=== PATIENT | male | born 1945 | race Caucasian/White ===

== ENCOUNTER 2021-06-21 11:07 | Outpatient (REF) | payer MEDICARE, SELFPAY ==
--- NOTE | ~2021-06-21 | XR_ITS ---
EXAMINATION: XR CHEST CLINICAL INFORMATION: Cough COMPARISON: None TECHNIQUE: 2 views of the chest were obtained. FINDINGS: The lungs are well expanded. There is no focal consolidation, edema, or effusion. No pneumothorax. The cardiomediastinal silhouette is within normal limits. No acute osseous abnormality. XR/XR chest 2V IMPRESSION: No acute pulmonary finding.
== END 2021-06-21 11:08 | disposition home or self-care (01) ==
LOC: HO.XRAY 11:07
PROVIDERS: PCP Internal Medicine Geriatric Medicine; Visit Provider Internal Medicine Geriatric Medicine
DX: R05.9 Cough, unspecified (principal)
CPT/HCPCS: 71046

== ENCOUNTER → 2021-11-21 11:23 | Outpatient (BNVA) | payer MEDICARE, SELFPAY | PROVIDERS: PCP Internal Medicine Geriatric Medicine; Referring Provider Internal Medicine Geriatric Medicine; Visit Provider Nurse Practitioner Family | DX: Z12.11 Encounter for screening for malignant neoplasm of colon (principal) | CPT/HCPCS: 99202 ==

== ENCOUNTER 2022-04-03 07:26 | Day surgery (SDC) | payer MEDICARE, SELFPAY ==
[2022-03-28 16:13] VITALS: BMI 34.3
--- NOTE | 2022-03-31 11:57 | HO.ANESPROP2 ---
Documented by User: Meron Cleveland NP 03/31/22 11:59 HPI - Anesthesia Eval Consult details Narrative: 76yo M for Colonoscopy FORMERLY [facility], [facility] Past Medical History Medical History (Updated 04/03/22 @ 07:39 by Simran Negrete MD) Diabetes HTN (hypertension) Prostate CA Family History Family History (Updated 11/21/21 @ 11:45 by Nona Che) Mother Bone cancer Father Diabetes Surgical History Surgical History History of prostate surgery History of urologic surgery Hx of appendectomy Hx of colonoscopy Hx of testicular mass Hx of umbilical hernia repair Social History Social History Household Members: Spouse Alcohol intake: current Alcohol intake frequency: holidays/special occasions only Patient Tobacco Use Status: Current everyday Tobacco user Tobacco use type: Cigar Smoked in Last 30 Days: Yes Are you DNR?: No Advance Directives: No Advance Directives Information Provided: Yes Meds Allergies Allergy/AdvReac Type Severity Reaction Status Date / Time Iodinated Contrast Media Allergy Severe ANAPHYLAXIS Verified 11/21/21 11:31 [IV CONTRAST] Home Medications Medication Instructions Recorded Confirmed Last Taken Type amlodipine 10 mg tablet 10 mg PO DAILY 11/21/21 04/03/22 History losartan 50 mg tablet 50 mg PO DAILY 11/21/21 Unknown History metformin 500 mg tablet 500 mg PO 11/21/21 Unknown History Exam Exam Date and Time: March 31, 2022 1157 Height,Weight and Vital Signs: Height 5 ft 4 in Weight 90.718 kg Assessment and Plan Assessment Anesthesia Assessment: Chart Reviewed Documented by User: Tania Fountain MD 04/03/22 08:37 FORMERLY [facility], [facility] Past Medical History Medical History (Updated 04/03/22 @ 07:39 by Simran Negrete MD) Diabetes HTN (hypertension) Prostate CA Family History Family History (Updated 11/21/21 @ 11:45 by Nona Che) Mother Bone cancer Father Diabetes Family history of problems with anesthesia: No Surgical History Surgical History History of prostate surgery History of urologic surgery Hx of appendectomy Hx of colonoscopy Hx of testicular mass Hx of umbilical hernia repair History of Problems with Anesthesia: No Social History Social History Household Members: Spouse Alcohol intake: current Alcohol intake frequency: holidays/special occasions only Patient Tobacco Use Status: Current everyday Tobacco user Tobacco use type: Cigar Smoked in Last 30 Days: Yes Are you DNR?: No Advance Directives: No Advance Directives Information Provided: Yes Meds Allergies Allergy/AdvReac Type Severity Reaction Status Date / Time Iodinated Contrast Media Allergy Severe ANAPHYLAXIS Verified 11/21/21 11:31 [IV CONTRAST] Home Medications Medication Instructions Recorded Confirmed Last Taken Type amlodipine 10 mg tablet 10 mg PO DAILY 11/21/21 04/03/22 History losartan 50 mg tablet 50 mg PO DAILY 11/21/21 Unknown History metformin 500 mg tablet 500 mg PO 11/21/21 Unknown History Exam Airway Mallampati Class: II TM Dist: >3cm Neck ROM: Full Denture: Upper and Lower Heart: rrr Lungs: cta Assessment and Plan Assessment Anesthesia Assessment: Anesthesia Plan Discussed Final Anesthetic Review Family History of Problems with Anesthesia: No History of Problems with Anesthesia: No NPO: Yes ASA Class: II Final Preanesthetic Review: No Changes in Pt Med Stat, Meds/Allgs Chart Reviewed and Consent Obtained/Reviewed Patient Risk: Intermediate Procedure Risk: Intermediate Anesthetic Plan Anesthetic Plan: MAC: Disposition: Standard PACU
[2022-04-03 07:30] VITALS: BMI 33.5
--- NOTE | 2022-04-03 07:38 | MHC.SHP ---
Pre-Procedural Eval Section A Date of Service: 04/03/22 The patient is an INPATIENT: No The History & Physical has been completed within 30 days and I have reviewed it.: No Section B Chief Complaint: Colon cancer screening Details of Present Illness: Colon cancer screening Relevant Family History (Specify if Yes): No Relevant Social History: Tobacco Use Present Medications: see Short Stay Collaborative assessment Medical History: Significant History (Diabetes mellitus, hypertension) History of Previous Operations: Relevant previous surgery/procedure and date(s) (History of prostate surgery History of urologic surgery Hx of appendectomy Hx of colonoscopy Hx of testicular mass Hx of umbilical hernia repair) Allergies: Allergies Allergy/AdvReac Type Severity Reaction Status Date / Time Iodinated Contrast Media Allergy Severe ANAPHYLAXIS Verified 11/21/21 11:31 [IV CONTRAST] Review of Systems Sugical H&P ROS: Negative: Constitution, Cardiovascular, Respiratory and Gastrointestinal Exam Surgical H&P Exam: Normal: Heart, Normal: Lungs, Normal: Extremities and Normal: Abdomen Plan Diagnosis/Plan: Unchanged I have reviewed the history and physical and performed a pertinent physical examination on my patient. No changes have occurred unless specified.
[2022-04-03 07:53] VITALS: BP 132/83; PULSE 76; RESP 18; TEMP 36.2; O2SAT 96
[2022-04-03 08:06] LABS: Glucose, Whole Blood 120 mg/dL (60-115)
[2022-04-03] MEDS: Lactated Ringers 1,000 ML 100 ML IVCONT (08:15)
--- NOTE | 2022-04-03 08:26 | P.OP_ITS ---
Operative Note Operative Note Date of Service: 04/03/22 Narrative: Pre-op diagnosis: Colon cancer screening Post-op diagnosis:?other ( colon polyps, diverticulosis, hemorrhoids) Procedure: COLONOSCOPY TILL CECUM WITH BIOPSIES AND SNARE POLYPECTOMY Consent: Indications for the procedure and potential complications of bleeding, perforation, reaction to medications and missed diagnosis were discussed with the patient and informed consent was obtained. Instrument: Olympus PCF H 190 L variable stiffness pediatric colonoscope Monitoring: Vital signs and clinical assessment, intermittent blood pressure monitoring, continuous EKG monitoring, Pulse oximetry and Carbon Dioxide monitoring were done throughout the procedure. Colon withdrawl time was 23 minutes. Procedure: The patient was placed in the left lateral decubitis position and pre-procedure medications were administered. After a digital rectal examination of the ano-rectum, the video colonoscope was inserted into the rectum and advanced through the colon to the cecum. The colonoscope was slowly withdrawn in a retrograde panoramic fashion and the colon mucosa was carefully examined including a retroflexed view of the rectum. Findings and interventions are described below. Procedure Difficulty: Without difficulty Findings: Terminal Ileum: Not evaluated Cecum:? Normal Ascending Colon:? Scattered moderate diverticulosis throughout the colon Transverse Colon:? Scattered moderate diverticulosis throughout the colon Descending Colon:? Scattered moderate diverticulosis throughout the colon Sigmoid Colon:? Two 5-7 mm diminutive appearing polyps - removed by cold bx. Scattered moderate diverticulosis throughout the colon Rectum:? Two 8 - 10 mm diminutive appearing polyps removed with a cold snare. Ano-rectum:? Moderate internal hemorrhoids Colon preparation:? Good after some irrigation and Fair in some areas due to stool balls Impression and Post Procedure Diagnosis: Colonoscopy Findings: Four small polyps removed Moderate diverticulosis seen in the entire colon Moderate hemorrhoids on retroflexed exam. Plan: Await pathology results Patient has an appointment on 04/17/22 in the GI [facility] with Katarina Liang FNP- [facility]. Repeat Colonoscopy interval based on path results - in 3-5 years if polyps are adenomatous and due to fair prep in some areas of the colon. (needs extra dose of laxatives - ? Duloclax x 3 days prior to the procedure for future colonoscopies) Above findings were reviewed with the patient and colon polyps and diverticulosis handouts were given in the discharge area Surgeon: Simran Negrete MD Anesthesia:?MAC (Dr Lopez) Was an Manager Architectural used for this Procedure?:?Yes Manager Architectural:?Day Garg Estimated blood loss (mL):?0 Pathology:?other (A. sigmoid polyps (2)? B. rectal polyps (2)) Condition:?stable Disposition:?PACU
[2022-04-03 09:20] VITALS: BP 115/63; PULSE 75; RESP 22; TEMP 36.9; O2SAT 95
[2022-04-03 09:35] VITALS: BP 109/84; PULSE 70; RESP 20; O2SAT 96
[2022-04-03 09:50] VITALS: BP 122/68; PULSE 67; RESP 18; TEMP 36.9; O2SAT 96
== END 2022-04-03 10:17 | disposition home or self-care (01) ==
PROVIDERS: PCP Internal Medicine Geriatric Medicine; Visit Provider Internal Medicine Gastroenterology
PROC: 0DJD8ZZ Inspection of Lower Intestinal Tract, Via Natural or Artificial Opening Endoscopic (ICD-10-PCS; CPT 45378; principal; 2022-04-03 08:30)
DX: Z12.11 Encounter for screening for malignant neoplasm of colon (principal); K63.5 Polyp of colon; K62.1 Rectal polyp; K57.30 Diverticulosis of large intestine without perforation or abscess without bleeding; K64.8 Other hemorrhoids; E11.9 Type 2 diabetes mellitus without complications; I10 Essential (primary) hypertension; Z85.46 Personal history of malignant neoplasm of prostate; Z79.84 Long term (current) use of oral hypoglycemic drugs; Z79.899 Other long term (current) drug therapy; Z91.041 Radiographic dye allergy status; Z98.890 Other specified postprocedural states; F17.210 Nicotine dependence, cigarettes, uncomplicated
CPT/HCPCS: 45385; 45380; 82947; 88305

== ENCOUNTER → 2022-04-17 08:00 | Outpatient (BNVA) | payer MEDICARE, SELFPAY | PROVIDERS: PCP Internal Medicine Geriatric Medicine; Referring Provider Internal Medicine Geriatric Medicine; Visit Provider Nurse Practitioner Family | DX: K57.90 Diverticulosis of intestine, part unspecified, without perforation or abscess without bleeding (principal); Z98.890 Other specified postprocedural states | CPT/HCPCS: 99212 ==

== ENCOUNTER 2022-10-06 14:09 | Outpatient (REF) | payer MEDICARE, SELFPAY ==
--- NOTE | ~2022-10-06 | XR_ITS ---
EXAMINATION: XR CHEST CLINICAL INFORMATION: Cough, dyspnea on exertion and crackles on auscultation. COMPARISON: Chest radiographs 06/21/2021 TECHNIQUE: 2 views of the chest were obtained. FINDINGS: Heart is upper limits of normal size, similar to prior study. The vascularity is normal. The lungs are clear. There is no hyperinflation, infiltrate, or effusion. The hilar and mediastinal contours and bony structures are similar to prior exam. XR/XR chest 2V IMPRESSION: No acute intrathoracic disease.
== END 2022-10-06 14:10 | disposition home or self-care (01) ==
LOC: HO.XRAY 14:09
PROVIDERS: PCP Internal Medicine Geriatric Medicine; Visit Provider Internal Medicine Geriatric Medicine
DX: R09.89 Other specified symptoms and signs involving the circulatory and respiratory systems (principal); R06.09 Other forms of dyspnea
CPT/HCPCS: 71046

== ENCOUNTER 2022-12-05 16:07 | Outpatient (REF) | payer MEDICARE, SELFPAY ==
--- NOTE | ~2022-12-05 | XR_ITS ---
EXAMINATION: XR LUMBOSACRAL SPINE CLINICAL INFORMATION: Low back pain COMPARISON: None available. TECHNIQUE: Three views of the lumbosacral spine. FINDINGS: Bone alignment is normal. No fracture or dislocation. Multilevel degenerative spondylosis and facet arthritis. No disc space narrowing. Severe atherosclerotic disease. Arthritis at the hip joints. XR/XR lumbar spine 2-3V IMPRESSION: Degenerative changes. Severe atherosclerotic disease.
== END 2022-12-05 16:08 | disposition home or self-care (01) ==
LOC: HO.HHCX 16:07
PROVIDERS: Visit Provider Internal Medicine Geriatric Medicine
DX: G51.0 Bell's palsy (principal)
CPT/HCPCS: 72100

== ENCOUNTER 2023-03-28 13:49 | Outpatient (AMB) | payer MEDICARE, SELFPAY ==
--- NOTE | 2023-03-28 14:12 | MHC.OFFVIS ---
Intake Vital Signs 03/28/23 14:15 Height 5 ft 4 in Weight 193 lb BMI 33.1 BP 125/72 Blood Pressure Location Lt brachial Position Sitting Pulse 71 Intake Visit Reasons: follow up requested from patient Intake Note: Patient follow up Patient cc: acid reflex on and off. Denies any other GI issues. Checking Department Supervisor Required: No Accompanied by: Spouse Allergies Iodinated Contrast Media [IV CONTRAST] Allergy (Severe, Verified 03/28/23 14:11) ANAPHYLAXIS HPI follow up requested from patient HPI Details LAST VISIT Diverticulosis Moderate diverticulosis throughout the colon. Discussed with patient diverticulosis diet. His encourage him to increase fiber in his diet. Patient can take [id number] fiber supplement. Patient his takes fiber supplements and they will get that ltog-ctq-recmrtm. Patient will also start taking stool softener. Patient's states that she has that at home as well because she takes it herself. Status post colonoscopy Patient denies any ill effects from the prep, anesthesia or procedure itself. Patient denies any melena, hematochezia, unintentional weight loss or ribbon like stools. Results discussed with patient. Patient does have moderate diverticulosis as mentioned above and was encouraged to increase fiber in his diet. Two hyperplastic polyps found. Patient had suboptimal prep and will need to return for colorectal screening in 3 years. I will see him in 3 months to re-evaluate. He is agreeable to this plan and verbalizes understanding of instructions. He was given the opportunity to ask questions and all questions answered. TODAY'S VISIT: Patient is here today for follow-up. Patient reports that he is moving his bowels without any issues. Taking stool softener only every other day. Patient denies melena, hematochezia, unintentional weight loss of in like stools. Patient reports occasional acid reflux postprandially. Patient reports that he uses hot sauce a lot. Does not eat much of fiber. cooks vegetables, however he chooses not to eat vegetables. Patient denies dyspepsia, dysphagia or odynophagia. Patient is due to return for colonoscopy in March of 2025. Patient denies any other GI concerning symptoms. FORMERLY [facility], [facility] Medical History (Updated 04/17/22 @ 09:24 by Katarina Liang [facility]) Diverticulosis Diabetes HTN (hypertension) Prostate CA Surgical History History of urologic surgery Hx of colonoscopy Hx of appendectomy Hx of testicular mass Hx of umbilical hernia repair History of prostate surgery Family History Mother Bone cancer Father Diabetes Social History Household Members: Spouse Alcohol intake: current Alcohol intake frequency: holidays/special occasions only Patient Tobacco Use Status: Current everyday Tobacco user Tobacco use type: Cigar Review of Systems Const Denies weight gain and Denies weight loss ENT Reports no additional complaints, Denies dysphagia and Denies odynophagia Card Reports no additional complaints Resp Reports no additional complaints GI Denies abdominal pain, Denies belching, Denies melena, Denies bloating, Denies change in bowel habits, Denies dysphagia, Denies excessive flatus, Denies dyspepsia, Reports heartburn, Denies diarrhea, Denies loose stools, Denies nausea, Denies odynophagia and Denies vomiting Reports no additional complaints Musc Reports no additional complaints Neuro Reports no additional complaints Psych Reports no additional complaints Endo Reports no additional complaints Physical Exam Vital Signs: Last Vital Signs Pulse 71 03/28/23 14:15 BP 125/72 03/28/23 14:15 BMI result Body Mass Index 33.1 Const General: healthy appearing, no acute distress and well developed Nutritional Appearance: obese Orientation/consciousness: patient oriented x3 HEENT Head: Yes normal to inspection, Yes normocephalic and Yes atraumatic Face and sinus: Yes normal facial exam Mouth: Normal oral and palatal mucosa present Throat: Yes posterior oropharynx normal, Yes tonsils normal and Yes uvula midline Eyes General: appearance normal, both eyes and all related structures Neck Neck: Yes normal visual inspection, Yes full ROM and Yes trachea midline Thyroid: Thyroid normal Resp Effort & Inspection: normal respiratory effort, able to speak in complete sentences, no tracheal deviation and symmetric chest movement Auscultation: clear to auscultation bilaterally Cardio Rate: regular rate Heart sounds: S1 normal heart sound present and S2 normal heart sound present GI Inspection: Yes normal to inspection, No distended and Yes obesity Palpation (GI): Soft to palpation, not firm, nontender and No hepatosplenomegaly present Auscultation: normal bowel sounds General: Yes no CVA tenderness Back/Spine/Pelvis Back: no CVA tenderness Skin General skin exam: elasticity normal, turgor normal and dry skin Neuro General: patient oriented x3 Psych Appearance: grossly normal Mental Status: mental status grossly normal Speech and movement: Normal speech and movement present Assessment & Plan Assessment & Plan (1) Diverticulosis: Code(s): K57.90 - Diverticulosis of intestine, part unspecified, without perforation or abscess without bleeding Plan: Continue high-fiber diet (2) GERD (gastroesophageal reflux disease): Code(s): K21.9 - Gastro-esophageal reflux disease without esophagitis Qualifiers: Esophagitis presence: esophagitis presence not specified Qualified Code(s): K21.9 - Gastro-esophageal reflux disease without esophagitis Plan: Avoid dietary triggers a late night snacking. Stay upright for minimum 3 hours after meals discussed with patient. Patient can start taking omeprazole 20 mg half an hour before breakfast. He will return in 1 year, sooner on as needed basis. Patient is agreeable to this plan and verbalizes understanding of instructions. He was given the opportunity to ask questions and all questions answered. Thank you for allowing me to participate in his care Medications: New omeprazole 20 mg PO DAILY 90 caps 2RF K21.9 - Gastro-esophageal reflux disease without esophagitis Coding Level of Care Code Est Pt Level 3 (70229) Diagnoses Diverticulosis K57.90 Gastroesophageal reflux disease, unspecified whether esophagitis present K21.9 Esophagitis presence: esophagitis presence not specified Time Spent (min) 25 Comment 15 minutes spent with patient and additional 10 minutes spent reviewing his records
[2023-03-28 14:15] VITALS: BP 125/72; PULSE 71; BMI 33.1
== END 2023-03-28 14:35 | disposition home or self-care (01) ==
PROVIDERS: PCP Internal Medicine Geriatric Medicine; Visit Provider Nurse Practitioner Family
DX: K57.90 Diverticulosis of intestine, part unspecified, without perforation or abscess without bleeding (principal); K21.9 Gastro-esophageal reflux disease without esophagitis
CPT/HCPCS: 99213

== ENCOUNTER → 2023-03-28 13:49 | Outpatient (BNVA) | payer MEDICARE, SELFPAY | PROVIDERS: PCP Internal Medicine Geriatric Medicine; Visit Provider Nurse Practitioner Family | DX: K57.90 Diverticulosis of intestine, part unspecified, without perforation or abscess without bleeding (principal); K21.9 Gastro-esophageal reflux disease without esophagitis | CPT/HCPCS: 99212 ==

== ENCOUNTER 2023-11-21 09:54 | Outpatient (AMB) | payer MEDICARE, SELFPAY ==
--- NOTE | 2023-11-21 10:05 | MHC.OFFVIS ---
Vital Signs 11/21/23 10:07 Height 5 ft 4 in Weight 191 lb BMI 32.8 BP 147/71 H Blood Pressure Location Lt brachial Position Sitting Respiration 14 Pulse 83 Pulse Source Pulse Oximeter Pulse Oximetry (%) 96 Oxygen Delivery Method Room Air Intake Visit Reasons: chronic low back pain Allergies Iodinated Contrast Media [IV CONTRAST] Allergy (Severe, Verified 11/21/23 10:08) ANAPHYLAXIS Medication List - Last Reconciled 11/21/23 by Maxine Pillai LPN amlodipine 10 mg PO DAILY docusate sodium (Stool Softener) 100 mg PO DAILY ezetimibe 10 mg PO DAILY losartan 50 mg PO DAILY metformin 500 mg PO jxkaxquhgale-netamsjo-bltyst 1 tab PO DAILY HPI HPI chronic low back pain: Details: This is a 78 year old gentleman presenting with a 12-year history of severe back pain that radiates to his bilateral lower extremities. The problem started while he was working. The pain is described as an aching sensation in his lower back that radiates towards his bilateral lower extremities. It is also associated with burning and numbness in his feet, the pain in his back is rated as 8 out of 10. The burning sensation in his right leg is rated at 6 out of 10 in intensity. He is able to care for himself, but the pain interferes with his sleep and daily activities. His pain is worse with weather changes and movements. It is worse during the afternoon and evenings when it is up to 8 out of 10 in intensity. At other times, it is down to about 5 to 6 out of 10 and intensity, topical medications help sometimes. He is able to walk on his own, but needs help with the walker. Currently, he is not taking any medications for pain. He previously had an x-ray at [facility] that showed severe spondylosis at multiple levels throughout the lumbar spine. Also complains of right foot drop. His reports that he has difficulty moving his right leg and often finds himself dragging it because of weakness. [facility] Medical History (Updated 11/27/23 @ 15:55 by Jaime Alvarado MD) Diverticulosis Diabetes HTN (hypertension) Prostate CA Surgical History History of urologic surgery Hx of colonoscopy Hx of appendectomy Hx of testicular mass Hx of umbilical hernia repair History of prostate surgery Family History Mother Bone cancer Father Diabetes Social History Household Members: Spouse Alcohol intake: current Alcohol intake frequency: holidays/special occasions only Patient Tobacco Use Status: Current everyday Tobacco user Tobacco use type: Cigar Review of Systems Const All systems reviewed & are unremarkable except as noted in HPI and below Physical Exam Vital Signs: Last Vital Signs Pulse 83 11/21/23 10:07 Resp 14 11/21/23 10:07 BP 147/71 H 11/21/23 10:07 Pulse Ox 96 11/21/23 10:07 Oxygen Delivery Method Room Air 11/21/23 10:07 BMI result Body Mass Index 32.8 General: Appears afebrile. Alert and oriented. Mood and affect appropriate. Follows and participates in conversation appropriately. Respiratory effort is unlabored. Able to transition from sit to stand unassisted. He is able to stand on his toes and heels bilaterally at the same time. However, when asked to stand on his right toe alone, he has subjective difficulty compared to the left side. Facet loading reproduces pain. Results Reviewed Results Reviewed: 12/05/22: XR LUMBOSACRAL SPINE FINDINGS: Bone alignment is normal. No fracture or dislocation. Multilevel degenerative spondylosis and facet arthritis. No disc space narrowing. Severe atherosclerotic disease. Arthritis at the hip joints. IMPRESSION: Degenerative changes. Severe atherosclerotic disease. Assessment & Plan Assessment & Plan (1) Lumbar radiculopathy: Code(s): M54.16 - Radiculopathy, lumbar region Category: Medical (2) Lumbar spondylosis: Code(s): M47.816 - Spondylosis without myelopathy or radiculopathy, lumbar region Category: Medical Plan MRI of the lumbar spine given history of lower back pain, radiating pain to the legs, as well as right foot drop and right lower extremity weakness. For his axial low back pain secondary to severe spondylosis on his imaging and exam, we will schedule him for bilateral L3, L4, L5 medial branch block. Justification for interventional therapy: Patient with average pain > 6/10 Patient has exhausted conservative therapy including physical therapy and oral medications Scribed for Dr. Alvarado by Sania Marcial claim review medical director, on 11/21/2023. I, Dr. Alvarado, have personally reviewed and agree with the information entered by the scribe. Orders: Orders MR lumbar spine wo con 11/21/23 M54.16 - Radiculopathy, lumbar region Coding Level of Care Code New Pt Level 4 (60823) Diagnoses Lumbar radiculopathy M54.16 Lumbar spondylosis M47.816
[2023-11-21 10:07] VITALS: BP 147/71; PULSE 83; RESP 14; O2SAT 96; BMI 32.8
== END 2023-11-21 10:45 | disposition home or self-care (01) ==
PROVIDERS: PCP Internal Medicine Geriatric Medicine; Visit Provider Internal Medicine
DX: M54.16 Radiculopathy, lumbar region (principal); M47.816 Spondylosis without myelopathy or radiculopathy, lumbar region
CPT/HCPCS: 99204

== ENCOUNTER → 2023-11-21 09:54 | Outpatient (BNVA) | payer MEDICARE, SELFPAY | PROVIDERS: PCP Internal Medicine Geriatric Medicine; Visit Provider Internal Medicine | DX: M54.16 Radiculopathy, lumbar region (principal); M47.816 Spondylosis without myelopathy or radiculopathy, lumbar region | CPT/HCPCS: 99202 ==

== ENCOUNTER 2023-12-05 12:47 | Outpatient (REF) | payer MEDICARE, SELFPAY ==
--- NOTE | ~2023-12-05 | XR_ITS ---
EXAMINATION: XR CHEST CLINICAL INFORMATION: Cough and shortness of breath COMPARISON: 10/06/2022 TECHNIQUE: 2 views of the chest were obtained. FINDINGS: No significant abnormality is noted involving the heart, lungs, mediastinum, bony thorax or soft tissues. Some bibasilar atelectasis have been present previously has resolved. XR/XR chest 2V IMPRESSION: Unremarkable examination.
== END 2023-12-05 12:48 | disposition home or self-care (01) ==
LOC: HO.HHCX 12:47
PROVIDERS: Visit Provider Family Medicine
DX: R05.1 Acute cough (principal)
CPT/HCPCS: 71046

== ENCOUNTER 2023-12-06 06:10 | Outpatient (REF) | payer MEDICARE, SELFPAY | END 2023-12-06 06:11 | disposition home or self-care (01) | LOC: CF 06:10 | PROVIDERS: Visit Provider Internal Medicine | DX: Z13.89 Encounter for screening for other disorder (principal) ==

== ENCOUNTER 2023-12-06 08:00 | Outpatient (REF) | payer MEDICARE, SELFPAY ==
--- NOTE | ~2023-12-06 | MM_ITS ---
EXAMINATION: MM DIAGNOSTIC DIGITAL BREAST TOMOSYNTHESIS, RIGHT US BREAST LIMITED, RIGHT MAMMOGRAPHY: CLINICAL INFORMATION: 2 cm firm mobile palpable abnormality right breast 10:00 axis. COMPARISON: Mammography: None. Baseline exam. TECHNIQUE: Digital breast tomosynthesis is performed in both the craniocaudal and mediolateral oblique views along with computer-aided detection (CAD). Synthesized 2D images are generated from the tomosynthesis. In addition, spot compression 3-D views of the right breast palpable focus were provided. FINDINGS: The breasts are almost entirely fatty (ACR BI-RADS breast composition Category a). There are no significant masses, abnormal calcifications, or other abnormalities. The palpable abnormality in the right breast at the marked by a BB marker by the technologist. No definite subjacent mass is evident. There is a tortuous artery which lies directly under the BB marker, although is unlikely to represent a palpable focus. No suspicious calcifications, or areas of architectural distortion in either breast. No evidence of gynecomastia. ULTRASOUND: CLINICAL INFORMATION: Palpable abnormality 10:00 axis right breast, 2 cm firm and mobile. COMPARISON: None TECHNIQUE: Targeted sonographic evaluation was performed using a high frequency linear transducer. Attention was given to the palpable focus right breast. Selected archived documentation. FINDINGS: RIGHT BREAST: -There are 3 distinct subcutaneous lipomas directly at the region of palpable concern. A superficial subcutaneous lipoma measures 1.8 x 1.1 x 1.3 cm. An immediately more lateral lipoma is present with a diameter measuring 2.6 cm. Deep to both of these is a lipoma lying on the pectoralis muscle measuring 3.5 x 1.5 x 3.8 cm. No internal color Doppler flow or soft tissue elements are identified. No associated calcifications. There is good through transmission. These have a thin echogenic capsule surrounding them. These findings are benign. There are no suspicious finding. MM/MM tomosynthesis diagnostic BI IMPRESSION: There are no findings suspicious for malignancy in either breast. Region of palpable concern 10:00 axis right breast represents 3 grouped subcutaneous lipomas, which are benign. There are no suspicious features. Clinical management recommended if warranted. OVERALL ASSESSMENT: Mammography: BI-RADS 2 - Benign Findings Ultrasound: BI-RADS 2 - Benign Findings RECOMMENDATION: 1. Patient should be managed based on the clinical impression.
== END 2023-12-06 08:01 | disposition home or self-care (01) ==
LOC: HO.MAMMO 08:00
PROVIDERS: PCP Internal Medicine Geriatric Medicine; Visit Provider Family Medicine
DX: N63.11 Unspecified lump in the right breast, upper outer quadrant (principal)
CPT/HCPCS: 76642; 77062; 77066

== ENCOUNTER → 2023-12-06 08:30 | Outpatient (BNV) | payer MEDICARE, SELFPAY | PROVIDERS: PCP Internal Medicine Geriatric Medicine; Visit Provider Radiology Diagnostic Radiology | DX: N63.11 Unspecified lump in the right breast, upper outer quadrant (principal) | CPT/HCPCS: 76642; 77065; G0279 ==

== ENCOUNTER 2024-01-30 08:05 | Outpatient (REF) | payer MEDICARE, SELFPAY ==
[2024-01-30 08:30] LABS: MANUAL DIFF FLAG NO
[2024-01-30 08:55] LABS: Basophils Absolute Auto 0.1 X10*3/uL (0.0-0.2); Basophils Percent Auto 1.8 % (0-2); Eosinophils Absolute Auto 0.5 X10*3/uL (0.0-0.4); Eosinophils Percent Auto 6.2 % (0-4); Hemoglobin 13.2 g/dl (14.0-18.0); Imm Gran Abs Auto 0.03 X10*3/uL (0.00-0.03); Imm Gran Pct Auto 0.4 % (0.0-0.4); Lymphocytes Absolute Auto 1.9 X10*3/uL (1.2-4.9); Lymphocytes Percent Auto 24.7 % (20-40); Mean Corpuscular Hemoglobin 27.4 pg (27.0-33.0); Mean Corpuscular Volume 83.2 fL (80.0-98.0); Mean Platelet Volume 9.4 fL (9.4-12.4); Monocytes Absolute Auto 0.9 X10*3/uL (0.1-1.2); Neutrophils Absolute Auto 4.3 x10*3/uL (2.0-8.3); Neutrophils Percent Auto 54.9 % (45-73); Platelet Count 320 X10*3/uL (160-400); Red Blood Count 4.81 X10*6/uL (4.60-5.80); Red Cell Distribution Width 14.8 % (11.0-16.0); White Blood Count 7.8 X10*3/uL (4.8-10.8)
[2024-01-30 09:24] LABS: Anion Gap 13 (12-20); Blood Urea Nitrogen 15 mg/dL (9-16); Carbon Dioxide 22 mmol/L (22-29); Chloride 106 mmol/L (96-108); Potassium 4.3 mmol/L (3.3-5.1); Sodium 137 mmol/L (135-145)
[2024-01-30 09:25] LABS: Alanine Aminotransferase 14 U/L (0-40); Alkaline Phosphatase 60 U/L (39-117); Aspartate Amino Transferase 13 U/L (5-37); Bilirubin Total 0.3 mg/dL (0.0-1.0); Calcium 9.7 mg/dL (8.4-10.2); Cholesterol 180 mg/dL (<200); Estimated Glomerular Filt Rate 57; Glucose Random 108 mg/dL (60-115); HDL Cholesterol 40 mg/dL (>40); LDL Cholesterol Calculated 100 mg/dL (<100); Total Protein 6.8 g/dL (6.5-8.0); Triglycerides 200 mg/dL (<150)
[2024-01-30 10:05] LABS: Creatinine Urine 103.25 mg/dL; Microalbum/Creatinine Ratio Ur 79.4 ug/mg cr (<30)
== END 2024-01-30 08:06 | disposition home or self-care (01) ==
LOC: HO.LAB 08:05
PROVIDERS: PCP Internal Medicine Geriatric Medicine; Visit Provider Internal Medicine Geriatric Medicine
DX: E78.00 Pure hypercholesterolemia, unspecified (principal); E11.69 Type 2 diabetes mellitus with other specified complication; I10 Essential (primary) hypertension; M54.50 Low back pain, unspecified; G89.29 Other chronic pain
CPT/HCPCS: 36415; 80053; 80061; 82043; 82570; 85025

== ENCOUNTER 2024-05-09 08:25 | Outpatient (AMB) | payer MEDICARE, SELFPAY ==
--- NOTE | 2024-05-09 08:29 | A.OFFVIS_ITS ---
Vital Signs 05/09/24 08:35 Height 5 ft 4 in Weight 197 lb 1.492 oz BMI 33.8 BP 148/68 H Blood Pressure Location Lt brachial Position Sitting Pulse 74 Pulse Source Pulse Oximeter Pulse Oximetry (%) 95 Oxygen Delivery Method Room Air Intake Visit Reasons: Diverticulosis Intake Note: Relevant Flags or Indicators ? Requires Clay Plant Treater? N Juan Alberto presents in office today for a scheduled ~ 1 year FUV. CC; No recent labs, diagnostics, or med orders placed. ? Relevant GI Sx as reported per pt? None ? Hx of any recent surgeries? Pt had colo x3 years ago. Believes that they could possibly be due for recall. Clay Plant Treater Required: No Allergies Iodinated Contrast Media [IV CONTRAST] Allergy (Severe, Verified 05/09/24 08:31) ANAPHYLAXIS HPI HPI Diverticulosis: Details: LAST VISIT Diverticulosis Continue high-fiber diet GERD (gastroesophageal reflux disease) Avoid dietary triggers a late night snacking. Stay upright for minimum 3 hours after meals discussed with patient. Patient can start taking omeprazole 20 mg half an hour before breakfast. He will return in 1 year, sooner on as needed basis. Patient is agreeable to this plan and verbalizes understanding of instructions. He was given the opportunity to ask questions and all questions answered. ? Thank you for allowing me to participate in his care Plan Medications New omeprazole 20 mg PO DAILY 90 caps 2RF K21.9 TODAY'S VISIT Patient is here today for follow-up. Patient reports that he has been feeling well since last visit. Patient has good appetite denies any melena, hematochezia, unintentional weight loss or ribbon like stools. Patient no longer is taking omeprazole reports that he has no symptoms of acid reflux. Denies dyspepsia, dysphagia or odynophagia. Patient is accompanied by his . He is due to go for colonoscopy end of next year. Patient denies any GI concerning symptoms. [facility] Medical History Diverticulosis Diabetes HTN (hypertension) Prostate CA Surgical History History of urologic surgery Hx of colonoscopy Hx of appendectomy Hx of testicular mass Hx of umbilical hernia repair History of prostate surgery Family History Mother Bone cancer Father Diabetes Social History Household Members: Spouse Alcohol intake: current Alcohol intake frequency: holidays/special occasions only Patient Tobacco Use Status: Current everyday Tobacco user Tobacco use type: Cigar Review of Systems Const Denies weight gain and Denies weight loss ENT Reports no additional complaints, Denies dysphagia and Denies odynophagia Card Reports no additional complaints Resp Reports no additional complaints GI Denies abdominal pain, Denies belching, Denies melena, Denies bloating, Denies change in bowel habits, Denies dysphagia, Denies excessive flatus, Denies dyspepsia, Denies heartburn, Denies diarrhea, Denies loose stools, Denies nausea, Denies odynophagia and Denies vomiting Reports no additional complaints Musc Reports no additional complaints Neuro Reports no additional complaints Psych Reports no additional complaints Endo Reports no additional complaints Physical Exam Vital Signs: Last Vital Signs Pulse 74 05/09/24 08:35 BP 148/68 H 05/09/24 08:35 Pulse Ox 95 05/09/24 08:35 Oxygen Delivery Method Room Air 05/09/24 08:35 BMI result Body Mass Index 33.8 Const General: healthy appearing, no acute distress and well developed Nutritional Appearance: obese Orientation/consciousness: patient oriented x3 Resp Effort & Inspection: normal respiratory effort, able to speak in complete sentences, no tracheal deviation and symmetric chest movement Auscultation: clear to auscultation bilaterally Cardio Rate: regular rate Heart sounds: S1 normal heart sound present and S2 normal heart sound present GI Inspection: Yes normal to inspection, No distended and Yes obesity Palpation (GI): Soft to palpation, not firm, nontender and No hepatosplenomegaly present Auscultation: normal bowel sounds General: Yes no CVA tenderness Back/Spine/Pelvis Back: no CVA tenderness Skin General skin exam: elasticity normal, turgor normal and dry skin Neuro General: patient oriented x3 Psych Appearance: grossly normal Mental Status: mental status grossly normal Assessment & Plan Assessment & Plan (1) Diverticulosis: Code(s): K57.90 - Diverticulosis of intestine, part unspecified, without perforation or abscess without bleeding Category: Medical (2) GERD (gastroesophageal reflux disease): Code(s): K21.9 - Gastro-esophageal reflux disease without esophagitis Qualifiers: Esophagitis presence: esophagitis presence not specified Qualified Code(s): K21.9 - Gastro-esophageal reflux disease without esophagitis Plan Patient will continue avoiding dietary triggers. Avoid eating late at night. Staying upright for minimum 3 hours after meals discussed with patient. Increase fluid intake and activity to promote better bowel motility. Patient will return in 1 year to discuss prepping for colonoscopy. Patient will need to take Dulcolax 3-5 days before the procedure as he had suboptimal prep last procedure. Both patient and his are agreeable to plan of care and verbalizes understanding of instructions. They were given the opportunity to ask questions and all questions answered. Thank you for allowing me to participate in his care Coding Level of Care Code Est Pt Level 3 (69694) Diagnoses Diverticulosis K57.90 Gastroesophageal reflux disease, unspecified whether esophagitis present K21.9 Esophagitis presence: esophagitis presence not specified Time Spent (min) 25 Comment 15 minutes spent with patient and additional 10 minutes spent reviewing his records
[2024-05-09 08:35] VITALS: BP 148/68; PULSE 74; O2SAT 95; BMI 33.8
== END 2024-05-09 09:15 | disposition home or self-care (01) ==
PROVIDERS: PCP Internal Medicine Geriatric Medicine; Visit Provider Nurse Practitioner Family
DX: K57.90 Diverticulosis of intestine, part unspecified, without perforation or abscess without bleeding (principal); K21.9 Gastro-esophageal reflux disease without esophagitis
CPT/HCPCS: 99213

== ENCOUNTER → 2024-05-09 08:25 | Outpatient (BNVA) | payer MEDICARE, SELFPAY | PROVIDERS: PCP Internal Medicine Geriatric Medicine; Visit Provider Nurse Practitioner Family | DX: K57.90 Diverticulosis of intestine, part unspecified, without perforation or abscess without bleeding (principal); K21.9 Gastro-esophageal reflux disease without esophagitis | CPT/HCPCS: 99212 ==

== ENCOUNTER 2024-06-09 11:28 | Outpatient (REF) | payer MEDICARE, SELFPAY ==
[2024-06-09 13:18] LABS: MANUAL DIFF FLAG NO
[2024-06-09 13:35] LABS: Basophils Absolute Auto 0.1 X10*3/uL (0.0-0.2); Basophils Percent Auto 1.5 % (0-2); Eosinophils Absolute Auto 0.4 X10*3/uL (0.0-0.4); Eosinophils Percent Auto 4.4 % (0-4); Hematocrit 42.4 % (42.0-52.0); Hemoglobin 13.7 g/dl (14.0-18.0); Imm Gran Abs Auto 0.05 X10*3/uL (0.00-0.03); Imm Gran Pct Auto 0.6 % (0.0-0.4); Lymphocytes Absolute Auto 1.6 X10*3/uL (1.2-4.9); Lymphocytes Percent Auto 20.1 % (20-40); Mean Corpuscular HGB Conc 32.3 g/dl (31.0-36.0); Mean Corpuscular Hemoglobin 27.5 pg (27.0-33.0); Mean Corpuscular Volume 85.1 fL (80.0-98.0); Mean Platelet Volume 10.3 fL (9.4-12.4); Monocytes Absolute Auto 0.9 X10*3/uL (0.1-1.2); Monocytes Percent Auto 10.9 % (2-11); Neutrophils Percent Auto 62.5 % (45-73); Platelet Count 325 X10*3/uL (160-400); Red Blood Count 4.98 X10*6/uL (4.60-5.80); Red Cell Distribution Width 14.2 % (11.0-16.0)
[2024-06-09 13:53] LABS: C Reactive Protein 0.16 mg/dL (< or = 0.50)
[2024-06-09 14:20] LABS: Erythrocyte Sedimentation Rate 7 MM/HR (0-15)
== END 2024-06-09 11:29 | disposition home or self-care (01) ==
LOC: HO.HHCL 11:28
PROVIDERS: Visit Provider Nurse Practitioner Family
DX: K11.8 Other diseases of salivary glands (principal)
CPT/HCPCS: 36415; 85025; 85652; 86140

== ENCOUNTER 2024-06-11 12:54 | Outpatient (REF) | payer MEDICARE, SELFPAY ==
--- NOTE | ~2024-06-11 | US_ITS ---
EXAMINATION: US SOFT TISSUES carotid left CLINICAL INFORMATION: Pain. COMPARISON: None TECHNIQUE: High-frequency linear transducer ultrasound utilized area of interest scanned. FINDINGS: Left parotid appear normal, there is a tiny cyst within the left parotid measuring 3 x 4 mm probably of no clinical significance. No ultrasound evidence of ductal dilatation or stones. Included in the images normal shotty cervical lymph nodes with normal cortex measuring up to 6 mm and 8mm. US/US soft tiss head and/or neck IMPRESSION: No ultrasound explanation for patient's pain symptoms. Small cyst left parotid 4 mm probably of no clinical significance. Electronically signed by: Svetlana Verde MD 06/12/2024 11:31 AM SHIRLENE HARGROVE
== END 2024-06-11 12:55 | disposition home or self-care (01) ==
LOC: HO.US 12:54
PROVIDERS: PCP Internal Medicine Geriatric Medicine; Visit Provider Nurse Practitioner Family
DX: K11.8 Other diseases of salivary glands (principal)
CPT/HCPCS: 76536

== ENCOUNTER 2024-07-04 16:05 | Outpatient (REF) | payer MEDICARE, SELFPAY ==
[2024-07-04 16:18] LABS: Appearance Urine Cloudy; Color Urine Yellow; Glucose Urine UA 100 mg/dL (Negative); Leukocyte Esterase Urine Moderate (2+) (Negative); Nitrite Urine Negative (Negative); UMIC TRIGGER UACC YES; Urine Blood Moderate (2+) (Negative); Urine Ketones Trace mg/dL (Negative); Urine Protein 100 (2+) mg/dL (Neg-Trace)
[2024-07-04 16:20] LABS: Bacteria Urine Trace (None Seen); Hyaline Casts Urine 0-2 /LPF (0-2); RBC Urine >20 /HPF (0-2); Squamous Epithelial Cell Urine 0-2 /HPF (0-2); UACC Culture Trigger YES; WBC Urine >50 /HPF (0-5)
== END 2024-07-04 16:06 | disposition home or self-care (01) ==
LOC: HO.HHCLNP 16:05
PROVIDERS: Visit Provider Nurse Practitioner Family
DX: R30.0 Dysuria (principal)
CPT/HCPCS: 81001; 87086; 87088; 87186

== ENCOUNTER 2024-08-05 08:41 | Outpatient (REF) | payer MEDICARE, SELFPAY ==
[2024-08-05 11:31] LABS: Appearance Urine Clear; Color Urine Yellow; Glucose Urine UA Negative (Negative); Leukocyte Esterase Urine Negative (Negative); Nitrite Urine Negative (Negative); PH 6.5 (5.0-9.0); UMIC TRIGGER UACC YES; Urine Blood Negative (Negative); Urine Ketones Negative (Negative); Urine Protein 30 (1+) mg/dL (Neg-Trace)
[2024-08-05 11:40] LABS: Bacteria Urine None Seen (None Seen); Hyaline Casts Urine 0-2 /LPF (0-2); RBC Urine 0-2 /HPF (0-2); Squamous Epithelial Cell Urine 0-2 /HPF (0-2); WBC Urine 0-5 /HPF (0-5)
== END 2024-08-05 08:42 | disposition home or self-care (01) ==
LOC: HO.HHCL 08:41
PROVIDERS: Visit Provider Nurse Practitioner Family
DX: R30.0 Dysuria (principal)
CPT/HCPCS: 81001

== ENCOUNTER 2024-08-07 23:11 | Emergency (ER) | payer MEDICARE, SELFPAY ==
--- NOTE | ~2024-08-07 | CT_ITS ---
CLINICAL HISTORY: Dysuria, blood in urine CT abdomen and pelvis without contrast Comparison: CT of the abdomen and pelvis from 07/26/2018 Findings: Mild bibasilar atelectasis. Mild cardiomegaly with multi chamber enlargement of the imaged heart. 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 Redemonstration of multiple cystic lesions of the left kidney with largest exophytic measuring 12 cm long axis (previously 11 cm). No hydronephrosis accounting for multiple parapelvic cysts, left worse than right. These lesions in the kidneys not further characterize without contrast. No obstructing stone in either kidney or either ureter. Gallbladder is unremarkable for CT with motion artifacts. Adrenal glands are within limits of normal. The spleen is nonenlarged. Mild volume loss of the pancreas is noted. Liver is unremarkable for noncontrast imaging with motion artifacts. Small mesenteric and periaortic lymph nodes are nonspecific and may be reactive. Vascular calcifications are multifocal including imaged aorta and its branches. No small bowel obstruction. Wall thickening of the large intestine is nonspecific and likely related to underdistention in this noncontrast study including sigmoid colon. Severe stool burden is noted. Diverticula are redemonstrated multifocal. The appendix is not definitively seen with likely medially directed appendiceal stump. No free intraperitoneal air. Previous procedure changes noted including surgical clips in the josefa about right ventral abdominal wall. Moderate wall thickening of the urinary bladder is nonspecific. Prostate gland is diminutive and/or treated. Subcutaneous edema is noted dependently. Mild vertebral height losses appear old chronic. Degenerative changes include lower lumbar facet arthropathy. 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 Mild pelvis deformities appear old chronic. IMPRESSION: 1. Moderate wall thickening of the urinary bladder is nonspecific. 2. No obstructing stone in either kidney or either ureter. 3. Severe stool burden. No small bowel obstruction. This document has been electronically signed by: Stone Trejo MD on 08/08/2024 02:12:07
[2024-08-07 23:12] VITALS: BP 146/86; PULSE 92; RESP 20; TEMP 37.7; O2SAT 96; BMI 33.8
--- OUTSIDE RECORDS SUMMARY | 2024-08-07 23:42 | XMS_ITS | Encounter Summary ---
Author Organization [employer] Address [address] [place] [address] [address] [place] [address] Care Team Providers Care Health Safety Instructor Name Role Phone Name, Kayden PITTMAN Primary Care Provider [phone] Encounter Details Date Type Department Care Team (Late Contact Info) Description 12/15/[address] [facility] [address] [place] [address] [phone] Name, MD Kayden [address] [place] [phone] Social History Tobacco Use Types Packs/Day Years Used Date Smoking Tobacco: Every Day Cigars Passive Smoke Exposure: Never Smokeless Tobacco: Current Alcohol Use Standard Drinks/Week Comments Yes 0 (1 standard drink = 0.6 oz pur e alcohol) occasionally PHQ-2 Answer Date Recorded Patient Health Questionnaire-2 Score 0 06/21/2022 Depression Answer Date Recorded Patient Health Questionnaire-2 Score 0 06/21/2022 Sex and Gender Information Value Date Recorded Sex Assigned at Male 05/15/2022 10:29 AM EDT Legal Sex Male 10:29 AM EDT Gender Identity Male 05/15/2022 10:29 AM EDT Sexual Orientation Straight 05/15/2022 10 :29 AM EDT COVID-19 Exposure Response Date Recorded In the last 10 days, have yo u been in contact with someone who was confirmed or suspected to have Coronavirus/COVID-19? No / Unsure 12/05/2022 3:05 PM EDT documented as of this encounter Plan of Treatment Upcoming Encounters Date Type Department Care Team (Late Contact Info) Description 08/11/2024 9:30 AM EST Office Visit [facility] [address] [place] [address] [phone] Sera Cuevas NP [address] [place] [address] 09/26/2024 10:15 AM EDT Office Visit [facility] [address] [place] [address] Name, MD Kayden [address] [place] [address] documented as of this encounter Visit Diagnoses Not on filedocumented in this encounter Care Teams Health Safety Instructor Relationship Specialty Start Date End Date Name, MD Kayden [address] [place] [phone] PCP - General Family Medicine 08/23/15 documented as of this encounter
--- OUTSIDE RECORDS SUMMARY | 2024-08-07 23:42 | XMS_ITS | Encounter Summary ---
Author Organization [employer] Address [address] 7[address] [place] [address] Care Team Providers Care Licensed Tax Consultant Name Role Phone Name, Kayden PITTMAN Primary Care Provider [phone] Encounter Details Date Type Department Care Team ([facility] st Contact Info) Description 07/31/2024 Telephone [facility] [address] [place], [place] [phone] Tomasa Robertson, RN Social History Tobacco Use Types Packs/Day Years Used Date Smoking Tobacco: Every Day Cigars Passive Smoke Exposure: Never Smokeless Tobacco: Current Alcohol Use Standard Drinks/Week Comments Yes 0 (1 standard drink = 0.6 oz pur e alcohol) occasionally Alcohol Answer Date Recorded Frequency of Alcohol Consumption Not on file 02/13/2024 Average Number of Drinks Not on file 024 Frequency of Binge Drinking Not on file 01/15 Score 0 02/13/2024 Depression Answer Date Recorded Patient Health Questionnaire-9 Score 0 08/14/2023 Patient Health Questionnaire-9 Score 0 08/14/2023 Last PHQ-9: Questionnaire Data Not on file 0 08/14/2023 Housing Stability Answer Date Recorded What is your housing situation today? I have hans carmen 08/14/[address] you li ve. Do you have problems with any of the following? None of the above 08/14/2023 Food Insecurity Answer Date Recorded Within the past 12 months, y ou worried that your food would run out before you got money to buy more: Never True 08/14/2023 Within the past 12 months,th e food you bought just didn't last and you didn't have enough money to get more: Never True Transportation Answer Date Recorded In the past 12 months, has l ack of transportation kept you from medical appts, meetings, work or from getting things needed for daily living? No 08/14/2023 Utilities Answer Date Recorded In the past 12 months, has t he electric, gas, oil or water company threatened to shut off services in your home? No 08/14/2023 Depression Answer Date Recorded Patient Health Questionnaire-2 Score 0 08/14/2023 Sex and Gender Information Value Date Recorded Sex Assigned at Male 05/15/2022 10:29 AM EDT Legal Sex Male 10:29 AM EDT Gender Identity Male 05/15/2022 10:29 AM EDT Sexual Orientation Straight 05/15/2022 10 :29 AM EDT documented as of this encounter Miscellaneous Notes * Telephone Encounter - Tomasa Robertson RN - 08/06/2024 9:59 AM EST Tc to pt, answered reports pt still c/o of pain when urinating and foul odor sometimes. Discussed urinalysis results with and informed it showed elevated protein level and advised for pt tocome in to be seen by provider. agreed and pt scheduled for follow up with Sera Cuevas NP. * Telephone Encounter - Tomasa Robertson RN - 08/01/2024 1:47 PM EST Tc to pt to let them know per PCP Can pt be seen tomorrow AM? I will order culture, but pt needs to also be seen I am worried this is a bigger issue . Pt roberta elida answered and informed that covering ordered urine culture that can be completed at their convenience. Informed Elida provider recommends for pt to be seen, declines wic reports they do not want to wait 4 hours to be seen. reports when will results be in, informed them unsure but pt should be evaluated due to it couldbe an underlying issue for recurrent UTI. Provided Sunday wic hours, encouraged to go to local urgent care or ED for further eval. informed to go to lab today, provided lab hours and that we'll call back once we received the results. verbalized understanding and will re task to blue team nurse box for f/u sometime next week.. * Telephone Encounter - Tomasa Robertson RN - 08/01/2024 1:33 PM EST Tc to pt to let them know per PCP Can pt be seen tomorrow AM? I will order culture, but pt needs to also be seen I am worried this is a bigger issue . No answer, lvm to return call and ask to speakto blue team nurses. * Addendum Note - Sera Cuevas NP - 07/31/2024 3:48 PM ESTAddended by: SERA CUEVAS on: 07/31/2024 03:48 PM Modules accepted: Orders * Telephone Encounter - Tomasa Robertson RN - 07/31/2024 2:58 PM EST Tc to pt regarding message sent on the portal stating this Hello, need an appointment, or lab paperwork for urine test. can't print anything. been on phone all morning trying to talk to someone for an appointment. keeps saying high call volume. answered, tried to offer wic, declined ( only one appt available at 4 pm) , offered 3:15 appt slot on red team and states they won't be ready in time to make the appt. reports pt started experiencing pain when urinating, foul odor and cloudiness in their urine about four days ago. reports pt was rx Bactrim on 07/04/24 for UTI which reports pt had took as prescribed. requesting urine test to be ordered to determine if pt still showing signs of UTI. Informed we'll forward request to covering and call back with updates. verbalized understanding and message forwarded to covering. documented in this encounter Plan of Treatment Upcoming Encounters Date Type Department Care Team (Late st Contact Info) Description 08/11/2024 9:30 AM EST Office Visit [facility] [address] [place] [address] [phone] Sera Cuevas NP [address] [place] [address] 09/26/2024 10:15 AM EDT Office Visit [facility] [address] [place] [phone] Name, MD Kayden [address] [place], [place] [phone] documented as of this encounter Procedures Procedure Name Priority Date/Time Associated Diagnosis Comments CULTURE, URINE, ROUTINE Routine 08/01/2024 2:20 PM EST Dysuria documented in this encounter Results * Culture, Urine, Routine (08/01/2024 2:20 PM EST) Urine Urine specimen obtained by clean catch procedure / Unknown 08/01/2024 2:20 PM EST 08/01/2024 4:00 PM EST Comment:[facility] - 08/03/2024 8:05 AM EST Proteus mirabilis Quant 50,000 to 100,000 cfu/mL Proteus mirabilis: Ampicillin <=2(R) Proteus mirabilis: Cefazolin (Urine) 4(S) Proteus mirabilis: Cefepime 0.5(S) Proteus mirabilis: Ceftriaxone <=0.25(S) Proteus mirabilis: Ciprofloxacin <=0.06(S) Proteus mirabilis: Gentamicin <=1(S) Proteus mirabilis: Nitrofurantoin 128(R) Proteus mirabilis: Trimethoprim/Sulfamethoxazole >=320(R) Specimen Source: Urine clean catch Sera Cuevas NP LAB MICROBIOLOGY - GENERAL ORDER GABY Final Result [facility] [address] [place] [address] [phone] documented in this encounter Visit Diagnoses Diagnosis Dysuria- Primary documented in this encounter Additional Health Concerns Assessment Noted Time PHQ-9 Depression Total Score: 0 08/14/19 24 9:03 AM EST documented as of this encounter Care Teams Licensed Tax Consultant Relationship Specialty Start Date End Date Name, MD Kayden [address] [place] [address] PCP - General Family Medicine 08/23/15 documented as of this encounter
--- OUTSIDE RECORDS SUMMARY | 2024-08-07 23:42 | XMS_ITS | Encounter Summary ---
Author Organization [employer] Address [address] [facility] 7 [place] [address] Care Team Providers Care Shredded Filler Machine Wrapper Layer Name Role Phone Name, Kayden PITTMAN Primary Care Provider [phone] Reason for Visit * Reason Onset Date Comments Nurse Triage 07/30/2024 Encounter Details Date Type Department Care Team ([facility] st Contact Info) Description 07/30/2024 Telephone [facility] [address] [place], [place] [phone] Name, MD Kayden [address] [place] [address] Nurse Triage Social History Tobacco Use Types Packs/Day Years [...] encounter Miscellaneous Notes * Telephone Encounter - Liliana Avery RN - 07/30/2024 3:49 PM EST Images from the original note were not included. Call returned to [facility] to triage below. Having pain with passing urine x 2 days. Pt completed abx 2 weeks ago. Pt drinking 5 16oz water bottles per day. No dark color. Cloudy and odor since 2 days ago. Pt seen by Sera Cuevas on 07/04/24 and tx with Bactrim x7 days. Pt and jollye advised of disposition, no appts on teams. Reviewed [facility] operating hours and that wait times vary. Decline walk in . Want to see if Sera Cuevas is willing to put in order for UA and culture and treat based on those results. States does not want to be seen at [facility] as still has balance on account for being seen there. Pt does have a Urologist who they see every 6 months for hx of prostate cancer. Advised that unable to guarantee that provider will be willing to send this order in without first seeing patient. Reviewed [facility] operating hours and that wait times vary. .Reviewed home care advise, ER precautions and reasons to call back. Please review above request and advise Blue Team Primary care team nurses of plan of care or recommendations. Protocol Used: Urination Pain - Male (Adult) Protocol-Based Disposition: See in Office or Video Visit Today Override (Final) Disposition: Discuss with PCP and Callback by Nurse Override Reason: Caller refused suggested disposition Positive Triage Question: * All other males with painful urination, or patient wants to be seen * All higher-acuity triage questions were negative Care Advice Discussed: * Drink Extra Fluids * Reasons To Call Back - Fever over 100.4 F (38.0 C) occurs - Side (flank) or lower back pain occurs - You become worse Ross Moshe routed conversation to [facility] Nurse2 hours ago (1:26 PM) Juan Alberto Martinez [facility] Clinical Support (supporting Sera Cuevas NP)3 hours ago (12:19 PM) RC Having problem again, slight pain when urinating. need an appointment, or antibiotics documented in this encounter Plan of Treatment Upcoming Encounters Date Type Department Care Team (Late st Contact Info) Description 08/11/2024 9:30 AM EST Office Visit [address] [address] Sera Cuevas NP [address] [place] [address] 09/26/2024 10:15 AM EDT Office Visit [address] [address] Name, MD Kayden [address] [place] [phone] documented as of this encounter Visit Diagnoses Not on filedocumented in this encounter Additional Health Concerns Assessment Noted Time PHQ-9 Depression Total Score: 0 08/14/19 24 9:03 AM EST documented as of this encounter Care Teams Shredded Filler Machine Wrapper Layer Relationship Specialty Start Date End Date NameKayden MD [address] [place] [phone] PCP - General Family Medicine 08/23/15 documented as of this encounter
--- OUTSIDE RECORDS SUMMARY | 2024-08-07 23:42 | XMS_ITS | Encounter Summary ---
Author Organization [employer] Address [address] [facility] 7t [place] [address] Care Team Providers Care Whistle Punk Name Role Phone Name, Kayden PITTMAN Primary Care Provider [phone] Reason for Visit * Reason Comments Med Refill Encounter Details Date Type Department Care Team ([facility] st Contact Info) Description 04/22/2024 Refill [facility] [address] [place] [address] Patrick Conrad MD [address] [place] [address] Social History Tobacco Use Types Packs/Day Years [...] AM EDT documented as of this encounter Plan of Treatment Upcoming Encounters Date Type Department Care Team (Late st Contact Info) Description 08/11/2024 9:30 AM EST Office Visit [address] [address] Sera Cuevas NP [address] [place] [address] 09/26/2024 10:15 AM EDT Office Visit [address] [address] NameKayden MD [address] [place] [address] documented as of this encounter Visit Diagnoses Not on filedocumented in this encounter Additional Health Concerns Assessment Noted Time PHQ-9 Depression Total Score: 0 08/14/19 24 9:03 AM EST documented as of this encounter Care Teams Whistle Punk Relationship Specialty Start Date End Date NameKayden MD [address] [place] [phone] PCP - General Family Medicine 08/23/15 documented as of this encounter
--- OUTSIDE RECORDS SUMMARY | 2024-08-07 23:42 | XMS_ITS | Encounter Summary ---
Author Organization [employer] Address [address] [place] [address] 7 [place] [address] Care Team Providers Care Client Relations Associate Name Role Phone Name, Kayden PITTMAN Primary Care Provider [phone] Encounter Details Date Type Department Care Team (Late st Contact Info) Description 10/06/2022 Abstract [facility] [address] [place] [address] [phone] Name, MD Kayden [address] [place] [address] [phone] Social History Tobacco Use Types Packs/Day Years Used Date Smoking Tobacco: Every Day Cigarettes Smokeless Tobacco: Current PHQ-2 Answer Date Recorded Patient Health Questionnaire-2 [...] suspected to have Coronavirus/COVID-19? No / Unsure 10/05/2022 8:57 AM EDT documented as of this encounter Plan of Treatment Upcoming Encounters Date Type Department Care Team (Late st Contact Info) Description 08/11/2024 9:30 AM EST Office Visit [facility] [address] [place] [address] [phone] Sera Cuevas NP [address] [place], [place] [phone] 09/26/2024 10:15 AM EDT Office Visit [facility] [address] [place] [address] Name, MD Kayden [address] [place] [phone] documented as of this encounter Visit Diagnoses Not on filedocumented in this encounter Care Teams Client Relations Associate Relationship Specialty Start Date End Date Name, MD Kayden [address] [place] [address] PCP - General Family Medicine 08/23/15 documented as of this encounter
--- OUTSIDE RECORDS SUMMARY | 2024-08-07 23:42 | XMS_ITS | Encounter Summary ---
Author Organization [employer] Address [address] [facility] 7t [place] [address] Care Team Providers Care Special Duty Nurse Name Role Phone Name, Kayden PITTMAN Primary Care Provider [phone] Reason for Visit * Reason Comments Med Refill Encounter Details Date Type Department Care Team ([facility] st Contact Info) Description 04/22/2024 Refill [facility] [address] [place] [address] Patrick Conrad MD [address] [place] [address] Social History Tobacco Use Types Packs/Day Years [...] Description 08/11/2024 9:30 AM EST Office Visit [address] [address] Sera Cuevas NP [address] [place] [address] 09/26/2024 10:15 AM EDT Office Visit [address] [address] NameKayden MD [address] [place] [address] documented as of this encounter Visit Diagnoses Not on filedocumented in this encounter Additional Health Concerns Assessment Noted Time PHQ-9 Depression Total Score: 0 08/14/19 24 9:03 AM EST documented as of this encounter Care Teams Special Duty Nurse Relationship Specialty Start Date End Date NameKayden MD [address] [place] [phone] PCP - General Family Medicine 08/23/15 documented as of this encounter
--- OUTSIDE RECORDS SUMMARY | 2024-08-07 23:42 | XMS_ITS | Encounter Summary ---
Author Organization [employer] Address [address] [place] [address] Care Team Providers Care Dehydrator Operator Name Role Phone Name, Kayden PITTMAN Primary Care Provider [phone] Reason for Visit * Reason Onset Date Comments portia recalls 07/17/2024 Encounter Details Date Type Department Care Team ([facility] st Contact Info) Description 07/17/2024 Telephone [facility] [address] [place] [address] Jonna Lira MA portia recalls Social History Tobacco Use Types Packs/Day Years [...] encounter Miscellaneous Notes * Telephone Encounter - Jonna Lira MA - 07/17/2024 3:32 PM EST T/C placed to pt. Scheduled recall. Pt agrees with plan. Reminder letter sent . documented in this encounter Plan of Treatment Upcoming Encounters Date Type Department Care Team (Late st Contact Info) Description 08/11/2024 9:30 AM EST Office Visit [facility] [address] [place] [address] Sera Cuevas NP [address] [place] [address] 09/26/2024 10:15 AM EDT Office Visit [facility] [address] [place] [address] NameKayden MD [address] [place] [phone] documented as of this encounter Visit Diagnoses Not on filedocumented in this encounter Additional Health Concerns Assessment Noted Time PHQ-9 Depression Total Score: 0 08/14/19 9:03 AM EST documented as of this encounter Care Teams Dehydrator Operator Relationship Specialty Start Date End Date Name, MD Kyaden [address] [place] [address] PCP - General Family Medicine 08/23/15 documented as of this encounter
[2024-08-07 23:59] LABS: MANUAL DIFF FLAG NO
[2024-08-08] LABS: Basophils Absolute Auto 0.1 X10*3/uL (0.0-0.2); Basophils Percent Auto 1.3 % (0-2); Eosinophils Absolute Auto 0.4 X10*3/uL (0.0-0.4); Eosinophils Percent Auto 4.6 % (0-4); Hematocrit 36.2 % (42.0-52.0); Imm Gran Abs Auto 0.03 X10*3/uL (0.00-0.03); Imm Gran Pct Auto 0.4 % (0.0-0.4); Lymphocytes Absolute Auto 2.1 X10*3/uL (1.2-4.9); Lymphocytes Percent Auto 25.6 % (20-40); Mean Corpuscular HGB Conc 33.1 g/dl (31.0-36.0); Mean Corpuscular Hemoglobin 27.5 pg (27.0-33.0); Monocytes Percent Auto 12.4 % (2-11); Neutrophils Absolute Auto 4.6 x10*3/uL (2.0-8.3); Neutrophils Percent Auto 55.7 % (45-73); Platelet Count 321 X10*3/uL (160-400); Red Blood Count 4.36 X10*6/uL (4.60-5.80); Red Cell Distribution Width 14.2 % (11.0-16.0); White Blood Count 8.2 X10*3/uL (4.8-10.8)
[2024-08-08 00:13] LABS: Alanine Aminotransferase 16 U/L (0-40); Albumin Level 3.8 g/dL (3.5-5.0); Alkaline Phosphatase 71 U/L (39-117); Anion Gap 10 (12-20); Aspartate Amino Transferase 18 U/L (5-37); Bilirubin Total 0.2 mg/dL (0.0-1.0); Blood Urea Nitrogen 20 mg/dL (9-16); Calcium 9.9 mg/dL (8.4-10.2); Carbon Dioxide 25 mmol/L (22-29); Chloride 109 mmol/L (96-108); Estimated Glomerular Filt Rate 47; Glucose Random 126 mg/dL (60-115); Lipase 22 U/L (8-78); Potassium 4.9 mmol/L (3.3-5.1); Sodium 139 mmol/L (135-145)
[2024-08-08 00:31] LABS: Appearance Urine Clear; Color Urine Yellow; Glucose Urine UA Negative (Negative); Leukocyte Esterase Urine Moderate (2+) (Negative); Nitrite Urine Negative (Negative); PH 6.5 (5.0-9.0); UMIC TRIGGER UACC YES; Urine Blood Negative (Negative); Urine Ketones Negative (Negative); Urine Protein 30 (1+) mg/dL (Neg-Trace)
[2024-08-08 00:36] LABS: Bacteria Urine 1+ (None Seen); Hyaline Casts Urine 0-2 /LPF (0-2); RBC Urine 0-2 /HPF (0-2); Squamous Epithelial Cell Urine 0-2 /HPF (0-2); UACC Culture Trigger YES; WBC Urine >50 /HPF (0-5)
[2024-08-08] MEDS: 0.9 % Sodium Chloride 1,000 ML 999 ML IV (01:46)
--- NOTE | 2024-08-08 02:34 | ED_ITS ---
HPI - Male Genitourinary General Chief complaint: Urogenital-Male Stated complaint: urinating blood Time Seen by Provider: 08/08/24 01:02 Source: patient Mode of arrival: ambulatory Limitations: no limitations History of Present Illness ED Provider: Omer King HPI Narrative: 38-year-old male history of prostate cancer in remission recently being treated for UTI with Augmentin presents to ED for dysuria increased urgency frequency and hematuria. Patient denies any flank pain fever or chills. Patient denies any nausea vomiting or abdominal pain. Related Data Home Medications ?Medication ?Instructions ?Recorded ?Confirmed amlodipine 10 mg tablet 10 mg PO DAILY 11/21/21 11/21/23 losartan 50 mg tablet 50 mg PO DAILY 11/21/21 11/21/23 metformin 500 mg tablet 500 mg PO 11/21/21 11/21/23 docusate sodium 100 mg capsule 100 mg PO DAILY 03/28/23 11/21/23 (Stool Softener) kjypejcyigtw-xcjeikxl-lataqh tablet 1 tab PO DAILY 03/28/23 11/21/23 ezetimibe 10 mg tablet 10 mg PO DAILY 11/21/23 11/21/23 Previous Rx's ?Medication ?Instructions ?Recorded cephalexin 500 mg capsule 500 mg PO BID #14 caps 08/08/24 Allergies Allergy/AdvReac Type Severity Reaction Status Date / Time Iodinated Contrast Media Allergy Severe ANAPHYLAXIS Verified 08/07/24 23:16 [IV CONTRAST] Review of Systems 2 Review of Systems: Dysuria hematuria increased urinary frequency Yes all other systems are reviewed and are negative PMFSH Past Medical History Medical History Diverticulosis Diabetes HTN (hypertension) Prostate CA Surgical History History of urologic surgery Hx of colonoscopy Hx of appendectomy Hx of testicular mass Hx of umbilical hernia repair History of prostate surgery Family History Family History Mother Bone cancer Father Diabetes Social History Social History Household Members: Spouse Alcohol intake: current Alcohol intake frequency: holidays/special occasions only Patient Tobacco Use Status: Current everyday Tobacco user Tobacco use type: Cigar Physical Exam 2 Vital Signs: Vital Signs: Last Vital Signs Temp 98.3 F 08/08/24 03:46 Pulse 69 08/08/24 03:46 Resp 18 08/08/24 03:46 BP 137/83 08/08/24 03:46 Pulse Ox 95 08/08/24 03:46 O2 Del Method Room Air 08/08/24 03:46 BMI result Body Mass Index 33.8 Const: General: cooperative, healthy appearing, comfortable, no acute distress, well developed, alert, awake and Physically active O rientation/consciousness: patient oriented x3 HEENT: Head: Yes normal to inspection, Yes No palpable skull fracture present and Yes normocephalic Eyes: General: appearance normal, both eyes and all related structures Neck: Neck: Yes normal visual inspection, Yes full ROM, Yes no lymphadenopathy, Yes no meningeal signs, Yes trachea midline, Yes supple, No anterior neck swelling and No tender Chest: Chest palpation & inspection: normal inspection of the chest and normal palpation of entire chest wall Resp: Effort & Inspection: normal respiratory effort and able to speak in complete sentences Cardio: Jugular venous distension: no JVD Heart sounds: S1 normal heart sound present and S2 normal heart sound present GI: Inspection: Yes normal to inspection Palpation (GI): Soft to palpation, not firm, nontender and no guarding : General: Yes no CVA tenderness Back/Spine/Pelvis: Back: no CVA tenderness and No back tenderness Skin: General skin exam: no rashes or lesions noted, elasticity normal and turgor normal Neuro: General: patient oriented x3, gait normal, tone normal, moves all extremities, Normal light touch and pain sensation, no meningeal signs, no focal motor deficits, CN's II-XI intact bilaterally and normal sensation to monofilament Extrem: General: Yes normal to inspection, Yes full ROM and Yes capillary refill normal Psych: Appearance: grossly normal, well kempt and not disheveled Course Reevaluation(s) Reevaluation #1: Dr. Cruz: This patient was signed out to me at change of shift. The patient is a 78-year-old male who was treated for UTI with Augmentin a few weeks ago. After he had completed his treatment he subsequently developed urinary symptoms. He contacted his regular doctor at the [facility] and submitted a urine sample a few days ago but was never given any antibiotics. He continued to have urinary symptoms and tonight he had dysuria and a little bit of blood in his urine so his brought him to the hospital. The urine sample that was submitted a few days ago has grown Proteus mirabilis sensitive to all cephalosporins including cefazolin. The patient had slightly worsening renal function and a has been given 1 L of IV fluids. The patient is eager to go home. He looks well. He had a CT of the abdomen and pelvis that shows no acute findings other than some thickening of the bladder wall possibly suggestive of cystitis. He was given 1 g of IV ceftriaxone. He will be discharged with a prescription for cephalexin 500 mg b.i.d.. He should follow up with his regular doctor at the [facility]. Time: 03:50 Medications Administered Discontinued Medications Generic Name Dose Route Start Last Admin Trade Name Freq PRN Reason Stop Dose Admin Ceftriaxone Sodium 1 gm 08/08/24 03:33 08/08/24 03:43 Ceftriaxone Sodium 1 Gm Vial IVPUSH 08/08/24 03:34 1 gm ONCE ONE Administration Sodium Chloride 1,000 mls @ 999 mls/hr 08/08/24 01:00 08/08/24 03:23 Ns IV 08/08/24 02:00 Infused .Q1H1M STA Infusion Medical Decision Making Medical Decision Making [facility] Narrative: Patient presents to ED for UTI symptoms. Patient with recent Augmentin improved but then symptoms returned. Labs CT scan ordered. CT scan. Patient has mild JOANA. Fluids ordered. CT scan did not show any pyelo or stones. Does show stool burden. Case signed out to Dr. Mcgill who will follow patient's repeat chemistry. Patient to be discharged antibiotics. Differential Diagnosis Differential Diagnoses: The differential diagnosis associated with the presentation includes (UTI pyelonephritis kidney stone) Admission/Observation Consideration of admission/observation: Escalation of care including admission/observation considered Lab Data [facility] Lab Attestation statement: I reviewed the patient's lab results. 08/07/24 23:54 08/07/24 23:54 Labs: Lab Results 08/07/24 08/08/24 Range/Units 23:54 00:22 WBC 8.2 (4.8-10.8) X10*3/uL RBC 4.36 L (4.60-5.80) X10*6/uL Hgb 12.0 L (14.0-18.0) g/dl Hct 36.2 L (42.0-52.0) % MCV 83.0 (80.0-98.0) fL MCH 27.5 (27.0-33.0) pg MCHC 33.1 (31.0-36.0) g/dl RDW 14.2 (11.0-16.0) % Plt Count 321 (160-400) X10*3/uL MPV 9.0 L (9.4-12.4) fL Immature Gran % (Auto) 0.4 (0.0-0.4) % Neut % (Auto) 55.7 (45-73) % Lymph % (Auto) 25.6 (20-40) % [place]ven % (Auto) 12.4 H (2-11) % Eos % (Auto) 4.6 H (0-4) % Baso % (Auto) 1.3 (0-2) % Lymph # (Auto) 2.1 (1.2-4.9) X10*3/uL [place]ven # (Auto) 1.0 (0.1-1.2) X10*3/uL Eos # (Auto) 0.4 (0.0-0.4) X10*3/uL Baso # (Auto) 0.1 (0.0-0.2) X10*3/uL Abs Immat Gran (auto) 0.03 (0.00-0.03) X10*3/uL Absolute Neuts (auto) 4.6 (2.0-8.3) x10*3/uL Absolute Nucleated RBC 0.000 (0.0-0.012) X10*3/uL Nucleated RBC % (auto) 0.0 (0.0-0.2) /100WBC Sodium 139 (135-145) mmol/L Potassium 4.9 (3.3-5.1) mmol/L Chloride 109 H (96-108) mmol/L Carbon Dioxide 25 (22-29) mmol/L Anion Gap 10 L (12-20) BUN 20 H (9-16) mg/dL Creatinine 1.45 H (0.5-1.4) mg/dL Estim Creat Clear Calc 43.0 Estimated GFR 47 Random Glucose 126 H (60-115) mg/dL Calcium 9.9 (8.4-10.2) mg/dL Total Bilirubin 0.2 (0.0-1.0) mg/dL AST 18 (5-37) U/L ALT 16 (0-40) U/L Alkaline Phosphatase 71 (39-117) U/L Total Protein 7.0 (6.5-8.0) g/dL Albumin 3.8 (3.5-5.0) g/dL Lipase 22 (8-78) U/L Urine Color Yellow Urine Appearance Clear Urine pH 6.5 (5.0-9.0) Ur Specific [place] 1.010 (1.005-1.025) Urine Protein 30 (1+) H (Neg-Trace) mg/dL Urine Glucose (UA) Negative (Negative) mg/dL Urine Ketones Negative (Negative) mg/dL Urine Blood Negative (Negative) Urine Nitrite Negative (Negative) Ur Leukocyte Esterase Moderate (2+) H (Negative) Urine RBC 0-2 (0-2) /HPF Urine WBC >50 H (0-5) /HPF Ur Squamous Epith Cells 0-2 (0-2) /HPF Urine Bacteria 1+ (None Seen) Hyaline Casts 0-2 (0-2) /LPF Independent Interpretation I performed an independent interpretation of an: CT Scan Radiology Impression Discussion of test interpretation with radiology: I have reviewed the radiologist's reading. Discharge Plan Discharge Clinical Impression: Acute UTI, Dehydration Patient Disposition: Home, Self-Care Instructions: Urinary Tract Infection in Men (ED) Additional Instructions: The urine sample that you submitted several days ago has been cultured and grown a bacteria that should be sensitive to the antibiotic prescribed. Please take the antibiotic, cephalexin, 2 times a day until done. Complete the whole course. Take your first dose of this new medication on Sunday evening (the IV dose of the antibiotic in the emergency room will cover you until Sunday evening). Your blood testing also suggested you were somewhat dehydrated. You were given a bag of IV fluid. Please continue to increase your fluid intake at home. Your CT scan shows that you have a lot of stool in your colon. Please continue your stool softeners. Please follow up with your regular doctor in the next week or so to discuss this further. Return to the emergency room if you feel significantly worse. Prescriptions: New cephalexin 500 mg capsule 500 mg PO BID Qty: 14 0RF No Action amlodipine 10 mg tablet 10 mg PO DAILY losartan 50 mg tablet 50 mg PO DAILY metformin 500 mg tablet 500 mg PO docusate sodium [Stool Softener] 100 mg capsule 100 mg PO DAILY jvcrflggpapp-audmdvoa-yjnvwh Tablet 1 tab PO DAILY ezetimibe 10 mg tablet 10 mg PO DAILY Referrals: Name,MD Kayden [Primary Care Provider] - (UTI, , slightly worsening renal function) Interventions: ED Discharge Assessment Last Done: 08/08/24 03:40 Discharge Date/Time: 08/08/24 03:45 Print Language: Zimbabwean
[2024-08-08 03:40] VITALS: BP 137/83; PULSE 69; RESP 18; TEMP 36.8; O2SAT 95
[2024-08-08] MEDS: cefTRIAXone sodium 1 GM VIAL IVPUSH (03:43)
[2024-08-08 03:46] VITALS: BP 137/83; PULSE 69; RESP 18; TEMP 36.8; O2SAT 95
== END 2024-08-08 03:45 | disposition home or self-care (01) ==
PROVIDERS: Emergency Provider Emergency Medicine; PCP Internal Medicine Geriatric Medicine
DX: N39.0 Urinary tract infection, site not specified (principal); E86.0 Dehydration; R30.0 Dysuria; R35.0 Frequency of micturition; R31.9 Hematuria, unspecified; I10 Essential (primary) hypertension; E11.9 Type 2 diabetes mellitus without complications; Z85.46 Personal history of malignant neoplasm of prostate; Z79.899 Other long term (current) drug therapy
CPT/HCPCS: 36415; 74176; 80053; 81001; 83690; 85025; 87086; 87088; 87186; 96361; 96374; 99284; 99285; J0696

== ENCOUNTER → 2024-08-08 01:01 | Outpatient (BNV) | payer MEDICARE, SELFPAY | PROVIDERS: Emergency Provider Emergency Medicine; PCP Internal Medicine Geriatric Medicine; Visit Provider Radiology Neuroradiology | DX: K56.41 Fecal impaction (principal) | CPT/HCPCS: 74176 ==

== ENCOUNTER 2024-08-11 16:41 | Outpatient (REF) | payer MEDICARE, SELFPAY ==
--- OUTSIDE RECORDS SUMMARY | 2024-08-11 20:01 | XMS_ITS | Encounter Summary ---
Author Organization [employer] Address [address] [place] [address] Care Team Providers Care Second Cook And Baker Name Role Phone Name, Kayden PITTMAN Primary Care Provider [phone] Encounter Details Date Type Department Care Team (Latest Contact Info) Description 08/11/2024 Travel Social History Tobacco Use Types Packs/Day Years [...] Care Team (Late st Contact Info) Description 09/02/2024 3:45 PM EST Office Visit [facility] [address] [place] [address] NameKayden MD [address] [place] [address] 09/26/2024 10:15 AM EDT Office Visit [address] [address] NameKayden MD [address] [place] [phone] documented as of this encounter Visit Diagnoses Not on filedocumented in this encounter Additional Health Concerns Assessment Noted Time PHQ-9 Depression Total Score: 0 08/14/19 24 9:03 AM EST documented as of this encounter Care Teams Second Cook And Baker Relationship Specialty Start Date End Date NameKayden MD [address] [place] [address] PCP - General Family Medicine 08/23/15 documented as of this encounter
--- OUTSIDE RECORDS SUMMARY | 2024-08-11 20:01 | XMS_ITS | Encounter Summary ---
Author Organization [employer] Address [address] [place] [address] Care Team Providers Care Mural Painter Name Role Phone Name, Kayden PITTMAN Primary Care Provider [phone] Reason for Referral * Consultation (Urgent) - Pending Review Specialty Diagnoses / Procedures Referred By Anastacio patel Referred To Contact Urology Diagnoses History of recurrent UTIs Tracey Maciel CNP [address] [place] [address] Phone: tel: fax: Referral ID Status Reason Start Date Expiration Date Visits Requested Visits Authorized [id number] Pending Review Specialty Services Required 08/11/2024 08/11/2025 1 1 * Consultation (Urgent) - Pending Review Specialty Diagnoses / Procedures Referred By Anastacio patel Referred To Contact Nephrology Diagnoses Proteinuria, unspecified type Tracey Maciel CNP [address] [place] [address] Phone: tel: fax: Referral ID Status Reason Start Date Expiration Date Visits Requested Visits Authorized [id number] Pending Review Specialty Services Required 08/11/2024 08/11/2025 1 1 Encounter Details Date Type Department Care Team (Late st Contact Info) Description 08/11/2024 9:30 AM EST Office Visit [facility] [address] [place] [address] Sera Cuevas NP [address] [place] [address] Dysuria (Primary Dx); Type 2 diabetes mellitus with other specified complication, without long-term current use of insulin ([facility]); Tobacco use; Proteinuria, unspecified type; History of recurrent UTIs Social History Tobacco Use Types Packs/Day Years [...] AM EDT documented as of this encounter Last Filed Vital Signs Vital Sign Reading Time Taken Comments Blood Pressure 152/77 08/11/2024 9:30 AM EST Pulse 87 08/11/2024 9:30 AM EST Temperature 36.9 ??C (98.4 ??F) 08/11/2024 9:30 AM ES T Respiratory Rate 18 08/11/2024 9:30 AM EST Oxygen Saturation 97% 08/11/2024 9:30 AM EST Inhaled Oxygen Concentration - - Weight 90.7 kg (200 lb) 08/11/2024 9:30 AM EST Height 162.6 cm (5' 4 ) 08/11/2024 9:30 AM EST Body Mass Index 34.33 08/11/2024 9:30 AM EST documented in this encounter Miscellaneous Notes * Assessment & Plan Note - Tracey Maciel CNP - 08/11/2024 10:50 AM EST Associated Problem(s): Type 2 diabetes mellitus, without long-term current use of insulin ([facility]) Pt will continue on metformin Dietary Recommendations: Fruits, vegetables, whole grains, protein foods, and fat-free or low-fat dairy products are healthychoices. Eat different types of protein foods in your diet. This can include seafood, lean meats, poultry, beans, peas, lentils, nuts, seeds, soy products, and eggs. Limit foods and beverages higher in added sugars, saturated fat, and sodium. * Assessment & Plan Note - Tracey Maciel CNP - 08/11/2024 10:49 AM EST Associated Problem(s): History of recurrent UTIs Pt established with urology, will place urgent referral to have September f/u moved up d/t 2 recurrent UTIs with hematuria Will place future order for u/a with reflex to culture for patient to complete upon finishing antibiotics regimen * Assessment & Plan Note - Tracey Maciel CNP - 08/11/2024 10:45 AM EST Associated Problem(s): Proteinuria U/A showing proteinuria today Will trend BMP today d/t JOANA during hospitalization and worsening renal function Will refer to nephrology today * Assessment & Plan Note - Tracey Maciel CNP - 08/11/2024 10:44 AM EST Associated Problem(s): Dysuria U/A today neg for infection, +proteinuria, no hematuria Pt reports that symptoms are improving, still having some dysuria with morning void Will continue taking cephalexin 500 mg BID. Will continue with ample hydration * Assessment & Plan Note - Tracey Maciel CNP - 08/11/2024 10:40 AM EST Associated Problem(s): Tobacco use Pt is still smoking Nicotine patches were sent to pharmacy back in 06/08 however pt never received call about rx, so they never received med Will send nicotine patches and reach out to pharmacy to confirm receipt Education provided regarding the importance of tobacco cessation d/t pt hx of prostate cancer documented in this encounter Plan of Treatment Upcoming Encounters Date Type Department Care Team (Late st Contact Info) Description 09/02/2024 3:45 PM EST Office Visit [address] [address] Name, MD Kayden [address] [place] [address] 09/26/2024 10:15 AM EDT Office Visit [address] [address] Name, MD Kayden [address] [place] [phone] Scheduled Orders Name Type Priority Associated Diagnoses Orde r Schedule Basic Metabolic Panel Lab Routine Proteinuria, unspecified type Expected: 08/11/2024 (Approximate), Expires: 08/11/2025 Urinalysis, Complete, with Reflex to Culture Lab Routine History of recurrent UTIs Expected: 08/11/2024 (Approximate), Expires: 08/11/2025 Scheduled Referrals Name Type Priority Associated Diagnoses Orde r Schedule Referral to Nephrology Outpatient Referral Urgent Proteinuria, unspecified type Expected: 08/11/2024 (Approximate), Expires: 08/11/2025 Referral to Urology Outpatient Referral Urgent History of recurrent UTIs Expected: 08/11/2024 (Approximate), Expires: 08/11/2025 documented as of this encounter Procedures Procedure Name Priority Date/Time Associated Diagnosis Comments POCT URINALYSIS DIPSTICK Routine 08/11/2024 9:43 AM EST Dysuria POCT GLUCOSE Routine 08/11/2024 9:34 AM EST Type 2 diabetes mellitus with other specified complication, without long-term current use of insulin ([facility]) documented in this encounter Results * POCT Urinalysis (08/11/2024 9:43 AM EST) Color, UA Yellow Clarity, UA Clear Glucose, UA Negative Bilirubin, UA Negative Ketones, UA Negative Spec Grav, UA 1.015 Blood, UA Negative Negative, None Detected pH, UA 6.5 Protein, UA 2+ 125++ Urobilinogen, UA 0.2 Leukocytes, UA Trace Negative, Rare, Trace Nitrite, UA Negative Negative, None Detected Appearance, UA CLEAR QC Media Lot # [id number] Lot# Expiration Date Urine 08/11/2024 9:43 AM EST [facility] POINT OF CARE TEST ENTER/ EDIT ORDERABLES Final Result * POCT Glucose (08/11/2024 9:34 AM EST) Glucose Blood, POC 198 60 - 200 mg/dL QC Media Lot # [id number] Lot# Expiration Date Blood Capillary blood specimen / Unknown 08/11/2024 9:34 AM EST Result [facility] Sera Cuevas NP POINT OF CARE TEST ENTER/EDIT OR DERABLES Final Result documented in this encounter Visit Diagnoses Diagnosis Dysuria- Primary Type 2 diabetes mellitus with other specified complication, without long-term current use of insulin ([facility]) Tobacco use Proteinuria, unspecified type History of recurrent UTIs documented in this encounter Additional Health Concerns Assessment Noted Time PHQ-9 Depression Total Score: 0 08/14/19 24 9:03 AM EST documented as of this encounter Care Teams Mural Painter Relationship Specialty Start Date End Date Name, MD Kayden [address] [place] [address] PCP - General Family Medicine 08/23/15 documented as of this encounter
--- OUTSIDE RECORDS SUMMARY | 2024-08-11 20:01 | XMS_ITS | Encounter Summary ---
Author Organization [employer] Address [address] [facility] 7 [place] [address] Care Team Providers Care Type Casting Machine Operator Name Role Phone Name, Kayden PITTMAN Primary Care Provider [phone] Reason for Visit * Reason Onset Date Comments Nurse Triage 07/30/2024 Encounter Details Date Type Department Care Team ([facility] st Contact Info) Description 07/30/2024 Telephone [facility] [address] [place], [place] [phone] Name, MD Kayden [address] [place] [address] Nurse Triage Social History Tobacco Use Types [...] Miscellaneous Notes * Telephone Encounter - Liliana Avrey RN - 07/30/2024 3:49 PM EST Images from the original note were not included. Call returned to [facility] to triage below. Having pain with passing urine x 2 days. Pt completed abx 2 weeks ago. Pt drinking 5 16oz water bottles per day. No dark color. Cloudy and odor since 2 days ago. Pt seen by Sera Cuevas on 07/04/24 and tx with Bactrim x7 days. Pt and jollye advised of disposition, no appts on teams. Reviewed [facility] operating hours and that wait times vary. Decline walk in . Want to see if Sera Cuevas is willing to put in order for UA and culture and treat based on those results. States does not want to be seen at [facility] as still has balance on account for being seen there. Pt does have a Urologist who they see every 6 months for hx of prostate cancer. Advised that unable to guarantee that provider will be willing to send this order in without first seeing patient. Reviewed [facility] operating hours and that wait times vary. [...] become worse Ross Moshe routed conversation to [facility] Triage Nurse2 hours ago (1:26 PM) Juan Alberto Martinez [facility] Clinical Support (supporting Sera Cuevas NP)3 hours ago (12:19 PM) RC Having problem again, slight pain when urinating. need an appointment, or antibiotics documented in this encounter Plan of Treatment Upcoming Encounters Date Type Department Care Team (Late st Contact Info) Description 09/02/2024 3:45 PM EST Office Visit [address] [address] NameKayden MD [address] [place] [phone] 09/26/2024 10:15 AM EDT Office Visit [address] [address] Kayden Villavicencio MD [address] [place] [phone] documented as of this encounter Visit Diagnoses Not on filedocumented in this encounter Additional Health Concerns Assessment Noted Time PHQ-9 Depression Total Score: 0 08/14/19 24 9:03 AM EST documented as of this encounter Care Teams Type Casting Machine Operator Relationship Specialty Start Date End Date Kayden Villavicencio MD [address] [place] [phone] PCP - General Family Medicine 08/23/15 documented as of this encounter
--- OUTSIDE RECORDS SUMMARY | 2024-08-11 20:01 | XMS_ITS | Encounter Summary ---
Author Organization [employer] Address [address] [facility] [address] [place] [address] Care Team Providers Care Farmworker General Name Role Phone Name, Kayden PITTMAN Primary Care Provider [phone] Reason for Visit * Reason Onset Date Comments portia recalls 07/17/2024 Encounter Details Date Type Department Care Team ([facility] st Contact Info) Description 07/17/2024 Telephone [facility] [address] [place] [address] Jonna Lira [place] portia recalls Social History [...] Description 09/02/2024 3:45 PM EST Office Visit [facility] [address] [place] [phone] Kayden Villavicencio MD [address] [place] [phone] 09/26/2024 10:15 AM EDT Office Visit [facility] [address] [place] [phone] Kayden Villavicencio MD [address] [place] [phone] documented as of this encounter Visit Diagnoses Not on filedocumented in this encounter Additional Health Concerns Assessment Noted Time PHQ-9 Depression Total Score: 0 08/14/19 24 9:03 AM EST documented as of this encounter Care Teams Farmworker General Relationship Specialty Start Date End Date Kayden Villavicencio MD [address] [place] [address] PCP - General Family Medicine 08/23/15 documented as of this encounter
--- OUTSIDE RECORDS SUMMARY | 2024-08-11 20:01 | XMS_ITS | Encounter Summary ---
Author Organization [employer] Address [address] [place] [address] 7[address] [place] [address] Care Team Providers Care Appliquer Name Role Phone Name, Kayden PITTMAN Primary Care Provider [phone] Encounter Details Date Type Department Care Team (Late Contact Info) Description 12/15/2022 Abstract [facility] [address] [place] [phone] Name, MD Kayden [address] [place] [phone] Social History Tobacco Use Types Packs/Day Years [...] Department Care Team (Late Contact Info) Description 09/02/2024 3:45 PM EST Office Visit [facility] [address] [place] [address] [phone] Name, MD [facility] [place] [address] 09/26/2024 10:15 AM EDT Office Visit [facility] [address] Name, [place] [address] documented as of this encounter Visit Diagnoses Not on filedocumented in this encounter Care Teams Appliquer Relationship Specialty Start Date End Date Name, MD [facility] [address] PCP - General Family Medicine 08/23/15 documented as of this encounter
--- OUTSIDE RECORDS SUMMARY | 2024-08-11 20:01 | XMS_ITS | Encounter Summary ---
Author Organization [employer] Address [address] [place] [address] 7 [place] [address] Care Team Providers Care Manager Grant Name Role Phone Name, Kayden PITTMAN Primary Care Provider [phone] Encounter Details Date Type Department Care Team (Late st Contact Info) Description 10/06/2022 Abstract [facility] [address] [place] [address] [phone] Name, MD Kayden [address] [place] [address] [phone] Social History Tobacco Use Types Packs/Day Years [...] Description 09/02/2024 3:45 PM EST Office Visit [facility] [address] [place] [address] [phone] Name, MD Kayden [address] [place] [address] [phone] 09/26/2024 10:15 AM EDT Office Visit [facility] [address] [place] [phone] Name, MD Kayden [address] [place] [phone] documented as of this encounter Visit Diagnoses Not on filedocumented in this encounter Care Teams Manager Grant Relationship Specialty Start Date End Date Name, MD Kayden [address] [place] [phone] PCP - General Family Medicine 08/23/15 documented as of this encounter
--- OUTSIDE RECORDS SUMMARY | 2024-08-11 20:01 | XMS_ITS | Clinical Summary ---
Author Organization [employer] Address [address] [facility] [address] [place] [address] Care Team Providers Care Transfer Knitter Name Role Phone Name, Kayden PITTMAN Primary Care Provider [phone] Allergies Active Allergy Reactions Criticality Noted Date Comments Cornell Inhibitors Cough 01/15/2012 Atorvastatin 08/14/2023 Muscle pain Barium Iodid High 08/24/2015 Iodinated Contrast Media Anaphylaxis High 10/23/2017 Medications cyclobenzaprine (Flexeril) 10 MG tablet Take 1 tablet by mouth every 8 (eight) hours. 01/29/20 21 Active leuprolide, 6-month, (Eligard) 45 MG injection Inject 45 mg under the skin every 6 (six) months. Active mometasone (Elocon) 0.1 % ointment Apply topically in the morning. 15 g 08/14/19 24 025 Active Mometasone Furoate (Asmanex HFA) 200 MCG/ACT aerosol Take 1 Inhalation. by mouth 2 times daily. 13 g 2 08/14/19 24 025 Active Diclofenac Sodium 1 % gelIndications: Chronic pain of both knees Apply twice a day to the affected knees 100 g 2 08/16/19 24 Active loratadine (Claritin) 10 MG tablet Take 1 tablet (10 mg) by mouth Once per day. 30 tablet 2 12/05/19 24 Active fluticasone (Flonase) 50 MCG/ACT nasal spray Administer 2 sprays into each nostril Once per day. Shake gently. Before first use, prime pump. After use, clean tip and replace cap. 16 g 2 12/05/19 24 025 Active albuterol (ProAir HFA) 108 (90 Base) MCG/ACT inhalerIndicati ons:Mild intermittent asthma, unspecified whether complicated Inhale 2 puffs every 4 (four) hours if needed for wheezing or shortness of breath. 18 g 1 12/05/19 24 Active Umeclidinium [place] (Incruse Ellipta) 62.5 MCG/ACT aerosol powder Inhale 1 Inhalation Once per day. 30 each 1 02/13/20 24 Active amLODIPine (Norvasc) 10 MG tablet TAKE 1 TABLET BY MOUTH EVERY DAY 90 tablet 3 05/13/20 24 025 Active ezetimibe (Zetia) 10 MG tabletIndicatio ns:Hypercholest erolemia TAKE 1 TABLET(10 MG) BY MOUTH IN THE MORNING 30 tablet 11 05/13/20 24 Active losartan (Cozaar) 50 MG tabletIndicatio ns:Benign essential hypertension TAKE 1 TABLET BY MOUTH EVERY DAY 90 tablet 3 05/13/20 24 Active metFORMIN (Glucophage) 500 MG tablet Take 1 tablet (500 mg) by mouth with breakfast and with evening meal. 180 tablet 3 05/13/20 24 025 Active nicotine (Nicoderm CQ) 14 MG/24HR patchIndication s:Tobacco use Place 1 patch on the skin 1 (one) time each day at the same time. 30 patch 08/11/19 25 025 Active nicotine (Nicoderm CQ) 14 MG/24HR patchIndication s:Tobacco use Place 1 patch on the skin 1 (one) time each day at the same time. 30 patch 06/09/20 24 025 Discontinued(R eorder (will not trigger notification to Pharmacy)) Active Problems Problem Noted Date Diagnosed Date Proteinuria 08/11/2024 Assessment & Plan (08/11/2024 10:45 AM EST): U/A showing proteinuria today Will trend BMP today d/t JOANA during hospitalization and worsening renal function Will refer to nephrology today History of recurrent UTIs 08/11/2024 Assessment & Plan (08/11/2024 10:49 AM EST): Pt established with urology, will place urgent referral to have September f/u moved up d/t 2 recurrent UTIs with hematuria Will place future order for u/a with reflex to culture for patient to complete upon finishing antibiotics regimen Type 2 diabetes mellitus, wi thout long-term current use of insulin 08/11/2024 Assessment & Plan (08/11/2024 10:50 AM EST): Pt will continue on metformin Dietary Recommendations: Fruits, vegetables, whole grains, protein foods, and fat-free or low-fat dairy products are healthy choices. Eat different types of protein foods in your diet. This can include seafood, lean meats, poultry, beans, peas, lentils, nuts, seeds, soy products, and eggs. Limit foods and beverages higher in added sugars, saturated fat, and sodium. Dysuria 07/04/2024 Assessment & Plan (08/11/2024 10:45 AM EST): U/A today neg for infection, +proteinuria, no hematuria Pt reports that symptoms are improving, still having some dysuria with morning void Will continue taking cephalexin 500 mg BID. Will continue with ample hydration Assessment & Plan (07/29/2024 4:52 PM EST): Likely uti, will treat, culture sent Encouraged hydration Dietary counseling 06/09/2024 Assessment & Plan (06/09/2024 3:21 PM EST): Encouraged minimizing processed foods and increasing whole foods particularly vegetables Exercise counseling 06/09/2024 Assessment & Plan (06/09/2024 3:21 PM EST): Encouraged daily movement, working up to 30 minutes daily Lymphadenopathy 06/09/2024 Parotid gland pain 06/09/2024 Assessment & Plan (07/29/2024 4:52 PM EST): Resolved, monitor Assessment & Plan (06/09/2024 3:20 PM EST): Patient will be referred out for an ultrasound of the neck. Pt advised to suck on sore/lemon candy and anu. Utilize warm compress on parotid region. Pt advised to call dentist to assess and r/o any oral infection. Pt educated on the risks of alcohol and smoking in relation to his diagnosis and educated on smoke cessation and having no alcohol until the work up is completed. 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 Use gabapentin up to 200 mg bid, caution with driving and performing activities that require vigilance. Use eye patch and natural tears to prevent corneal ulcers. Ro secondary cause, order lyme titers, cbc. Reassurance re improvement within the next 1-2m. I gave him info re [place] palsy FU w PCP in 1-2m to define need for further rx I spoke with his - requested by patient- Juli and explain dx, prognosis and rx. 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 Resolved Problems Problem Noted Date Diagnosed Date Resolved Date Asthma 06/27/2013 12/05/2023 HTN (hypertension) 12/25/2011 Disorder of lipoid metabolism 02/05/2007 12/05/2023 Encounters Date Type Department Care Team Description 08/11/2024 9:30 AM EST Office Visit [address] [address] Sera Cuevas NP Dysuria (Primary Dx); Type 2 diabetes mellitus with other specified complication, without long-term current use of insulin ([facility]); Tobacco use; Proteinuria, unspecified type; History of recurrent UTIs 08/11/2024 Travel 08/08/2024 Orders Only GENERIC EXTERNAL DATA DEPARTMENT Provider, Generic External Data 08/07/2024 Orders Only [facility] External Provider, [facility] 07/31/[address] [address] Tomasa Robertson, JUAN 07/30/[address] [address] Name, MD Kayden Nurse Triage 07/17/[address] [address] Jonna Lira [place] portia recalls 07/07/[address] [address] Tomasa Robertson, RN 07/04/2024 10:30 AM EST Office Visit [address] [address] Sera Cuevas NP Dysuria (Primary Dx); Tobacco use; Parotid gland pain 07/04/2024 Orders Only [facility] [address] [place] [phone] Sera Cuevas NP 06/16/2024 Telephone [facility] [address] [place] [phone] Tomasa Robertson RN 06/09/2024 10:30 AM EST Office Visit [facility] [address] [place] [phone] Sera Cuevas NP Dietary counseling (Primary Dx); Exercise counseling; Benign essential hypertension; 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 (CMS/HCC); Lymphadenopathy; Parotid gland pain; Tobacco abuse counseling; Tobacco use 06/03/2024 Travel 06/03/2024 Telephone [facility] [address] [place] [phone] Kayden Villavicencio MD Nurse Triage 05/13/2024 9:15 AM EDT Office Visit [address] [address] Kayden Villavicencio MD Type 2 diabetes mellitus with other specified complication, without long-term current use of insulin (CMS/[facility]) (Primary Dx); Encounter for immunization 05/13/2024 Travel 05/12/2024 Refill [facility] [address] [place] [phone] Kayden Villavicencio MD Hypercholesterolemia; Benign essential hypertension 05/12/2024 Refill [facility] [address] [place] [phone] Patrick Conrad MD from Last 3 Months Immunizations Name Administration Dates Next Due DTaP, Unspecified 05/11/2000 Influenza High-dose Quadriva lent Preservative Free 04/16/2023,04/04/2022 Influenza Quadrivalent Adjuvanted 04/22/2021, Influenza injectable quadriv alent IIV4 with preservative 04/04/2017,04/17/2016,04/29/2015 Influenza injectable quadriv alent preservative free 04/08/2019 Influenza, High Dose Seasona l, Preservative Free 05/13/2024,04/09/2018,03/22/2017 Influenza, IIV3, injectable 04/29/2015,1 ,04/16/2014,04/18,05/08/2012,06/14/2011,04/15/2009 ,05/16/2008,05/08/2007 Moderna Covid-19 Vaccine 12+ 08/03/2021,10/21/19 21,09/22/2020 Moderna Covid-19 Vaccine 6-11 06/21/2022 Moderna SARS-CoV-2 Booster Vaccination Pfizer Covid-19 Vaccine 12+ 08/14/2023 Pneumococcal Conjugate PCV 13 08/21/2016 Pneumococcal Polysaccharide PPSV23 05/08/2012, TD (adult), 2 Lf tetanus tox oid, preservative free, adsorbed 05/11/2000 Td (adult), unspecified 05/11/2000 Tdap 12/22/2019,09/09/2010 Social History Tobacco Use Types Packs/Day Years Used Date Smoking Tobacco: Every Day Cigars Passive Smoke Exposure: Never Smokeless Tobacco: Current Tobacco Cessation:Ready to Q uit: Not Asked; Counseling Given: Not Answered Alcohol Use Standard Drinks/Week Comments Yes 0 [...] Orientation Straight 05/15/2022 10 :29 AM EDT Last Filed Vital Signs Vital Sign Reading [...] Mass Index 34.33 08/11/2024 9:30 AM EST Plan of Treatment Upcoming Encounters Date Type Department Care Team (Late st Contact Info) Description 09/02/2024 3:45 PM EST Office Visit [facility] [address] [place] [phone] Name, MD Kayden [address] [place] [phone] 09/26/2024 10:15 AM EDT Office Visit [address] [phone] NameKayden MD [address] [place] [phone] Health Maintenance Due Date Last Done Comments Diabetes: Foot Exam 1956 Zoster Vaccines (1 of 2) 1996 RSV Patients and Patients Aged 60 years or older (1 - 1-dose 75+ series) 2021 COVID-19 Vaccine ( season) 2024 08/14/2023, 06/21/2022, 06/21/2022, Additional history exists Depression Screening 08/14/2024 08/14/2023, 08/14/19 24 SDOH Screening 08/14/2024 08/14/2023 Diabetes: Hemoglobin A1C 11/11/2024 024, 10/30/2023, 04/16/2023, Additional history exists Diabetes: Urine Protein Screening 01/29/2025 01/30/2024, 06/12/2022, 09/26/2021, Additional history exists Lipid Panel 01/29/2025 01/30/2024, 11/13, 09/26/2021, Additional history exists Alcohol/Substance Use Screening 02/12/2025 02/13/2024 Eye Exam 04/11/2025 04/11/2023 Tobacco Screening 08/11/2025 08/11/2024 DTaP/Tdap/Td Vaccines (5 - Td or Tdap) 12/21/2029 12/22/2019, 09/09/2010, 05/11/2000, Additional history exists Pneumococcal Vaccine: 65+ Years Completed 08/21/2016, 05/08/2012, 05/08/2007 Hepatitis C Screening Completed 09/26/2021 Colonoscopy Discontinued 04/17/2022 Colorectal Cancer Screening Discontinued Influenza Vaccine Completed 05/13/2024, , 04/04/2022, Additional history exists CT Colonography Discontinued FIT DNA/Cologuard Discontinued FIT Discontinued FOBT Discontinued HIB Vaccines Aged Out No longer eligi ble based on patient's age to complete this topic HPV Vaccines Aged Out No longer eligi ble based on patient's age to complete this topic Hepatitis A Vaccines Aged Out No long er eligible based on patient's age to complete this topic Hepatitis B Vaccines Aged Out No long er eligible based on patient's age to complete this topic IPV Vaccines Aged Out No longer eligi ble based on patient's age to complete this topic Meningococcal Vaccine Aged Out No bear gerry eligible based on patient's age to complete this topic RSV under 20 months Aged Out No longe r eligible based on patient's age to complete this topic Rotavirus Vaccines Aged Out No longer eligible based on patient's age to complete this topic Sigmoidoscopy Discontinued Procedures Procedure Name Priority Date/Time Associated Diagnosis Comments POCT URINALYSIS DIPSTICK Routine 08/11/2024 9:43 AM EST Dysuria POCT GLUCOSE Routine 08/11/2024 9:34 AM EST Type 2 diabetes mellitus with other specified complication, without long-term current use of insulin ([facility]) CT ABDOMEN PELVIS WO CONTRAST Routine 08/08/2024 2:12 AM EST URINALYSIS, COMPLETE, WITH REFLEX TO CULTURE Routine 08/08/2024 12:22 AM EST CULTURE, URINE, ROUTINE Routine 08/08/2024 12:00 AM EST LIPASE Routine 08/07/2024 11:54 PM EST COMPREHENSIVE METABOLIC PANEL Routine 08/07/2024 11:54 PM EST CBC WITH AUTO DIFFERENTIAL Routine 08/07/2024 11:54 PM EST URINALYSIS, COMPLETE, WITH REFLEX TO CULTURE Routine 08/05/2024 7:21 AM EST CULTURE, URINE, ROUTINE Routine 08/01/2024 2:20 PM EST Dysuria CULTURE, URINE, ROUTINE Routine 07/04/2024 4:21 PM EST POCT URINALYSIS DIPSTICK Routine 07/04/2024 10:53 AM EST Dysuria URINALYSIS, COMPLETE, WITH REFLEX TO CULTURE Routine 07/04/2024 10:50 AM EST CULTURE, URINE, ROUTINE Routine 07/04/2024 10:50 AM EST Dysuria US HEAD NECK SOFT TISSUE STAT 06/11/2024 1:02 PM EST Parotid gland pain C-REACTIVE PROTEIN Routine 06/09/2024 11 :33 AM EST Parotid gland pain SED RATE BY MODIFIED WESTERGREN Routine 06/09/2024 11:33 AM EST Parotid gland pain CBC WITH AUTO DIFFERENTIAL Routine 06/09/2024 11:33 AM EST Parotid gland pain POCT GLYCATED HEMOGLOBIN, TOTAL Routine 05/13/2024 9:12 AM EDT Type 2 diabetes mellitus with other specified complication, without long-term current use of insulin (CMS/HCC) POCT GLUCOSE Routine 05/13/2024 9:12 AM EDT Type 2 diabetes mellitus with other specified complication, without long-term current use of insulin (CMS/HCC) ALBUMIN, RANDOM URINE W/CREATININE Routine 01/30/2024 8:30 AM EDT Type 2 diabetes mellitus with other specified complication, without long-term current use of insulin (CMS/HCC) Benign essential hypertension Chronic low back pain without sciatica, unspecified back pain laterality LIPID PANEL, STANDARD Routine 01/30/2024 8:30 AM EDT Hypercholesterolemi a DIABETES EYE EXAM Routine 04/11/2023 COLONOSCOPY Routine 04/17/2022 ZZZ HISTORICAL HEPATITIS C AB W/REFL TO HCV RNA, QN, PCR Routine 09/26/2021 8:45 AM EDT from Last 3 Months or Most Recently Relevant to Health Maintenance Results * POCT Urinalysis (08/11/2024 9:43 AM EST) Only the most recent of2 resultswithin the time period is included. Color, UA Yellow Clarity, UA Clear Glucose, UA Negative Bilirubin, UA Negative Ketones, UA Negative Spec Grav, UA 1.015 Blood, UA Negative Negative, None Detected pH, UA 6.5 Protein, UA 2+ 125++ Urobilinogen, UA 0.2 Leukocytes, UA Trace Negative, Rare, Trace Nitrite, UA Negative Negative, None Detected Appearance, UA CLEAR QC Media Lot # [id number] Lot# Expiration Date Urine 08/11/2024 9:43 AM EST Tracey Maciel ENVIRONMENTAL PROFESSIONAL POINT OF CARE TEST ENTER/ EDIT ORDERABLES Final Result * POCT Glucose (08/11/2024 9:34 AM EST) Only the most recent of2 resultswithin the time period is included. Glucose Blood, POC 198 60 - 200 mg/dL QC Media Lot # [id number] Lot# Expiration Date Blood Capillary blood specimen / Unknown 08/11/2024 9:34 AM EST Sera Cuevas [employer]QU[employer]KER POINT OF CARE TEST ENTER/EDIT OR DERABLES Final Result * CT Abdomen Pelvis w/o Contrast (08/08/2024 2:12 AM EST) Anatomical Region Laterality Modality Body, Pelvis, Abdomen Computed T omography 08/08/2024 2:12 AM EST Narrative 08/08/2024 2:16 AM EST ? [facility] ?[address] ?[place] [address] ? CT Scan Report ? Signed ? Patient: Juan Alberto Rowe ?MR#: [id number] ?? [id number] ? : 1945 ?Acct:[id number] ? Age/Sex: 78 / M ?ADM Date: 01/23/25 ? Loc: HO.ED ? Attending Dr: ? Ordering Physician: Omer King ?? Date of Service: 08/08/24 ?? Procedure(s): CT abdomen pelvis wo IV con ?? Accession Number(s): [id number] ? cc: Omer King; Name,Kayden PITTMAN ? Report Number: ?? [id number]: Total DLP = ??652.00 mGy-cm ? CLINICAL HISTORY: Dysuria, blood in urine ? CT abdomen and pelvis without contrast ? Comparison: CT of the abdomen and pelvis from 07/26/2018 ? Findings: ?? Mild bibasilar atelectasis. Mild cardiomegaly with multi chamber ?? enlargement of the imaged heart. Mild-moderate mediastinal lipomatosis is ?? partially imaged. ?? Redemonstration of multiple cystic lesions of the left kidney with largest ?? exophytic measuring 12 cm long axis (previously 11 cm). No hydronephrosis ?? accounting for multiple parapelvic cysts, left worse than right. These ?? lesions in the kidneys not further characterize without contrast. No ?? obstructing stone in either kidney or either ureter. ?? Gallbladder is unremarkable for CT with motion artifacts. Adrenal glands ?? are within limits of normal. The spleen is nonenlarged. Mild volume loss ?? of the pancreas is noted. Liver is unremarkable for noncontrast imaging ?? with motion artifacts. ?? Small mesenteric and periaortic lymph nodes are nonspecific and may be ?? reactive. Vascular calcifications are multifocal including imaged aorta ?? and its branches. No small bowel obstruction. Wall thickening of the large ?? intestine is nonspecific and likely related to underdistention in this ?? noncontrast study including sigmoid colon. Severe stool burden is noted. ?? Diverticula are redemonstrated multifocal. The appendix is not ?? definitively seen with likely medially directed appendiceal stump. No free ?? intraperitoneal air. Previous procedure changes noted including surgical ?? clips in the josefa about right ventral abdominal wall. ?? Moderate wall thickening of the urinary bladder is nonspecific. Prostate ?? gland is diminutive and/or treated. ?? Subcutaneous edema is noted dependently. Mild vertebral height losses ?? appear old chronic. Degenerative changes include lower lumbar facet ?? arthropathy. 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 Mild pelvis deformities appear old chronic. ? IMPRESSION: ?? 1. Moderate wall thickening of the urinary bladder is nonspecific. ?? 2. No obstructing stone in either kidney or either ureter. ?? 3. Severe stool burden. No small bowel obstruction. ? This document has been electronically signed by: Stone Trejo MD on ?? 08/08/2024 02:12:07 ? Dictated By: ?Stone Trejo MD ? Signed By: ?<Electronically signed by Stone Trejo MD in OV> ? 08/08/24214 ? DD/ 1 ? TD/TT: 08/08/24211 ? 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 Procedure Note Donotuseinterpreter, Image - 08/08/[address] [address] [address] Scan Report Signed Patient: Juan Alberto RoweMR#: [id number] : 7Acct:[id number] Age/Sex: 78 / MADM Date: 08/07/24 Loc: HO.ED Attending Dr: Ordering Physician: Omer King Date of Service: 08/08/24 Procedure(s): CT abdomen pelvis wo IV con Accession Number(s): [id number] cc: Omer King; Name,Kayden PITTMAN Report Number: [id number]: Total DLP = 652.00 mGy-cm CLINICAL HISTORY: Dysuria, blood in urine CT abdomen and pelvis without contrast Comparison: CT of the abdomen and pelvis from 07/26/2018 Findings: Mild bibasilar atelectasis. Mild cardiomegaly with multi chamber enlargement of the imaged heart. 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 Redemonstration of multiple cystic lesions of the left kidney with largest exophytic measuring 12 cm long axis (previously 11 cm). No hydronephrosis accounting for multiple parapelvic cysts, left worse than right. These lesions in the kidneys not further characterize without contrast. No obstructing stone in either kidney or either ureter. Gallbladder is unremarkable for CT with motion artifacts. Adrenal glands are within limits of normal. The spleen is nonenlarged. Mild volume loss of the pancreas is noted. Liver is unremarkable for noncontrast imaging with motion artifacts. Small mesenteric and periaortic lymph nodes are nonspecific and may be reactive. Vascular calcifications are multifocal including imaged aorta and its branches. No small bowel obstruction. Wall thickening of the large intestine is nonspecific and likely related to underdistention in this noncontrast study including sigmoid colon. Severe stool burden is noted. Diverticula are redemonstrated multifocal. The appendix is not definitively seen with likely medially directed appendiceal stump. No free intraperitoneal air. Previous procedure changes noted including surgical clips in the josefa about right ventral abdominal wall. Moderate wall thickening of the urinary bladder is nonspecific. Prostate gland is diminutive and/or treated. Subcutaneous edema is noted dependently. Mild vertebral height losses appear old chronic. Degenerative changes include lower lumbar facet arthropathy. 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 Mild pelvis deformities appear old chronic. IMPRESSION: 1. Moderate wall thickening of the urinary bladder is nonspecific. 2. No obstructing stone in either kidney or either ureter. 3. Severe stool burden. No small bowel obstruction. 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 Color Urine Yellow [facility] Appearance Urine Clear [facility] PH 6.5 5.0 - 9.0 [facility] Glucose Urine UA Negative Negative mg/dL [facility] Urine Blood Negative Negative [facility] Specific [place] - Urine 1.010 1.005 - 1.025 [facility] Urine Protein 30 (1+)(A) Neg-Trace mg/dL [facility] Urine Ketones Negative Negative mg/dL [facility] Nitrite Urine Negative Negative [facility] Leukocyte Esterase Urine Moderate (2+)(A) Negative [facility] RBC Urine 0-2 0 - 2 /HPF [facility] Urine WBC >50(A) 0 - 5 /HPF [facility] Urine Squamous Epithelial Cell 0-2 0 - 2 /HPF [facility] Urine Bacteria 1+ None Seen [facility] Hyaline Casts, Urine 0-2 0 - 2 /LPF [facility] 08/08/2024 12:2 2 AM EST 08/08/2024 12:27 AM EST [facility] - 08/08/2024 12:46 AM EST [id number], Clean Catch Generic External Data Provider LAB URINE ORDERAB LES Final Result Performing Organization Address [facility]/ZIP Co de Phone Number [facility] [address] [place] [phone] * Culture, Urine, Routine (08/08/2024 12:00 AM EST) Only the most recent of4 resultswithin the time period is included. Urine Urine specimen obtained by clean catch procedure / Unknown 08/08/2024 08/08/2024 Comment:[facility] - 08/10/2024 7:29 AM EST Proteus mirabilis Quant > 100,000 cfu/mL Proteus mirabilis: Ampicillin <=2(S) Proteus mirabilis: Cefazolin (Urine) 4(S) Proteus mirabilis: Cefepime <=0.12(S) Proteus mirabilis: Ceftriaxone <=0.25(S) Proteus mirabilis: Ciprofloxacin <=0.06(S) Proteus mirabilis: Gentamicin <=1(S) Proteus mirabilis: Nitrofurantoin 128(R) Proteus mirabilis: Trimethoprim/Sulfamethoxazole >=320(R) Specimen Source: Urine clean catch Generic External Data Provider LAB MICROBIOLOGY - GENERAL ORDERABLES Final Result Performing Organization Address City/[facility]/ZIP Co de Phone Number [facility] [address] [place] [phone] * (ABNORMAL) CBC auto differential (08/07/2024 11:54 PM EST) Only the most recent of2 resultswithin the time period is included. White Blood Count 8.2 4.8 - 10.8 X10*3/uL [facility] Red Blood Count 4.36(L) 4.60 - 5.80 X10*6/uL [facility] Hemoglobin 12.0(L) 14.0 - 18.0 g/dl [facility] Hematocrit 36.2(L) 42.0 - 52.0 % [facility] Mean Corpuscular Volume 83.0 80.0 - 98.0 fL [facility] Mean Corpuscular Hemoglobin 27.5 27.0 - 33.0 pg [facility] Mean Corpuscular HGB Conc 33.1 31.0 - 36.0 g/dl [facility] Red Cell Distribution Width 14.2 11.0 - 16.0 % [facility] Platelet Count 321 160 - 400 X10*3/uL [facility] Mean Platelet Volume 9.0(L) 9.4 - 12.4 fL [facility] Neutrophils Percent Auto 55.7 45 - 73 % [facility] Imm Gran Pct Auto 0.4 0.0 - 0.4 % [facility] Lymphocytes Percent Auto 25.6 20 - 40 % [facility] Monocytes Percent Auto 12.4(H) 2 - 11 % [facility] Eosinophils Percent Auto 4.6(H) 0 - 4 % [facility] Basophils Percent Auto 1.3 0 - 2 % [facility] NRBC Pct Auto 0.0 0.0 - 0.2 /100WBC [facility] Neutrophils Absolute Auto 4.6 2.0 - 8.3 x10*3/uL [facility] Imm Gran Abs Auto 0.03 0.00 - 0.03 X10*3/uL [facility] Lymphocytes Absolute Auto 2.1 1.2 - 4.9 X10*3/uL [facility] Monocytes Absolute Auto 1.0 0.1 - 1.2 X10*3/uL [facility] Eosinophils Absolute Auto 0.4 0.0 - 0.4 X10*3/uL [facility] Basophils Absolute Auto 0.1 0.0 - 0.2 X10*3/uL [facility] NRBC Abs Auto 0.000 0.0 - 0.012 X10*3/uL [facility] 08/07/2024 11:5 4 PM EST 08/07/2024 11:58 PM EST us Generic External Data Provider LAB BLOOD ORDERAB LES Final Result [facility] [address] [place] [phone] * Lipase (08/07/2024 11:54 PM EST) Lipase 22 8 - 78 U/L [facility] 08/07/2024 11:5 4 PM EST 08/07/2024 11:58 PM EST Generic External Data Provider LAB BLOOD ORDERAB LES Final Result Performing Organization Address [facility]/ZIP Co de Phone Number [facility] [address] [place] [phone] * (ABNORMAL) Comprehensive Metabolic Panel (08/07/2024 11:54 PM EST) Sodium 139 135 - 145 mmol/L [facility] Potassium 4.9 3.3 - 5.1 mmol/L [facility] Chloride 109(H) 96 - 108 mmol/L [facility] Carbon Dioxide 25 22 - 29 mmol/L [facility] Anion Gap 10(L) 12 - 20 [facility] Urea Nitrogen (BUN) 20(H) 9 - 16 mg/dL [facility] Creatinine, Serum 1.45(H) 0.5 - 1.4 mg/dL [facility] Creatinine Clr Calc Pharmacy 43.0 [facility] Comment:eGFR (calculated fro m the MDRD study equation) and eCrCl(calculated from the Cockcroft-Gault equation) are based ondifferent parameters and may not yield comparable results.If eCrCl result is absurd, please check patient'sheight/weight. Estimated Glomerular Filt Rate 47 [facility] Comment:Chronic Kidney Disea se: Estimated GFR < 60 mL/min/[id number] Kidney Disease: Estimated GFR < 15 mL/min/1.73m2 Glucose 126(H) 60 - 115 mg/dL [facility] Calcium 9.9 8.4 - 10.2 mg/dL [facility] Bilirubin, Total 0.2 0.0 - 1.0 mg/dL [facility] Aspartate Amino Transferase 18 5 - 37 U/L [facility] Alanine Aminotransferase 16 0 - 40 U/L [facility] Total Protein 7.0 6.5 - 8.0 g/dL [facility] Albumin Level 3.8 3.5 - 5.0 g/dL [facility] Alkaline Phosphatase 71 39 - 117 U/L [facility] 08/07/2024 11:5 4 PM EST 08/07/2024 11:58 PM EST us Generic External Data Provider LAB BLOOD ORDERAB LES Final Result Performing Organization Address City/State/[facility] Co de Phone Number [facility] [address] [place] [phone] * US Head Neck Soft Tissue (06/11/2024 1:02 PM EST) Anatomical Region Laterality Modality Head, Neck Ultrasound 06/11/2024 1:02 PM EST Narrative 06/12/2024 11:33 AM EST ? [facility] ?[address] ?[place] [address] ? Ultrasound Report ? Signed ? Patient: Maciej Huffman,Juan Alberto ?MR#: [id number] ?? [id number] ? : 1945 ?Acct:[id number] ? Age/Sex: 78 / M ?ADM Date: 11/27/24 ? Loc: HO.US ? Attending Yosi Mccollumef [employer]MIUM LIQUOR MAKER ? Ordering Physician: Sera Cuevas NP ?? Date of Service: 06/11/24 ?? Procedure(s): US soft tiss head and/or neck ?? Accession Number(s): [id number] ? cc: Sera Cuevas [employer]QUOR MAKER; Name,Kayden PITTMAN ? EXAMINATION: ?? US SOFT TISSUES carotid left ? CLINICAL INFORMATION: ?? Pain. ? COMPARISON: ?? None ? TECHNIQUE: ?? High-frequency linear transducer ultrasound utilized area of interest ?? scanned. ? FINDINGS: ?? Left parotid appear normal, there is a tiny cyst within the left ?? parotid measuring 3 x 4 mm probably of no clinical significance. No ?? ultrasound evidence of ductal dilatation or stones. Included in the ?? images normal shotty cervical lymph nodes with normal cortex measuring ?? up to 6 mm and 8mm. ? US/US soft tiss head and/or neck ?? IMPRESSION: ? No ultrasound explanation for patient's pain symptoms. ? Small cyst left parotid 4 mm probably of no clinical significance. ? Electronically signed by: ??Svetlana Verde MD ??06/12/2024 11:31 AM EST ? Dictated By: ?Svetlana Verde MD ? Signed By: ?<Electronically signed by Svetlana Verde MD in OV> ?06/12/24 1131 ? DD/ 1302 ? TD/TT: 06/11/24 1304 ? Lawnmower Mechanic: HS ? Procedure Note Donrandallter, Image - 06/12/2024 [place] [address] Ultrasound Report Signed Patient: Steven Rowe#: [id number] : 7Acct:[id number] Age/Sex: 78 / MADM Date: 06/11/24 Loc: HO.US Attending Dr: Sera Cuevas NP Ordering Physician: Sera Cuevas NP Date of Service: 06/11/24 Procedure(s): US soft tiss head and/or neck Accession Number(s): [id number] cc: Sera Cuevas [employer]QUOR MAKER; Name,Kayden PITTMAN EXAMINATION: US SOFT TISSUES carotid left CLINICAL INFORMATION: Pain. COMPARISON: None TECHNIQUE: High-frequency linear transducer ultrasound utilized area of interest scanned. FINDINGS: Left parotid appear normal, there is a tiny cyst within the left parotid measuring 3 x 4 mm probably of no clinical significance. No ultrasound evidence of ductal dilatation or stones. Included in the images normal shotty cervical lymph nodes with normal cortex measuring up to 6 mm and 8mm. US/US soft tiss head and/or neck IMPRESSION: No ultrasound explanation for patient's pain symptoms. Small cyst left parotid 4 mm probably of no clinical significance. Electronically signed by: Svetlana Verde MD 06/12/2024 11:31 AM EST Dictated By: Svetlana Verde MD Signed By: <Electronically signed by Svetlana Verde MD in OV> 06/12/24 1131 DD/ 1302 TD/TT: 06/11/24 1304 Lawnmower Mechanic: HS us Sera Cuevas [employer]KER IMG US PROCEDURES Final Result * Sed Rate by Modified Alexergren (06/09/2024 11:33 AM EST) Erythrocyte Sedimentation Rate 7 0 - 15 MM/HR [facility] Comment:Patients with polycy themia and many hemoglobin abnormalitiesmay have depressed sed rates whereas patients with anemiamay have elevated sed rates. Blood Venous blood specimen / Unknown 06/09/2024 11:33 AM EST 06/09/2024 1:13 PM EST us Sera Cuevas [employer] LAB BLOOD ORDERABLES Final Resul t Performing Organization Address [facility] Co de Phone Number [facility] [address] [place] [phone] * C-reactive Protein (06/09/2024 11:33 AM EST) C Reactive Protein 0.16 < or = 0.50 mg/dL [facility] Blood Venous blood specimen / Unknown 06/09/2024 11:33 AM EST 06/09/2024 1:13 PM EST us Sera Cuevas NP LAB BLOOD ORDERABLES Final Resul t Performing Organization Address [facility]/ZIP Co de Phone Number [facility] [address] [place] [phone] * (ABNORMAL) POCT HGB A1C (05/13/2024 9:12 AM EDT) Hemoglobin A1C 6.6(A) 4.0 - 6.0 % QC Media Lot # [id number] Lot# Expiration Date [id number] Blood 05/13/2024 9:12 AM EDT us Kayden Villavicencio MD POINT OF CARE TEST ENTER/EDIT OR DERABLES Final Result * (ABNORMAL) Albumin, Random Urine W/Creatinine (01/30/2024 8:30 AM EDT) Creatinine, Urine 103.25 mg/dL [facility] Microalbumin Urine 82.0 mg/L [facility] Microalbum Creatinine Ratio Ur 79.4(H) <30 ug/mg cr [facility] Comment:Albumin/Creatinine R atio Reference Ranges: Normal: < 30 ug/mg creatinine Microalbuminuria: 30 - 300 ug/mg creatinineClinical Albuminuria: > 300 ug/mg creatinine Urine (Urine, Random) 01/30/2024 8:30 AM EDT 01/30/2024 9:01 AM EDT us Kayden Villavicencio MD LAB URINE ORDERABLES Final Resul t [facility] [address] [place] [phone] * (ABNORMAL) Lipid Panel, Standard (01/30/2024 8:30 AM EDT) Triglycerides 200(H) <150 mg/dL [facility] Comment:Desirable Triglyceri de: less than 150 mg/dLBorderline High Triglyceride 150-199 mg/dLHigh Triglyceride: 200-499 mg/dLVery High Triglyceride: greater than or equal to 5OO mg/dL Cholesterol 180 <200 mg/dL [facility] Comment:Desirable Cholestero l: less than 200 mg/dLBorderline High Cholesterol: 200-239 mg/dLHigh Cholesterol: greater than 239 mg/dL LDL Cholesterol Calculated 100(H) <100 mg/dL [facility] Comment:Desirable LDL: less than 100 mg/dLNear Optimal/Above Optimal LDL: 110- 129 mg/dLBorderline High LDL: 130-159 mg/dLHigh LDL: 160-189 mg/dLVery High LDL: greater than or equal to 190 mg/dL HDL Cholesterol 40(L) >40 mg/dL [facility] Comment:Desirable HDL: great er than 40 mg/dL Note: This HDL assay may give artificially low results in patients with liver disease. Blood Venous blood specimen / Unknown 01/30/2024 8:30 AM EDT 01/30/2024 8:30 AM EDT us Kayden Villavicencio MD LAB BLOOD ORDERABLES Final Resul t [facility] [address] [place] [phone] * Diabetes Eye Exam (04/11/2023) Eye Exam Normal Normal us Kayden Villavicencio MD HEALTH MAINTENANCE Final Result * Colonoscopy (04/17/2022) Pathologist [facility] Colonoscopy performed Karey Provider HEALTH MAINTENANCE Final Result * HEPATITIS C AB W/REFL TO HCV RNA, QN, PCR (09/26/2021 8:45 AM EDT) HEPATITIS C ANTIBODY NON-REACT JUAN NON-REACT JUAN [facility] INDEX 0.01 <1.00 [facility] Comment: ?? HCV antibody was non-reactive. There is no laboratory ?? evidence of HCV infection. ?? In most cases, no further action is required. However, if recent HCV exposure is suspected, a test for HCV RNA (test code 22598) is suggested. ?? For additional information please refer to http://education.Scality/faq/ZIK03x4 (This link is being provided for informational/ educational purposes only.) ?? 09/26/2021 8:45 AM EDT us Kayden Villavicencio MD HISTORICAL/NON ORDERABLE LABS Fi nal Result [facility] [address] from Last 3 Months or Most Recently Relevant to Health Maintenance Insurance [facility] MEDICARE ADVANTAGE HMO Care Teams Transfer Knitter Relationship Specialty Start Date End Date Name, MD Kayden [address] [place] [address] PCP - General Family Medicine 08/23/15
--- OUTSIDE RECORDS SUMMARY | 2024-08-11 20:02 | XMS_ITS | Encounter Summary ---
Author Organization [employer] Address [address] [place] [address] Care Team Providers Care Underwriting Assistant Name Role Phone Name, Kayden PITTMAN Primary Care Provider [phone] Encounter Details Date Type Department Care Team ([facility] st Contact Info) Description 07/31/2024 Telephone [facility] [address] [place], [place] [phone] Tomasa Robertson, RN Social History Tobacco Use [...] 3:45 PM EST Office Visit [facility] [place], [place] [phone] Name, [place] [address] 09/26/2024 10:15 AM EDT Office Visit [facility] [address] [place], [place] [phone] Name, MD Kayden [address] [place], [place] [phone] documented as of this encounter Procedures Procedure Name Priority Date/Time Associated Diagnosis Comments CULTURE, URINE, ROUTINE Routine 08/01/2024 2:20 PM EST Dysuria documented in this encounter Results * Culture, Urine, Routine (08/01/2024 2:20 PM EST) Urine Urine specimen obtained by clean catch procedure / Unknown 08/01/2024 2:20 PM EST 08/01/2024 4:00 PM EST Comment:[facility] - 08/03/2024 8:05 AM EST Proteus mirabilis Quant 50,000 to 100,000 cfu/mL Proteus mirabilis: Ampicillin <=2(R) Proteus mirabilis: Cefazolin (Urine) 4(S) Proteus mirabilis: Cefepime 0.5(S) Proteus mirabilis: Ceftriaxone <=0.25(S) Proteus mirabilis: Ciprofloxacin <=0.06(S) Proteus mirabilis: Gentamicin <=1(S) Proteus mirabilis: Nitrofurantoin 128(R) Proteus mirabilis: Trimethoprim/Sulfamethoxazole >=320(R) Specimen Source: Urine clean catch us Sera Cuevas NP LAB MICROBIOLOGY - GENERAL ORDER GABY Final Result [facility] [address] [place] [phone] documented in this encounter Visit Diagnoses Diagnosis Dysuria- Primary documented in this encounter Additional Health Concerns Assessment Noted Time PHQ-9 Depression Total Score: 0 08/14/19 24 9:03 AM EST documented as of this encounter Care Teams Underwriting Assistant Relationship Specialty Start Date End Date Name, MD Kayden [address] [place] [address] PCP - General Family Medicine 08/23/15 documented as of this encounter
--- OUTSIDE RECORDS SUMMARY | 2024-08-11 20:02 | XMS_ITS | Encounter Summary ---
Author Organization [employer] Address [address] [facility] [address]t [place] [address] Care Team Providers Care Promotional Representative Name Role Phone Name, Kayden PITTMAN Primary Care Provider [phone] Reason for Visit * Reason Comments Med Refill Encounter Details Date Type Department Care Team ([facility] st Contact Info) Description 04/22/2024 Refill [facility] [address] [place] [address] Patrick Conrad MD [address] [place] [address] Social History Tobacco Use Types Packs/Day Years [...] Description 09/02/2024 3:45 PM EST Office Visit [address] [address] NameKayden MD [address] [place] [address] 09/26/2024 10:15 AM EDT Office Visit [address] [address] Kayden Villavicencio MD [address] [place] [address] documented as of this encounter Visit Diagnoses Not on filedocumented in this encounter Additional Health Concerns Assessment Noted Time PHQ-9 Depression Total Score: 0 08/14/19 24 9:03 AM EST documented as of this encounter Care Teams Promotional Representative Relationship Specialty Start Date End Date Kayden Villavicencio MD [address] [place] [phone] PCP - General Family Medicine 08/23/15 documented as of this encounter
--- OUTSIDE RECORDS SUMMARY | 2024-08-11 20:02 | XMS_ITS | Encounter Summary ---
Author Organization [employer] Address [address] [facility] 7t [place] [address] Care Team Providers Care Film Developing Machine Operator Name Role Phone Name, Kayden PITTMAN Primary Care Provider [phone] Reason for Visit * Reason Comments Med Refill Encounter Details Date Type Department Care Team ([facility] st Contact Info) Description 04/22/2024 Refill [facility] [address] [place] [address] Patrick Conrad MD [address] [place] [address] Social History Tobacco Use Types Packs/Day Years [...] Description 09/02/2024 3:45 PM EST Office Visit [address] [address] NameKayden MD [address] [place] [address] 09/26/2024 10:15 AM EDT Office Visit [address] [address] Kayden Villavicencio MD [address] [place] [address] documented as of this encounter Visit Diagnoses Not on filedocumented in this encounter Additional Health Concerns Assessment Noted Time PHQ-9 Depression Total Score: 0 08/14/19 24 9:03 AM EST documented as of this encounter Care Teams Film Developing Machine Operator Relationship Specialty Start Date End Date Kayden Villavicencio MD [address] [place] [address] PCP - General Family Medicine 08/23/15 documented as of this encounter
--- OUTSIDE RECORDS SUMMARY | 2024-08-11 20:02 | XMS_ITS | Encounter Summary ---
Author Organization [employer] Address [address] [place] [address] Care Team Providers Care Pilot Supervisor Name Role Phone Name, Kayden PITTMAN Primary Care Provider [phone] Encounter Details Date Type Department Care Team ([facility] st Contact Info) Description 08/07/2024 Orders Only [facility] External Provider, [facility] Social History Tobacco Use Types Packs/Day Years [...] Description 09/02/2024 3:45 PM EST Office Visit [address] [address] NameKayden MD [address] [place] [address] 09/26/2024 10:15 AM EDT Office Visit [address] [address] NameKayden MD [address] [place] [address] documented as of this encounter Procedures Procedure Name Priority Date/Time Associated Diagnosis Comments CT ABDOMEN PELVIS WO CONTRAST Routine 08/08/2024 2:12 AM EST documented in this encounter Results * CT Abdomen Pelvis w/o Contrast (08/08/2024 2:12 AM EST) Anatomical Region Laterality Modality Body, Pelvis, Abdomen Computed T omography 08/08/2024 2:12 AM EST Narrative 08/08/2024 2:16 AM EST ? [facility] ?[address] ?[place] [address] ? CT Scan Report ? Signed ? Patient: Maciej Armida,Juan Alberto ?MR#: [id number] ?? [id number] ? : 1945 ?Acct:[id number] ? Age/Sex: 78 / M ?ADM Date: //25 ? Loc: HO.ED ? Attending Dr: ? Ordering Physician: Omer King ?? Date of Service: 08/08/24 ?? Procedure(s): CT abdomen pelvis wo IV con ?? Accession Number(s): [id number] ? cc: Omer King; Name,Kayden PITTMAN ? Report Number: ?? [id number]: Total DLP = ??652.00 mGy-cm ? CLINICAL [...] MD in OV> ? 08/08/24214 ? DD/ 0212 ? TD/TT: 08/08/24 0212 ? Branch Office Administrator: ? Procedure Note Donotuseinterpreter, Image - 08/08/[address] [address] [address] Scan Report Signed Patient: Juan Alberto RoweMR#: [id number] : 7Acct:[id number] Age/Sex: 78 / MADM Date: 08/07/24 Loc: HO.ED Attending Dr: Ordering Physician: Omer King Date of Service: 08/08/24 Procedure(s): CT abdomen pelvis wo IV con Accession Number(s): [id number] cc: Omer King; Name,Kayden PITTMAN Report Number: [id number]: Total DLP = 652.00 mGy-cm CLINICAL HISTORY: [...] in OV> 08/08/24214 DD/ 1 TD/TT: 08/08/24211 Branch Office Administrator: [facility] External Provider IMG CT PROCEDURES Final Result documented in this encounter Visit Diagnoses Not on filedocumented in this encounter Additional Health Concerns Assessment Noted Time PHQ-9 Depression Total Score: 0 08/14/19 24 9:03 AM EST documented as of this encounter Care Teams Pilot Supervisor Relationship Specialty Start Date End Date Name, MD Kayden [address] [place] [address] PCP - General Family Medicine 08/23/15 documented as of this encounter
--- OUTSIDE RECORDS SUMMARY | 2024-08-11 20:02 | XMS_ITS | Encounter Summary ---
Author Organization [employer] Address [address] [facility] [address] [place] [address] Care Team Providers Care Double End Trimmer Name Role Phone Name, Kayden PITMTAN Primary Care Provider [phone] Encounter Details Date Type Department [facility] Team [facility] Description 08/08/2024 Orders Only GENERIC EXTERNAL DATA DEPARTMENT Provider, Generic External Data Social History Tobacco Use Types Packs/Day Years [...] Description 09/02/2024 3:45 PM EST Office Visit [address] [address] Name, MD Kayden [address] [place] [address] 09/26/2024 10:15 AM EDT Office Visit [address] [address] Name, MD Kayden [address] [place] [address] documented as of this encounter Procedures Procedure Name Priority Date/Time Associated Diagnosis Comments CULTURE, URINE, ROUTINE Routine 08/08/2024 12:00 AM EST documented in this encounter Results * Culture, Urine, Routine (08/08/2024 12:00 AM EST) Urine Urine specimen obtained by clean catch procedure / Unknown 08/08/2024 08/08/2024 Comment:[facility] - 08/10/2024 7:29 AM EST Proteus mirabilis Quant > 100,000 cfu/mL Proteus mirabilis: Ampicillin <=2(S) Proteus mirabilis: Cefazolin (Urine) 4(S) Proteus mirabilis: Cefepime <=0.12(S) Proteus mirabilis: Ceftriaxone <=0.25(S) Proteus mirabilis: Ciprofloxacin <=0.06(S) Proteus mirabilis: Gentamicin <=1(S) Proteus mirabilis: Nitrofurantoin 128(R) Proteus mirabilis: Trimethoprim/Sulfamethoxazole >=320(R) Specimen Source: Urine clean catch us Generic External Data Provider LAB MICROBIOLOGY - GENERAL ORDERABLES Final Result [facility] [address] [place] [phone] documented in this encounter Visit Diagnoses Not on filedocumented in this encounter Additional Health Concerns Assessment Noted Time PHQ-9 Depression Total Score: 0 08/14/19 24 9:03 AM EST documented as of this encounter Care Teams Double End Trimmer Relationship Specialty Start Date End Date Name, MD Kayden [address] [place] [address] PCP - General Family Medicine 08/23/15 documented as of this encounter
== END 2024-08-11 16:42 | disposition home or self-care (01) ==
LOC: HO.HHCLNP 16:41
DX: Z13.89 Encounter for screening for other disorder (principal)

== ENCOUNTER 2024-08-14 10:16 | Outpatient (REF) | payer MEDICARE, SELFPAY ==
[2024-08-14 11:26] LABS: Anion Gap 14 (12-20); Blood Urea Nitrogen 17 mg/dL (9-16); Calcium 9.9 mg/dL (8.4-10.2); Carbon Dioxide 24 mmol/L (22-29); Chloride 103 mmol/L (96-108); Estimated Glomerular Filt Rate 52; Glucose Random 107 mg/dL (60-115); Potassium 4.5 mmol/L (3.3-5.1); Sodium 136 mmol/L (135-145)
[2024-08-14 11:36] LABS: Appearance Urine Clear; Color Urine Yellow; Glucose Urine UA Negative (Negative); Leukocyte Esterase Urine Negative (Negative); Nitrite Urine Negative (Negative); UMIC TRIGGER UACC YES; Urine Blood Negative (Negative); Urine Ketones Negative (Negative); Urine Protein 30 (1+) mg/dL (Neg-Trace)
[2024-08-14 11:39] LABS: RBC Urine 0-2 /HPF (0-2); WBC Urine 0-5 /HPF (0-5)
[2024-08-14 11:40] LABS: Bacteria Urine None Seen (None Seen); Hyaline Casts Urine 0-2 /LPF (0-2); Squamous Epithelial Cell Urine 0-2 /HPF (0-2)
--- OUTSIDE RECORDS SUMMARY | 2024-08-14 13:41 | XMS_ITS | Encounter Summary ---
Author Organization [employer] Address [address] [place] [address] Care Team Providers Care Production Hardener Name Role Phone Name, Kayden PITTMAN Primary Care Provider Reason for Referral * Consultation (Urgent) - Closed Specialty Diagnoses / Procedures Referred By Anastacio patel Referred To Contact Urology Diagnoses History of recurrent UTIs Tracey Maciel CNP [address] [place] [address] Phone: tel: fax: [facility] [address] [place] [address] [address] [place], [place] Phone: tel: fax: Referral ID Status Reason Start Date Expiration Date V isits Requested Visits Authorized [id number] Closed Specialty Services Required 08/11/2024 08/11/2025 1 1 * Consultation (Urgent) - Authorized Specialty Diagnoses / Procedures Referred By Anastacio patel Referred To Contact Nephrology Diagnoses Proteinuria, unspecified type Tracey Maciel CNP [address] [place] [address] Phone: tel: fax: [facility] [address] [place] [address], [address] [place] [address] Phone: tel: fax: Referral ID Status Reason Start Date Expiration Date Visits Requested Visits Authorized [id number] Authorized Specialty Services Required 08/11/2024 08/11/2025 1 1 Encounter Details Date Type Department Care Team (Late st Contact Info) Description 08/11/2024 9:30 AM EST Office Visit [facility] [address] [place], [place] [phone] Sera Cuevas NP [address] [place], [place] [phone] Dysuria (Primary Dx); Type 2 diabetes mellitus with other specified complication, without long-term current use of insulin ([facility]); Tobacco use; Proteinuria, unspecified type; [...] 9:30 AM EST documented in this encounter Progress Notes * Tracey Maicel, ANAHI - 08/11/2024 9:30 AM EST Juan Alberto Wing is a 78 y.o. male with a hx of prostate cancer in remission who presents for a acute visit. Pt complains of dysuria and odor when urinating. Pt reports he is feeling better, reports he still is having pain with urination once he stops urinating but it is substantially better, he endorsesthese symptoms from his first morning void. He denies hematuria, fever, chills, flank pain. U/A today-neg for infection, +proteinuria, no hematuria Pt is still smoking Interim Hx: Pt was seen at [facility] on 08/08/24 for dysuria and hematuria. Pt recently treated forUTI with Augmentin. After that since he was still having urinary sx he was seen here at [facility] and submitted a urine sample, but no tx was provided. The culture showed susceptibility to all cephalosporins including cefalozin. Pt also showed slightly worsening renal function. Pt had CT of abdomen and pelvis that showed no acute findings. Pt was treated was treated with IV ceftriaxone and discharged with cephalexin 500 mg BID. Labs: 1/24/25 BUN 20 H (9-16) mg/dL 01/30/24 BUN 15 08/08/24 Creatinine 1.45 H (0.5-1.4) mg/dL 01/30/24 Creatinine 1.23 Patient has urologist, [facility] urology last seen 03/19/24 Pt underwnt radical prostatectomy in 2006 for Nova 8 prostate cancer. He ended up with salvage radiation therapy in 2015. PSA alejandra again in 2019 after approximately 15 years he elected lobsterman androgen deprivation therapy. At this time pt PSA was 0.0 and testosterone levels were castrate. Had diagnostic cystoscopy performed 05/22/17 with dilation of urethra/meatus fulguration of hemorrhagic radiation cystitits and evacuation of clots in bladder. Pt also follows with Dr. Reddy from med onc. Review of Systems Constitutional: Negative for appetite change, chills, diaphoresis, fatigue, fever and unexpected weight change. Respiratory: Negative for cough, choking, chest tightness, shortness of breath and wheezing. Cardiovascular: Negative for chest pain and palpitations. Gastrointestinal: Negative for abdominal pain, blood in stool, constipation, diarrhea, nausea and vomiting. Genitourinary: Positive for dysuria. Negative for decreased urine volume, frequency, hematuria, penile pain, testicular pain and urgency. Musculoskeletal: Negative. Neurological: Negative. Psychiatric/Behavioral: Negative. Vitals: 08/11/24 0930 BP: (!) 152/77 BP Location: Left arm Patient Position: Sitting BP Cuff Size: Large adult Pulse: 87 Resp: 18 Temp: 98.4 ??F (36.9 ??C) TempSrc: Oral SpO2: 97% Weight: 200 lb (90.7 kg) Height: 5' 4 (1.626 m) Physical Exam Constitutional: Appearance: Normal appearance. HENT: Head: Normocephalic and atraumatic. Cardiovascular: Rate and Rhythm: Normal rate and regular rhythm. Pulses: Normal pulses. Heart sounds: Normal heart sounds. No murmur heard. No gallop. Pulmonary: Effort: Pulmonary effort is normal. No respiratory distress. Breath sounds: Normal breath sounds. No stridor. No wheezing, rhonchi or rales. Abdominal: Tenderness: There is no right CVA tenderness or left CVA tenderness. Skin: General: Skin is warm and dry. Coloration: Skin is not jaundiced or pale. Findings: No bruising, erythema, lesion or rash. Neurological: General: No focal deficit present. Mental Status: He is alert and oriented to person, place, and time. Psychiatric: Mood and Affect: Mood normal. Behavior: Behavior normal. Problem List Items Addressed This Visit Tobacco use Current Assessment & Plan Pt is still smoking Nicotine patches were sent to pharmacy back in 06/08 however pt never received call about rx, so they never received med Will send nicotine patches and reach out to pharmacy to confirm receipt Education provided regarding the importance of tobacco cessation d/t pt hx of prostate cancer Relevant Medications nicotine (Nicoderm CQ) 14 MG/24HR patch Dysuria - Primary Current Assessment & Plan U/A today neg for infection, +proteinuria, no hematuria Pt reports that symptoms are improving, still having some dysuria with morning void Will continue taking cephalexin 500 mg BID. Will continue with ample hydration Relevant Orders POCT Urinalysis (Completed) Proteinuria Current Assessment & Plan U/A showing proteinuria today Will trend BMP today d/t JOANA during hospitalization and worsening renal function Will refer to nephrology today Relevant Orders Basic Metabolic Panel Referral to Nephrology History of recurrent UTIs Current Assessment & Plan Pt established with urology, will place urgent referral to have September f/u moved up d/t 2 recurrent UTIs with hematuria Will place future order for u/a with reflex to culture for patient to complete upon finishing antibiotics regimen Relevant Orders Urinalysis, Complete, with Reflex to Culture Referral to Urology Type 2 diabetes mellitus, without long-term current use of insulin ([facility]) Current Assessment & Plan Pt will continue on metformin Dietary Recommendations: Fruits, vegetables, whole grains, protein foods, and fat-free or low-fat dairy products are healthychoices. Eat different types of protein foods in your diet. This can include seafood, lean meats, poultry, beans, peas, lentils, nuts, seeds, soy products, and eggs. Limit foods and beverages higher in added sugars, saturated fat, and sodium. Relevant Orders POCT Glucose (Completed) Pt has f/u in August with PCP [facility] DYSLEXIA TEACHER Attestation DYSLEXIA TEACHER Resident Attestation: Patient was seen and evaluated by Tracey Maciel DYSLEXIA TEACHER, in collaboration with Sera Cuevas NP who has reviewed my assessment and plan. I, Sera Cuevas DYSLEXIA TEACHER , have reviewed the resident's note and agree with the assessment & plan of care as documented above. documented in this encounter Miscellaneous Notes * Assessment & Plan Note - Tracey Maciel CNP - 08/11/2024 10:50 AM EST Associated Problem(s): Type 2 diabetes mellitus, without long-term current use of insulin ([facility]) Pt will continue on metformin [...] urology, will place urgent referral to have March f/u moved up d/t 2 recurrent UTIs [...] Description 09/02/2024 3:45 PM EST Office Visit [facility] [address] [place] [phone] NameKayden MD [address] [place] [phone] 09/26/2024 10:15 AM EDT Office Visit [address] [address] NameKayden MD [address] [place] [address] Scheduled Referrals Name Type Priority Associated Diagnoses Orde r Schedule Referral to Nephrology Outpatient Referral Urgent Proteinuria, unspecified type Expected: 08/11/2024 (Approximate), Expires: 08/11/2025 Referral to Urology Outpatient Referral Urgent History of recurrent UTIs Expected: 08/11/2024 (Approximate), Expires: 08/11/2025 documented as of this encounter Procedures Procedure Name Priority Date/Time Associated Diagnosis Comments URINALYSIS, COMPLETE, WITH REFLEX TO CULTURE Routine 08/14/2024 10:20 AM EST History of recurrent UTIs BASIC METABOLIC PANEL Routine 08/14/2024 10:20 AM EST Proteinuria, unspecified type POCT URINALYSIS DIPSTICK Routine 08/11/2024 9:43 AM EST Dysuria POCT GLUCOSE Routine 08/11/2024 9:34 AM EST Type 2 diabetes mellitus with other specified complication, without long-term current use of insulin ([facility]) documented in this encounter Results * (ABNORMAL) Urinalysis, Complete, with Reflex to Culture (08/14/2024 10:20 AM EST) Color Urine Yellow [facility] Appearance Urine Clear [facility] PH 6.0 5.0 - 9.0 [facility] Glucose Urine UA Negative Negative mg/dL [facility] Urine Blood Negative Negative [facility] Specific [place] - Urine 1.010 1.005 - 1.025 [facility] Urine Protein 30 (1+)(A) Neg-Trace mg/dL [facility] Urine Ketones Negative Negative mg/dL [facility] Nitrite Urine Negative Negative [facility] Leukocyte Esterase Urine Negative Negative [facility] RBC Urine 0-2 0 - 2 /HPF [facility] Urine WBC 0-5 0 - 5 /HPF [facility] Urine Squamous Epithelial Cell 0-2 0 - 2 /HPF [facility] Urine Bacteria None Seen None Seen [facility] Hyaline Casts, Urine 0-2 0 - 2 /LPF [facility] Urine 08/14/2024 10:2 0 AM EST 08/14/2024 11:24 AM EST Narrative [facility] - 08/14/2024 11:40 AM EST Urine, Clean Catch Tracey Maciel [facility] URINE ORDERABLES Ella l Result [facility] [address] [place] [address] [phone] * (ABNORMAL) Basic Metabolic Panel (08/14/2024 10:20 AM EST) Sodium 136 135 - 145 mmol/L [facility] Potassium 4.5 3.3 - 5.1 mmol/L [facility] Chloride 103 96 - 108 mmol/L [facility] Carbon Dioxide 24 22 - 29 mmol/L [facility] Anion Gap 14 12 - 20 [facility] Urea Nitrogen (BUN) 17(H) 9 - 16 mg/dL [facility] Creatinine, Serum 1.34 0.5 - 1.4 mg/dL [facility] Estimated Glomerular Filt Rate 52 [facility] Comment:Chronic Kidney Disea se: Estimated GFR < 60 mL/min/[id number] Kidney Disease: Estimated GFR < 15 mL/min/1.73m2 Glucose 107 60 - 115 mg/dL [facility] Calcium 9.9 8.4 - 10.2 mg/dL [facility] Blood Venous blood specimen / Unknown 08/14/2024 10:20 AM EST 08/14/2024 11:04 AM EST [facility] BLOOD ORDERABLES Ella l Result [facility] [address] [place] [phone] * POCT Urinalysis (08/11/2024 9:43 AM EST) [...] Expiration Date Urine 08/11/2024 9:43 AM EST us Tracey Maciel POWDER BLENDER AND POURER POINT OF CARE TEST ENTER/ EDIT ORDERABLES Final Result * POCT Glucose (08/11/2024 9:34 AM EST) Glucose Blood, POC 198 60 - 200 mg/dL QC Media Lot # [id number] Lot# Expiration Date [id number] Blood Capillary blood specimen / Unknown 08/11/2024 9:34 AM EST Sera Cuevas DYSLEXIA TEACHER POINT OF CARE TEST ENTER/EDIT OR DERABLES Final Result documented in this encounter Visit Diagnoses Diagnosis Dysuria- Primary Type 2 diabetes mellitus with other specified complication, without long-term current use of insulin ([facility]) Tobacco use Proteinuria, unspecified type History of recurrent UTIs documented in this encounter Additional Health Concerns Assessment Noted Time PHQ-9 Depression Total Score: 0 08/14/19 24 9:03 AM EST documented as of this encounter Care Teams Production Hardener Relationship Specialty Start Date End Date Name, MD Kayden [address] [place] [phone] PCP - General Family Medicine 08/23/15 documented as of this encounter
--- OUTSIDE RECORDS SUMMARY | 2024-08-14 13:41 | XMS_ITS | Encounter Summary ---
Author Organization [employer] Address [address] [facility] 7 [place] [address] Care Team Providers Care Medical Office Technology Instructor Name Role Phone Name, Kayden PITTMAN Primary Care Provider [phone] Reason for Visit * Reason Onset Date Comments Nurse Triage 07/30/2024 Encounter Details Date Type Department Care Team ([facility] st Contact Info) Description 07/30/[address] [facility] [address] [place], [place] [phone] Name, MD Kayden [address] [place] [address] Nurse Triage Social History Tobacco Use Types [...] note were not included. Call returned to [facility] to triage below. Having pain with passing urine x 2 days. Pt completed abx 2 weeks ago. Pt drinking 5 16oz water bottles per day. No dark color. Cloudy and odor since 2 days ago. Pt seen by Sera Cuevas on 07/04/24 and tx with Bactrim x7 days. Pt and jollye advised of disposition, no appts on teams. Reviewed [facility] operating hours and that wait times vary. Decline walk in . Want to see if Sera Cuevas is willing to put in order for UA and culture and treat based on those results. States does not want to be seen at [facility] as still has balance on account for being seen there. Pt does have a Urologist who they see every 6 months for hx of prostate cancer. Advised that unable to guarantee that provider will be willing to send this order in without first seeing patient. Reviewed [facility] operating hours and that wait [...] become worse Ross Moshe routed conversation to [place] [facility] Nurse2 hours ago (1:26 PM) Juan Alberto Martinez [facility] Clinical Support (supporting Sera Cuevas NP)3 hours ago (12:19 PM) RC Having problem again, slight pain when urinating. need an appointment, or antibiotics documented in this encounter Plan of Treatment Upcoming Encounters Date Type Department Care Team (Late st Contact Info) Description 09/02/2024 3:45 PM EST Office Visit [address] [address] NameKayden MD [address] [place] [phone] 09/26/2024 10:15 AM EDT Office Visit [address] [address] Kayden Villavicencio MD [address] [place] [address] documented as of this encounter Visit Diagnoses Not on filedocumented in this encounter Additional Health Concerns Assessment Noted Time PHQ-9 Depression Total Score: 0 08/14/19 24 9:03 AM EST documented as of this encounter Care Teams Medical Office Technology Instructor Relationship Specialty Start Date End Date Kayden Villavicencio MD [address] [place] [phone] PCP - General Family Medicine 08/23/15 documented as of this encounter
--- OUTSIDE RECORDS SUMMARY | 2024-08-14 13:41 | XMS_ITS | Encounter Summary ---
Author Organization [employer] Address [address] 7[address] [place] [address] Care Team Providers Care Metal Fitter Name Role Phone Name, Kayden PITTMAN Primary Care Provider Reason for Visit * Reason Onset Date Comments portia recalls 07/17/2024 Encounter Details Date Type Department Care Team ([facility] st Contact Info) Description 07/17/2024 Telephone [facility] [address] [place] [address] Jonna Lira [place] portia recalls Social History [...] Description 09/02/2024 3:45 PM EST Office Visit [facility] [address] [place] [phone] Kayden Villavicencio MD [address] [place] [phone] 09/26/2024 10:15 AM EDT Office Visit [facility] [address] [place] [address] Kayden Villavicencio MD [address] [place] [address] documented as of this encounter Visit Diagnoses Not on filedocumented in this encounter Additional Health Concerns Assessment Noted Time PHQ-9 Depression Total Score: 0 08/14/19 24 9:03 AM EST documented as of this encounter Care Teams Metal Fitter Relationship Specialty Start Date End Date Kayden Villavicencio MD [address] [place] [address] PCP - General Family Medicine 08/23/15 documented as of this encounter
--- OUTSIDE RECORDS SUMMARY | 2024-08-14 13:41 | XMS_ITS | Encounter Summary ---
Author Organization [employer] Address [address] [place] [address] 7t [place] [address] Care Team Providers Care Video Game Repair Technician Name Role Phone Name, Kayden PITTMAN Primary Care Provider [phone] Encounter Details Date Type Department Care Team (Late Contact Info) Description 12/15/2022 Abstract [facility] [address] [place] [phone] Name, MD Kayden [address] [place] [address] Social History Tobacco Use Types Packs/Day Years [...] 3:45 PM EST Office Visit [facility] [address] [place] [phone] Name, MD Kayden [facility] [place] [address] 09/26/2024 10:15 AM EDT Office Visit [facility] [address] Name, [place] [address] documented as of this encounter Visit Diagnoses Not on filedocumented in this encounter Care Teams Video Game Repair Technician Relationship Specialty Start Date End Date Name, MD Kayden [facility] [place] [address] PCP - General Family Medicine 08/23/15 documented as of this encounter
--- OUTSIDE RECORDS SUMMARY | 2024-08-14 13:41 | XMS_ITS | Encounter Summary ---
Author Organization [employer] Address [address] [facility] 7t [place] [address] Care Team Providers Care Scientific Helper Name Role Phone Name, Kayden PITTMAN Primary Care Provider [phone] Encounter Details Date Type Department Care Team [...] Description 09/02/2024 3:45 PM EST Office Visit [facility] [address] [place] [address] NameKayden MD [address] [place] [address] 09/26/2024 10:15 AM EDT Office Visit [address] [address] NameKayden MD [address] [place] [address] documented as of this encounter Visit Diagnoses Not on filedocumented in this encounter Additional Health Concerns Assessment Noted Time PHQ-9 Depression Total Score: 0 08/14/19 24 9:03 AM EST documented as of this encounter Care Teams Scientific Helper Relationship Specialty Start Date End Date NameKayden MD [address] [place] [address] PCP - General Family Medicine 08/23/15 documented as of this encounter
--- OUTSIDE RECORDS SUMMARY | 2024-08-14 13:41 | XMS_ITS | Encounter Summary ---
Author Organization [employer] Address [address] 7t [place] [address] Care Team Providers Care Blanker Operator Name Role Phone Name, Kayden PITTMAN Primary Care Provider [phone] Encounter Details Date Type Department Care Team ([facility] st Contact Info) Description 07/31/2024 Telephone [facility] [address] [place], [place] [phone] Tomasa Robertson, RN Social History Tobacco Use [...] Description 09/02/2024 3:45 PM EST Office Visit [facility] [address] [place], [place] [phone] Name, [place] [address] 09/26/2024 10:15 AM EDT Office Visit [facility] [address] [place], [place] [phone] Name, MD Kayden [address] [place], [place] [phone] documented as of this encounter Procedures Procedure Name Priority Date/Time Associated Diagnosis Comments CULTURE, URINE, ROUTINE Routine 08/01/2024 2:20 PM EST Dysuria documented in this encounter Results * Culture, Urine, Routine (08/01/2024 2:20 PM EST) Urine Urine specimen obtained by clean catch procedure / Unknown 08/01/2024 2:20 PM EST 08/01/2024 4:00 PM EST Comment:[facility] - 08/03/2024 8:05 AM EST [...] MICROBIOLOGY - GENERAL ORDER GABY Final Result [facility] [address] [place] [address] [phone] documented in this encounter Visit Diagnoses Diagnosis Dysuria- Primary documented in this encounter Additional Health Concerns Assessment Noted Time PHQ-9 Depression Total Score: 0 08/14/19 24 9:03 AM EST documented as of this encounter Care Teams Blanker Operator Relationship Specialty Start Date End Date Name, MD Kayden [address] [place] [address] PCP - General Family Medicine 08/23/15 documented as of this encounter
--- OUTSIDE RECORDS SUMMARY | 2024-08-14 13:41 | XMS_ITS | Encounter Summary ---
Author Organization [employer] Address [address] [facility] 7t [place] [address] Care Team Providers Care Surplus Property Disposal Agent Name Role Phone Name, Kayden PITTMAN Primary Care Provider [phone] Encounter Details Date Type Department Care Team ([facility] st Contact Info) Description 08/13/2024 Orders Only [facility] [address] [place], [place] [phone] Tracey Maciel, PRODUCTION PROOFREADER [address] [place], [place] [phone] Dysuria (Primary Dx); History of recurrent UTIs Social History Tobacco [...] 09/02/2024 3:45 PM EST Office Visit [address] [address] NameKayden MD [address] [place] [address] 09/26/2024 10:15 AM EDT Office Visit [address] [address] Kayden Villavicencio MD [address] [place] [phone] Scheduled Orders Name Type Priority Associated Diagnoses Orde r Schedule Culture, Urine, Routine Microbiology Routine History of recurrent UTIs Expected: 08/13/2024 (Approximate), Expires: 08/13/2025 documented as of this encounter Visit Diagnoses Diagnosis Dysuria- Primary History of recurrent UTIs documented in this encounter Additional Health Concerns Assessment Noted Time PHQ-9 Depression Total Score: 0 08/14/19 24 9:03 AM EST documented as of this encounter Care Teams Surplus Property Disposal Agent Relationship Specialty Start Date End Date Kayden Villavicencio MD [address] [place] [phone] PCP - General Family Medicine 08/23/15 documented as of this encounter
--- OUTSIDE RECORDS SUMMARY | 2024-08-14 13:41 | XMS_ITS | Encounter Summary ---
Author Organization [employer] Address [address] [place] [address] 7 [place] [address] Care Team Providers Care Charging Plug Placer Name Role Phone Name, Kayden PITTMAN Primary Care Provider [phone] Encounter Details Date Type Department Care Team (Late st Contact Info) Description 10/06/2022 Abstract [facility] [address] [place] [address] [phone] Name, MD Kayden [address] [place] [address] [phone] Social History Tobacco Use Types Packs/Day Years [...] Description 09/02/2024 3:45 PM EST Office Visit [facility] [address] [place] [address] [phone] Name, MD Kayden [address] [place] [address] [phone] 09/26/2024 10:15 AM EDT Office Visit [facility] [address] [place] [phone] Name, MD Kayden [address] [place] [phone] documented as of this encounter Visit Diagnoses Not on filedocumented in this encounter Care Teams Charging Plug Placer Relationship Specialty Start Date End Date Name, MD Kayden [address] [place] [phone] PCP - General Family Medicine 08/23/15 documented as of this encounter
--- OUTSIDE RECORDS SUMMARY | 2024-08-14 13:41 | XMS_ITS | Encounter Summary ---
Author Organization [employer] Address [address] [facility] 7t [place] [address] Care Team Providers Care School Business Manager Name Role Phone Name, Kayden PITTMAN Primary Care Provider [phone] Reason for Visit * Reason Comments Med Refill Encounter Details Date Type Department Care Team ([facility] st Contact Info) Description 04/22/2024 Refill [facility] [address] [place] [address] Patrick Conrad MD [address] [place] [address] Social History Tobacco Use Types Packs/Day Years [...] Description 09/02/2024 3:45 PM EST Office Visit [address] [address] NameKayden MD [address] [place] [phone] 09/26/2024 10:15 AM EDT Office Visit [address] [address] Kayden Villavicencio MD [address] [place] [phone] documented as of this encounter Visit Diagnoses Not on filedocumented in this encounter Additional Health Concerns Assessment Noted Time PHQ-9 Depression Total Score: 0 08/14/19 24 9:03 AM EST documented as of this encounter Care Teams School Business Manager Relationship Specialty Start Date End Date Kayden Villavicencio MD [address] [place] [phone] PCP - General Family Medicine 08/23/15 documented as of this encounter
--- OUTSIDE RECORDS SUMMARY | 2024-08-14 13:41 | XMS_ITS | Clinical Summary ---
Author Organization [employer] Address [address] [place] [address] 7t [place] [address] Care Team Providers Care Sales Route Driver Helper Name Role Phone Name, Kayden PITTMAN Primary Care Provider [phone] Allergies Active Allergy Reactions Criticality Noted Date Comments Cornell Inhibitors Cough 01/15/2012 Atorvastatin 08/14/2023 Muscle pain Barium Iodid High 08/24/2015 Iodinated Contrast Media Anaphylaxis High 10/23/2017 Medications cyclobenzaprine (Flexeril) 10 MG tablet Take 1 tablet by mouth every 8 (eight) hours. 01/29/20 21 Active leuprolide, 6-month, (Eligard) 45 MG injection Inject 45 mg under the skin every 6 (six) months. Active Mometasone Furoate (Asmanex HFA) 200 MCG/ACT aerosol Take 1 Inhalation. by mouth 2 times daily. 13 g 2 08/14/19 24 Active Diclofenac Sodium 1 % gelIndications: Chronic [...] of breath. 18 g 1 12/05/19 24 025 Active Umeclidinium Carmel (Incruse Ellipta) 62.5 MCG/ACT aerosol powder Inhale [...] time. 30 patch 08/11/19 25 025 Active mometasone (Elocon) 0.1 % ointment Apply topically in the morning. 15 g 08/14/19 24 025 nicotine (Nicoderm CQ) 14 MG/24HR patchIndication s:Tobacco [...] next 1-2m. I gave him info re [place] palsy FU w PCP in 1-2m to [...] Encounters Date Type Department Care Team Description 08/13/2024 Orders Only [address] [address] Tracey Maciel CNP Dysuria (Primary Dx); History of recurrent UTIs 08/12/[address] [address] Odalys Peña, director of creative services Orders 08/11/2024 9:30 AM EST Office Visit [address] [address] Sera Cuevas NP Dysuria (Primary Dx); Type 2 diabetes mellitus with other specified complication, without long-term current use of insulin ([facility]); Tobacco use; Proteinuria, unspecified type; History of recurrent UTIs 08/11/2024 Travel 08/08/2024 Orders Only GENERIC EXTERNAL DATA DEPARTMENT Provider, Generic External Data 08/07/2024 Orders Only [facility] External Provider, [facility] 07/31/[address] [address] Tomasa Robertson, RN 07/30/[address] [address] Kayden Villavicencio MD Nurse Triage 07/17/[address] [address] Jonna Lira [place] jan recalls 07/07/[address] [address] Tomasa Robertson RN 07/04/2024 10:30 AM EST Office Visit [facility] [address] [place] [phone] Sera Cuevas NP Dysuria (Primary Dx); Tobacco use; Parotid gland pain 07/04/2024 Orders Only [facility] [address] [place] [phone] Sera Cuevas NP 06/16/2024 Telephone [facility] [address] [place] [address] Tomasa Robertson RN 06/09/2024 10:30 AM EST Office Visit [facility] [address] [place] [address] Sera Cuevas NP Dietary counseling (Primary Dx); Exercise counseling; Benign essential hypertension; 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 (CMS/HCC); Lymphadenopathy; Parotid gland pain; Tobacco abuse counseling; Tobacco use 06/03/2024 Travel 06/03/2024 Telephone [facility] [address] [place] [phone] Name, MD Kayden Nurse Triage from Last 3 Months Immunizations Name Administration [...] PM EST Office Visit [facility] [address] [place] [phone] Name, MD Kayden [address] [place] [phone] 09/26/2024 10:15 AM EDT Office Visit [address] [address] Name, MD Kayden [address] [place] [address] Health Maintenance Due Date Last Done Comments Diabetes: Foot Exam 1956 Zoster Vaccines (1 of 2) 1996 RSV Patients and Patients Aged 60 years or older (1 - 1-dose 75+ series) 2021 COVID-19 Vaccine ( season) 2024 08/14/2023, 06/21/2022, 06/21/2022, Additional history exists Depression Screening 08/14/2024 08/14/2023, 08/14/19 SDOH Screening 08/14/2024 08/14/2023 Diabetes: Hemoglobin A1C 11/11/2024 024, 10/30/2023, 04/16/2023, Additional history exists Diabetes: Urine Protein Screening 01/29/2025 01/30/2024, 06/12/2022, 09/26/2021, Additional history exists Lipid Panel 01/29/2025 01/30/2024, 0502/2023, 09/26/2021, Additional history exists Alcohol/Substance Use Screening 02/12/2025 02/13/2024 Eye Exam 04/11/2025 04/11/2023 Tobacco Screening 08/11/2025 08/11/2024 DTaP/Tdap/Td Vaccines (5 - Td or Tdap) 12/21/2029 12/22/2019, 09/09/2010, 05/11/2000, Additional history exists Pneumococcal Vaccine: 50+ Years Completed 08/21/2016, 05/08/2012, 05/08/2007 Hepatitis C [...] complication, without long-term current use of insulin ([facility]) CT ABDOMEN PELVIS WO CONTRAST Routine 08/08/2024 [...] Recently Relevant to Health Maintenance Results * (ABNORMAL) Urinalysis, Complete, with Reflex to Culture (08/14/2024 10:20 AM EST) Only the most recent of4 resultswithin the time period is included. Color Urine Yellow [facility] Appearance Urine Clear [facility] PH 6.0 5.0 - 9.0 [facility] Glucose Urine UA Negative Negative mg/dL [facility] Urine Blood Negative Negative [facility] Specific [place] - Urine 1.010 1.005 - 1.025 [facility] Urine Protein 30 (1+)(A) Neg-Trace mg/dL [facility] Urine Ketones Negative Negative mg/dL [facility] Nitrite Urine Negative Negative [facility] Leukocyte Esterase Urine Negative Negative [facility] RBC Urine 0-2 0 - 2 /HPF [facility] Urine WBC 0-5 0 - 5 /HPF [facility] Urine Squamous Epithelial Cell 0-2 0 - 2 /HPF [facility] Urine Bacteria None Seen None Seen [facility] Hyaline Casts, Urine 0-2 0 - 2 /LPF [facility] Urine 08/14/2024 10:2 0 AM EST 08/14/2024 11:24 AM EST Narrative [facility] - 08/14/2024 11:40 AM EST Urine, Clean Catch Tracey [facility] LAB URINE ORDERABLES Ella l Result [facility] [address] [place] [phone] * (ABNORMAL) Basic Metabolic Panel (08/14/2024 10:20 AM EST) Sodium 136 135 - 145 mmol/L [facility] Potassium 4.5 3.3 - 5.1 mmol/L [facility] Chloride 103 96 - 108 mmol/L [facility] Carbon Dioxide 24 22 - 29 mmol/L [facility] Anion Gap 14 12 - 20 [facility] Urea Nitrogen (BUN) 17(H) 9 - 16 mg/dL [facility] Creatinine, Serum 1.34 0.5 - 1.4 mg/dL [facility] Estimated Glomerular Filt Rate 52 [facility] Comment:Chronic Kidney Disea se: Estimated GFR < 60 mL/min/1.37o5Trlhmw Kidney Disease: Estimated GFR < 15 mL/min/1.73m2 Glucose 107 60 - 115 mg/dL [facility] Calcium 9.9 8.4 - 10.2 mg/dL [facility] Blood Venous blood specimen / Unknown 08/14/2024 10:20 AM EST 08/14/2024 11:04 AM EST Result [facility] LAB BLOOD ORDERABLES Ella l Result [facility] [address] [place] [address] [phone] * POCT Urinalysis (08/11/2024 9:43 AM [...] Expiration Date Urine 08/11/2024 9:43 AM EST Result [facility] POINT OF CARE TEST ENTER/ EDIT ORDERABLES Final Result * POCT Glucose (08/11/2024 9:34 AM EST) Glucose Blood, POC 198 60 - 200 mg/dL QC Media Lot # [id number] Lot# Expiration Date Blood Capillary blood specimen / Unknown 08/11/2024 9:34 AM EST Result [facility] Sera Cuevas NP POINT OF CARE TEST ENTER/EDIT OR DERABLES Final Result * CT Abdomen Pelvis w/o Contrast (08/08/2024 2:12 AM EST) Anatomical Region Laterality Modality Body, Pelvis, Abdomen Computed T omography 08/08/2024 2:12 AM EST Narrative 08/08/2024 2:16 AM EST ? [facility] ?[address] ?[place] [address] ? CT Scan Report ? Signed ? Patient: Maciej Huffman,Juan Alberto ?MR#: [id number] ?? [id number] ? : 1945 ?Acct:[id number] ? Age/Sex: 78 / M ?ADM Date: 08/07/24 ? Loc: HO.ED ? Attending Dr: ? Ordering Physician: Omer King ?? Date of Service: 08/08/24 ?? Procedure(s): CT abdomen pelvis wo IV con ?? Accession Number(s): [id number] ? cc: Omer King; Name,Kayden PITTMAN ? Report Number: ?? [id number]: Total DLP = ??652.00 mGy-cm ? CLINICAL [...] by Stone Trejo MD in OV> ? 08/08/245 ? DD/ 0212 ? TD/TT: 08/08/24211 ? Fitter Placer: ? Procedure Note Donotuseinterpreter, Image - 08/08/[address] [place] [address] [address] Scan Report Signed Patient: Juan Alberto RoweMR#: [id number] : 7Acct:[id number] Age/Sex: 78 / MADM Date: 08/07/24 Loc: HO.ED Attending Dr: Ordering Physician: Omer King Date of Service: 08/08/24 Procedure(s): CT abdomen pelvis wo IV con Accession Number(s): [id number] cc: Omer King; Name,Kayden PITTMAN Report Number: [id number]: Total DLP = 652.00 mGy-cm CLINICAL HISTORY: [...] in OV> 08/08/24214 DD/ 1 TD/TT: 08/08/24211 Fitter Placer: [facility] External Provider IMG CT PROCEDURES Final Result * Culture, Urine, Routine (08/08/2024 12:00 AM EST) Only the most recent of4 resultswithin the time period is included. Urine Urine specimen obtained by clean catch procedure / Unknown 08/08/2024 08/08/2024 Comment:[facility] - 08/10/2024 7:29 AM EST Proteus mirabilis Quant > 100,000 cfu/mL Proteus mirabilis: Ampicillin <=2(S) Proteus mirabilis: Cefazolin (Urine) 4(S) Proteus mirabilis: Cefepime <=0.12(S) Proteus mirabilis: Ceftriaxone <=0.25(S) Proteus mirabilis: Ciprofloxacin <=0.06(S) Proteus mirabilis: Gentamicin <=1(S) Proteus mirabilis: Nitrofurantoin 128(R) Proteus mirabilis: Trimethoprim/Sulfamethoxazole >=320(R) Specimen Source: Urine clean catch us Generic External Data Provider LAB MICROBIOLOGY - GENERAL ORDERABLES Final Result [facility] [address] [place] [address] [phone] * (ABNORMAL) CBC auto differential (08/07/2024 11:54 PM EST) Only the most recent of2 resultswithin the time period is included. White Blood Count 8.2 4.8 - 10.8 X10*3/uL [facility] Red Blood Count 4.36(L) 4.60 - 5.80 X10*6/uL [facility] Hemoglobin 12.0(L) 14.0 - 18.0 g/dl [facility] Hematocrit 36.2(L) 42.0 - 52.0 % [facility] Mean Corpuscular Volume 83.0 80.0 - 98.0 fL [facility] Mean Corpuscular Hemoglobin 27.5 27.0 - 33.0 pg [facility] Mean Corpuscular HGB Conc 33.1 31.0 - 36.0 g/dl [facility] Red Cell Distribution Width 14.2 11.0 - 16.0 % [facility] Platelet Count 321 160 - 400 X10*3/uL [facility] Mean Platelet Volume 9.0(L) 9.4 - 12.4 fL [facility] Neutrophils Percent Auto 55.7 45 - 73 % [facility] Imm Gran Pct Auto 0.4 0.0 - 0.4 % [facility] Lymphocytes Percent Auto 25.6 20 - 40 % [facility] Monocytes Percent Auto 12.4(H) 2 - 11 % [facility] Eosinophils Percent Auto 4.6(H) 0 - 4 % [facility] Basophils Percent Auto 1.3 0 - 2 % [facility] NRBC Pct Auto 0.0 0.0 - 0.2 /100WBC [facility] Neutrophils Absolute Auto 4.6 2.0 - 8.3 x10*3/uL [facility] Imm Gran Abs Auto 0.03 0.00 - 0.03 X10*3/uL [facility] Lymphocytes Absolute Auto 2.1 1.2 - 4.9 X10*3/uL [facility] Monocytes Absolute Auto 1.0 0.1 - 1.2 X10*3/uL [facility] Eosinophils Absolute Auto 0.4 0.0 - 0.4 X10*3/uL [facility] Basophils Absolute Auto 0.1 0.0 - 0.2 X10*3/uL [facility] NRBC Abs Auto 0.000 0.0 - 0.012 X10*3/uL [facility] 08/07/2024 11:5 4 PM EST 08/07/2024 11:58 PM EST us Generic External Data Provider LAB BLOOD ORDERAB LES Final Result Performing Organization Address [facility]/ZIP Co de Phone Number [facility] [address] [place] [phone] * Lipase (08/07/2024 11:54 PM EST) Lipase 22 8 - 78 U/L [facility] 08/07/2024 11:5 4 PM EST 08/07/2024 11:58 PM EST us Generic External Data Provider LAB BLOOD ORDERAB LES Final Result Performing Organization Address [facility]/ZIP Co de Phone Number [facility] [address] [place] [address] [phone] * (ABNORMAL) Comprehensive Metabolic Panel (08/07/2024 11:54 PM EST) Sodium 139 135 - 145 mmol/L [facility] Potassium 4.9 3.3 - 5.1 mmol/L [facility] Chloride 109(H) 96 - 108 mmol/L [facility] Carbon Dioxide 25 22 - 29 mmol/L [facility] Anion Gap 10(L) 12 - 20 [facility] Urea Nitrogen (BUN) 20(H) 9 - 16 mg/dL [facility] Creatinine, Serum 1.45(H) 0.5 - 1.4 mg/dL [facility] Creatinine Clr Calc Pharmacy 43.0 [facility] Comment:eGFR (calculated fro m the MDRD study equation) and eCrCl(calculated from the Cockcroft-Gault equation) are based ondifferent parameters and may not yield comparable results.If eCrCl result is absurd, please check patient'sheight/weight. Estimated Glomerular Filt Rate 47 [facility] Comment:Chronic Kidney Disea se: Estimated GFR < 60 mL/min/1.05n5Xghdva Kidney Disease: Estimated GFR < 15 mL/min/1.73m2 Glucose 126(H) 60 - 115 mg/dL [facility] Calcium 9.9 8.4 - 10.2 mg/dL [facility] Bilirubin, Total 0.2 0.0 - 1.0 mg/dL [facility] Aspartate Amino Transferase 18 5 - 37 U/L [facility] Alanine Aminotransferase 16 0 - 40 U/L [facility] Total Protein 7.0 6.5 - 8.0 g/dL [facility] Albumin Level 3.8 3.5 - 5.0 g/dL [facility] Alkaline Phosphatase 71 39 - 117 U/L [facility] 08/07/2024 11:5 4 PM EST 08/07/2024 11:58 PM EST us Generic External Data Provider LAB BLOOD ORDERAB LES Final Result [facility] [address] [place] [phone] * US Head Neck Soft Tissue (06/11/2024 1:02 PM EST) Anatomical Region Laterality Modality Head, Neck Ultrasound 06/11/2024 1:02 PM EST Narrative 06/12/2024 11:33 AM EST ? [facility] ?[address] ?[place] [address] ? Ultrasound Report ? Signed ? Patient: Juan Alberto Rowe ?MR#: [id number] ?? [id number] ? : 1945 ?Acct:[id number] ? Age/Sex: 78 / M ?ADM Date: 06/11/24 ? Loc: HO.US ? Attending Dr: Sera Cuevas NP ? Ordering Physician: Sera Cuevas NP ?? Date of Service: 06/11/24 ?? Procedure(s): US soft tiss head and/or neck ?? Accession Number(s): [id number] ? cc: Sera Cuevas NP; Name,Kayden PITTMAN ? EXAMINATION: ?? US SOFT [...] ??Svetlana Verde MD ??06/12/2024 11:31 AM EST ?? RP ? Dictated By: ?Svetlana Verde MD ? Signed By: ?<Electronically signed by Svetlana Verde MD in OV> ?06/12/24 1131 ? DD/ 1302 ? TD/TT: 06/11/24 1304 ? Fitter Placer: HS ? Procedure Note Donotuseinterpreter, Image - 06/12/[address] [address] Ultrasound Report Signed Patient: Juan Alberto RoweMR#: [id number] : 7Acct:[id number] Age/Sex: 78 / MADM Date: 06/11/24 Loc: HO.US Attending Dr: Sera Cuevas NP Ordering Physician: Sera Cuevas NP Date of Service: 06/11/24 Procedure(s): US soft tiss head and/or neck Accession Number(s): [id number] cc: Sera Cuevas OPERATIONAL METEOROLOGIST; Name,Kayden PITTMAN EXAMINATION: US SOFT TISSUES carotid [...] 06/12/24 1131 DD/ 1302 TD/TT: 06/11/24 1304 Fitter Placer: HS us Sera Cuevas NP IMG US PROCEDURES Final Result * Sed Rate by Modified Florencia (06/09/2024 11:33 AM EST) Erythrocyte Sedimentation Rate 7 0 - 15 MM/HR [facility] Comment:Patients with polycy themia and many hemoglobin abnormalitiesmay have depressed sed rates whereas patients with anemiamay have elevated sed rates. Blood Venous blood specimen / Unknown 06/09/2024 11:33 AM EST 06/09/2024 1:13 PM EST Sera Mason OPERATIONAL METEOROLOGIST LAB BLOOD ORDERABLES Final Resul t Performing Organization Address [facility] Co de Phone Number [facility] [address] [place] [phone] * C-reactive Protein (06/09/2024 11:33 AM EST) C Reactive Protein 0.16 < or = 0.50 mg/dL [facility] Blood Venous blood specimen / Unknown 06/09/2024 11:33 AM EST 06/09/2024 1:13 PM EST Sera Cuevas OPERATIONAL METEOROLOGIST LAB BLOOD ORDERABLES Final Resul t Performing Organization Address [facility] de Phone Number [facility] [address] [place] [phone] * (ABNORMAL) POCT HGB A1C (05/13/2024 9:12 AM EDT) Hemoglobin A1C 6.6(A) 4.0 - 6.0 % QC Media Lot # [id number] Lot# Expiration Date [id number] Blood 05/13/2024 9:12 AM EDT Kayden Villavicencio MD POINT OF CARE TEST ENTER/EDIT OR DERABLES Final Result * (ABNORMAL) Albumin, Random Urine W/Creatinine (01/30/2024 8:30 AM EDT) Creatinine, Urine 103.25 mg/dL [facility] Microalbumin Urine 82.0 mg/L H [facility] Microalbum Creatinine Ratio Ur 79.4(H) <30 ug/mg cr [facility] Comment:Albumin/Creatinine R atio Reference Ranges: Normal: < 30 ug/mg creatinine Microalbuminuria: 30 - 300 ug/mg creatinineClinical Albuminuria: > 300 ug/mg creatinine Urine (Urine, Random) 01/30/2024 8:30 AM EDT 01/30/2024 9:01 AM EDT us Kayden Villavicencio MD LAB URINE ORDERABLES Final Resul t Performing Organization Address [facility] Co de Phone Number [facility] [address] [place] [phone] * (ABNORMAL) Lipid Panel, Standard (01/30/2024 8:30 AM EDT) Triglycerides 200(H) <150 mg/dL [facility] Comment:Desirable Triglyceri de: less than 150 mg/dLBorderline High Triglyceride 150-199 mg/dLHigh Triglyceride: 200-499 mg/dLVery High Triglyceride: greater than or equal to 5OO mg/dL Cholesterol 180 <200 mg/dL [facility] Comment:Desirable Cholestero l: less than 200 mg/dLBorderline High Cholesterol: 200-239 mg/dLHigh Cholesterol: greater than 239 mg/dL LDL Cholesterol Calculated 100(H) <100 mg/dL [facility] Comment:Desirable LDL: less than 100 mg/dLNear Optimal/Above Optimal LDL: 110- 129 mg/dLBorderline High LDL: 130-159 mg/dLHigh LDL: 160-189 mg/dLVery High LDL: greater than or equal to 190 mg/dL HDL Cholesterol 40(L) >40 mg/dL [facility] Comment:Desirable HDL: great er than 40 mg/dL Note: This HDL assay may give artificially low results in patients with liver disease. Blood Venous blood specimen / Unknown 01/30/2024 8:30 AM EDT 01/30/2024 8:30 AM EDT us Kayden Villavicencio MD LAB BLOOD ORDERABLES Final Resul t Performing Organization Address [facility] Co de Phone Number [facility] [address] [place] [phone] * Diabetes Eye Exam (04/11/2023) Eye Exam Normal Normal us Kayden Villavicencio MD HEALTH MAINTENANCE Final Result * Colonoscopy (04/17/2022) Colonoscopy performed us Historical Provider MD HEALTH MAINTENANCE Final Result * HEPATITIS C AB W/REFL TO HCV RNA, QN, PCR (09/26/2021 8:45 AM EDT) HEPATITIS C ANTIBODY NON-REACT JUAN NON-REACT JUAN [facility] INDEX 0.01 <1.00 [facility] Comment: ?? HCV antibody was non-reactive. There is no laboratory ?? evidence of HCV infection. ?? In most cases, no further action is required. However, if recent HCV exposure is suspected, a test for HCV RNA (test code 00595) is suggested. ?? For additional information please refer to http://education.Accurence/faq/AFO51r9 (This link is being provided for informational/ educational purposes only.) ?? 09/26/2021 8:45 AM EDT us Kayden Villavicencio MD HISTORICAL/NON ORDERABLE LABS Fi nal Result [facility] [address] from Last 3 Months or Most Recently Relevant to Health Maintenance Insurance [facility] MEDICARE ADVANTAGE HMO Care Teams Sales Route Driver Helper Relationship Specialty Start Date End Date Name, MD Kayden [address] [place] [phone] PCP - General Family Medicine 08/23/15
--- OUTSIDE RECORDS SUMMARY | 2024-08-14 13:42 | XMS_ITS | Encounter Summary ---
Author Organization [employer] Address [address] 7[address] [place] [address] Care Team Providers Care Glove Cleaner Name Role Phone Name, Kayden PITTMAN Primary Care Provider [phone] Encounter Details Date Type Department Care Team ([facility] st Contact Info) Description 08/07/2024 Orders Only External Provider, [facility] Social History Tobacco Use Types Packs/Day [...] Description 09/02/2024 3:45 PM EST Office Visit [address] [address] NameKayden MD [address] [place] [address] 09/26/2024 10:15 AM EDT Office Visit [address] [address] NameKayden MD [address] [place] [address] documented as of this encounter Procedures Procedure Name Priority Date/Time Associated Diagnosis Comments CT ABDOMEN PELVIS WO CONTRAST Routine 08/08/2024 2:12 AM EST documented in this encounter Results * CT Abdomen Pelvis w/o Contrast (08/08/2024 2:12 AM EST) Anatomical Region Laterality Modality Body, Pelvis, Abdomen Computed T omography 08/08/2024 2:12 AM EST Narrative 08/08/2024 2:16 AM EST ? [facility] ?[address] ?[place] [address] ? CT Scan Report ? Signed ? Patient: Maciej Armida,Juan Alberto ?MR#: [id number] ?? [id number] ? : 1945 ?Acct:[id number] ? Age/Sex: 78 / M ?ADM Date: //25 ? Loc: HO.ED ? Attending Dr: ? Ordering Physician: Omer King ?? Date of Service: 08/08/24 ?? Procedure(s): CT abdomen pelvis wo IV con ?? Accession Number(s): [id number] ? cc: Omer King; Name,Kayden PITTMAN ? Report Number: ?? [id number]: Total DLP = ??652.00 mGy-cm ? CLINICAL [...] DD/ 0212 ? TD/TT: 08/08/24 0212 ? Back Strip Machine Operator: ? Procedure Note Donotuseinterpreter, Image - 08/08/[address] [address] [address] Scan Report Signed Patient: Juan Alberto RoweMR#: [id number] : 7Acct:[id number] Age/Sex: 78 / MADM Date: 08/07/24 Loc: HO.ED Attending Dr: Ordering Physician: Omer King Date of Service: 08/08/24 Procedure(s): CT abdomen pelvis wo IV con Accession Number(s): [id number] cc: Omer King; Name,Kayden PITTMAN Report Number: [id number]: Total DLP = 652.00 mGy-cm CLINICAL HISTORY: [...] in OV> 08/08/24214 DD/ 1 TD/TT: 08/08/24211 Back Strip Machine Operator: [facility] External Provider IMG CT PROCEDURES Final Result documented in this encounter Visit Diagnoses Not on filedocumented in this encounter Additional Health Concerns Assessment Noted Time PHQ-9 Depression Total Score: 0 08/14/19 24 9:03 AM EST documented as of this encounter Care Teams Glove Cleaner Relationship Specialty Start Date End Date Name, MD Kayden [address] [place] [address] PCP - General Family Medicine 08/23/15 documented as of this encounter
--- OUTSIDE RECORDS SUMMARY | 2024-08-14 13:42 | XMS_ITS | Encounter Summary ---
Author Organization [employer] Address [address] 7[address] [place] [address] Care Team Providers Care Coil Binder Name Role Phone Name, Kayden PITTMAN Primary Care Provider [phone] Encounter Details Date Type Department Care Team ([facility] Contact Info) Description 08/08/2024 Orders Only GENERIC [...] Description 09/02/2024 3:45 PM EST Office Visit [address] [address] Name, MD Kayden [address] [place] [address] 09/26/2024 10:15 AM EDT Office Visit [address] [address] Name, MD Kayden [address] [place] [address] documented as of this encounter Procedures Procedure Name Priority Date/Time Associated Diagnosis Comments CULTURE, URINE, ROUTINE Routine 08/08/2024 12:00 AM EST documented in this encounter Results * Culture, Urine, Routine (08/08/2024 12:00 AM EST) Urine Urine specimen obtained by clean catch procedure / Unknown 08/08/2024 08/08/2024 Comment:[facility]S - 08/10/2024 7:29 AM EST Proteus mirabilis Quant > 100,000 cfu/mL Proteus mirabilis: Ampicillin <=2(S) Proteus mirabilis: Cefazolin (Urine) 4(S) Proteus mirabilis: Cefepime <=0.12(S) Proteus mirabilis: Ceftriaxone <=0.25(S) Proteus mirabilis: Ciprofloxacin <=0.06(S) Proteus mirabilis: Gentamicin <=1(S) Proteus mirabilis: Nitrofurantoin 128(R) Proteus mirabilis: Trimethoprim/Sulfamethoxazole >=320(R) Specimen Source: Urine clean catch us Generic External Data Provider LAB MICROBIOLOGY - GENERAL ORDERABLES Final Result [facility] [address] [place] [phone] documented in this encounter Visit Diagnoses Not on filedocumented in this encounter Additional Health Concerns Assessment Noted Time PHQ-9 Depression Total Score: 0 08/14/19 24 9:03 AM EST documented as of this encounter Care Teams Coil Binder Relationship Specialty Start Date End Date Name, MD Kayden [address] [place] [address] PCP - General Family Medicine 08/23/15 documented as of this encounter
--- OUTSIDE RECORDS SUMMARY | 2024-08-14 13:42 | XMS_ITS | Encounter Summary ---
Author Organization [employer] Address [address] [facility] 7 [place] [address] Care Team Providers Care Innovation Manager Name Role Phone Name, Kayden PITTMAN Primary Care Provider [phone] Reason for Visit * Reason Onset Date Comments Lab Orders 08/12/2024 Encounter Details Date Type Department Care Team ([facility] Contact Info) Description 08/12/2024 Telephone [facility] [address] [place] [address] Odalys Peña RN [address] [place] [address] Lab Orders Social History Tobacco Use Types Packs/Day Years [...] encounter Miscellaneous Notes * Telephone Encounter - Odalys Peña RN - 08/13/2024 2:01 PM EST Urine Culture order faxed to [facility] Lab. * Telephone Encounter - Tracey Maciel CNP - 08/13/2024 8:50 AM EST No need to recollect sample, I put in an order just for the urine culture. Let me know if you need anything else or have any questions. Thanks! * Telephone Encounter - Odalys Peña RN - 08/12/2024 4:54 PM EST Received message from [facility] lab they received order for urinalysis with reflex to culture but only received a specimen with in the pathak top culture tube. Need yellow urine tube and pathak top culture tube to process this order. Message sent to ordering provider Tracey Leyva NP to determine if patient needs recollect or if urine culture order can be sent. documented in this encounter Plan of Treatment Upcoming Encounters Date Type Department Care Team (Late st Contact Info) Description 09/02/2024 3:45 PM EST Office Visit [address] [address] NameKayden MD [address] [place] [address] 09/26/2024 10:15 AM EDT Office Visit [address] [address] Name, MD Kayden [address] [place] [address] documented as of this encounter Visit Diagnoses Not on filedocumented in this encounter Additional Health Concerns Assessment Noted Time PHQ-9 Depression Total Score: 0 08/14/19 24 9:03 AM EST documented as of this encounter Care Teams Innovation Manager Relationship Specialty Start Date End Date Name, MD Kayden [address] [place] [address] PCP - General Family Medicine 08/23/15 documented as of this encounter
--- OUTSIDE RECORDS SUMMARY | 2024-08-14 13:42 | XMS_ITS | Encounter Summary ---
Author Organization [employer] Address [address] [facility] 7t [place] [address] Care Team Providers Care Crew Boss Name Role Phone Name, Kayden PITTMAN Primary Care Provider Reason for Visit * Reason Comments Med Refill Encounter Details Date Type Department Care Team ([facility] st Contact Info) Description 04/22/2024 Refill [facility] [address] [place] [address] Patrick Conrad MD [address] [place] [address] Social History Tobacco Use Types Packs/Day Years [...] Description 09/02/2024 3:45 PM EST Office Visit [address] [address] NameKayden MD [address] [place] [address] 09/26/2024 10:15 AM EDT Office Visit [address] [address] Kayden Villavicencio MD [address] [place] [address] documented as of this encounter Visit Diagnoses Not on filedocumented in this encounter Additional Health Concerns Assessment Noted Time PHQ-9 Depression Total Score: 0 08/14/19 24 9:03 AM EST documented as of this encounter Care Teams Crew Boss Relationship Specialty Start Date End Date Kayden Villavicencio MD [address] [place] [address] PCP - General Family Medicine 08/23/15 documented as of this encounter
== END 2024-08-14 10:17 | disposition home or self-care (01) ==
LOC: HO.HHCL 10:16
DX: N39.0 Urinary tract infection, site not specified (principal); R80.9 Proteinuria, unspecified; Z87.440 Personal history of urinary (tract) infections
CPT/HCPCS: 36415; 80048; 81001; 87086

== ENCOUNTER 2024-09-03 14:10 | Outpatient (AMB) | payer MEDICARE, SELFPAY ==
--- NOTE | 2024-09-03 14:12 | HO.NEPHOV_ITS ---
Vital Signs 09/03/24 14:13 Height 5 ft 4 in Weight 201 lb BMI 34.5 BP 146/78 H Blood Pressure Location Lt brachial Position Sitting Pulse 85 Pulse Source Pulse Oximeter Pulse Oximetry (%) 96 Oxygen Delivery Method Room Air Intake Visit Reasons: ENP: Worsening Kidney Function and Proteinuria Hand Flesher Required: No Accompanied by: Spouse Allergies Iodinated Contrast Media [IV CONTRAST] Allergy (Severe, Verified 08/07/24 23:16) ANAPHYLAXIS Medication List - Last Reconciled 09/03/24 by Dinesh Grullon MD albuterol sulfate 90 mcg/actuation (Ventolin HFA) 2 puffs inhalation Q4H PRN amlodipine 10 mg PO DAILY docusate sodium (Stool Softener) 100 mg PO DAILY ezetimibe 10 mg PO DAILY leuprolide acetate (6 month) (Eligard) 45 mg subcut Q4PPTPFZ losartan 50 mg PO DAILY metformin 500 mg PO BID lzddbphvyqli-lnzlvelc-tvwksb 1 tab PO DAILY HPI Comments Details: 78-year-old man with a history of prostate cancer status post radiation and hypertension has been referred for chronic kidney disease. Baseline serum creatinine is probably around 1.23 mg/dL as of 02/02/2024. In June of 2024 he had UTI. He was treated with Bactrim. Serum creatinine bumped up to 1.45 mg/dL. After discontinuing Bactrim creatinine decreased to 1.34 mg/dL. With the corresponding EGFR of 52 mL/minute. Has a history of multiple renal cyst bilaterally. The findings were reportedly unchanged since 2019. As well prostate cancer he was follow up with [facility]. History of radical prostatectomy in 2006. Status post radiation therapy in 2015. He had complication with hemorrhagic radiation cystitis. He has waiting for a cystoscopy in September/2024. History of significant osteoarthritis History of GI bleed status post endoscopy in the past9+ [facility] Medical History (Updated 09/03/24 @ 14:53 by Dinesh Grullon MD) Diverticulosis Diabetes HTN (hypertension) Prostate CA Surgical History History of urologic surgery Hx of colonoscopy Hx of appendectomy Hx of testicular mass Hx of umbilical hernia repair History of prostate surgery Family History Mother Bone cancer Father Diabetes Social History Household Members: Spouse Alcohol intake: current Alcohol intake frequency: holidays/special occasions only Patient Tobacco Use Status: Current everyday Tobacco user Tobacco use type: Cigar Physical Exam Vital Signs: Last Vital Signs Pulse 85 09/03/24 14:13 BP 146/78 H 09/03/24 14:13 Pulse Ox 96 09/03/24 14:13 Oxygen Delivery Method Room Air 09/03/24 14:13 BMI result Body Mass Index 34.5 Comfortable Neck supple no JVD. Lungs entry equal no rales. Heart S1-S2 heard no gallop or rub. Abdomen soft nontender. Neuro alert awake oriented. No asterixis. Extremities 1+ edema. Results Reviewed Results Reviewed: CT scan in 07/04/2024 Mild bibasilar atelectasis. Mild cardiomegaly with multi chamber enlargement of the imaged heart. 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 Redemonstration of multiple cystic lesions of the left kidney with largest exophytic measuring 12 cm long axis (previously 11 cm). No hydronephrosis accounting for multiple parapelvic cysts, left worse than right. These lesions in the kidneys not further characterize without contrast. No obstructing stone in either kidney or either ureter. Nephrology Results: Hgb 12.0 g/dl (14.0-18.0) L 08/07/24 WBC 8.2 X10*3/uL (4.8-10.8) 08/07/24 Plt Count 321 X10*3/uL (160-400) 08/07/24 Sodium 136 mmol/L (135-145) 08/14/24 Potassium 4.5 mmol/L (3.3-5.1) 08/14/24 Chloride 103 mmol/L (96-108) 08/14/24 Carbon Dioxide 24 mmol/L (22-29) 08/14/24 BUN 17 mg/dL (9-16) H 08/14/24 Creatinine 1.34 mg/dL (0.5-1.4) 08/14/24 Calcium 9.9 mg/dL (8.4-10.2) 08/14/24 Urine Protein 30 (1+) mg/dL (Neg-Trace) H 08/14/24 Urine Creatinine 103.25 mg/dL 01/30/24 Assessment & Plan Assessment & Plan (1) CKD (chronic kidney disease): Code(s): N18.9 - Chronic kidney disease, unspecified Category: Medical Plan: Chronic kidney disease most likely due to longstanding hypertension. He has sustained acute kidney injury during an episode of UTI. Hypoperfusion could have contributed to JOANA. Use of Bactrim could also cause acute kidney injury by inhibiting tubular secretion of creatinine. After discontinuing Bactrim creatinine has slightly improved. No evidence of obstruction based on recent CT scan. Recent urine sediment was relatively bland therefore glomerular nephritis or interstitial disease seems very unlikely. Encouraged to increase p.o. fluid intake Avoid NSAIDs and other nephrotoxic agents. Baseline workup ordered for CKD Shall continue to follow renal function closely. (2) HTN (hypertension): Code(s): I10 - Essential (primary) hypertension Category: Medical Plan: Blood pressure is acceptable. Encouraged him to stay on low-sodium diet. Continue with current medications Mild leg edema is most likely due to the use of amlodipine. He is asymptomatic (3) Renal cyst: Code(s): N28.1 - Cyst of kidney, acquired Category: Medical Plan: Multi-cystic kidney disease. Recent CT scan reported relatively stable renal cyst unchanged from 2019. Shall obtain follow-up ultrasonogram during next visit. (4) Prostate CA: Comment: Chemo injection q6mo Code(s): C61 - Malignant neoplasm of prostate Category: Medical Plan: Continue follow up with Urology Orders: Orders UA and rflx microscopic 3 Weeks N18.9 - Chronic kidney disease, unspecified Creatinine Urine 3 Weeks N18.9 - Chronic kidney disease, unspecified Complete Blood Count no Diff 3 Weeks N18.9 - Chronic kidney disease, unspecified Comprehensive Met. Panel 3 Weeks N18.9 - Chronic kidney disease, unspecified Total Protein Urine Random 3 Weeks N18.9 - Chronic kidney disease, unspecified Coding Level of Care Code New Pt Level 5 (89488) Diagnoses CKD (chronic kidney disease) N18.9 HTN (hypertension) I10 Renal cyst N28.1 Prostate CA C61
[2024-09-03 14:13] VITALS: BP 146/78; PULSE 85; O2SAT 96; BMI 34.5
--- OUTSIDE RECORDS SUMMARY | 2024-09-03 14:21 | XMS_ITS | Clinical Summary ---
Author Organization [address] [facility] Address [address] [place] [address] Phone Care Team Providers Care Operations Boardman Name Role Phone Name, Kayden PITTMAN Primary Care Provider [phone] Encounters Date Type Department Care Team Description 08/26/2024 Lab Requisition [facility] - Main Lab [address] [facility] [place] [address] Juan R Katz PA Gross hematuria from Last 3 Months Social History Tobacco Use Types Packs/Day Years Used Date Smoking Tobacco: Never Assessed Sex and Gender Information Value Date Recorded Sex Assigned at Not on file Legal Sex Male 2:34 PM EST Gender Identity Not on file Sexual Orientation Not on file Plan of Treatment Health Maintenance Due Date Last Done Comments Diabetes: Annual GFR (Glomerular Filtration Rate) 1945 Diabetes: Annual Foot Exam 1956 Diabetes: Annual Retina Eye Exam 1955 Zoster Vaccines (1 of 2) 1996 Pneumococcal Vaccine: 50+ Years (2 of 2 - PCV) 05/08/2013 05/08/2012, 05/08/2007 DTaP,Tdap,and Td Vaccines (2 - Td or Tdap) 09/09/2020 09/09/2010 RSV Immunization Patients 60+ Years Old (1 - 1-dose 75+ series) 2021 Cholesterol Screening (Lipid Panel) 06/14/2022 Depression Screening 06/14/2022 Falls Risk Assessment 06/14/2022 Hepatitis C Screening 06/14/2022 Medicare Annual Wellness Visit 06/14/2022 Social Influencers of Health Screening 06/14/2022 Diabetes: Annual Urine Albumin-Creatinine Ratio (uACR) 06/30/2022 Diabetes: Blood Sugar Control Test (HGBA1C) 06/30/2022 Hypertension/CHF/CAD Annual BMP Blood Test 06/30/2022 COVID-19 Vaccine (2023-25 season) 2024 Influenza Vaccine (#1) 2024 5, 04/27/2015, 04/16/2014, Additional history exists HIB Vaccines Aged Out No longer eligi [...] on patient's age to complete this topic MMR Vaccines Aged Out No longer eligi ble based on patient's age to complete this topic Meningococcal ACWY Vaccine Aged Out N o longer eligible based on patient's age to complete this topic Meningococcal B Vacine Aged Out No lo nger eligible based on patient's age to complete this topic RSV Immunization Patients Under 20 months Aged Out No longer eligible based on patient's age to complete this topic Varicella Vaccines Aged Out No longer eligible based on patient's age to complete this topic Insurance [employer] MEDICARE Care Teams Operations Boardman Relationship Specialty Start Date End Date Name, MD Kayden [address] [place], [place] PCP - General Internal Medicine 05/25/11
--- OUTSIDE RECORDS SUMMARY | 2024-09-03 14:21 | XMS_ITS | Encounter Summary ---
Author Organization [employer] Address [address] [facility] 7t [place] [address] Care Team Providers Care Supervisor Last Model Department Name Role Phone Name, Kayden PITTMAN Primary Care Provider [phone] Encounter Details Date Type Department Care Team (Late Contact Info) Description 12/15/2022 Abstract [facility] [address] [place] [address] [phone] Name, MD Kayden [address] [place] [address] Social History Tobacco Use Types Packs/Day Years [...] Upcoming Encounters Date Type Department Care Team ([facility] Contact Info) Description 09/26/2024 10:15 AM EDT Office Visit [facility] [address] [place] [address] Name, MD Kayden [address] [place] [address] documented as of this encounter Visit Diagnoses Not on filedocumented in this encounter Care Teams Supervisor Last Model Department Relationship Specialty Start Date End Date Name, MD Kayden [address] [place] [address] PCP - General Family Medicine 08/23/15 documented as of this encounter
--- OUTSIDE RECORDS SUMMARY | 2024-09-03 14:21 | XMS_ITS | Encounter Summary ---
Author Organization [facility] Address [address] [place] [address] Care Team Providers Care Product Scientist Name Role Phone Name, Kayden PITTMAN Primary Care Provider [phone] Encounter Details Date Type Department Care Team (Late st Contact Info) Description 08/26/2024 Lab Requisition [facility] - Main Lab [address] [facility] [place] [address] Juan R Katz PA [address] [place] [address] Gross hematuria Social History Tobacco Use Types Packs/Day Years Used Date Smoking Tobacco: Never Assessed Sex and Gender Information Value Date Recorded Sex Assigned at Not on file Legal Sex Male 2:34 PM EST Gender Identity Not on file Sexual Orientation Not on file documented as of this encounter Plan of Treatment Pending Results Name Type Priority Associated Diagnoses Date /Time Anatomic pathology outside consult Pathology and Cytology Routine Gross hematuria 08/20/2024 12:00 AM EST documented as of this encounter Visit Diagnoses Diagnosis Gross hematuria documented in this encounter Care Teams Product Scientist Relationship Specialty Start Date End Date Name, MD Kayden [address] [place], [place] PCP - General Internal Medicine 05/25/11 documented as of this encounter
--- OUTSIDE RECORDS SUMMARY | 2024-09-03 14:21 | XMS_ITS | Encounter Summary ---
Author Organization [employer] Address [address] [facility] [address] [place] [address] Care Team Providers Care Golf Teacher Name Role Phone Name, Kayden PITTMAN Primary Care Provider [phone] Encounter Details Date Type Department Care Team ([facility] Contact Info) Description 08/08/2024 Orders Only GENERIC [...] Care Team (Late st Contact Info) Description 09/26/2024 10:15 AM EDT Office Visit [facility] [address] [place] [address] Name, MD Kayden [address] [place] [address] documented as of this encounter Procedures Procedure Name Priority Date/Time Associated Diagnosis Comments CULTURE, URINE, ROUTINE Routine 08/08/2024 12:00 AM EST documented in this encounter Results * Culture, Urine, Routine (08/08/2024 12:00 AM EST) Urine Urine specimen obtained by clean catch procedure / Unknown 08/08/2024 08/08/2024 Comment:[facility]S - 08/10/2024 7:29 AM EST Proteus mirabilis Quant > 100,000 cfu/mL Proteus mirabilis: Ampicillin <=2(S) Proteus mirabilis: Cefazolin (Urine) 4(S) Proteus mirabilis: Cefepime <=0.12(S) Proteus mirabilis: Ceftriaxone <=0.25(S) Proteus mirabilis: Ciprofloxacin <=0.06(S) Proteus mirabilis: Gentamicin <=1(S) Proteus mirabilis: Nitrofurantoin 128(R) Proteus mirabilis: Trimethoprim/Sulfamethoxazole >=320(R) Specimen Source: Urine clean catch us Generic External Data Provider LAB MICROBIOLOGY - GENERAL ORDERABLES Final Result [facility] [address] [place] [address] [phone] documented in this encounter Visit Diagnoses Not on filedocumented in this encounter Additional Health Concerns Assessment Noted Time PHQ-9 Depression Total Score: 0 08/14/19 24 9:03 AM EST documented as of this encounter Care Teams Golf Teacher Relationship Specialty Start Date End Date Name, MD Kayden [address] [place] [address] PCP - General Family Medicine 08/23/15 documented as of this encounter
--- OUTSIDE RECORDS SUMMARY | 2024-09-03 14:21 | XMS_ITS | Encounter Summary ---
Author Organization [employer] Address [address] [place] [address] Care Team Providers Care Hvac Service Tech Name Role Phone Name, Kayden PITTMAN Primary Care Provider [phone] Encounter Details Date Type Department Care Team ([facility] st Contact Info) Description 07/31/2024 Telephone [facility] [address] [place], [place] [phone] Tomasa Robertson, RN Social History Tobacco Use [...] Description 09/26/2024 10:15 AM EDT Office Visit [facility] [address] [facility] [place] [address] Name, MD Kayden [address] [facility] [place] [address] documented as of this encounter Procedures Procedure Name Priority Date/Time Associated Diagnosis Comments CULTURE, URINE, ROUTINE Routine 08/01/2024 2:20 PM EST Dysuria documented in this encounter Results * Culture, Urine, Routine (08/01/2024 2:20 PM EST) Urine Urine specimen obtained by clean catch procedure / Unknown 08/01/2024 2:20 PM EST 08/01/2024 4:00 PM EST Comment:[facility] - 08/03/2024 8:05 AM EST Proteus mirabilis Quant 50,000 to 100,000 cfu/mL Proteus mirabilis: Ampicillin <=2(R) Proteus mirabilis: Cefazolin (Urine) 4(S) Proteus mirabilis: Cefepime 0.5(S) Proteus mirabilis: Ceftriaxone <=0.25(S) Proteus mirabilis: Ciprofloxacin <=0.06(S) Proteus mirabilis: Gentamicin <=1(S) Proteus mirabilis: Nitrofurantoin 128(R) Proteus mirabilis: Trimethoprim/Sulfamethoxazole >=320(R) Specimen Source: Urine clean catch us Sera Cuevas UNDERWRITING INTERN LAB MICROBIOLOGY - GENERAL ORDER GABY Final Result [facility] [address] [place] [address] [phone] documented in this encounter Visit Diagnoses Diagnosis Dysuria- Primary documented in this encounter Additional Health Concerns Assessment Noted Time PHQ-9 Depression Total Score: 0 08/14/19 9:03 AM EST documented as of this encounter Care Teams Hvac Service Tech Relationship Specialty Start Date End Date Name, MD Kayden [address] [place] [address] PCP - General Family Medicine 08/23/15 documented as of this encounter
--- OUTSIDE RECORDS SUMMARY | 2024-09-03 14:21 | XMS_ITS | Clinical Summary ---
Author Organization [employer] Address [address] [place] [address] 7[address] [place] [address] Care Team Providers Care Umbrella Tipper Machine Name Role Phone Name, Kayden PITTMAN Primary Care Provider [phone] Allergies Active Allergy Reactions Criticality Noted Date [...] g 1 12/05/19 24 025 Active Umeclidinium [place] (Incruse Ellipta) 62.5 MCG/ACT aerosol powder Inhale [...] next 1-2m. I gave him info re [place] palsy FU w PCP in 1-2m to [...] Encounters Date Type Department Care Team Description 08/25/2024 Patient Outreach [facility] [address] [place], [place] [phone] Kayden Villavicencio MD Pre-visit Planning ([facility] unable to reach [facility]) 08/13/2024 Orders Only [address] [address] Tracey Maciel CNP Dysuria (Primary Dx); History of recurrent UTIs 08/12/[address] [address] Odalys Peña, maintenance scheduler Orders 08/11/2024 9:30 AM EST Office Visit [address] [address] Sera Cuevas NP Dysuria (Primary Dx); Type 2 diabetes mellitus with other specified complication, without long-term current use of insulin ([facility]); Tobacco use; Proteinuria, unspecified type; History of recurrent UTIs 08/11/2024 Travel 08/08/2024 Orders Only GENERIC EXTERNAL DATA DEPARTMENT Provider, Generic External Data 08/07/2024 Orders Only [facility] External Provider, [facility] 07/31/[address] [address] Tomasa Robertson, JUAN 07/30/[address] [address] Kayden Villavicencio MD Nurse Triage 07/17/2024 Telephone [facility] [address] [place] [address] Jonna Lira NISHANT portia recalls 07/07/2024 Telephone [facility] [address] [place] [address] Tomasa Robertson RN 07/04/2024 10:30 AM EST Office Visit [address] [address] Sera Cuevas NP Dysuria (Primary Dx); Tobacco use; Parotid gland pain 07/04/2024 Orders Only [facility] [address] [place] [address] Sera Cuevas NP 06/16/[address] [address] Tomasa Robertson RN 06/09/2024 10:30 AM EST Office Visit [address] [address] Sera Cuevas NP Dietary counseling (Primary Dx); Exercise counseling; Benign essential hypertension; 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 I have hans acrmen 08/14/[address] you li [...] Description 09/26/2024 10:15 AM EDT Office Visit [facility] [address] [place] [address] Name, MD Kayden [address] [place] [address] Health Maintenance Due Date Last Done Comments Diabetes: Foot Exam 1956 Zoster Vaccines (1 of 2) 1996 RSV Patients and Patients Aged 60 years or older (1 - 1-dose 75+ series) 2021 COVID-19 Vaccine ( season) 2024 08/14/2023, 06/21/2022, 06/21/2022, Additional history exists Diabetes: Hemoglobin A1C 08/13/2024 024, 10/30/2023, 04/16/2023, Additional history exists Depression Screening 08/14/2024 08/14/2023, 08/14/19 SDOH Screening 08/14/2024 08/14/2023 Diabetes: Urine Protein Screening 01/29/2025 01/30/2024, 06/12/2022, [...] Procedure Name Priority Date/Time Associated Diagnosis Comments AMB REFERRAL TO UROLOGY Urgent 08/20/2024 History of recurrent UTIs URINALYSIS, COMPLETE, WITH REFLEX TO CULTURE Routine 08/14/2024 10:20 AM EST History of recurrent UTIs BASIC METABOLIC PANEL Routine 08/14/2024 10:20 AM EST Proteinuria, unspecified type CULTURE, URINE, ROUTINE Routine 08/14/2024 10:20 AM EST History of recurrent UTIs POCT URINALYSIS DIPSTICK Routine 08/11/2024 9:43 AM EST Dysuria POCT GLUCOSE Routine 08/11/2024 9:34 AM EST Type 2 diabetes mellitus with other specified complication, without long-term current use of insulin ([facility]) CT ABDOMEN PELVIS WO CONTRAST Routine 08/08/2024 [...] Recently Relevant to Health Maintenance Results * Referral to Urology (08/20/2024) [facility] OUTPATIENT REFERRAL ORDER GABY Final Result * (ABNORMAL) Urinalysis, Complete, with Reflex to Culture (08/14/2024 10:20 AM EST) Only the most recent of4 resultswithin the time period is included. Pathologist [facility] Color Urine Yellow [facility] Appearance Urine Clear [facility] PH 6.0 5.0 - 9.0 [facility] Glucose Urine UA Negative Negative mg/dL [facility] Urine Blood Negative Negative [facility] Specific [place] - Urine 1.010 1.005 - 1.025 [facility] Urine Protein 30 (1+)(A) Neg-Trace mg/dL [facility] Urine Ketones Negative Negative mg/dL [facility] Nitrite Urine Negative Negative [facility] Leukocyte Esterase Urine Negative Negative [facility] RBC Urine 0-2 0 - 2 /HPF [facility] Urine WBC 0-5 0 - 5 /HPF [facility] Urine Squamous Epithelial Cell 0-2 0 - 2 /HPF [facility] Urine Bacteria None Seen None Seen [facility] Hyaline Casts, Urine 0-2 0 - 2 /LPF [facility] Urine 08/14/2024 10:2 0 AM EST 08/14/2024 11:24 AM EST Narrative [facility] - 08/14/2024 11:40 AM EST Urine, Clean Catch [facility] LAB URINE ORDERABLES Ella l Result Performing Organization Address [facility] de Phone Number [facility] [address] [place] [phone] * Culture, Urine, Routine (08/14/2024 10:20 AM EST) Only the most recent of5 resultswithin the time period is included. Urine Urine specimen obtained by clean catch procedure / Unknown 08/14/2024 10:20 AM EST 08/14/2024 11:24 AM EST Comment:UACC Narrative [facility] - 08/15/2024 9:15 AM EST Urine Culture Report Result Urine Culture 50,000 to 100,000 cfu/ml Urine Culture Mixed bacterial jamir characteristic of Urine Culture urogenital contamination. Specimen Source: Urine clean catch [facility] LAB MICROBIOLOGY - GENERA L ORDERABLES Final Result Performing Organization Address City/[facility] Co de Phone Number [facility] [address] [place] [address] [phone] * (ABNORMAL) Basic Metabolic Panel (08/14/2024 10:20 AM EST) Sodium 136 135 - 145 mmol/L [facility] Potassium 4.5 3.3 - 5.1 mmol/L [facility] Chloride 103 96 - 108 mmol/L [facility] Carbon Dioxide 24 22 - 29 mmol/L [facility] Anion Gap 14 12 - 20 [facility] Urea Nitrogen (BUN) 17(H) 9 - 16 mg/dL [facility] Creatinine, Serum 1.34 0.5 - 1.4 mg/dL [facility] Estimated Glomerular Filt Rate 52 [facility] Comment:Chronic Kidney Disea se: Estimated GFR < 60 mL/min/1.99i9Oywssh Kidney Disease: Estimated GFR < 15 mL/min/1.73m2 Glucose 107 60 - 115 mg/dL [facility] Calcium 9.9 8.4 - 10.2 mg/dL [facility] Blood Venous blood specimen / Unknown 08/14/2024 10:20 AM EST 08/14/2024 11:04 AM EST [facility] LAB BLOOD ORDERABLES Ella l Result Performing Organization Address [facility] Co de Phone Number [facility] [address] [place] [address] [phone] * POCT Urinalysis (08/11/2024 9:43 AM [...] Media Lot # [id number] Lot# Expiration Date 9302,[id number] Urine 08/11/2024 9:43 AM EST Tracey Maciel CNP POINT OF CARE TEST ENTER/ EDIT ORDERABLES Final Result * POCT Glucose (08/11/2024 9:34 AM EST) Glucose Blood, POC 198 60 - 200 mg/dL QC Media Lot # [id number] Lot# Expiration Date [id number] Blood Capillary blood specimen / Unknown 08/11/2024 9:34 AM EST Sera Cuevas NP POINT OF CARE TEST ENTER/EDIT OR DERABLES Final Result * CT Abdomen Pelvis w/o Contrast (08/08/2024 2:12 AM EST) Anatomical Region Laterality Modality Body, Pelvis, Abdomen Computed T omography 08/08/2024 2:12 AM EST Narrative 08/08/2024 2:16 AM EST ? [facility] ?[address] ?[place] [address] ? CT Scan Report ? Signed ? Patient: Juan Alberto Rowe ?MR#: [id number] ?? [id number] ? : 1945 ?Acct:[id number] ? Age/Sex: 78 / M ?ADM Date: 08/07/24 ? Loc: HO.ED ? Attending Dr: ? Ordering Physician: Omer King ?? Date of Service: 08/08/24 ?? Procedure(s): CT abdomen pelvis wo IV con ?? Accession Number(s): [id number] ? cc: Omer King; Kayden Villavicencio MD ? Report Number: ?? [id number]: Total DLP = ??652.00 mGy-cm ? CLINICAL [...] ? DD/ 1 ? TD/TT: 08/08/24211 ? Process Safety Manager: ? Procedure Note Ila, Paige - 08/08/[address] [address] [address] Scan Report Signed Patient: Juan Alberto RoweMR#: [id number] : 7Acct:[id number] Age/Sex: 78 / MADM Date: 08/07/24 Loc: HO.ED Attending Dr: Ordering Physician: Omer King Date of Service: 08/08/24 Procedure(s): CT abdomen pelvis wo IV con Accession Number(s): [id number] cc: Omer King; Name,Kayden PITTMAN Report Number: [id number]: Total DLP = 652.00 mGy-cm CLINICAL HISTORY: [...] in OV> 08/08/24214 DD/ 1 TD/TT: 08/08/24211 Process Safety Manager: [facility] External Provider IMG CT PROCEDURES Final Result * (ABNORMAL) CBC auto differential (08/07/2024 11:54 PM EST) Only the most recent of2 resultswithin the time period is included. White Blood Count 8.2 4.8 - 10.8 X10*3/uL [facility] Red Blood Count 4.36(L) 4.60 - 5.80 X10*6/uL [facility] Hemoglobin 12.0(L) 14.0 - 18.0 g/dl [facility] Hematocrit 36.2(L) 42.0 - 52.0 % [facility] Mean Corpuscular Volume 83.0 80.0 - 98.0 fL [facility] Mean Corpuscular Hemoglobin 27.5 27.0 - 33.0 pg [facility] Mean Corpuscular HGB Conc 33.1 31.0 - 36.0 g/dl [facility] Red Cell Distribution Width 14.2 11.0 - 16.0 % [facility] Platelet Count 321 160 - 400 X10*3/uL [facility] Mean Platelet Volume 9.0(L) 9.4 - 12.4 fL [facility] Neutrophils Percent Auto 55.7 45 - 73 % [facility] Imm Gran Pct Auto 0.4 0.0 - 0.4 % [facility] Lymphocytes Percent Auto 25.6 20 - 40 % [facility] Monocytes Percent Auto 12.4(H) 2 - 11 % [facility] Eosinophils Percent Auto 4.6(H) 0 - 4 % [facility] Basophils Percent Auto 1.3 0 - 2 % [facility] NRBC Pct Auto 0.0 0.0 - 0.2 /100WBC [facility] Neutrophils Absolute Auto 4.6 2.0 - 8.3 x10*3/uL [facility] Imm Gran Abs Auto 0.03 0.00 - 0.03 X10*3/uL [facility] Lymphocytes Absolute Auto 2.1 1.2 - 4.9 X10*3/uL [facility] Monocytes Absolute Auto 1.0 0.1 - 1.2 X10*3/uL [facility] Eosinophils Absolute Auto 0.4 0.0 - 0.4 X10*3/uL [facility] Basophils Absolute Auto 0.1 0.0 - 0.2 X10*3/uL [facility] NRBC Abs Auto 0.000 0.0 - 0.012 X10*3/uL [facility] 08/07/2024 11:5 4 PM EST 08/07/2024 11:58 PM EST Generic External Data Provider LAB BLOOD ORDERAB LES Final Result Performing Organization Address [facility]/ZIP Co de Phone Number [facility] [address] [place] [phone] * Lipase (08/07/2024 11:54 PM EST) Lipase 22 8 - 78 U/L [facility] 08/07/2024 11:5 4 PM EST 08/07/2024 11:58 PM EST us Generic External Data Provider LAB BLOOD ORDERAB LES Final Result Performing Organization Address [facility]/ZIP Co de Phone Number [facility] [address] [place] [phone] * (ABNORMAL) Comprehensive Metabolic Panel (08/07/2024 11:54 PM EST) Sodium 139 135 - 145 mmol/L [facility] Potassium 4.9 3.3 - 5.1 mmol/L [facility] Chloride 109(H) 96 - 108 mmol/L [facility] Carbon Dioxide 25 22 - 29 mmol/L [facility] Anion Gap 10(L) 12 - 20 [facility] Urea Nitrogen (BUN) 20(H) 9 - 16 mg/dL [facility] Creatinine, Serum 1.45(H) 0.5 - 1.4 mg/dL [facility] Creatinine Clr Calc Pharmacy 43.0 [facility] Comment:eGFR (calculated fro m the MDRD study equation) and eCrCl(calculated from the Cockcroft-Gault equation) are based ondifferent parameters and may not yield comparable results.If eCrCl result is absurd, please check patient'sheight/weight. Estimated Glomerular Filt Rate 47 [facility] Comment:Chronic Kidney Disea se: Estimated GFR < 60 mL/min/1.18i2Sfexhg Kidney Disease: Estimated GFR < 15 mL/min/1.73m2 Glucose 126(H) 60 - 115 mg/dL [facility] Calcium 9.9 8.4 - 10.2 mg/dL [facility] Bilirubin, Total 0.2 0.0 - 1.0 mg/dL [facility] Aspartate Amino Transferase 18 5 - 37 U/L [facility] Alanine Aminotransferase 16 0 - 40 U/L [facility] Total Protein 7.0 6.5 - 8.0 g/dL [facility] Albumin Level 3.8 3.5 - 5.0 g/dL [facility] Alkaline Phosphatase 71 39 - 117 U/L [facility] 08/07/2024 11:5 4 PM EST 08/07/2024 11:58 PM EST us Generic External Data Provider LAB BLOOD ORDERAB LES Final Result [facility] [address] [place] [address] [phone] * US Head Neck Soft Tissue (06/11/2024 1:02 PM EST) Anatomical Region Laterality Modality Head, Neck Ultrasound 06/11/2024 1:02 PM EST Narrative 06/12/2024 11:33 AM EST ? [facility] ?[address] ?[place] [address] ? Ultrasound Report ? Signed ? Patient: Juan Alberto Rowe ?MR#: [id number] ?? [id number] ? : 1945 ?Acct:[id number] ? Age/Sex: 78 / M ?ADM Date: 06/11/24 ? Loc: HO.US ? Attending Dr: Sera Cuevas NP ? Ordering Physician: Sera Cuevas NP ?? Date of Service: 06/11/24 ?? Procedure(s): US soft tiss head and/or neck ?? Accession Number(s): [id number] ? cc: Sera Cuevas NP; Name,Kayden PITTMAN [...] signed by Svetlana Verde MD in OV> ?06/12/ 1131 ? DD/ 1302 ? TD/TT: 06/11/24 1304 ? Process Safety Manager: HS ? Procedure Note Donotuseinterpreter, Image - 06/12/[address] [address] Ultrasound Report Signed Patient: Juan Alberto RoweMR#: [id number] : 7Acct:[id number] Age/Sex: 78 / MADM Date: 06/11/24 Loc: HO.US Attending Dr: Sera Cuevas NP Ordering Physician: Sera Cuevas NP Date of Service: 06/11/24 Procedure(s): US soft tiss head and/or neck Accession Number(s): [id number] cc: Sera Cuevas DESK PENS ASSEMBLER; Name,Kayden PITTMAN EXAMINATION: US SOFT TISSUES carotid [...] 06/12/24 1131 DD/ 1302 TD/TT: 06/11/24 1304 Process Safety Manager: HS us Sear Cuevas NP IMG US PROCEDURES Final Result * Sed Rate by Modified Florencia (06/09/2024 11:33 AM EST) Erythrocyte Sedimentation Rate 7 0 - 15 MM/HR [facility] Comment:Patients with polycy themia and many hemoglobin abnormalitiesmay have depressed sed rates whereas patients with anemiamay have elevated sed rates. Blood Venous blood specimen / Unknown 06/09/2024 11:33 AM EST 06/09/2024 1:13 PM EST Sera Cuevas DESK PENS ASSEMBLER LAB BLOOD ORDERABLES Final Resul t Performing Organization Address City/[facility] Co de Phone Number [facility] [address] [place] [phone] * C-reactive Protein (06/09/2024 11:33 AM EST) C Reactive Protein 0.16 < or = 0.50 mg/dL [facility] Blood Venous blood specimen / Unknown 06/09/2024 11:33 AM EST 06/09/2024 1:13 PM EST Sera Cuevas DESK PENS ASSEMBLER LAB BLOOD ORDERABLES Final Resul t Performing Organization Address [facility] Co de Phone Number [facility] [address] [place] [phone] * (ABNORMAL) POCT HGB A1C (05/13/2024 9:12 AM EDT) Hemoglobin A1C 6.6(A) 4.0 - 6.0 % QC Media Lot # [id number] Lot# Expiration Date [id number] Blood 05/13/2024 9:12 AM EDT Result [facility] Kayden Villavicencio MD POINT OF CARE TEST ENTER/EDIT OR DERABLES Final Result * (ABNORMAL) Albumin, Random Urine W/Creatinine (01/30/2024 8:30 AM EDT) Creatinine, Urine 103.25 mg/dL [facility] Microalbumin Urine 82.0 mg/L [facility] Microalbum Creatinine Ratio Ur 79.4(H) <30 ug/mg cr [facility] Comment:Albumin/Creatinine R atio Reference Ranges: Normal: < 30 ug/mg creatinine Microalbuminuria: 30 - 300 ug/mg creatinineClinical Albuminuria: > 300 ug/mg creatinine Urine (Urine, Random) 01/30/2024 8:30 AM EDT 01/30/2024 9:01 AM EDT us Kayden Villavicencio MD LAB URINE ORDERABLES Final Resul t Performing Organization Address [facility] de Phone Number [facility] [address] [place] [address] [phone] * (ABNORMAL) Lipid Panel, Standard (01/30/2024 8:30 AM EDT) Triglycerides 200(H) <150 mg/dL [facility] Comment:Desirable Triglyceri de: less than 150 mg/dLBorderline High Triglyceride 150-199 mg/dLHigh Triglyceride: 200-499 mg/dLVery High Triglyceride: greater than or equal to 5OO mg/dL Cholesterol 180 <200 mg/dL [facility] Comment:Desirable Cholestero l: less than 200 mg/dLBorderline High Cholesterol: 200-239 mg/dLHigh Cholesterol: greater than 239 mg/dL LDL Cholesterol Calculated 100(H) <100 mg/dL [facility] Comment:Desirable LDL: less than 100 mg/dLNear Optimal/Above Optimal LDL: 110- 129 mg/dLBorderline High LDL: 130-159 mg/dLHigh LDL: 160-189 mg/dLVery High LDL: greater than or equal to 190 mg/dL HDL Cholesterol 40(L) >40 mg/dL [facility] Comment:Desirable HDL: great er than 40 mg/dL Note: This HDL assay may give artificially low results in patients with liver disease. Blood Venous blood specimen / Unknown 01/30/2024 8:30 AM EDT 01/30/2024 8:30 AM EDT us Kayden Villavicencio MD LAB BLOOD ORDERABLES Final Resul t Performing Organization Address [facility] Co de Phone Number [facility] [address] [place] [address] [phone] * Diabetes Eye Exam (04/11/2023) Eye Exam Normal Normal us Kayden Villavicencio MD HEALTH MAINTENANCE Final Result * Colonoscopy (04/17/2022) Colonoscopy performed Historical Provider HEALTH MAINTENANCE Final Result * HEPATITIS C AB W/REFL TO HCV RNA, QN, PCR (09/26/2021 8:45 AM EDT) HEPATITIS C ANTIBODY NON-REACT JUAN NON-REACT JUAN [facility] INDEX 0.01 <1.00 [facility] Comment: ?? HCV antibody was non-reactive. There is no laboratory ?? evidence of HCV infection. ?? In most cases, no further action is required. However, if recent HCV exposure is suspected, a test for HCV RNA (test code 78523) is suggested. ?? For additional information please refer to [email or web address]/faq/[email or web address] (This link is being provided for informational/ educational purposes only.) ?? 09/26/2021 8:45 AM EDT us Kayden Villavicencio MD HISTORICAL/NON ORDERABLE LABS Fi nal Result Performing Organization Address City/State/[facility] Co de Phone Number [facility] [address] from Last 3 Months or Most Recently Relevant to Health Maintenance Insurance [facility] MEDICARE ADVANTAGE HMO Care Teams Umbrella Tipper Machine Relationship Specialty Start Date End Date Name, MD Kayden [address] [place] [phone] PCP - General Family Medicine 08/23/15
--- OUTSIDE RECORDS SUMMARY | 2024-09-03 14:21 | XMS_ITS | Encounter Summary ---
Author Organization [employer] Address [address] [facility] 7t [place] [address] Care Team Providers Care Vocational Coordinator Name Role Phone Name, Kayden PITTMAN Primary Care Provider [phone] Reason for Visit * Reason Comments Med Refill Encounter Details Date Type Department Care Team ([facility] st Contact Info) Description 04/22/2024 Refill [facility] [address] [place] [address] Patrick Conrad MD [address] [place] [address] Social History Tobacco Use Types Packs/Day Years [...] Description 09/26/2024 10:15 AM EDT Office Visit [facility] [address] [place] [address] NameKayden MD [address] [place] [address] documented as of this encounter Visit Diagnoses Not on filedocumented in this encounter Additional Health Concerns Assessment Noted Time PHQ-9 Depression Total Score: 0 08/14/19 24 9:03 AM EST documented as of this encounter Care Teams Vocational Coordinator Relationship Specialty Start Date End Date NameKayden MD [address] [phone] PCP - General Family Medicine 08/23/15 documented as of this encounter
--- OUTSIDE RECORDS SUMMARY | 2024-09-03 14:21 | XMS_ITS | Encounter Summary ---
Author Organization [employer] Address [address] [place] [address] 7 [place] [address] Care Team Providers Care Respooler Name Role Phone Name, Kayden PITTMAN Primary Care Provider [phone] Encounter Details Date Type Department Care Team (Late st Contact Info) Description 10/06/2022 Abstract [facility] [address] [place] [address] [phone] Name, MD Kayden [address] [place] [address] [phone] Social History Tobacco Use Types Packs/Day Years [...] Description 09/26/2024 10:15 AM EDT Office Visit [facility] [address] [place] [address] [phone] Name, MD Kayden [address] [place] [address] [phone] documented as of this encounter Visit Diagnoses Not on filedocumented in this encounter Care Teams Respooler Relationship Specialty Start Date End Date Name, MD Kayden [address] [place] [address] PCP - General Family Medicine 08/23/15 documented as of this encounter
--- OUTSIDE RECORDS SUMMARY | 2024-09-03 14:21 | XMS_ITS | Encounter Summary ---
Author Organization [employer] Address [address] 7t [place] [address] Care Team Providers Care Lumber Stacker Name Role Phone Name, Kayden PITTMAN Primary Care Provider [phone] Encounter Details Date Type Department Care Team ([facility] st Contact Info) Description 08/07/2024 Orders Only [facility] External Provider, [facility] Social History Tobacco Use Types Packs/Day [...] Description 09/26/2024 10:15 AM EDT Office Visit [facility] [address] [place] [address] Name, MD Kayden [address] [place] [address] documented as of this encounter Procedures Procedure Name Priority Date/Time Associated Diagnosis Comments CT ABDOMEN PELVIS WO CONTRAST Routine 08/08/2024 2:12 AM EST documented in this encounter Results * CT Abdomen Pelvis w/o Contrast (08/08/2024 2:12 AM EST) Anatomical Region Laterality Modality Body, Pelvis, Abdomen Computed T omography 08/08/2024 2:12 AM EST Narrative 08/08/2024 2:16 AM EST ? [facility] ?[address] ?[place] [address] ? CT Scan Report ? Signed ? Patient: Juan Alberto Rowe ?MR#: [id number] ?? [id number] ? : 1945 ?Acct:[id number] ? Age/Sex: 78 / M ?ADM Date: 01/23/25 ? Loc: HO.ED ? Attending Dr: ? Ordering Physician: Omer King ?? Date of Service: 08/08/24 ?? Procedure(s): CT abdomen pelvis wo IV con ?? Accession Number(s): [id number] ? cc: Omer King; Name,Kayden PITTMAN ? Report Number: ?? [id number]: Total DLP = ??652.00 mGy-cm ? CLINICAL [...] ? 08/08/24214 ? DD/ 1 ? TD/TT: 08/08/24 0212 ? Financial Sales Consultant: ? Procedure Note Donotuseinterpreter, Image - 08/08/[address] [place] [id number] [address] Scan Report Signed Patient: Juan Alberto RoweMR#: [id number] : 7Acct:[id number] Age/Sex: 78 / MADM Date: 08/07/24 Loc: HO.ED Attending Dr: Ordering Physician: Omer King Date of Service: 08/08/24 Procedure(s): CT abdomen pelvis wo IV con Accession Number(s): [id number] cc: Omer King; Name,Kayden PITTMAN Report Number: [id number]: Total DLP = 652.00 mGy-cm CLINICAL HISTORY: [...] in OV> 08/08/24214 DD/ 1 TD/TT: 08/08/24211 Financial Sales Consultant: [facility] External Provider IMG CT PROCEDURES Final Result documented in this encounter Visit Diagnoses Not on filedocumented in this encounter Additional Health Concerns Assessment Noted Time PHQ-9 Depression Total Score: 0 08/14/19 24 9:03 AM EST documented as of this encounter Care Teams Lumber Stacker Relationship Specialty Start Date End Date Name, MD Kayden [address] [place] [address] PCP - General Family Medicine 08/23/15 documented as of this encounter
--- OUTSIDE RECORDS SUMMARY | 2024-09-03 14:21 | XMS_ITS | Encounter Summary ---
Author Organization [employer] Address [address] [facility] 7t [place] [address] Care Team Providers Care Fine Arts Chair Name Role Phone Name, Kayden PITTMAN Primary Care Provider [phone] Encounter Details Date Type Department Care Team [...] Description 09/26/2024 10:15 AM EDT Office Visit [facility]INE [address] [place] [address] Name, MD Kayden [address] [place] [address] documented as of this encounter Visit Diagnoses Not on filedocumented in this encounter Additional Health Concerns Assessment Noted Time PHQ-9 Depression Total Score: 0 08/14/19 24 9:03 AM EST documented as of this encounter Care Teams Fine Arts Chair Relationship Specialty Start Date End Date Name, MD Kayden [address] [place] [address] PCP - General Family Medicine 08/23/15 documented as of this encounter
--- OUTSIDE RECORDS SUMMARY | 2024-09-03 14:21 | XMS_ITS | Encounter Summary ---
Author Organization [employer] Address [address] [facility] 7 [place] [address] Care Team Providers Care Lawn Sprinkler Servicer Name Role Phone Name, Kayden PITTMAN Primary Care Provider [phone] Reason for Visit * Reason Onset Date Comments Lab Orders 08/12/2024 Encounter Details Date Type Department Care Team ([facility] [address] Contact Info) Description 08/12/2024 Telephone [facility] [address] [place] [address] Odalys Peña RN [address] [place] [address] Lab Orders Social History Tobacco Use Types [...] PM EST Urine Culture order faxed to [facility]. * Telephone Encounter - Tracey Maciel CNP - 08/13/2024 8:50 AM EST No need to recollect sample, I put in an order just for the urine culture. Let me know if you need anything else or have any questions. Thanks! * Telephone Encounter - Odalys Peña RN - 08/12/2024 4:54 PM EST Received message from [facility] they received order for urinalysis with [...] Description 09/26/2024 10:15 AM EDT Office Visit [facility] [address] [place] [address] Name, MD Kayden [address] [place] [address] documented as of this encounter Visit Diagnoses Not on filedocumented in this encounter Additional Health Concerns Assessment Noted Time PHQ-9 Depression Total Score: 0 08/14/19 24 9:03 AM EST documented as of this encounter Care Teams Lawn Sprinkler Servicer Relationship Specialty Start Date End Date Name, MD Kayden [address] [place] [address] PCP - General Family Medicine 08/23/15 documented as of this encounter
--- OUTSIDE RECORDS SUMMARY | 2024-09-03 14:21 | XMS_ITS | Encounter Summary ---
Author Organization [employer] Address [address] [facility] 7t [place] [address] Care Team Providers Care Creative Arts Music Therapist Name Role Phone Name, Kayden PITTMAN Primary Care Provider [phone] Encounter Details Date Type Department Care Team ([facility] st Contact Info) Description 08/13/2024 Orders Only [facility] [address] [place], [place] [phone] Tracey Maciel, EDGER FEEDER [address] [place], [place] [phone] Dysuria (Primary Dx); History of recurrent UTIs [...] Description 09/26/2024 10:15 AM EDT Office Visit [facility] [address] [place] [address] Name, MD Kayden [address] [place] [address] documented as of this encounter Procedures Procedure Name Priority Date/Time Associated Diagnosis Comments CULTURE, URINE, ROUTINE Routine 08/14/2024 10:20 AM EST History of recurrent UTIs documented in this encounter Results * Culture, Urine, Routine (08/14/2024 10:20 AM EST) Urine Urine specimen obtained by clean catch procedure / Unknown 08/14/2024 10:20 AM EST 08/14/2024 11:24 AM EST Comment:[facility] - 08/15/2024 9:15 AM EST Urine Culture Report Result Urine Culture 50,000 to 100,000 cfu/ml Urine Culture Mixed bacterial jamir characteristic of Urine Culture urogenital contamination. Specimen Source: Urine clean catch [facility] MICROBIOLOGY - GENERA L ORDERABLES Final Result [facility] [address] [place] [phone] documented in this encounter Visit Diagnoses Diagnosis Dysuria- Primary History of recurrent UTIs documented in this encounter Additional Health Concerns Assessment Noted Time PHQ-9 Depression Total Score: 0 08/14/19 24 9:03 AM EST documented as of this encounter Care Teams Creative Arts Music Therapist Relationship Specialty Start Date End Date Name, MD Kayden [address] [place] [address] PCP - General Family Medicine 08/23/15 documented as of this encounter
--- OUTSIDE RECORDS SUMMARY | 2024-09-03 14:21 | XMS_ITS | Encounter Summary ---
Author Organization [employer] Address [address] 7[address] [place] [address] Care Team Providers Care Terminal Block Assembler Name Role Phone Name, Kayden PITTMAN Primary Care Provider [phone] Reason for Visit * Reason Comments Pre-visit Planning SDOH unable to reach LVM Encounter Details Date Type Department Care Team ([facility] st Contact Info) Description 08/25/2024 Patient Outreach [facility] [address] [place], [place] [phone] Name, MD Kayden [address] [place] [address] Pre-visit Planning (SDOH unable to reach LVM) Social History Tobacco Use Types Packs/Day Years [...] AM EDT documented as of this encounter Progress Notes * Latia Cedeno - 08/25/2024 3:47 PM EST CANDELARIO Castellano placed outbound call to patient to complete pre-visit planning. No answer at this time. Patient name and were not confirmed. CC left voicemail requesting return call. Direct contactinformation provided. documented in this encounter Plan of Treatment Upcoming Encounters Date Type Department Care Team (Late st Contact Info) Description 09/26/2024 10:15 AM EDT Office Visit [facility] [address] [place] [address] Name, MD Kayden [address] [place] [address] documented as of this encounter Visit Diagnoses Not on filedocumented in this encounter Additional Health Concerns Assessment Noted Time PHQ-9 Depression Total Score: 0 08/14/19 24 9:03 AM EST documented as of this encounter Care Teams Terminal Block Assembler Relationship Specialty Start Date End Date Name, MD Kayden [address] [place] [address] PCP - General Family Medicine 08/23/15 documented as of this encounter
--- OUTSIDE RECORDS SUMMARY | 2024-09-03 14:21 | XMS_ITS | Encounter Summary ---
Author Organization [employer] Address [address] [place] [address] Care Team Providers Care Director Of Retail Name Role Phone Name, Kayden PITTMAN Primary Care Provider [phone] Reason for Referral * Consultation (Urgent) - Closed Specialty Diagnoses / Procedures Referred By Anastacio patel Referred To Contact Urology Diagnoses History of recurrent UTIs Tracey Maciel CNP [address] [place] [address] Phone: tel: fax: [facility] [address] [place] [address] [address] [place], [place] Phone: tel: fax: Referral ID Status Reason Start Date Expiration Date V isits Requested Visits Authorized [id number] Closed Specialty Services Required 08/11/2024 08/11/2025 1 1 * Consultation (Urgent) - Authorized Specialty Diagnoses / Procedures Referred By Anastacio patel Referred To Contact Nephrology Diagnoses Proteinuria, unspecified type Tracey Maciel CNP [address] [place] [address] Phone: tel: fax: [facility] [address] [place] [address], [address] [place] [address] Phone: tel: fax: Referral ID Status Reason Start Date Expiration Date Visits Requested Visits Authorized [id number] Authorized Specialty Services Required 08/11/2024 08/11/2025 1 1 Encounter Details Date Type Department Care Team (Late st Contact Info) Description 08/11/2024 9:30 AM EST Office Visit [facility] MED[facility] [address] [place], [place] [phone] Sera Cuevas NP [address] [place], [place] [phone] Dysuria (Primary Dx); Type 2 diabetes mellitus with other specified complication, without long-term current use of insulin ([facility]); Tobacco use; Proteinuria, unspecified type; History [...] in this encounter Progress Notes * Tracey Maciel, ANAHI - 08/11/2024 9:30 AM EST Juan [...] smoking Interim Hx: Pt was seen at [facility] on 08/08/24 for dysuria and hematuria. Pt recently treated forUTI with Augmentin. After that since he was still having urinary sx he was seen here at [facility] and submitted a urine sample, but no [...] mg/dL 01/30/24 Creatinine 1.23 Patient has urologist, [facility] urology last seen 03/19/24 Pt underwnt radical prostatectomy in 2006 for Abhi 8 prostate cancer. He ended up with salvage radiation therapy in 2015. PSA alejandra again in 2019 after approximately 15 years he elected longterm androgen deprivation therapy. At this time pt [...] mellitus, without long-term current use of insulin ([facility]) Current Assessment & Plan Pt will continue [...] Pt has f/u in August with PCP [facility] SOCIAL WORK NURSE Attestation SOCIAL WORK NURSE Resident Attestation: Patient was seen and evaluated by Tracey Maciel SOCIAL WORK NURSE, in collaboration with Sera Cuevas NP who has reviewed my assessment and plan. I, Sera Cuevas SOCIAL WORK NURSE , have reviewed the resident's note and agree with the assessment & plan of care as documented above. documented in this encounter Miscellaneous Notes * Assessment & Plan Note - Tracey Maciel CNP - 08/11/2024 10:50 AM EST Associated Problem(s): Type 2 diabetes mellitus, without long-term current use of insulin ([facility]) Pt will continue on metformin Dietary Recommendations: [...] Description 09/26/2024 10:15 AM EDT Office Visit [facility] MEDICINE [address] [place] [address] Name, MD Kayden [address] [place] [address] Scheduled Referrals Name Type Priority Associated Diagnoses Orde r Schedule Referral to Nephrology Outpatient Referral Urgent Proteinuria, unspecified type Expected: 08/11/2024 (Approximate), Expires: 08/11/2025 documented as [...] complication, without long-term current use of insulin ([facility]) documented in this encounter Results * Referral to Urology (08/20/2024) [facility] OUTPATIENT REFERRAL ORDER GABY Final Result * (ABNORMAL) Urinalysis, Complete, with Reflex to Culture (08/14/2024 10:20 AM EST) Color Urine Yellow [facility] Appearance Urine Clear [facility] PH 6.0 5.0 - 9.0 [facility] Glucose Urine UA Negative Negative mg/dL [facility] Urine Blood Negative Negative [facility] Specific Billings - Urine 1.010 1.005 - 1.025 [facility] Urine Protein 30 (1+)(A) Neg-Trace mg/dL [facility] Urine Ketones Negative Negative mg/dL [facility] Nitrite Urine Negative Negative [facility] Leukocyte Esterase Urine Negative Negative [facility] RBC Urine 0-2 0 - 2 /HPF [facility] Urine WBC 0-5 0 - 5 /HPF [facility] Urine Squamous Epithelial Cell 0-2 0 - 2 /HPF [facility] Urine Bacteria None Seen None Seen [facility] Hyaline Casts, Urine 0-2 0 - 2 /LPF [facility] Urine 08/14/2024 10:2 0 AM EST 08/14/2024 11:24 AM EST Narrative [facility] - 08/14/2024 11:40 AM EST Urine, Clean Catch [facility] URINE ORDERABLES Ella l Result [facility] [address] [place] [phone] * (ABNORMAL) Basic Metabolic Panel (08/14/2024 10:20 AM EST) Sodium 136 135 - 145 mmol/L [facility] Potassium 4.5 3.3 - 5.1 mmol/L [facility] Chloride 103 96 - 108 mmol/L [facility] Carbon Dioxide 24 22 - 29 mmol/L [facility] Anion Gap 14 12 - 20 [facility] Urea Nitrogen (BUN) 17(H) 9 - 16 mg/dL [facility] Creatinine, Serum 1.34 0.5 - 1.4 mg/dL [facility] Estimated Glomerular Filt Rate 52 [facility] Comment:Chronic Kidney Disea se: Estimated GFR < 60 mL/min/1.07e1Kuigpa Kidney Disease: Estimated GFR < 15 mL/min/1.73m2 Glucose 107 60 - 115 mg/dL [facility] Calcium 9.9 8.4 - 10.2 mg/dL [facility] Blood Venous blood specimen / Unknown 08/14/2024 10:20 AM EST 08/14/2024 11:04 AM EST [facility] BLOOD ORDERABLES Ella l Result [facility] [address] [place] [phone] * POCT Urinalysis (08/11/2024 9:43 AM [...] Date Urine 08/11/2024 9:43 AM EST Result [facility] POINT OF CARE TEST ENTER/ EDIT ORDERABLES Final Result * POCT Glucose (08/11/2024 9:34 AM EST) Glucose Blood, POC 198 60 - 200 mg/dL QC Media Lot # [id number] Lot# Expiration Date Blood Capillary blood specimen / Unknown 08/11/2024 9:34 AM EST Sera Cuevas SOCIAL WORK NURSE POINT OF CARE TEST ENTER/EDIT OR DERABLES Final Result documented in this encounter Visit Diagnoses Diagnosis Dysuria- Primary Type 2 diabetes mellitus with other specified complication, without long-term current use of insulin ([facility]) Tobacco use Proteinuria, unspecified type History of recurrent UTIs documented in this encounter Additional Health Concerns Assessment Noted Time PHQ-9 Depression Total Score: 0 08/14/19 24 9:03 AM EST documented as of this encounter Care Teams Director Of Retail Relationship Specialty Start Date End Date Name, MD Kayden [address] [place] [address] PCP - General Family Medicine 08/23/15 documented as of this encounter
--- OUTSIDE RECORDS SUMMARY | 2024-09-03 14:21 | XMS_ITS | Encounter Summary ---
Author Organization [employer] Address [address] [facility] 7t [place] [address] Care Team Providers Care Combination Presser Name Role Phone Name, Kayden PITTMAN Primary Care Provider [phone] Reason for Visit * Reason Comments Med Refill Encounter Details Date Type Department Care Team ([facility] st Contact Info) Description 04/22/2024 Refill [facility] [address] [place] [address] Patrick Conrad MD [address] [place] [address] Social History Tobacco Use Types Packs/Day Years [...] AM EDT Office Visit [facility] [address] [place] [address] NameKayden MD [address] [place] [address] documented as of this encounter Visit Diagnoses Not on filedocumented in this encounter Additional Health Concerns Assessment Noted Time PHQ-9 Depression Total Score: 0 08/14/19 24 9:03 AM EST documented as of this encounter Care Teams Combination Presser Relationship Specialty Start Date End Date NameKayden MD [address] [place] [address] PCP - General Family Medicine 08/23/15 documented as of this encounter
== END 2024-09-03 14:39 | disposition home or self-care (01) ==
LOC: HO.HKAM 14:10
PROVIDERS: PCP Internal Medicine Geriatric Medicine; Visit Provider Internal Medicine Hypertension Specialist
DX: I12.9 Hypertensive chronic kidney disease with stage 1 through stage 4 chronic kidney disease, or unspecified chronic kidney disease (principal); N28.1 Cyst of kidney, acquired; C61 Malignant neoplasm of prostate
CPT/HCPCS: 99204

== ENCOUNTER → 2024-09-03 14:10 | Outpatient (BNVA) | payer MEDICARE, SELFPAY | PROVIDERS: PCP Internal Medicine Geriatric Medicine; Visit Provider Internal Medicine Hypertension Specialist | DX: I12.9 Hypertensive chronic kidney disease with stage 1 through stage 4 chronic kidney disease, or unspecified chronic kidney disease (principal); N18.9 Chronic kidney disease, unspecified; N28.1 Cyst of kidney, acquired; C61 Malignant neoplasm of prostate | CPT/HCPCS: 99202 ==

== ENCOUNTER 2024-10-29 13:58 | Outpatient (AMB) | payer MEDICARE, SELFPAY ==
--- NOTE | 2024-10-29 14:01 | HO.NEPHOV ---
Vital Signs 10/29/24 14:02 Height 5 ft 4 in Weight 200 lb BMI 34.3 BP 132/68 Blood Pressure Location Lt brachial Position Sitting Pulse 86 Pulse Source Pulse Oximeter Pulse Oximetry (%) 97 Oxygen Delivery Method Room Air Intake Visit Reasons: 8 week follow up/ LVM Telecommunications Field Technician Required: No Accompanied by: Significant Other Allergies Iodinated Contrast Media [IV CONTRAST] Allergy (Severe, Verified 10/29/24 14:04) ANAPHYLAXIS Medication List - Last Reconciled 10/29/24 by Dinesh Grullon MD albuterol sulfate 90 mcg/actuation (Ventolin HFA) 2 puffs inhalation Q4H PRN amlodipine 10 mg PO DAILY docusate sodium (Stool Softener) 100 mg PO DAILY ezetimibe 10 mg PO DAILY leuprolide acetate (6 month) (Eligard) 45 mg subcut [id number] loratadine (Allergy Relief (loratadine)) 10 mg PO DAILY losartan 50 mg PO DAILY metformin 500 mg PO BID zorouvbmgbpc-qkqjhjep-coalvl 1 tab PO DAILY Do you need a note to return to daycare/school/sports/work: No HPI Comments Details: 78-year-old man with a history of prostate cancer status post radiation and hypertension has been referred for chronic kidney disease. Baseline serum creatinine is probably around 1.23 mg/dL as of 02/02/2024. In June of 2024 he had UTI. He was treated with Bactrim. Serum creatinine bumped up to 1.45 mg/dL. After discontinuing Bactrim creatinine decreased to 1.34 mg/dL. With the corresponding EGFR of 52 mL/minute. Has a history of multiple renal cyst bilaterally. The findings were reportedly unchanged since 2019. As well prostate cancer he was follow up with [facility]rology. History of radical prostatectomy in 2006. Status post radiation therapy in 2016. He had complication with hemorrhagic radiation cystitis. He has waiting for a cystoscopy in September/2024. History of significant osteoarthritis History of GI bleed status post endoscopy in the past 10/29/24 Had cough and treated with Prednisone Seen by Urology and underwent cystoscopy. [facility] Medical History Diverticulosis Diabetes HTN (hypertension) Prostate CA Surgical History History of urologic surgery Hx of colonoscopy Hx of appendectomy Hx of testicular mass Hx of umbilical hernia repair History of prostate surgery Family History Mother Bone cancer Father Diabetes Social History Household Members: Spouse Alcohol intake: current Alcohol intake frequency: holidays/special occasions only Patient Tobacco Use Status: Current everyday Tobacco user Tobacco use type: Cigar Physical Exam Vital Signs: Last Vital Signs Pulse 86 10/29/24 14:02 BP 132/68 10/29/24 14:02 Pulse Ox 97 10/29/24 14:02 Oxygen Delivery Method Room Air 10/29/24 14:02 BMI result Body Mass Index 34.3 Comfortable Neck supple no JVD. Lungs entry equal no rales. Heart S1-S2 heard no gallop or rub. Abdomen soft nontender. Neuro alert awake oriented. No asterixis. Extremities 1+ edema. Results Reviewed Nephrology Results: Hgb 12.0 g/dl (14.0-18.0) L 08/07/24 WBC 8.2 X10*3/uL (4.8-10.8) 08/07/24 Plt Count 321 X10*3/uL (160-400) 08/07/24 Sodium 136 mmol/L (135-145) 08/14/24 Potassium 4.5 mmol/L (3.3-5.1) 08/14/24 Chloride 103 mmol/L (96-108) 08/14/24 Carbon Dioxide 24 mmol/L (22-29) 08/14/24 BUN 17 mg/dL (9-16) H 08/14/24 Creatinine 1.34 mg/dL (0.5-1.4) 08/14/24 Calcium 9.9 mg/dL (8.4-10.2) 08/14/24 Urine Protein 30 (1+) mg/dL (Neg-Trace) H 08/14/24 Assessment & Plan Assessment & Plan (1) CKD (chronic kidney disease): Code(s): N18.9 - Chronic kidney disease, unspecified Category: Medical Plan: Chronic kidney disease most likely due to longstanding hypertension. He has sustained acute kidney injury during an episode of UTI. Hypoperfusion could have contributed to JOANA. Use of Bactrim could also cause acute kidney injury by inhibiting tubular secretion of creatinine. After discontinuing Bactrim creatinine has slightly improved. No evidence of obstruction based on recent CT scan. Recent urine sediment was relatively bland therefore glomerular nephritis or interstitial disease seems very unlikely. Encouraged to increase p.o. fluid intake Avoid NSAIDs and other nephrotoxic agents. Shall continue to follow renal function closely. (2) HTN (hypertension): Code(s): I10 - Essential (primary) hypertension Category: Medical Plan: Blood pressure is acceptable. Encouraged him to stay on low-sodium diet. Continue with current medications Mild leg edema is most likely due to the use of amlodipine. He is asymptomatic (3) Renal cyst: Code(s): N28.1 - Cyst of kidney, acquired Category: Medical Plan: Multi-cystic kidney disease. Recent CT scan reported relatively stable renal cyst unchanged from 2019. Shall obtain follow-up ultrasonogram during next visit. (4) Prostate CA: Comment: Chemo injection q6mo Code(s): C61 - Malignant neoplasm of prostate Category: Medical Plan: Continue follow up with Urology Orders: Orders US renal BI Today N18.9 - Chronic kidney disease, unspecified, N28.1 - Cyst of kidney, acquired Total Protein Urine Random Today N18.9 - Chronic kidney disease, unspecified Basic Metabolic Panel 3 Months N18.9 - Chronic kidney disease, unspecified Basic Metabolic Panel Today N18.9 - Chronic kidney disease, unspecified UA and rflx microscopic Today N18.9 - Chronic kidney disease, unspecified Creatinine Urine Today N18.9 - Chronic kidney disease, unspecified Coding Level of Care Code Est Pt Level 4 (24766) Diagnoses CKD (chronic kidney disease) N18.9 HTN (hypertension) I10 Renal cyst N28.1 Prostate CA C61
[2024-10-29 14:02] VITALS: BP 132/68; PULSE 86; O2SAT 97; BMI 34.3
--- OUTSIDE RECORDS SUMMARY | 2024-10-29 16:41 | XMS_ITS | Encounter Summary ---
Author Organization [employer] Address [address] [place] [address] [address] [place] [address] Care Team Providers Care Camper Assembler Name Role Phone Name, Kayden PITTMAN Primary Care Provider [phone] Encounter Details Date Type Department Care Team ([facility] st Contact Info) Description 12/15/2022 Abstract [facility] MEDICINE [address] [place] [address] Name, MD Kayden [address] [place] [address] Social History Tobacco Use Types Packs/Day Years [...] as of this encounter Plan of Treatment Not on file documented as of this encounter Visit Diagnoses Not on filedocumented in this encounter Care Teams Camper Assembler Relationship Specialty Start Date End Date Name, MD Kayden [address] [place] [address] PCP - General Family Medicine 08/23/15 documented as of this encounter
--- OUTSIDE RECORDS SUMMARY | 2024-10-29 16:41 | XMS_ITS | Clinical Summary ---
Author Organization [address] [facility] Address [address] [place] [phone] Phone Care Team Providers Care Ekg Monitor Name Role Phone Name, Kayden PITTMAN Primary Care Provider [phone] Encounters Date Type Department Care Team Description 09/30/2024 Lab Requisition [facility] Lab [address] [place] [address] Evin Sagastume MD Gross hematuria 08/26/2024 Lab Requisition [facility] Lab [address] [place] [address] Juan R Katz PA Gross [...] Td or Tdap) 09/09/2020 09/09/2010 RSV Immunization Adult Patients (1 - 1-dose 75+ series) 2021 Cholesterol Screening (Lipid Panel) 06/14/2022 Depression Screening 06/14/2022 Falls Risk Assessment 06/14/2022 Hepatitis C Screening 06/14/2022 Medicare Annual Wellness Visit 06/14/2022 Social Influencers of Health Screening 06/14/2022 Diabetes: Annual Urine Albumin-Creatinine Ratio (uACR) 06/30/2022 Diabetes: Blood Sugar Control Test (HGBA1C) 06/30/2022 Hypertension/CHF/CAD Annual BMP Blood Test 06/30/2022 COVID-19 Vaccine ( season) 2024 Influenza Vaccine (Season Ended) 2025 04/29/2015, 04/27/2015, 04/16/2014, Additional history exists HIB Vaccines [...] age to complete this topic Meningococcal B Vaccine Aged Out No l onger eligible based on patient's age to complete this topic RSV Immunization Patients Under 20 months Aged Out No longer eligible based on patient's age to complete this topic Varicella Vaccines Aged Out No longer eligible based on patient's age to complete this topic Procedures Procedure Name Priority Date/Time Associated Diagnosis Comments AP OUTSIDE CONSULT Routine 09/26/2024 12 :00 AM EDT Gross hematuria AP OUTSIDE CONSULT Routine 08/20/2024 12 :00 AM EST Gross hematuria from Last 3 Months Results * Anatomic pathology outside consult (09/26/2024 12:00 AM EDT) Only the most recent of2 resultswithin the time period is included. Final Diagnosis A. Urine, Voided, ([id number]): ATYPICAL UROTHELIAL CELLS. 10/01/2024 11:38 AM EDT [facility] Clinical Information Gross hematuria R31.0 Urine Cytology 10/01/2024 11:[address] [facility] Gross Description A. Urine, Voided, ([id number]): Received one ThinPrep slide for cytology. 10/01/2024 11:[address] [facility] Disclaimer Unless otherwise specified, all tissue is 10% NB formalin fixed and paraffin embedded. Technical pathology services provided by [facility] at [address], [place] [address] (CLIA #[id number] evelio Alcaraz MD, Magnetic Resonance Imaging Coordinator) 10/01/2024 11:[address] [facility] Tissue Urine specimen from urethra / Unknown 09/26/2024 09/30/2024 1:13 PM EDT us Evin Sagastume MD LAB PATHOLOGY ORDERABLES nal Result Performing Organization Address City/State/[facility] Co de Phone Number [facility] [address] [place] [address], from Last 3 Months Insurance [employer] MED[employer]ARE Care Teams Ekg Monitor Relationship Specialty Start Date End Date Name, MD Kayden [address] [place] [address] PCP - General Internal Medicine 05/25/11
--- OUTSIDE RECORDS SUMMARY | 2024-10-29 16:41 | XMS_ITS | Encounter Summary ---
Author Organization [employer] Address [address] [facility] [address] [place] [address] Care Team Providers Care Biochemist Name Role Phone Name, Kayden PITTMAN Primary Care Provider [phone] Reason for Visit * Reason Comments Med Refill Encounter Details Date Type Department Care Team ([facility] st Contact Info) Description 04/22/2024 Refill [facility] MEDICINE [address] [place] [address] Patrick Conrad MD [address] [place] [address] Social History Tobacco Use Types Packs/Day Years [...] documented as of this encounter Care Teams Biochemist Relationship Specialty Start Date End Date Name, MD Kayden [address] [place] [address] PCP - General Family Medicine 08/23/15 documented as of this encounter
--- OUTSIDE RECORDS SUMMARY | 2024-10-29 16:41 | XMS_ITS | Clinical Summary ---
Author Organization [employer] Address [address] [place] [address] Care Team Providers Care Shake Backboard Notcher Name Role Phone Name, Kayden PITTMAN Primary Care Provider Allergies Active Allergy Reactions Criticality Noted Date Comments Cornell Inhibitors Cough 01/15/2012 Atorvastatin 08/14/2023 Muscle pain Barium Iodid High 08/24/2015 Iodinated Contrast Media Anaphylaxis High 10/23/2017 Medications cyclobenzaprine (Flexeril) 10 MG tablet Take 1 tablet by mouth every 8 (eight) hours. 1 Active leuprolide, 6-month, (Eligard) 45 MG injection Inject 45 mg under the skin every 6 (six) months. Active Mometasone Furoate (Asmanex HFA) 200 MCG/ACT aerosol Take 1 Inhalation. by mouth 2 times daily. 13 g 2 4 Active Diclofenac Sodium 1 % gelIndications:C hronic pain of both knees Apply twice a day to the affected knees 100 g 2 4 Active loratadine (Claritin) 10 MG tablet Take 1 tablet (10 mg) by mouth Once per day. 30 tablet 2 4 Active fluticasone (Flonase) 50 MCG/ACT nasal spray Administer 2 sprays into each nostril Once per day. Shake gently. Before first use, prime pump. After use, clean tip and replace cap. 16 g 2 4 12/05/19 25 Active albuterol (ProAir HFA) 108 (90 Base) MCG/ACT inhalerIndicatio ns:Mild intermittent asthma, unspecified whether complicated Inhale 2 puffs every 4 (four) hours if needed for wheezing or shortness of breath. 18 g 1 4 12/05/19 25 Active Umeclidinium [place] (Incruse Ellipta) 62.5 MCG/ACT aerosol powder Inhale 1 Inhalation Once per day. 30 each 1 4 Active amLODIPine (Norvasc) 10 MG tablet TAKE 1 TABLET BY MOUTH EVERY DAY 90 tablet 3 4 05/13/20 25 Active ezetimibe (Zetia) 10 MG tabletIndication s:Hypercholester olemia TAKE 1 TABLET(10 MG) BY MOUTH IN THE MORNING 30 tablet 11 4 Active losartan (Cozaar) 50 MG tabletIndication s:Benign essential hypertension TAKE 1 TABLET BY MOUTH EVERY DAY 90 tablet 3 4 Active metFORMIN (Glucophage) 500 MG tablet Take 1 tablet (500 mg) by mouth with breakfast and with evening meal. 180 tablet 3 4 05/13/20 25 Active nicotine (Nicoderm CQ) 14 MG/24HR patchIndications :Tobacco use Place 1 patch on the skin 1 (one) time each day at the same time. 30 patch 5 Active predniSONE (Deltasone) 20 MG tablet Take 1 tablet (20 mg) by mouth Once per day for 5 days. 5 tablet 5 10/02/19 25 Active Problems Problem Noted Date Diagnosed Date [...] in added sugars, saturated fat, and sodium. Dietary counseling 06/09/2024 Assessment & Plan (06/09/2024 3:21 PM EST): Encouraged minimizing processed foods and increasing whole foods particularly vegetables Exercise counseling 06/09/2024 Assessment & Plan (06/09/2024 3:21 PM EST): Encouraged daily movement, working up to 30 minutes daily Tobacco use 06/09/2024 Assessment & Plan (08/11/2024 [...] Plan (06/09/2024 3:21 PM EST): Encouraged cessation Stage 3a chronic kidney disease 04/04/2022 Malignant tumor of prostate 04/09/2018 Overview (09/26/2024): Prostate CA is followed at [facility]. 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 Resolved Problems Problem Noted Date Diagnosed Date Resolved Date Dysuria 07/04/2024 09/26/2024 Assessment & Plan (08/11/2024 10:45 AM EST): U/A today neg for infection, +proteinuria, no hematuria Pt reports that symptoms are improving, still having some dysuria with morning void Will continue taking cephalexin 500 mg BID. Will continue with ample hydration Assessment & Plan (07/29/2024 4:52 PM EST): Likely uti, will treat, culture sent Encouraged hydration Lymphadenopathy 06/09/2024 09/26/2024 Parotid gland pain 06/09/2024 Assessment & Plan [...] alcohol until the work up is completed. 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 I gave him info re [place] palsy FU w PCP in 1-2m to define need for further rx I spoke with his - requested by patient- Juli and explain dx, prognosis and rx. 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 12/05/2023 Encounters Date Type Department Care Team Description 09/26/2024 10:15 AM EDT Office Visit [address] [address] Kayden Villavicencio MD Type 2 diabetes mellitus with other specified complication, without long-term current use of insulin (CMS/HCC) (Primary Dx); Stage 3a chronic kidney disease (CMS/HCC); History of gross hematuria; History of prostate cancer; Mild intermittent asthma with exacerbation 09/26/2024 Travel 08/25/2024 Patient Outreach [facility] [address] [place], [place] [phone] Kayden Villavicencio MD Pre-visit Planning ([facility] unable to reach [facility]) 08/13/2024 Orders Only [address] [phone] Tracey Maciel CNP Dysuria (Primary Dx); History of recurrent UTIs 08/12/[address] [phone] Odalys Peña, books binder Orders 08/11/2024 9:30 AM EST Office Visit [address] [phone] Sera Cuevas NP Dysuria (Primary Dx); Type 2 diabetes mellitus with other specified complication, without long-term current use of insulin (CMS/HCC); Tobacco use; Proteinuria, unspecified type; History of recurrent UTIs 08/11/2024 Travel 08/08/2024 Orders Only GENERIC EXTERNAL DATA DEPARTMENT Provider, Generic External Data 08/07/2024 Orders Only [facility] External Provider, [facility] 07/31/2024 Telephone [facility] [address] [place] [address] Tomasa Robertson RN from Last 3 Months Immunizations Name Administration [...] Vaccine 6-11 06/21/2022 Moderna SARS-CoV-2 Booster Vaccination 2 Pfizer Covid-19 Vaccine 12+ 08/14/2023 Pneumococcal Conjugate [...] Sign Reading Time Taken Comments Blood Pressure 129/74 09/26/2024 10:11 AM EDT Pulse 79 09/26/2024 10:11 AM EDT Temperature 35.6 ??C (96.1 ??F) 09/26/2024 10:11 AM E DT Respiratory Rate 18 09/26/2024 10:11 AM EDT Oxygen Saturation 94% 09/26/2024 10:11 AM EDT Inhaled Oxygen Concentration - - Weight 90.7 kg (200 lb) 09/26/2024 10:11 AM EDT Height 162.6 cm (5' 4 ) 08/11/2024 9:30 AM EST Body Mass Index 34.33 08/11/2024 9:30 AM EST Plan of Treatment Health Maintenance Due Date [...] Name Priority Date/Time Associated Diagnosis Comments POCT GLUCOSE Routine 09/26/2024 10:12 AM EDT Type 2 diabetes mellitus with other specified complication, without long-term current use of insulin ([facility]) AMB REFERRAL TO UROLOGY Urgent 08/20/2024 History [...] complication, without long-term current use of insulin ([facility]) CT ABDOMEN PELVIS WO CONTRAST Routine 08/08/2024 [...] ROUTINE Routine 08/01/2024 2:20 PM EST Dysuria POCT GLYCATED HEMOGLOBIN, TOTAL Routine 05/13/2024 9:12 [...] Relevant to Health Maintenance Results * (ABNORMAL) POCT glucose manually resulted (09/26/2024 10:12 AM EDT) Only the most recent of2 resultswithin the time period is included. Glucose Blood, POC 229(A) 60 - 200 mg/dL QC Media Lot # [id number] Lot# Expiration Date [id number] Blood Capillary blood specimen / Unknown 09/26/2024 10:12 AM EDT Kayden Villavicencio MD POINT OF CARE TEST ENTER/EDIT OR DERABLES Final Result * Referral to Urology (08/20/2024) [facility] OUTPATIENT REFERRAL ORDER GABY Final Result * (ABNORMAL) Urinalysis, Complete, with Reflex to Culture (08/14/2024 10:20 AM EST) Only the most recent of3 resultswithin the time period is included. Color Urine Yellow [facility] Appearance Urine Clear [facility] PH 6.0 5.0 - 9.0 [facility] Glucose Urine UA Negative Negative mg/dL [facility] Urine Blood Negative Negative [facility] Specific [place] - Urine 1.010 1.005 - 1.025 [facility] Urine Protein 30 (1+)(A) Neg-Trace mg/dL [facility] Urine Ketones Negative Negative mg/dL [facility] Nitrite Urine Negative Negative [facility] Leukocyte Esterase Urine Negative Negative [facility] RBC Urine 0-2 0 - 2 /HPF [facility] Urine WBC 0-5 0 - 5 /HPF [facility] Urine Squamous Epithelial Cell 0-2 0 - 2 /HPF [facility] Urine Bacteria None Seen None Seen [facility] Hyaline Casts, Urine 0-2 0 - 2 /LPF [facility] Urine 08/14/2024 10:2 0 AM EST 08/14/2024 11:24 AM EST Narrative [facility] - 08/14/2024 11:40 AM EST Urine, Clean Catch [facility] URINE ORDERABLES Ella l Result [facility] [address] [place] [address] [phone] * Culture, Urine, Routine (08/14/2024 10:20 AM EST) Only the most recent of3 resultswithin the time period is included. Urine Urine specimen obtained by clean catch procedure / Unknown 08/14/2024 10:20 AM EST 08/14/2024 11:24 AM EST Comment:UACC Narrative [facility] - 08/15/2024 9:15 AM EST Urine Culture Report Result Urine Culture 50,000 to 100,000 cfu/ml Urine Culture Mixed bacterial jamir characteristic of Urine Culture urogenital contamination. Specimen Source: Urine clean catch [facility] MICROBIOLOGY - GENERA L ORDERABLES Final Result Performing Organization Address [facility] Co de Phone Number [facility] [address] [place] [address] [phone] * (ABNORMAL) Basic Metabolic Panel (08/14/2024 10:20 AM EST) Sodium 136 135 - 145 mmol/L [facility] Potassium 4.5 3.3 - 5.1 mmol/L [facility] Chloride 103 96 - 108 mmol/L [facility] Carbon Dioxide 24 22 - 29 mmol/L [facility] Anion Gap 14 12 - 20 [facility] Urea Nitrogen (BUN) 17(H) 9 - 16 mg/dL [facility] Creatinine, Serum 1.34 0.5 - 1.4 mg/dL [facility] Estimated Glomerular Filt Rate 52 [facility] Comment:Chronic Kidney Disea se: Estimated GFR < 60 mL/min/1.94s8Upvlxx Kidney Disease: Estimated GFR < 15 mL/min/1.73m2 Glucose 107 60 - 115 mg/dL [facility] Calcium 9.9 8.4 - 10.2 mg/dL [facility] Blood Venous blood specimen / Unknown 08/14/2024 10:20 AM EST 08/14/2024 11:04 AM EST [facility] BLOOD ORDERABLES Ella l Result Performing Organization Address [facility] Co de Phone Number [facility] [address] [place] [phone] * POCT Urinalysis (08/11/2024 9:43 AM [...] Media Lot # [id number] Lot# Expiration Date ,025 Urine 08/11/2024 9:43 AM EST [facility] POINT OF CARE TEST ENTER/ EDIT ORDERABLES Final Result * CT Abdomen Pelvis w/o Contrast (08/08/2024 2:12 AM EST) Anatomical Region Laterality Modality Body, Pelvis, Abdomen Computed T omography 08/08/2024 2:12 AM EST Narrative 08/08/2024 2:16 AM EST ? [facility] ?[address] [place] [address] ?[place] [address] ? CT Scan Report ? Signed ? Patient: Juan Alberto Rowe ?MR#: [id number] ?? [id number] ? : 1945 ?Acct:[id number] ? Age/Sex: 78 / M ?ADM Date: 08/07/24 ? Loc: HO.ED ? Attending Dr: ? Ordering Physician: Omer King ?? Date of Service: 08/08/24 ?? Procedure(s): CT abdomen pelvis wo IV con ?? Accession Number(s): [id number] ? cc: Omer King; Name,Kayden MD ? Report Number: ?? [id number]: Total DLP = ??652.00 mGy-cm ? CLINICAL [...] ? DD/ 1 ? TD/TT: 08/08/24211 ? Cattyman: ? Procedure Note Ila, Image - 01/24/[address] [address] [address] Scan Report Signed Patient: Juan Alberto RoweMR#: [id number] : 7Acct:[id number] Age/Sex: 78 / MADM Date: 08/07/24 Loc: HO.ED Attending Dr: Ordering Physician: Omer King Date of Service: 08/08/24 Procedure(s): CT abdomen pelvis wo IV con Accession Number(s): [id number] cc: Omer King; Name,Kayden PITTMAN Report Number: [id number]: Total DLP = 652.00 mGy-cm CLINICAL HISTORY: [...] in OV> 08/08/24214 DD/ 1 TD/TT: 08/08/24211 Cattyman: [facility] External Provider IMG CT PROCEDURES Final Result * (ABNORMAL) CBC auto differential (08/07/2024 11:54 PM EST) White Blood Count 8.2 4.8 - 10.8 X10*3/uL [facility] Red Blood Count 4.36(L) 4.60 - 5.80 X10*6/uL [facility] Hemoglobin 12.0(L) 14.0 - 18.0 g/dl [facility] Hematocrit 36.2(L) 42.0 - 52.0 % [facility] Mean Corpuscular Volume 83.0 80.0 - 98.0 fL [facility] Mean Corpuscular Hemoglobin 27.5 27.0 - 33.0 pg [facility] Mean Corpuscular HGB Conc 33.1 31.0 - 36.0 g/dl [facility] Red Cell Distribution Width 14.2 11.0 - 16.0 % [facility] Platelet Count 321 160 - 400 X10*3/uL [facility] Mean Platelet Volume 9.0(L) 9.4 - 12.4 fL [facility] Neutrophils Percent Auto 55.7 45 - 73 % [facility] Imm Gran Pct Auto 0.4 0.0 - 0.4 % [facility] Lymphocytes Percent Auto 25.6 20 - 40 % [facility] Monocytes Percent Auto 12.4(H) 2 - 11 % [facility] Eosinophils Percent Auto 4.6(H) 0 - 4 % [facility] Basophils Percent Auto 1.3 0 - 2 % [facility] NRBC Pct Auto 0.0 0.0 - 0.2 /100WBC [facility] Neutrophils Absolute Auto 4.6 2.0 - 8.3 x10*3/uL [facility] Imm Gran Abs Auto 0.03 0.00 - 0.03 X10*3/uL [facility] Lymphocytes Absolute Auto 2.1 1.2 - 4.9 X10*3/uL [facility] Monocytes Absolute Auto 1.0 0.1 - 1.2 X10*3/uL [facility] Eosinophils Absolute Auto 0.4 0.0 - 0.4 X10*3/uL [facility] Basophils Absolute Auto 0.1 0.0 - 0.2 X10*3/uL [facility] NRBC Abs Auto 0.000 0.0 - 0.012 X10*3/uL [facility] 08/07/2024 11:5 4 PM EST 08/07/2024 11:58 PM EST Generic External Data Provider LAB BLOOD ORDERAB LES Final Result Performing Organization Address [facility] Co de Phone Number [facility] [address] [place] [phone] * Lipase (08/07/2024 11:54 PM EST) Lipase 22 8 - 78 U/L [facility] 08/07/2024 11:5 4 PM EST 08/07/2024 11:58 PM EST us Generic External Data Provider LAB BLOOD ORDERAB LES Final Result Performing Organization Address [facility] de Phone Number [facility] [address] [place] [phone] * (ABNORMAL) Comprehensive Metabolic Panel (08/07/2024 11:54 PM EST) Sodium 139 135 - 145 mmol/L [facility] Potassium 4.9 3.3 - 5.1 mmol/L [facility] Chloride 109(H) 96 - 108 mmol/L [facility] Carbon Dioxide 25 22 - 29 mmol/L [facility] Anion Gap 10(L) 12 - 20 [facility] Urea Nitrogen (BUN) 20(H) 9 - 16 mg/dL [facility] Creatinine, Serum 1.45(H) 0.5 - 1.4 mg/dL [facility] Creatinine Clr Calc Pharmacy 43.0 [facility] Comment:eGFR (calculated fro m the MDRD study equation) and eCrCl(calculated from the Cockcroft-Gault equation) are based ondifferent parameters and may not yield comparable results.If eCrCl result is absurd, please check patient'sheight/weight. Estimated Glomerular Filt Rate 47 [facility] Comment:Chronic Kidney Disea se: Estimated GFR < 60 mL/min/1.64z4Utyqst Kidney Disease: Estimated GFR < 15 mL/min/1.73m2 Glucose 126(H) 60 - 115 mg/dL [facility] Calcium 9.9 8.4 - 10.2 mg/dL [facility] Bilirubin, Total 0.2 0.0 - 1.0 mg/dL [facility] Aspartate Amino Transferase 18 5 - 37 U/L [facility] Alanine Aminotransferase 16 0 - 40 U/L [facility] Total Protein 7.0 6.5 - 8.0 g/dL [facility] Albumin Level 3.8 3.5 - 5.0 g/dL [facility] Alkaline Phosphatase 71 39 - 117 U/L [facility] 08/07/2024 11:5 4 PM EST 08/07/2024 11:58 PM EST us Generic External Data Provider LAB BLOOD ORDERAB LES Final Result [facility] [address] [place] [phone] [phone] * (ABNORMAL) POCT HGB A1C (05/13/2024 9:12 AM EDT) Hemoglobin A1C 6.6(A) 4.0 - 6.0 % QC Media Lot # [id number] Lot# Expiration Date [id number] Blood 05/13/2024 9:12 AM EDT us Kayden Villavicencio MD POINT OF CARE TEST ENTER/EDIT OR DERABLES Final Result * (ABNORMAL) Albumin, Random Urine W/Creatinine (01/30/2024 8:30 AM EDT) Creatinine, Urine 103.25 mg/dL [facility] Microalbumin Urine 82.0 mg/L H [facility] Microalbum Creatinine Ratio Ur 79.4(H) <30 ug/mg cr [facility] Comment:Albumin/Creatinine R atio Reference Ranges: Normal: < 30 ug/mg creatinine Microalbuminuria: 30 - 300 ug/mg creatinineClinical Albuminuria: > 300 ug/mg creatinine Urine (Urine, Random) 01/30/2024 8:30 AM EDT 01/30/2024 9:01 AM EDT us Kayden Villavicencio MD LAB URINE ORDERABLES Final Resul t [facility] [address] [place] [phone] * (ABNORMAL) Lipid Panel, Standard (01/30/2024 8:30 AM EDT) Triglycerides 200(H) <150 mg/dL [facility] Comment:Desirable Triglyceri de: less than 150 mg/dLBorderline High Triglyceride 150-199 mg/dLHigh Triglyceride: 200-499 mg/dLVery High Triglyceride: greater than or equal to 5OO mg/dL Cholesterol 180 <200 mg/dL [facility] Comment:Desirable Cholestero l: less than 200 mg/dLBorderline High Cholesterol: 200-239 mg/dLHigh Cholesterol: greater than 239 mg/dL LDL Cholesterol Calculated 100(H) <100 mg/dL [facility] Comment:Desirable LDL: less than 100 mg/dLNear Optimal/Above Optimal LDL: 110- 129 mg/dLBorderline High LDL: 130-159 mg/dLHigh LDL: 160-189 mg/dLVery High LDL: greater than or equal to 190 mg/dL HDL Cholesterol 40(L) >40 mg/dL [facility] Comment:Desirable HDL: great er than 40 mg/dL Note: This HDL assay may give artificially low results in patients with liver disease. Blood Venous blood specimen / Unknown 01/30/2024 8:30 AM EDT 01/30/2024 8:30 AM EDT us Kayden Villavicencio MD LAB BLOOD ORDERABLES Final Resul t [facility] [address] [place] [phone] * Diabetes Eye Exam (04/11/2023) Eye Exam Normal Normal us Kayden Villavicencio MD HEALTH MAINTENANCE Final Result * Colonoscopy (04/17/2022) Pathologist [facility] Colonoscopy performed [facility] Kelley [facility] HEALTH MAINTENANCE Final Result * HEPATITIS C AB W/REFL TO HCV RNA, QN, PCR (09/26/2021 8:45 AM EDT) HEPATITIS C ANTIBODY NON-REACT [facility] NON-REACT [facility] INDEX 0.01 <1.00 [facility] Comment: ?? HCV antibody was non-reactive. There is no laboratory ?? evidence of HCV infection. ?? In most cases, no further action is required. However, if recent HCV exposure is suspected, a test for HCV RNA (test code 10300) is suggested. ?? For additional information please refer to http://education.Crush on original products/faq/HBI77k0 (This link is being provided for informational/ educational purposes only.) ?? 09/26/2021 8:45 AM EDT us Kayden Villavicencio MD HISTORICAL/NON ORDERABLE LABS Fi nal Result [facility] [address] from Last 3 Months or Most Recently Relevant to Health Maintenance Insurance [facility] MEDIC[employer]VANTAGE HMO Care Teams Shake Backboard Notcher Relationship Specialty Start Date End Date Name, MD Kayden [address] [place] [address] PCP - General Family Medicine 08/23/15
--- OUTSIDE RECORDS SUMMARY | 2024-10-29 16:41 | XMS_ITS | Encounter Summary ---
Author Organization [facility] Address [address] [place] [address] Care Team Providers Care Party Plan Demonstrator Name Role Phone Name, Kayden PITTMAN Primary Care Provider [phone] Encounter Details Date Type Department Care Team (Late st Contact Info) Description 08/26/[address] [facility] Lab [address] [facility] [place] [address] Juan R Katz PA [address] [place] [address] Gross hematuria Social History Tobacco Use Types Packs/Day Years Used Date Smoking Tobacco: Never Assessed Sex and Gender Information Value Date Recorded Sex Assigned at Not on file Legal Sex Male 2:34 PM EST Gender Identity Not on file Sexual Orientation Not on file documented as of this encounter Plan of Treatment Not on file documented as of this encounter Procedures Procedure Name Priority Date/Time Associated Diagnosis Comments AP OUTSIDE CONSULT Routine 08/20/2024 12 :00 AM EST Gross hematuria documented in this encounter Results * Anatomic pathology outside consult (08/20/2024 12:00 AM EST) Addendum Results of UroVysion fluorescence in situ hybridization (FISH) testing: CEP3: Normal CEP7: Normal CEP17: Normal LSI 9p21: Normal Interpretation: Normal profile Controls stained appropriately. Note: The results are intended as a screening device and should be interpreted in association with other clinical and pathological findings. 09/09/2024 10:41 AM EST [facility] Addendum electronically signed by Rishabh Odonnell MD on 09/09/2024 at 10:41 AM Final Diagnosis Urine, Voided, ([id number]): Atypical urothelial cells. Note: Based upon the cytologic findings, UroVysion testing will be performed, the result to follow in an addendum. 09/09/2024 10:41 AM [facility] Clinical Information Gross hematuria R31.0 Urine cytology with reflex U[facility]Vysion ([facility]) 09/09/2024 10:41 AM [facility] Gross Description A. Urine, Voided, ([id number]): Received one ThinPrep slide for cytology. 09/09/2024 10:41 AM [facility] Disclaimer Unless otherwise specified, all tissue is 10% NB formalin fixed and paraffin embedded. Technical pathology services provided by [facility] at [address], [place] [address] (CLIA #[id number]/Constance Alcaraz MD, Marketing Coordinator) 09/09/2024 10:41 AM [facility] Tissue Urine specimen from urethra / Unknown 08/20/2024 08/26/2024 8:41 AM EST us Juan R LINDA LAB PATHOLOGY ORDERAB LES Edited Result - Final [facility] [address] [place] [address], documented in this encounter Visit Diagnoses Diagnosis Gross hematuria documented in this encounter Care Teams Party Plan Demonstrator Relationship Specialty Start Date End Date Name, MD Kayden [address] [place] [address] PCP - General Internal Medicine 05/25/11 documented as of this encounter
--- OUTSIDE RECORDS SUMMARY | 2024-10-29 16:41 | XMS_ITS | Encounter Summary ---
Author Organization [employer] Address [address] [place] [address] 7 [place] [address] Care Team Providers Care Private Equity Analyst Name Role Phone Name, Kayden PITTMAN Primary Care Provider [phone] Encounter Details Date Type Department Care Team ([facility] st Contact Info) Description 10/06/2022 Abstract [facility] MEDICINE [address] [place], [place] [phone] Name, MD Kayden [address] [place] [address] Social History Tobacco Use Types Packs/Day Years [...] on filedocumented in this encounter Care Teams Private Equity Analyst Relationship Specialty Start Date End Date Name, MD Kayden [address] [place], [place] [phone] PCP - General Family Medicine 08/23/15 documented as of this encounter
--- OUTSIDE RECORDS SUMMARY | 2024-10-29 16:41 | XMS_ITS | Encounter Summary ---
Author Organization [facility] Address [address] [place] [address] Care Team Providers Care Assembly Machine Tool Setter Name Role Phone Name, Kayden PITTMAN Primary Care Provider [phone] Encounter Details Date Type Department Care Team (Late st Contact Info) Description 09/30/2024 Lab Requisition [facility] - Main Lab [address] [facility] [place] [address] Evin Sagastume MD [address] [facility] [address] [place], [place] [phone] Gross hematuria Social History Tobacco Use Types [...] 09/26/2024 12 :00 AM EDT Gross hematuria documented in this encounter Results * Anatomic pathology outside consult (09/26/2024 12:00 AM EDT) Final Diagnosis A. Urine, Voided, ([id number]): ATYPICAL UROTHELIAL CELLS. 10/01/2024 11:38 AM EDT [facility] Clinical Information Gross hematuria R31.0 Urine Cytology 10/01/2024 11:38 AM EDT [facility] Gross Description A. Urine, Voided, ([id number]): Received one ThinPrep slide for cytology. 10/01/2024 11:38 AM EDT [facility] Disclaimer Unless otherwise specified, all tissue is 10% NB formalin fixed and paraffin embedded. Technical pathology services provided by [facility] [address] [facility] [address] [place] [address] (CLIA #[id number]/S evelio Alcaraz MD, Simulation Educator) 10/01/2024 11:38 AM EDT [facility] Tissue Urine specimen from urethra / Unknown 09/26/2024 09/30/2024 1:13 PM EDT us Evin Sagastume MD LAB PATHOLOGY ORDERABLES Fi nal Result [facility] [address] [place] [address], documented in this encounter Visit Diagnoses Diagnosis Gross hematuria documented in this encounter Care Teams Assembly Machine Tool Setter Relationship Specialty Start Date End Date Name, MD Kayden [address] [place], [place] PCP - General Internal Medicine 05/25/11 documented as of this encounter
--- OUTSIDE RECORDS SUMMARY | 2024-10-29 16:41 | XMS_ITS | Encounter Summary ---
Author Organization [employer] Address [address] [facility] 7t [place] [address] Care Team Providers Care Proposal Engineer Name Role Phone Name, Kayden PITTMAN Primary Care Provider [phone] Reason for Visit * Reason Comments Med Refill Encounter Details Date Type Department Care Team ([facility] st Contact Info) Description 04/22/[address] [facility] MEDICINE [address] [place] [address] Patrick Conrad MD [address] [place] [address] Social History Tobacco Use Types Packs/Day Years [...] documented as of this encounter Care Teams Proposal Engineer Relationship Specialty Start Date End Date Name, MD Kayden [address] [place] [address] PCP - General Family Medicine 08/23/15 documented as of this encounter
== END 2024-10-29 14:29 | disposition home or self-care (01) ==
LOC: HO.HKAM 13:58
PROVIDERS: PCP Internal Medicine Geriatric Medicine; Visit Provider Internal Medicine Hypertension Specialist
DX: I12.9 Hypertensive chronic kidney disease with stage 1 through stage 4 chronic kidney disease, or unspecified chronic kidney disease (principal); N18.9 Chronic kidney disease, unspecified; N28.1 Cyst of kidney, acquired; C61 Malignant neoplasm of prostate
CPT/HCPCS: 99214

== ENCOUNTER → 2024-10-29 13:58 | Outpatient (BNVA) | payer MEDICARE, SELFPAY | PROVIDERS: PCP Internal Medicine Geriatric Medicine; Visit Provider Internal Medicine Hypertension Specialist | DX: Z13.89 Encounter for screening for other disorder (principal) | CPT/HCPCS: 99212 ==

== ENCOUNTER 2024-10-29 14:34 | Outpatient (REF) | payer MEDICARE, SELFPAY ==
[2024-10-29 16:18] LABS: Hematocrit 40.5 % (42.0-52.0); Hemoglobin 13.1 g/dl (14.0-18.0); Mean Corpuscular HGB Conc 32.3 g/dl (31.0-36.0); Mean Corpuscular Volume 83.5 fL (80.0-98.0); Mean Platelet Volume 9.8 fL (9.4-12.4); Platelet Count 399 X10*3/uL (160-400); Red Blood Count 4.85 X10*6/uL (4.60-5.80); Red Cell Distribution Width 14.4 % (11.0-16.0); White Blood Count 9.1 X10*3/uL (4.8-10.8)
[2024-10-29 16:20] LABS: Appearance Urine Clear; Color Urine Yellow; Glucose Urine UA Negative (Negative); Leukocyte Esterase Urine Negative (Negative); Nitrite Urine Negative (Negative); PH 6.5 (5.0-9.0); Specific Gravity - Urine 1.015 (1.005-1.025); UMIC TRIGGER UA YES; Urine Blood Negative (Negative); Urine Ketones Negative (Negative); Urine Protein 30 (1+) mg/dL (Neg-Trace)
[2024-10-29 16:26] LABS: Bacteria Urine None Seen (None Seen); Hyaline Casts Urine 0-2 /LPF (0-2); RBC Urine 0-2 /HPF (0-2); Squamous Epithelial Cell Urine 0-2 /HPF (0-2); WBC Urine 0-5 /HPF (0-5)
[2024-10-29 16:33] LABS: Alanine Aminotransferase 21 U/L (0-40); Albumin Level 4.1 g/dL (3.5-5.0); Alkaline Phosphatase 63 U/L (39-117); Anion Gap 13 (12-20); Aspartate Amino Transferase 23 U/L (5-37); Bilirubin Total 0.4 mg/dL (0.0-1.0); Blood Urea Nitrogen 18 mg/dL (9-16); Carbon Dioxide 25 mmol/L (22-29); Chloride 104 mmol/L (96-108); Estimated Glomerular Filt Rate 52; Glucose Random 127 mg/dL (60-115); Potassium 4.5 mmol/L (3.3-5.1); Sodium 137 mmol/L (135-145); Total Protein 7.2 g/dL (6.5-8.0)
--- OUTSIDE RECORDS SUMMARY | 2024-10-29 17:20 | XMS_ITS | Encounter Summary ---
Author Organization [facility] Address [address] [place] [address] Care Team Providers Care Home Appliance Technician Name Role Phone Name, Kayden PITTMAN Primary Care Provider [phone] Encounter Details Date Type Department Care Team (Late st Contact Info) Description 08/26/2024 Lab Requisition [facility] - Main Lab [address] [facility] [place] [address] Juan R Katz PA [address] [place] [address] Gross hematuria Social History Tobacco [...] and pathological findings. 09/09/2024 10:41 AM EST [facility] ([facility]) [facility] Addendum electronically signed by Rishabh Odonnell MD on 09/09/2024 at 10:41 AM Final Diagnosis Urine, Voided, ([id number]): Atypical urothelial cells. Note: Based upon the cytologic findings, UroVysion testing will be performed, the result to follow in an addendum. 09/09/2024 10:41 AM [facility] Clinical Information Gross hematuria R31.0 Urine cytology with reflex UroVysion ([facility]) 09/09/2024 10:41 AM [facility] Gross Description A. Urine, Voided, ([id number]): Received one ThinPrep slide for cytology. 09/09/2024 10:41 AM [facility] Disclaimer Unless otherwise specified, all tissue is 10% NB formalin fixed and paraffin embedded. Technical pathology services provided by [facility]rology at [address], [place] [address] (CLIA #[id number]/Constance Alcaraz MD, Robot Designer) 09/09/2024 10:41 AM [facility] Tissue Urine specimen from urethra / Unknown 08/20/2024 08/26/2024 8:41 AM EST us Juan R LINDA LAB PATHOLOGY ORDERAB LES Edited Result - Final [facility] [address] [place] [address], documented in this encounter Visit Diagnoses Diagnosis Gross hematuria documented in this encounter Care Teams Home Appliance Technician Relationship Specialty Start Date End Date Name, MD Kayden [address] [place] [address] PCP - General Internal Medicine 05/25/11 documented as of this encounter
--- OUTSIDE RECORDS SUMMARY | 2024-10-29 17:20 | XMS_ITS | Encounter Summary ---
Author Organization [employer] Address [address] [facility] 7t [place] [address] Care Team Providers Care Relay Motorman Name Role Phone Name, Kayden PITTMAN Primary Care Provider [phone] Reason for Visit * Reason Comments Med Refill Encounter Details Date Type Department Care Team ([facility] st Contact Info) Description 04/22/2024 Refill [facility] MEDICINE [address] [place] [address] Patrick Conrad MD [address] [place] [address] Social History Tobacco Use Types Packs/Day Years [...] documented as of this encounter Care Teams Relay Motorman Relationship Specialty Start Date End Date Name, MD Kayden [address] [place] [address] PCP - General Family Medicine 08/23/15 documented as of this encounter
--- OUTSIDE RECORDS SUMMARY | 2024-10-29 17:20 | XMS_ITS | Encounter Summary ---
Author Organization [employer] Address [address] [facility] 7t [place] [address] Care Team Providers Care Middle Stitcher Name Role Phone Name, Kayden PITTMAN Primary Care Provider [phone] Reason for Visit * Reason Comments Med Refill Encounter Details Date Type Department Care Team ([facility] st Contact Info) Description 04/22/[address] [facility] MEDICINE [address] [place] [address] Patrick Conrad MD [address] [place] [address] Social History Tobacco Use Types Packs/Day Years [...] documented as of this encounter Care Teams Middle Stitcher Relationship Specialty Start Date End Date Name, MD Kayden [address] [place] [address] PCP - General Family Medicine 08/23/15 documented as of this encounter
--- OUTSIDE RECORDS SUMMARY | 2024-10-29 17:20 | XMS_ITS | Encounter Summary ---
Author Organization [facility] Address [address] [place] [address] Care Team Providers Care Cutting Room Supervisor Name Role Phone Name, Kayden PITTMAN Primary Care Provider [phone] Encounter Details Date Type Department Care Team (Late st Contact Info) Description 09/30/2024 Lab Requisition [facility] - Main Lab [address] [facility] [place] [address] Evin Sagastume MD [address] [facility] [address] [place], [place] [phone] Gross hematuria Social History Tobacco Use Types [...] AM EDT) Final Diagnosis A. Urine, Voided, ([id number]): ATYPICAL UROTHELIAL CELLS. 10/01/2024 11:38 AM EDT [facility] Clinical Information Gross hematuria R31.0 Urine Cytology 10/01/2024 11:38 AM EDT [facility] Gross Description A. Urine, Voided, ([id number]): Received one ThinPrep slide for cytology. 10/01/2024 11:38 AM EDT [facility] Disclaimer Unless otherwise specified, all tissue is 10% NB formalin fixed and paraffin embedded. Technical pathology services provided by [facility] at [address] [facility] [address] [place] [address] (CLIA #[id number]/S evelio Alcaraz MD, Control Panel Assembler) 10/01/2024 11:38 AM EDT [facility] Tissue Urine specimen from urethra / Unknown 09/26/2024 09/30/2024 1:13 PM EDT us Evin Sagastume MD LAB PATHOLOGY ORDERABLES Fi nal Result [facility] [address] [place] [address], documented in this encounter Visit Diagnoses Diagnosis Gross hematuria documented in this encounter Care Teams Cutting Room Supervisor Relationship Specialty Start Date End Date Name, MD Kayden [address] [place], [place] PCP - General Internal Medicine 05/25/11 documented as of this encounter
--- OUTSIDE RECORDS SUMMARY | 2024-10-29 17:20 | XMS_ITS | Clinical Summary ---
Author Organization [employer] Address [address] [facility] 7t [place] [address] Care Team Providers Care Senior Software Engineer Analytics Name Role Phone Name, Kayden PITTMAN Primary Care Provider [phone] Allergies Active Allergy Reactions Criticality Noted Date [...] g 1 4 12/05/19 25 Active Umeclidinium Ganado (Incruse Ellipta) 62.5 MCG/ACT aerosol powder Inhale [...] Overview (09/26/2024): Prostate CA is followed at [facility]. Treatment has been so far radical [...] next 1-2m. I gave him info re [place] palsy FU w PCP in 1-2m to [...] Description 09/26/2024 10:15 AM EDT Office Visit [address] [address] Kayden Villavicencio MD Type 2 diabetes mellitus with other specified complication, without long-term current use of insulin (CMS/HCC) (Primary Dx); Stage 3a chronic kidney disease (CMS/HCC); History of gross hematuria; History of prostate cancer; Mild intermittent asthma with exacerbation 09/26/2024 Travel 08/25/2024 Patient Outreach [facility] [address] [place], [place] [phone] Kayden Villavicencio MD Pre-visit Planning ([facility] unable to reach [facility]) 08/13/2024 Orders Only [address] [phone] Tracey Maciel CNP Dysuria (Primary Dx); History of recurrent UTIs 08/12/[address] [phone] Odalys Peña, sausage stuffer Orders 08/11/2024 9:30 AM EST Office Visit [address] [phone] Sera Cuevas NP Dysuria (Primary Dx); Type 2 diabetes mellitus with other specified complication, without long-term current use of insulin (CMS/HCC); Tobacco use; Proteinuria, unspecified type; History of recurrent UTIs 08/11/2024 Travel 08/08/2024 Orders Only GENERIC EXTERNAL DATA DEPARTMENT Provider, Generic External Data 08/07/2024 Orders Only [facility] External Provider, [facility] 07/31/2024 Telephone [facility] MEDICINE [address] [place] [address] Tomasa Robertson RN from Last [...] complication, without long-term current use of insulin ([facility]) AMB REFERRAL TO UROLOGY Urgent 08/20/2024 History [...] complication, without long-term current use of insulin ([facility]) CT ABDOMEN PELVIS WO CONTRAST Routine 08/08/2024 [...] Media Lot # [id number] Lot# Expiration Date [id number] Blood Capillary blood specimen / Unknown 09/26/2024 10:12 AM EDT Kayden Villavicencio MD POINT OF CARE TEST ENTER/EDIT OR DERABLES Final Result * Referral to Urology (08/20/2024) [facility] OUTPATIENT REFERRAL ORDER GABY Final Result * (ABNORMAL) Urinalysis, Complete, with Reflex to Culture (08/14/2024 10:20 AM EST) Only the most recent of3 resultswithin the time period is included. Color Urine Yellow [facility] Appearance Urine Clear [facility] PH 6.0 5.0 - 9.0 [facility] Glucose Urine UA Negative Negative mg/dL [facility] Urine Blood Negative Negative [facility] Specific [place] - Urine 1.010 1.005 - 1.025 [facility] Urine Protein 30 (1+)(A) Neg-Trace mg/dL [facility] Urine Ketones Negative Negative mg/dL [facility] Nitrite Urine Negative Negative [facility] Leukocyte Esterase Urine Negative Negative [facility] RBC Urine 0-2 0 - 2 /HPF [facility] Urine WBC 0-5 0 - 5 /HPF [facility] Urine Squamous Epithelial Cell 0-2 0 - 2 /HPF [facility] Urine Bacteria None Seen None Seen [facility] Hyaline Casts, Urine 0-2 0 - 2 /LPF [facility] Urine 08/14/2024 10:2 0 AM EST 08/14/2024 11:24 AM EST Narrative [facility] - 08/14/2024 11:40 AM EST Urine, Clean Catch [facility] URINE ORDERABLES Ella l Result [facility] [address] [place] [phone] * Culture, Urine, Routine (08/14/2024 10:20 AM EST) Only the most recent of3 resultswithin the time period is included. Urine Urine specimen obtained by clean catch procedure / Unknown 08/14/2024 10:20 AM EST 08/14/2024 11:24 AM EST Comment:UACC Narrative [facility] - 08/15/2024 9:15 AM EST Urine Culture Report Result Urine Culture 50,000 to 100,000 cfu/ml Urine Culture Mixed bacterial jamir characteristic of Urine Culture urogenital contamination. Specimen Source: Urine clean catch [facility] MICROBIOLOGY - GENERA L ORDERABLES Final Result Performing Organization Address [facility] Co de Phone Number [facility] [address] [place] [address] [phone] * (ABNORMAL) Basic Metabolic Panel (08/14/2024 10:20 AM EST) Sodium 136 135 - 145 mmol/L [facility] Potassium 4.5 3.3 - 5.1 mmol/L [facility] Chloride 103 96 - 108 mmol/L [facility] Carbon Dioxide 24 22 - 29 mmol/L [facility] Anion Gap 14 12 - 20 [facility] Urea Nitrogen (BUN) 17(H) 9 - 16 mg/dL [facility] Creatinine, Serum 1.34 0.5 - 1.4 mg/dL [facility] Estimated Glomerular Filt Rate 52 [facility] Comment:Chronic Kidney Disea se: Estimated GFR < 60 mL/min/1.63m5Zqyogd Kidney Disease: Estimated GFR < 15 mL/min/1.73m2 Glucose 107 60 - 115 mg/dL [facility] Calcium 9.9 8.4 - 10.2 mg/dL [facility] Blood Venous blood specimen / Unknown 08/14/2024 10:20 AM EST 08/14/2024 11:04 AM EST [facility] BLOOD ORDERABLES Ella l Result Performing Organization Address [facility] Co de Phone Number [facility] [address] [place] [phone] * POCT Urinalysis (08/11/2024 9:43 AM [...] Date ,025 Urine 08/11/2024 9:43 AM EST [facility] POINT OF CARE TEST ENTER/ EDIT ORDERABLES Final Result * CT Abdomen Pelvis w/o Contrast (08/08/2024 2:12 AM EST) Anatomical Region Laterality Modality Body, Pelvis, Abdomen Computed T omography 08/08/2024 2:12 AM EST Narrative 08/08/2024 2:16 AM EST ? [facility] ?[address] [place] [address] ?[place] [address] ? CT Scan Report ? Signed ? Patient: Juan Alberto Rowe ?MR#: [id number] ?? [id number] ? : 1945 ?Acct:[id number] ? Age/Sex: 78 / M ?ADM Date: 08/07/24 ? Loc: HO.ED ? Attending Dr: ? Ordering Physician: Omer King ?? Date of Service: 08/08/24 ?? Procedure(s): CT abdomen pelvis wo IV con ?? Accession Number(s): [id number] ? cc: Omer King; Name,Kayden MD ? Report Number: ?? [id number]: Total DLP = ??652.00 mGy-cm ? CLINICAL [...] ? DD/ 1 ? TD/TT: 08/08/24211 ? Sugar Sampler: ? Procedure Note Ila, Image - 01/24/[address] [address] [address] Scan Report Signed Patient: Juan Alberto RoweMR#: [id number] : 7Acct:[id number] Age/Sex: 78 / MADM Date: 08/07/24 Loc: HO.ED Attending Dr: Ordering Physician: Omer King Date of Service: 08/08/24 Procedure(s): CT abdomen pelvis wo IV con Accession Number(s): [id number] cc: Omer King; Name,Kayden PITTMAN Report Number: [id number]: Total DLP = 652.00 mGy-cm CLINICAL HISTORY: [...] in OV> 08/08/24214 DD/ 1 TD/TT: 08/08/24211 Sugar Sampler: [facility] External Provider IMG CT PROCEDURES Final Result * (ABNORMAL) CBC auto differential (08/07/2024 11:54 PM EST) White Blood Count 8.2 4.8 - 10.8 X10*3/uL [facility] Red Blood Count 4.36(L) 4.60 - 5.80 X10*6/uL [facility] Hemoglobin 12.0(L) 14.0 - 18.0 g/dl [facility] Hematocrit 36.2(L) 42.0 - 52.0 % [facility] Mean Corpuscular Volume 83.0 80.0 - 98.0 fL [facility] Mean Corpuscular Hemoglobin 27.5 27.0 - 33.0 pg [facility] Mean Corpuscular HGB Conc 33.1 31.0 - 36.0 g/dl [facility] Red Cell Distribution Width 14.2 11.0 - 16.0 % [facility] Platelet Count 321 160 - 400 X10*3/uL [facility] Mean Platelet Volume 9.0(L) 9.4 - 12.4 fL [facility] Neutrophils Percent Auto 55.7 45 - 73 % [facility] Imm Gran Pct Auto 0.4 0.0 - 0.4 % [facility] Lymphocytes Percent Auto 25.6 20 - 40 % [facility] Monocytes Percent Auto 12.4(H) 2 - 11 % [facility] Eosinophils Percent Auto 4.6(H) 0 - 4 % [facility] Basophils Percent Auto 1.3 0 - 2 % [facility] NRBC Pct Auto 0.0 0.0 - 0.2 /100WBC [facility] Neutrophils Absolute Auto 4.6 2.0 - 8.3 x10*3/uL [facility] Imm Gran Abs Auto 0.03 0.00 - 0.03 X10*3/uL [facility] Lymphocytes Absolute Auto 2.1 1.2 - 4.9 X10*3/uL [facility] Monocytes Absolute Auto 1.0 0.1 - 1.2 X10*3/uL [facility] Eosinophils Absolute Auto 0.4 0.0 - 0.4 X10*3/uL [facility] Basophils Absolute Auto 0.1 0.0 - 0.2 X10*3/uL [facility] NRBC Abs Auto 0.000 0.0 - 0.012 X10*3/uL [facility] 08/07/2024 11:5 4 PM EST 08/07/2024 11:58 PM EST Generic External Data Provider LAB BLOOD ORDERAB LES Final Result Performing Organization Address [facility] Co de Phone Number [facility] [address] [place] [phone] * Lipase (08/07/2024 11:54 PM EST) Lipase 22 8 - 78 U/L [facility] 08/07/2024 11:5 4 PM EST 08/07/2024 11:58 PM EST us Generic External Data Provider LAB BLOOD ORDERAB LES Final Result Performing Organization Address [facility] de Phone Number [facility] [address] [place] [phone] * (ABNORMAL) Comprehensive Metabolic Panel (08/07/2024 11:54 PM EST) Sodium 139 135 - 145 mmol/L [facility] Potassium 4.9 3.3 - 5.1 mmol/L [facility] Chloride 109(H) 96 - 108 mmol/L [facility] Carbon Dioxide 25 22 - 29 mmol/L [facility] Anion Gap 10(L) 12 - 20 [facility] Urea Nitrogen (BUN) 20(H) 9 - 16 mg/dL [facility] Creatinine, Serum 1.45(H) 0.5 - 1.4 mg/dL [facility] Creatinine Clr Calc Pharmacy 43.0 [facility] Comment:eGFR (calculated fro m the MDRD study equation) and eCrCl(calculated from the Cockcroft-Gault equation) are based ondifferent parameters and may not yield comparable results.If eCrCl result is absurd, please check patient'sheight/weight. Estimated Glomerular Filt Rate 47 [facility] Comment:Chronic Kidney Disea se: Estimated GFR < 60 mL/min/1.89c9Ydqfxl Kidney Disease: Estimated GFR < 15 mL/min/1.73m2 Glucose 126(H) 60 - 115 mg/dL [facility] Calcium 9.9 8.4 - 10.2 mg/dL [facility] Bilirubin, Total 0.2 0.0 - 1.0 mg/dL [facility] Aspartate Amino Transferase 18 5 - 37 U/L [facility] Alanine Aminotransferase 16 0 - 40 U/L [facility] Total Protein 7.0 6.5 - 8.0 g/dL [facility] Albumin Level 3.8 3.5 - 5.0 g/dL [facility] Alkaline Phosphatase 71 39 - 117 U/L [facility] 08/07/2024 11:5 4 PM EST 08/07/2024 11:58 PM EST us Generic External Data Provider LAB BLOOD ORDERAB LES Final Result [facility] [address] [place] [phone] * (ABNORMAL) POCT HGB A1C (05/13/2024 9:12 AM EDT) Hemoglobin A1C 6.6(A) 4.0 - 6.0 % QC Media Lot # [id number] Lot# Expiration Date [id number] Blood 05/13/2024 9:12 AM EDT us Kayden Villavicencio MD POINT OF CARE TEST ENTER/EDIT OR DERABLES Final Result * (ABNORMAL) Albumin, Random Urine W/Creatinine (01/30/2024 8:30 AM EDT) Creatinine, Urine 103.25 mg/dL [facility] Microalbumin Urine 82.0 mg/L H [facility] Microalbum Creatinine Ratio Ur 79.4(H) <30 ug/mg cr [facility] Comment:Albumin/Creatinine R atio Reference Ranges: Normal: < 30 ug/mg creatinine Microalbuminuria: 30 - 300 ug/mg creatinineClinical Albuminuria: > 300 ug/mg creatinine Urine (Urine, Random) 01/30/2024 8:30 AM EDT 01/30/2024 9:01 AM EDT us Kayden Villavicencio MD LAB URINE ORDERABLES Final Resul t [facility] [address] [place] [phone] * (ABNORMAL) Lipid Panel, Standard (01/30/2024 8:30 AM EDT) Triglycerides 200(H) <150 mg/dL [facility] Comment:Desirable Triglyceri de: less than 150 mg/dLBorderline High Triglyceride 150-199 mg/dLHigh Triglyceride: 200-499 mg/dLVery High Triglyceride: greater than or equal to 5OO mg/dL Cholesterol 180 <200 mg/dL [facility] Comment:Desirable Cholestero l: less than 200 mg/dLBorderline High Cholesterol: 200-239 mg/dLHigh Cholesterol: greater than 239 mg/dL LDL Cholesterol Calculated 100(H) <100 mg/dL [facility] Comment:Desirable LDL: less than 100 mg/dLNear Optimal/Above Optimal LDL: 110- 129 mg/dLBorderline High LDL: 130-159 mg/dLHigh LDL: 160-189 mg/dLVery High LDL: greater than or equal to 190 mg/dL HDL Cholesterol 40(L) >40 mg/dL [facility] Comment:Desirable HDL: great er than 40 mg/dL Note: This HDL assay may give artificially low results in patients with liver disease. Blood Venous blood specimen / Unknown 01/30/2024 8:30 AM EDT 01/30/2024 8:30 AM EDT us Kayden Villavicencio MD LAB BLOOD ORDERABLES Final Resul t [facility] [address] [place] [phone] * Diabetes Eye Exam (04/11/2023) Eye Exam Normal Normal us Kayden Villavicencio MD HEALTH MAINTENANCE Final Result * Colonoscopy (04/17/2022) Pathologist [facility] Colonoscopy performed [facility] Kelley PITTMAN HEALTH MAINTENANCE Final Result * HEPATITIS C AB W/REFL TO HCV RNA, QN, PCR (09/26/2021 8:45 AM EDT) HEPATITIS C ANTIBODY NON-REACT [facility] NON-REACT [facility] INDEX 0.01 <1.00 [facility] Comment: ?? HCV antibody was non-reactive. There is no laboratory ?? evidence of HCV infection. ?? In most cases, no further action is required. However, if recent HCV exposure is suspected, a test for HCV RNA (test code 45727) is suggested. ?? For additional information please refer to http://education.Sympoz/faq/ZKU90r9 (This link is being provided for informational/ educational purposes only.) ?? 09/26/2021 8:45 AM EDT us Kayden Villavicencio MD HISTORICAL/NON ORDERABLE LABS Fi nal Result [facility] [address] from Last 3 Months or Most Recently Relevant to Health Maintenance Insurance [facility] MEDICARE ADVANTAGE HMO Care Teams Senior Software Engineer Analytics Relationship Specialty Start Date End Date Name, MD Kayden [address] [place] [address] PCP - General Family Medicine 08/23/15
--- OUTSIDE RECORDS SUMMARY | 2024-10-29 17:20 | XMS_ITS | Encounter Summary ---
Author Organization [employer] Address [address] [place] [address] 7 [place] [address] Care Team Providers Care Automobile Tester Name Role Phone Name, Kayden PITTMAN Primary Care Provider [phone] Encounter Details Date Type Department Care Team ([facility] st Contact Info) Description 10/06/2022 Abstract [facility] [address] [place], [place] [phone] Name, MD Kayden [address] [place] [address] Social History Tobacco Use Types Packs/Day Years [...] on filedocumented in this encounter Care Teams Automobile Tester Relationship Specialty Start Date End Date Name, MD Kayden [address] [place], [place] [phone] PCP - General Family Medicine 08/23/15 documented as of this encounter
--- OUTSIDE RECORDS SUMMARY | 2024-10-29 17:20 | XMS_ITS | Encounter Summary ---
Author Organization [employer] Address [address] [place] [address] 7t [place] [address] Care Team Providers Care Infrastructure Solutions Architect Name Role Phone Name, Kayden PITTMAN Primary Care Provider [phone] Encounter Details Date Type Department Care Team ([facility] st Contact Info) Description 12/15/2022 Abstract [facility] [address] [place] [address] Name, MD Kayden [address] [place] [address] Social History Tobacco Use Types Packs/Day Years [...] on filedocumented in this encounter Care Teams Infrastructure Solutions Architect Relationship Specialty Start Date End Date Name, MD Kayden [address] [place] [address] PCP - General Family Medicine 08/23/15 documented as of this encounter
--- OUTSIDE RECORDS SUMMARY | 2024-10-29 17:20 | XMS_ITS | Clinical Summary ---
Author Organization [facility] Address [address] [place] [phone] Phone Care Team Providers Care Screw Machine Tender Name Role Phone Name, Kayden PITTMAN Primary Care Provider [phone] Encounters Date Type Department Care Team Description 09/30/2024 Lab Requisition [facility] [address] [place] [address] Evin Sagastume MD Gross hematuria 08/26/2024 Lab Requisition [facility] [address] [place] [address] Juan R Katz PA Gross [...] is included. Final Diagnosis A. Urine, Voided, ([id number]): ATYPICAL UROTHELIAL CELLS. 10/01/2024 11:38 AM EDT [facility] Clinical Information Gross hematuria R31.0 Urine Cytology 10/01/2024 11:38 AM EDT [facility] Gross Description A. Urine, Voided, ([id number]): Received one ThinPrep slide for cytology. 10/01/2024 11:38 AM EDT [facility] Disclaimer Unless otherwise specified, all tissue is 10% NB formalin fixed and paraffin embedded. Technical pathology services provided by [facility] at [address], [place] [address] (CLIA #[id number]/S evelio Alcaraz MD, Computer Science Instructor) 10/01/2024 11:38 AM EDT [facility] Tissue Urine specimen from urethra / Unknown 09/26/2024 09/30/2024 1:13 PM EDT us Evin Sagastume MD LAB PATHOLOGY ORDERABLES nal Result Performing Organization Address City/State/[facility] Co de Phone Number [facility] [address] [place] [address], from Last 3 Months Insurance [employer] MEDICARE Care Teams Screw Machine Tender Relationship Specialty Start Date End Date Name, MD Kayden [address] [place] [address] PCP - General Internal Medicine 05/25/11
[2024-10-29 17:32] LABS: Creatinine Urine 136.89 mg/dL; Total Protein Urine Random 44 mg/dL (<12)
== END 2024-10-29 14:35 | disposition home or self-care (01) ==
LOC: HO.HHCL 14:34
PROVIDERS: Visit Provider Internal Medicine Hypertension Specialist
DX: N18.9 Chronic kidney disease, unspecified (principal)
CPT/HCPCS: 36415; 80053; 81001; 82570; 84156; 85027

== ENCOUNTER 2024-11-05 08:52 | Outpatient (REF) | payer MEDICARE, SELFPAY ==
--- NOTE | ~2024-11-05 | US_ITS ---
CLINICAL HISTORY: I10 - Essential (primary) hypertension US Renal Comparison: CT/SR - CT ABDOMEN PELVIS WO IV CON - 08/08/24 01:18 EST Findings: Right kidney measures 11.6 x 4.9 x 5.8 cm in size. Left kidney measures 18.6 x 7.0 x 5.5 cm in size. Numerous simple cysts are seen within both kidneys. There is a large exophytic cyst off the left kidney measuring 10.6 cm in round diameter. This is similar to that seen on the patient's prior CT scan. No hydronephrosis. No solid renal masses. IMPRESSION: Multiple bilateral simple renal cysts measuring up to 10.6 cm in size in the left. No hydronephrosis or solid renal masses identified. This document has been electronically signed by: Rishabh Cameron MD on 11/06/2024 05:09:21
--- OUTSIDE RECORDS SUMMARY | 2024-11-05 09:26 | XMS_ITS | Clinical Summary ---
Author Organization [facility] Address [address] [place] [address] Phone Care Team Providers Care Bookie Name Role Phone Name, Kayden PITTMAN Primary Care Provider [phone] Encounters Date Type Department Care Team Description 11/04/2024 Lab Requisition [facility] [address] [place] [phone] Evin Sagastume MD Gross hematuria 09/30/2024 Lab Requisition [facility] [address] [place] [phone] Evin Sagastume MD Gross hematuria 08/26/2024 Lab Requisition [facility] [address] [place] [phone] Juan R Katz PA Gross hematuria from [...] is included. Final Diagnosis A. Urine, Voided, ([id number]): ATYPICAL UROTHELIAL CELLS. 10/01/2024 11:38 AM EDT [facility] Clinical Information Gross hematuria R31.0 Urine Cytology 10/01/2024 11:38 AM EDT [facility] Gross Description A. Urine, Voided, ([id number]): Received one ThinPrep slide for cytology. 10/01/2024 11:38 AM EDT [facility] Disclaimer Unless otherwise specified, all tissue is 10% NB formalin fixed and paraffin embedded. Technical pathology services provided by [facility] at [address], [place] [address] (CLIA #[id number]/S evelio Alcaraz MD, Motor Vehicle Assembler) 10/01/2024 11:38 AM EDT [facility] Tissue Urine specimen from urethra / Unknown 09/26/2024 09/30/2024 1:13 PM EDT us Evin Sagastume MD LAB PATHOLOGY ORDERABLES Fi nal Result [facility] [address] [place] [address], from Last 3 Months Insurance [facility] [place] [phone] Care Teams Bookie Relationship Specialty Start Date End Date Name, MD Kayden [address] [place], [place] PCP - General Internal Medicine 05/25/11
--- OUTSIDE RECORDS SUMMARY | 2024-11-05 09:26 | XMS_ITS | Encounter Summary ---
Author Organization [facility] Address [address] [place] [address] Care Team Providers Care Coat Hanger Shaper Machine Operator Name Role Phone Name, Kayden PITTMAN Primary Care Provider [phone] Encounter Details Date Type Department Care Team (Late st Contact Info) Description 11/04/[address] [facility] [address] [facility] [place] [address] Evin Sagastume MD [address] [place] [address] Gross hematuria Social History Tobacco Use Types [...] consult Pathology and Cytology Routine Gross hematuria 10/31/2024 12:00 AM EDT documented as of this encounter Visit Diagnoses Diagnosis Gross hematuria documented in this encounter Care Teams Coat Hanger Shaper Machine Operator Relationship Specialty Start Date End Date Name, MD Kayden [address] [place], [place] PCP - General Internal Medicine 05/25/11 documented as of this encounter
--- OUTSIDE RECORDS SUMMARY | 2024-11-05 09:26 | XMS_ITS | Encounter Summary ---
Author Organization [employer] Address [address] [place] [address] 7t [place] [address] Care Team Providers Care Operations Examiner Name Role Phone Name, Kayden PITTMAN Primary Care Provider [phone] Encounter Details Date Type Department Care Team ([facility] st Contact Info) Description 12/15/2022 Abstract [facility] [address] [place] [address] Name, MD Kayden [address] [place] [address] Social History Tobacco Use Types Packs/Day Years [...] on filedocumented in this encounter Care Teams Operations Examiner Relationship Specialty Start Date End Date Name, MD Kayden [address] [place] [address] PCP - General Family Medicine 08/23/15 documented as of this encounter
--- OUTSIDE RECORDS SUMMARY | 2024-11-05 09:26 | XMS_ITS | Encounter Summary ---
Author Organization [employer] Address [address] [facility] 7t [place] [address] Care Team Providers Care Electric Sign Assembler Name Role Phone Name, Kayden PITTMAN Primary Care Provider [phone] Reason for Visit * Reason Comments Med Refill Encounter Details Date Type Department Care Team ([facility] st Contact Info) Description 04/22/2024 Refill [facility] [address] [place] [address] Patrick Conrad MD [address] [place] [address] Social History Tobacco Use Types Packs/Day Years [...] documented as of this encounter Care Teams Electric Sign Assembler Relationship Specialty Start Date End Date Name, MD Kayden [address] [place] [address] PCP - General Family Medicine 08/23/15 documented as of this encounter
--- OUTSIDE RECORDS SUMMARY | 2024-11-05 09:26 | XMS_ITS | Encounter Summary ---
Author Organization [employer] Address [address] [facility] 7[address] [place] [address] Care Team Providers Care Industrial Automation Engineer Name Role Phone Name, Kayden PITTMAN Primary Care Provider [phone] Reason for Visit * Reason Comments Med Refill Encounter Details Date Type Department Care Team ([facility] st Contact Info) Description 04/22/2024 Refill [facility] [address] [place] [address] Patrick Conrad MD [address] [place] [address] Social History Tobacco Use Types Packs/Day Years [...] documented as of this encounter Care Teams Industrial Automation Engineer Relationship Specialty Start Date End Date Name, MD Kayden [address] [place] [address] PCP - General Family Medicine 08/23/15 documented as of this encounter
--- OUTSIDE RECORDS SUMMARY | 2024-11-05 09:26 | XMS_ITS | Encounter Summary ---
Author Organization [facility] Address [address] [place] [address] Care Team Providers Care Cancer Program Consultant Name Role Phone Name, Kayden PITTMAN Primary Care Provider [phone] Encounter Details Date Type Department Care Team (Late st Contact Info) Description 08/26/2024 Lab Requisition [facility] - Main Lab [address] [facility] [place] [address] Juan R Katz PA [address] Robert [address] [place] [address] Gross hematuria Social History Tobacco [...] and pathological findings. 09/09/2024 10:41 AM EST [facility] ([facility] Addendum electronically signed by Rishabh Odonnell MD on 09/09/2024 at 10:41 AM Final Diagnosis Urine, Voided, ([id number]): Atypical urothelial cells. Note: Based upon the cytologic findings, UroVysion testing will be performed, the result to follow in an addendum. 09/09/2024 10:41 AM [facility] Clinical Information Gross hematuria R31.0 Urine cytology with reflex UroVysion ([facility]) 09/09/2024 10:41 AM [facility] Gross Description A. Urine, Voided, ([id number]): Received one ThinPrep slide for cytology. 09/09/2024 10:41 AM [facility] Disclaimer Unless otherwise specified, all tissue is 10% NB formalin fixed and paraffin embedded. Technical pathology services provided by [facility] at [address], [place] [address] (CLIA #[id number]/Constance Alcaraz MD, Group Leader) 09/09/2024 10:41 AM [facility] Tissue Urine specimen from urethra / Unknown 08/20/2024 08/26/2024 8:41 AM EST us Juan R LINDA LAB PATHOLOGY ORDERAB LES Edited Result - Final [facility] [address] [place] [address], documented in this encounter Visit Diagnoses Diagnosis Gross hematuria documented in this encounter Care Teams Cancer Program Consultant Relationship Specialty Start Date End Date Name, MD Kayden [address] [place] [address] PCP - General Internal Medicine 05/25/11 documented as of this encounter
--- OUTSIDE RECORDS SUMMARY | 2024-11-05 09:27 | XMS_ITS | Clinical Summary ---
Author Organization [employer] Address [address] [facility] 7t [place] [address] Care Team Providers Care Certified Genetic Counselor Name Role Phone Name, Kayden PITTMAN Primary Care Provider [phone] Allergies Active Allergy Reactions Criticality Noted Date [...] 2 4 Active Diclofenac Sodium 1 % gelIndications:Ch ronic pain of both knees Apply twice a [...] albuterol (ProAir HFA) 108 (90 Base) MCG/ACT inhalerIndication s:Mild intermittent asthma, unspecified whether complicated Inhale 2 puffs every 4 (four) hours if needed for wheezing or shortness of breath. 18 g 1 4 12/05/19 25 Active Umeclidinium [place] (Incruse Ellipta) 62.5 MCG/ACT aerosol powder Inhale 1 Inhalation Once per day. 30 each 1 4 Active amLODIPine (Norvasc) 10 MG tablet TAKE 1 TABLET BY MOUTH EVERY DAY 90 tablet 3 4 05/13/20 25 Active ezetimibe (Zetia) 10 MG tabletIndications :Hypercholesterol emia TAKE 1 TABLET(10 MG) BY MOUTH IN THE MORNING 30 tablet 11 4 Active losartan (Cozaar) 50 MG tabletIndications :Benign essential hypertension TAKE 1 TABLET BY MOUTH EVERY DAY 90 tablet 3 4 Active metFORMIN (Glucophage) 500 MG tablet Take 1 tablet (500 mg) by mouth with breakfast and with evening meal. 180 tablet 3 4 05/13/20 25 Active nicotine (Nicoderm CQ) 14 MG/24HR patchIndications: Tobacco use Place 1 patch on the skin 1 (one) time each day at the same time. 30 patch 5 Active Active Problems Problem Noted Date Diagnosed Date [...] finishing antibiotics regimen Type 2 diabetes mellitus, [facility] long-term current use of insulin 08/11/2024 Assessment [...] Overview (09/26/2024): Prostate CA is followed at [facility]. Treatment has been so far [...] next 1-2m. I gave him info re [place] palsy FU w PCP in 1-2m to [...] Description 09/26/2024 10:15 AM EDT Office Visit [address] [address] NameKayden MD Type 2 diabetes mellitus with other specified complication, without long-term current use of insulin (CMS/HCC) (Primary Dx); Stage 3a chronic kidney disease (CMS/HCC); History of gross hematuria; History of prostate cancer; Mild intermittent asthma with exacerbation 09/26/2024 Travel 08/25/2024 Patient Outreach [facility] [address] [place], [place] [phone] Kayden Villavicencio MD Pre-visit Planning ([facility] unable to reach [facility]) 08/13/2024 Orders Only [address] [address] Tracey Maciel CNP Dysuria (Primary Dx); History of recurrent UTIs 08/12/[address] [address] Odalys Peña, marine habitat resource specialist Orders 08/11/2024 9:30 AM EST Office Visit [address] [phone] Sera Cuevas NP Dysuria (Primary Dx); Type 2 diabetes mellitus with other specified complication, without long-term current use of insulin (CMS/HCC); Tobacco use; Proteinuria, unspecified type; History of recurrent UTIs 08/11/2024 Travel 08/08/2024 Orders Only GENERIC EXTERNAL DATA DEPARTMENT Provider, Generic External Data 08/07/2024 Orders Only [facility] External Provider, [facility] from Last 3 Months Immunizations Name Administration [...] - 1-dose 75+ series) 2021 COVID-19 Vaccine (2023- season) 2024 08/14/2023, 06/21/2022, 06/21/2022, Additional history [...] complication, without long-term current use of insulin ([facility]) AMB REFERRAL TO UROLOGY Urgent 08/20/2024 History [...] complication, without long-term current use of insulin ([facility]) CT ABDOMEN PELVIS WO CONTRAST Routine 08/08/2024 2:12 AM EST URINALYSIS, COMPLETE, WITH REFLEX TO CULTURE Routine 08/08/2024 12:22 AM EST CULTURE, URINE, ROUTINE Routine 08/08/2024 12:00 AM EST LIPASE Routine 08/07/2024 11:54 PM EST COMPREHENSIVE METABOLIC PANEL Routine 08/07/2024 11:54 PM EST CBC WITH AUTO DIFFERENTIAL Routine 08/07/2024 11:54 PM EST POCT GLYCATED HEMOGLOBIN, TOTAL Routine 05/13/2024 9:12 [...] Media Lot # [id number] Lot# Expiration Date [id number] Blood Capillary blood specimen / Unknown 09/26/2024 10:12 AM EDT Kayden Villavicencio MD POINT OF CARE TEST ENTER/EDIT OR DERABLES Final Result * Referral to Urology (08/20/2024) [facility] OUTPATIENT REFERRAL ORDER GABY Final Result * (ABNORMAL) Urinalysis, Complete, with Reflex to Culture (08/14/2024 10:20 AM EST) Only the most recent of2 resultswithin the time period is included. Pathologist [facility] Color Urine Yellow [facility] Appearance Urine Clear [facility] PH 6.0 5.0 - 9.0 [facility] Glucose Urine UA Negative Negative mg/dL [facility] Urine Blood Negative Negative [facility] Specific [place] - Urine 1.010 1.005 - 1.025 [facility] Urine Protein 30 (1+)(A) Neg-Trace mg/dL [facility] Urine Ketones Negative Negative mg/dL [facility] Nitrite Urine Negative Negative [facility] Leukocyte Esterase Urine Negative Negative [facility] RBC Urine 0-2 0 - 2 /HPF [facility] Urine WBC 0-5 0 - 5 /HPF [facility] Urine Squamous Epithelial Cell 0-2 0 - 2 /HPF [facility] Urine Bacteria None Seen None Seen [facility] Hyaline Casts, Urine 0-2 0 - 2 /LPF [facility] Urine 08/14/2024 10:2 0 AM EST 08/14/2024 11:24 AM EST Narrative [facility] - 08/14/2024 11:40 AM EST Urine, Clean Catch [facility] URINE ORDERABLES Ella l Result Performing Organization Address [facility] de Phone Number [facility] [address] [place] [phone] * Culture, Urine, Routine (08/14/2024 10:20 AM EST) Only the most recent of2 resultswithin the time period is included. Urine Urine specimen obtained by clean catch procedure / Unknown 08/14/2024 10:20 AM EST 08/14/2024 11:24 AM EST Comment:UACC Narrative [facility] - 08/15/2024 9:15 AM EST Urine Culture Report Result Urine Culture 50,000 to 100,000 cfu/ml Urine Culture Mixed bacterial jamir characteristic of Urine Culture urogenital contamination. Specimen Source: Urine clean catch [facility] MICROBIOLOGY - GENERA L ORDERABLES Final Result Performing Organization Address City/State/[facility] Co de Phone Number [facility] [address] [place] [address] [phone] * (ABNORMAL) Basic Metabolic Panel (08/14/2024 10:20 AM EST) Sodium 136 135 - 145 mmol/L [facility] Potassium 4.5 3.3 - 5.1 mmol/L [facility] Chloride 103 96 - 108 mmol/L [facility] Carbon Dioxide 24 22 - 29 mmol/L [facility] Anion Gap 14 12 - 20 [facility] Urea Nitrogen (BUN) 17(H) 9 - 16 mg/dL [facility] Creatinine, Serum 1.34 0.5 - 1.4 mg/dL [facility] Estimated Glomerular Filt Rate 52 [facility] Comment:Chronic Kidney Disea se: Estimated GFR < 60 mL/min/[id number] Kidney Disease: Estimated GFR < 15 mL/min/1.73m2 Glucose 107 60 - 115 mg/dL [facility] Calcium 9.9 8.4 - 10.2 mg/dL [facility] Blood Venous blood specimen / Unknown 08/14/2024 10:20 AM EST 08/14/2024 11:04 AM EST [facility] BLOOD ORDERABLES Ella l Result Performing Organization Address [facility] Co de Phone Number [facility] [address] [place] [address] [phone] * POCT Urinalysis (08/11/2024 9:43 AM [...] Media Lot # [id number] Lot# Expiration Date [id number] Urine 08/11/2024 9:43 AM EST [facility] POINT OF CARE TEST ENTER/ EDIT ORDERABLES Final Result * CT Abdomen Pelvis w/o Contrast (08/08/2024 2:12 AM EST) Anatomical Region Laterality Modality Body, Pelvis, Abdomen Computed T omography 08/08/2024 2:12 AM EST Narrative 08/08/2024 2:16 AM EST ? [facility] ?[address] ?[place] [address] ? CT Scan Report ? Signed ? Patient: Juan Alberto Rowe ?MR#: [id number] ?? [id number] ? : 1945 ?Acct:[id number] ? Age/Sex: 78 / M ?ADM Date: 08/07/24 ? Loc: HO.ED ? Attending Dr: ? Ordering Physician: Omer King ?? Date of Service: 08/08/24 ?? Procedure(s): CT abdomen pelvis wo IV con ?? Accession Number(s): [id number] ? cc: Omer King; Name,Kayden PITTMAN ? Report Number: ?? [id number]: Total DLP = ??652.00 mGy-cm ? CLINICAL [...] ? DD/ 1 ? TD/TT: 08/08/24211 ? Television Production Technician: ? Procedure Note Ila, Paige - 08/08/[address] [address] [address] Scan Report Signed Patient: Juan Alberto RoweMR#: [id number] : 7Acct:[id number] Age/Sex: 78 / MADM Date: 08/07/24 Loc: HO.ED Attending Dr: Ordering Physician: Omer King Date of Service: 08/08/24 Procedure(s): CT abdomen pelvis wo IV con Accession Number(s): [id number] cc: Omer King; Name,Kayden PITTMAN Report Number: [id number]: Total DLP = 652.00 mGy-cm CLINICAL HISTORY: [...] in OV> 08/08/24214 DD/ 1 TD/TT: 08/08/24211 Television Production Technician: us [facility] External Provider IMG CT PROCEDURES Final Result * (ABNORMAL) CBC auto differential (08/07/2024 11:54 PM EST) White Blood Count 8.2 4.8 - 10.8 X10*3/uL [facility] Red Blood Count 4.36(L) 4.60 - 5.80 X10*6/uL [facility] Hemoglobin 12.0(L) 14.0 - 18.0 g/dl [facility] Hematocrit 36.2(L) 42.0 - 52.0 % [facility] Mean Corpuscular Volume 83.0 80.0 - 98.0 fL [facility] Mean Corpuscular Hemoglobin 27.5 27.0 - 33.0 pg [facility] Mean Corpuscular HGB Conc 33.1 31.0 - 36.0 g/dl [facility] Red Cell Distribution Width 14.2 11.0 - 16.0 % [facility] Platelet Count 321 160 - 400 X10*3/uL [facility] Mean Platelet Volume 9.0(L) 9.4 - 12.4 fL [facility] Neutrophils Percent Auto 55.7 45 - 73 % [facility] Imm Gran Pct Auto 0.4 0.0 - 0.4 % [facility] Lymphocytes Percent Auto 25.6 20 - 40 % [facility] Monocytes Percent Auto 12.4(H) 2 - 11 % [facility] Eosinophils Percent Auto 4.6(H) 0 - 4 % [facility] Basophils Percent Auto 1.3 0 - 2 % [facility] NRBC Pct Auto 0.0 0.0 - 0.2 /100WBC [facility] Neutrophils Absolute Auto 4.6 2.0 - 8.3 x10*3/uL [facility] Imm Gran Abs Auto 0.03 0.00 - 0.03 X10*3/uL [facility] Lymphocytes Absolute Auto 2.1 1.2 - 4.9 X10*3/uL [facility] Monocytes Absolute Auto 1.0 0.1 - 1.2 X10*3/uL [facility] Eosinophils Absolute Auto 0.4 0.0 - 0.4 X10*3/uL [facility] Basophils Absolute Auto 0.1 0.0 - 0.2 X10*3/uL [facility] NRBC Abs Auto 0.000 0.0 - 0.012 X10*3/uL [facility] 08/07/2024 11:5 4 PM EST 08/07/2024 11:58 PM EST Generic External Data Provider LAB BLOOD ORDERAB LES Final Result Performing Organization Address [facility]/ZIP Co de Phone Number [facility] [address] [place] [phone] * Lipase (08/07/2024 11:54 PM EST) Pathologist [facility] Lipase 22 8 - 78 U/L [facility] 08/07/2024 11:5 4 PM EST 08/07/2024 11:58 PM EST Generic External Data Provider LAB BLOOD ORDERAB LES Final Result Performing Organization Address [facility] Co vt Phone Number [facility] [address] [place] [phone] * (ABNORMAL) Comprehensive Metabolic Panel (08/07/2024 11:54 PM EST) Pathologist [facility] Sodium 139 135 - 145 mmol/L [facility] Potassium 4.9 3.3 - 5.1 mmol/L [facility] Chloride 109(H) 96 - 108 mmol/L [facility] Carbon Dioxide 25 22 - 29 mmol/L [facility] Anion Gap 10(L) 12 - 20 [facility] Urea Nitrogen (BUN) 20(H) 9 - 16 mg/dL [facility] Creatinine, Serum 1.45(H) 0.5 - 1.4 mg/dL [facility] Creatinine Clr Calc Pharmacy 43.0 [facility] Comment:eGFR (calculated fro m the MDRD study equation) and eCrCl(calculated from the Cockcroft-Gault equation) are based ondifferent parameters and may not yield comparable results.If eCrCl result is absurd, please check patient'sheight/weight. Estimated Glomerular Filt Rate 47 [facility] Comment:Chronic Kidney Disea se: Estimated GFR < 60 mL/min/1.46q7Xqmktx Kidney Disease: Estimated GFR < 15 mL/min/1.73m2 Glucose 126(H) 60 - 115 mg/dL [facility] Calcium 9.9 8.4 - 10.2 mg/dL [facility] Bilirubin, Total 0.2 0.0 - 1.0 mg/dL [facility] Aspartate Amino Transferase 18 5 - 37 U/L [facility] Alanine Aminotransferase 16 0 - 40 U/L [facility] Total Protein 7.0 6.5 - 8.0 g/dL [facility] Albumin Level 3.8 3.5 - 5.0 g/dL [facility] Alkaline Phosphatase 71 39 - 117 U/L [facility] 08/07/2024 11:5 4 PM EST 08/07/2024 11:58 PM EST us Generic External Data Provider LAB BLOOD ORDERAB LES Final Result [facility] [address] [place] [phone] * (ABNORMAL) POCT HGB A1C (05/13/2024 9:12 AM EDT) Hemoglobin A1C 6.6(A) 4.0 - 6.0 % QC Media Lot # [id number] Lot# Expiration Date [id number] Blood 05/13/2024 9:12 AM EDT us Kayden Name POINT OF CARE TEST ENTER/EDIT OR DERABLES Final Result * (ABNORMAL) Albumin, Random Urine W/Creatinine (01/30/2024 8:30 AM EDT) Creatinine, Urine 103.25 mg/dL [facility] Microalbumin Urine 82.0 mg/L [facility] Microalbum Creatinine Ratio Ur 79.4(H) <30 ug/mg cr [facility] Comment:Albumin/Creatinine R atio Reference Ranges: Normal: < 30 ug/mg creatinine Microalbuminuria: 30 - 300 ug/mg creatinineClinical Albuminuria: > 300 ug/mg creatinine Urine (Urine, Random) 01/30/2024 8:30 AM EDT 01/30/2024 9:01 AM EDT us Kayden Name MD LAB URINE ORDERABLES Final Resul t [facility] [address] [place] [phone] * (ABNORMAL) Lipid Panel, Standard (01/30/2024 8:30 AM EDT) Triglycerides 200(H) <150 mg/dL [facility] Comment:Desirable Triglyceri de: less than 150 mg/dLBorderline High Triglyceride 150-199 mg/dLHigh Triglyceride: 200-499 mg/dLVery High Triglyceride: greater than or equal to 5OO mg/dL Cholesterol 180 <200 mg/dL [facility] Comment:Desirable Cholestero l: less than 200 mg/dLBorderline High Cholesterol: 200-239 mg/dLHigh Cholesterol: greater than 239 mg/dL LDL Cholesterol Calculated 100(H) <100 mg/dL [facility] Comment:Desirable LDL: less than 100 mg/dLNear Optimal/Above Optimal LDL: 110- 129 mg/dLBorderline High LDL: 130-159 mg/dLHigh LDL: 160-189 mg/dLVery High LDL: greater than or equal to 190 mg/dL HDL Cholesterol 40(L) >40 mg/dL [facility] Comment:Desirable HDL: great er than 40 mg/dL Note: This HDL assay may give artificially low results in patients with liver disease. Blood Venous blood specimen / Unknown 01/30/2024 8:30 AM EDT 01/30/2024 8:30 AM EDT us Kayden Villavicencio MD LAB BLOOD ORDERABLES Final Resul t [facility] [address] [place] [phone] * Diabetes Eye Exam (04/11/2023) Eye Exam Normal Normal Kayden Villavicencio MD HEALTH MAINTENANCE Final Result * Colonoscopy (04/17/2022) Colonoscopy performed Historical Provider HEALTH MAINTENANCE Final Result * HEPATITIS C AB W/REFL TO HCV RNA, QN, PCR (09/26/2021 8:45 AM EDT) HEPATITIS C ANTIBODY NON-REACT [facility] NON-REACT [facility] INDEX 0.01 <1.00 [facility] Comment: ?? HCV antibody was non-reactive. There is no laboratory ?? evidence of HCV infection. ?? In most cases, no further action is required. However, if recent HCV exposure is suspected, a test for HCV RNA (test code 77427) is suggested. ?? For additional information please refer to http://education.[employer]/faq/ZPJ10o8 (This link is being provided for informational/ educational purposes only.) ?? 09/26/2021 8:45 AM EDT Kayden Villavicencio MD HISTORICAL/NON ORDERABLE LABS Fi nal Result [facility] [address] from Last 3 Months or Most Recently Relevant to Health Maintenance Insurance [employer] MEDICARE ADVANTAGE HMO Care Teams Certified Genetic Counselor Relationship Specialty Start Date End Date Name, MD Kayden [address] [place] [phone] PCP - General Family Medicine 08/23/15
--- OUTSIDE RECORDS SUMMARY | 2024-11-05 09:27 | XMS_ITS | Encounter Summary ---
Author Organization [employer] Address [address] [place] [address] 7 [place] [address] Care Team Providers Care Security System Sales Consultant Name Role Phone Name, Kayden PITTMAN Primary Care Provider [phone] Encounter Details Date Type Department Care Team ([facility] st Contact Info) Description 10/06/2022 Abstract [facility] MED[facility]INE [address] [place], [place] [phone] Name, MD Kayden [address] [place] [address] Social History Tobacco Use Types Packs/Day Years [...] on filedocumented in this encounter Care Teams Security System Sales Consultant Relationship Specialty Start Date End Date Name, MD Kayden [address] [place], [place] [phone] PCP - General Family Medicine 08/23/15 documented as of this encounter
--- OUTSIDE RECORDS SUMMARY | 2024-11-05 09:27 | XMS_ITS | Encounter Summary ---
Author Organization [facility] Address [address] [place] [address] Care Team Providers Care Installation Helper Name Role Phone Name, Kayden PITTMAN Primary Care Provider [phone] Encounter Details Date Type Department Care Team (Late st Contact Info) Description 09/30/2024 Lab Requisition [facility] - Main Lab [address] [facility] [place] [address] Evin Sagastume MD [address] [facility] [address] [place], [place] [phone] Gross hematuria Social History Tobacco Use Types [...] AM EDT) Final Diagnosis A. Urine, Voided, ([id number]): ATYPICAL UROTHELIAL CELLS. 10/01/2024 11:38 AM EDT [facility] Clinical Information Gross hematuria R31.0 Urine Cytology 10/01/2024 11:38 AM EDT [facility] Gross Description A. Urine, Voided, ([id number]): Received one ThinPrep slide for cytology. 10/01/2024 11:38 AM EDT [facility] Disclaimer Unless otherwise specified, all tissue is 10% NB formalin fixed and paraffin embedded. Technical pathology services provided by [facility] [address] [facility] [address] [place] [address] (CLIA #[id number] evelio Alcaarz MD, Supervisor Cereal) 10/01/2024 11:38 AM EDT [facility] Tissue Urine specimen from urethra / Unknown 09/26/2024 09/30/2024 1:13 PM EDT us Evin Sagastume MD LAB PATHOLOGY ORDERABLES Fi nal Result [facility] [address] [place] [address], documented in this encounter Visit Diagnoses Diagnosis Gross hematuria documented in this encounter Care Teams Installation Helper Relationship Specialty Start Date End Date Name, MD Kayden [address] [place], [place] PCP - General Internal Medicine 05/25/11 documented as of this encounter
== END 2024-11-05 08:53 | disposition home or self-care (01) ==
LOC: HO.HMGCX 08:52
PROVIDERS: PCP Internal Medicine Geriatric Medicine; Visit Provider Internal Medicine Hypertension Specialist
DX: N28.1 Cyst of kidney, acquired (principal); N18.9 Chronic kidney disease, unspecified
CPT/HCPCS: 76775

== ENCOUNTER → 2024-11-05 08:53 | Outpatient (BNV) | payer MEDICARE, SELFPAY | PROVIDERS: PCP Internal Medicine Geriatric Medicine; Visit Provider Radiology Diagnostic Radiology | DX: N28.1 Cyst of kidney, acquired (principal) | CPT/HCPCS: 76775 ==

== ENCOUNTER 2025-02-23 12:04 | Outpatient (AMB) | payer MEDICARE, SELFPAY ==
[2025-02-23 12:09] VITALS: BP 130/70; PULSE 76; O2SAT 96; BMI 34.7
--- NOTE | 2025-02-23 12:09 | HO.NEPHOV ---
Vital Signs 02/23/25 12:09 Height 5 ft 4 in Weight 202 lb BMI 34.7 BP 130/70 Blood Pressure Location Lt brachial Position Sitting Pulse 76 Pulse Source Pulse Oximeter Pulse Oximetry (%) 96 Oxygen Delivery Method Room Air Intake Visit Reasons: UTI symptoms Medical Pathology Teacher Required: No Accompanied by: Spouse Allergies Iodinated Contrast Media (IV CONTRAST) Allergy (Severe, Verified 02/23/25 12:10) ANAPHYLAXIS Medication List - Last Reconciled 02/23/25 by Dinesh Grullon MD albuterol sulfate 90 mcg/actuation (Ventolin HFA) 2 puffs inhalation Q4H PRN amlodipine 10 mg PO DAILY docusate sodium (Stool Softener) 100 mg PO DAILY ezetimibe 10 mg PO DAILY leuprolide acetate (6 month) (Eligard) 45 mg subcut [id number] loratadine (Allergy Relief (loratadine)) 10 mg PO DAILY losartan 50 mg PO DAILY metformin 500 mg PO BID zhvorpunaqgc-fpsohmgn-stguif 1 tab PO DAILY HPI Comments Details: 78-year-old man with a history of prostate cancer status post radiation and hypertension has been referred for chronic kidney disease. Baseline serum creatinine is probably around 1.23 mg/dL as of 02/02/2024. In June of 2024 he had UTI. He was treated with Bactrim. Serum creatinine bumped up to 1.45 mg/dL. After discontinuing Bactrim creatinine decreased to 1.34 mg/dL. With the corresponding EGFR of 52 mL/minute. Has a history of multiple renal cyst bilaterally. The findings were reportedly unchanged since 2019. As well prostate cancer he was follow up with [facility]. History of radical prostatectomy in 2006. Status post radiation therapy in 2015. He had complication with hemorrhagic radiation cystitis. He has waiting for a cystoscopy in September/2024. History of significant osteoarthritis History of GI bleed status post endoscopy in the past 10/29/24 Had cough and treated with Prednisone Seen by Urology and underwent cystoscopy. 02/23/25 c/o dysuria NO fever He consumes excessive amounts of home made hot sauce - jalepenos and Habeneros ! [facility] Medical History Diverticulosis Diabetes HTN (hypertension) Prostate CA Surgical History History of urologic surgery Hx of colonoscopy Hx of appendectomy Hx of testicular mass Hx of umbilical hernia repair History of prostate surgery Family History Mother Bone cancer Father Diabetes Social History Household Members: Spouse Alcohol intake: current Alcohol intake frequency: holidays/special occasions only Patient Tobacco Use Status: Current everyday Tobacco user Tobacco use type: Cigar Physical Exam Vital Signs: Last Vital Signs Pulse 76 02/23/25 12:09 BP 130/70 02/23/25 12:09 Pulse Ox 96 02/23/25 12:09 Oxygen Delivery Method Room Air 02/23/25 12:09 BMI result Body Mass Index 34.7 Comfortable Neck supple no JVD. Lungs entry equal no rales. Heart S1-S2 heard no gallop or rub. Abdomen soft nontender. Neuro alert awake oriented. No asterixis. Extremities 1+ edema. Results Reviewed Nephrology Results: Hgb, (14.0-18.0) 13.1 g/dl L 10/29/24 WBC, (4.8-10.8) 9.1 X10*3/uL 10/29/24 Plt Count, (160-400) 399 X10*3/uL 10/29/24 Sodium, (135-145) 137 mmol/L 10/29/24 Potassium, (3.3-5.1) 4.5 mmol/L 10/29/24 Chloride, (96-108) 104 mmol/L 10/29/24 Carbon Dioxide, (22-29) 25 mmol/L 10/29/24 BUN, (9-16) 18 mg/dL H 10/29/24 Creatinine, (0.5-1.4) 1.34 mg/dL 10/29/24 Calcium, (8.4-10.2) 10.0 mg/dL 10/29/24 Urine Protein, (Neg-Trace) 30 (1+) mg/dL H 10/29/24 Urine Creatinine 136.89 mg/dL 10/29/24 Renal US 11/06/24 Assessment & Plan Assessment & Plan (1) CKD (chronic kidney disease): Code(s): N18.9 - Chronic kidney disease, unspecified Category: Medical Plan: Chronic kidney disease most likely due to longstanding hypertension. He has sustained acute kidney injury during an episode of UTI. Hypoperfusion could have contributed to JOANA. Use of Bactrim could also cause acute kidney injury by inhibiting tubular secretion of creatinine. After discontinuing Bactrim creatinine has slightly improved. No evidence of obstruction based on recent CT scan. Recent urine sediment was relatively bland therefore glomerular nephritis or interstitial disease seems very unlikely. Encouraged to increase p.o. fluid intake Avoid NSAIDs and other nephrotoxic agents. Shall continue to follow renal function closely. (2) HTN (hypertension): Code(s): I10 - Essential (primary) hypertension Category: Medical Plan: Blood pressure is acceptable. Encouraged him to stay on low-sodium diet. Continue with current medications Mild leg edema is most likely due to the use of amlodipine. He is asymptomatic (3) Renal cyst: Code(s): N28.1 - Cyst of kidney, acquired Category: Medical Plan: Multi-cystic kidney disease. Recent CT scan reported relatively stable renal cyst unchanged from 2019. Shall obtain follow-up ultrasonogram during next visit. (4) Prostate CA: Comment: Chemo injection q6mo Code(s): C61 - Malignant neoplasm of prostate Category: Medical Plan: Continue follow up with Urology Plan Dysuria Check UA and culture Avoid spicy jalepeno sauces Orders: Orders Urine Culture Today C61 - Malignant neoplasm of prostate, N18.9 - Chronic kidney disease, unspecified, N28.1 - Cyst of kidney, acquired UA and rflx microscopic Today C61 - Malignant neoplasm of prostate, N18.9 - Chronic kidney disease, unspecified, N28.1 - Cyst of kidney, acquired Coding Level of Care Code Est Pt Level 4 (08212) Diagnoses CKD (chronic kidney disease) N18.9 HTN (hypertension) I10 Renal cyst N28.1 Prostate CA C61
--- OUTSIDE RECORDS SUMMARY | 2025-02-23 12:29 | XMS_ITS | Encounter Summary ---
Author Organization [employer] Address [address] [facility] 7t [place] [address] Care Team Providers Care Skiver Blockers Name Role Phone Name, Kayden PITTMAN Primary Care Provider [phone] Encounter Details Date Type Department Care Team ([facility] Contact Info) Description 12/15/2022 Abstract [facility] MEDICINE [address] [place] [address] [phone] Name, MD Kayden [address] [place] [id number] Social History Tobacco Use Types Packs/Day Years [...] Upcoming Encounters Date Type Department Care Team ([facility] Contact Info) Description 03/20/2025 1:45 PM EDT Office Visit [facility] MEDICINE [address] [place] [address] [phone] Name, MD Kayden [address] [place] [address] documented as of this encounter Visit Diagnoses Not on filedocumented in this encounter Care Teams Skiver Blockers Relationship Specialty Start Date End Date Name, MD Kayden [address] [place] [address] PCP - General Family Medicine 08/23/15 documented as of this encounter
--- OUTSIDE RECORDS SUMMARY | 2025-02-23 12:29 | XMS_ITS | Encounter Summary ---
Author Organization [facility] Address [address] [place] [address] Care Team Providers Care Recorder Helper Gravity Prospecting Name Role Phone Name, Kayden PITTMAN Primary Care Provider [phone] Encounter Details Date Type Department Care Team (Late st Contact Info) Description 11/04/2024 Lab Requisition [facility] - Main Lab [address] [facility] [place] [address] Evin Sagastume MD [address] [facility] [address] [place] [address] Gross hematuria Social History Tobacco Use Types [...] Associated Diagnosis Comments AP OUTSIDE CONSULT Routine 10/31/2024 12 :00 AM EDT Gross hematuria documented in this encounter Results * Anatomic pathology outside consult (10/31/2024 12:00 AM EDT) Final Diagnosis A. Urine, Voided, ([id number]): Negative for high grade urothelial carcinoma. Results of UroVysion fluorescence in situ hybridization (FISH) testing: CEP3: Normal CEP7: Normal CEP17: Normal LSI 9p21: Normal Interpretation: Normal profile Controls stained appropriately. Note: The results are intended as a screening device and should be interpreted in association with other clinical and pathological findings. 11/14/2024 12:25 PM EDT [facility] Clinical Information Gross hematuria R31.0 Urine Cytology/FISH (now) 11/14/2024 12:25 PM EDT [facility] Gross Description A. Urine, Voided, ([id number]): Received one ThinPrep slide for cytology and one ThinPrep slide for UroVysion FISH 11/14/2024 12:25 PM EDT [facility] Disclaimer Unless otherwise specified, all tissue is 10% NB formalin fixed and paraffin embedded. Technical pathology services provided by [facility] at [address], [place] [address] (CLIA #[id number]/Constance Alcaraz MD, Fish And Game Warden) 11/14/2024 12:25 PM EDT [facility] Tissue Urine specimen from urethra / Unknown 10/31/2024 11/04/2024 2:04 PM EDT us Evin Sagastume MD LAB PATHOLOGY ORDERABLES Fi nal Result [facility] [address] [place] [address], documented in this encounter Visit Diagnoses Diagnosis Gross hematuria documented in this encounter Care Teams Recorder Helper Gravity Prospecting Relationship Specialty Start Date End Date Name, MD Kayden [address] [place], [place] PCP - General Internal Medicine 05/25/11 documented as of this encounter
== END 2025-02-23 12:23 | disposition home or self-care (01) ==
LOC: HO.HKA 12:05
PROVIDERS: PCP Internal Medicine Geriatric Medicine; Visit Provider Internal Medicine Hypertension Specialist
DX: I12.9 Hypertensive chronic kidney disease with stage 1 through stage 4 chronic kidney disease, or unspecified chronic kidney disease (principal); N18.9 Chronic kidney disease, unspecified; N28.1 Cyst of kidney, acquired; C61 Malignant neoplasm of prostate
CPT/HCPCS: 99214

== ENCOUNTER 2025-02-23 12:29 | Outpatient (REF) | payer MEDICARE, SELFPAY ==
[2025-02-23 13:21] LABS: Appearance Urine Clear; Glucose Urine UA Negative (Negative); PH 6.0 (5.0-9.0); Specific Gravity - Urine 1.015 (1.005-1.025); UMIC TRIGGER UA YES
[2025-02-23 13:57] LABS: Anion Gap 12 (12-20); Blood Urea Nitrogen 21 mg/dL (9-16); Calcium 9.4 mg/dL (8.4-10.2); Carbon Dioxide 24 mmol/L (22-29); Chloride 104 mmol/L (96-108); Estimated Glomerular Filt Rate 54; Potassium 4.0 mmol/L (3.3-5.1); Sodium 136 mmol/L (135-145)
[2025-02-23 14:28] LABS: Total Protein Urine Random 25 mg/dL (<12)
== END 2025-02-23 12:30 | disposition home or self-care (01) ==
LOC: HO.10HDL 12:29
PROVIDERS: Visit Provider Internal Medicine Hypertension Specialist
DX: I12.9 Hypertensive chronic kidney disease with stage 1 through stage 4 chronic kidney disease, or unspecified chronic kidney disease (principal); N18.9 Chronic kidney disease, unspecified; N28.1 Cyst of kidney, acquired; C61 Malignant neoplasm of prostate; F17.290 Nicotine dependence, other tobacco product, uncomplicated
CPT/HCPCS: 36415; 80048; 81001; 82570; 84156; 87086; 87088; 87186; 99212

== ENCOUNTER 2025-04-17 21:08 | Emergency (ER) | payer MEDICARE, SELFPAY ==
--- OUTSIDE RECORDS SUMMARY | 2025-04-15 10:00 | XMS_ITS | Encounter Summary ---
Author Organization [employer] Address [address] [facility] 7t [place] [address] Care Team Providers Care Railcar Switchman Name Role Phone Name, Kayden PITTMAN Primary Care Provider [phone] Reason for Visit * Reason Comments Immunizations Encounter Details Date Type Department Care Team (Latest Contact Info) Description 04/15/2025 10:00 AM EDT Clinical Support [facility] MEDICINE [address] [place] [address] Kortney Wang RN [address] [place] [address] Encounter for immunization Social History Tobacco Use Types Packs/Day Years Used Date Smoking Tobacco: Every Day Cigars Passive Smoke Exposure: Never Smokeless Tobacco: Current Alcohol Use Standard Drinks/Week Comments Yes 0 (1 standard drink = 0.6 oz pur e alcohol) occasionally Alcohol Answer Date Recorded How often do you have a drink containing alcohol ? 0 03/20/2025 How many drinks containing a lcohol do you have on a typical day when you are drinking? 0 03/20/2025 How often do you have six or more drinks on one occasion? 0 03/20/2025 Depression Answer Date Recorded Patient Health Questionnaire-9 [...] as of this encounter Progress Notes * Kortney Wang RN - 04/15/2025 10:00 AM EDT S: Pt here for influenza immunization. Pt denies allergies. O: Pt states he feels well with no complaints today. A: Pt tolerated IM injection of high dose influenza vaccine to left deltoid well. No adverse reaction noted. VIS given to pt. P: Pt advised to monitor for adverse reaction. documented in this encounter Plan of Treatment Not on file documented as of this encounter Visit Diagnoses Diagnosis Encounter for immunization documented in this encounter Additional Health Concerns Assessment Noted Time PHQ-9 Depression Total Score: 0 08/14/19 24 9:03 AM EST documented as of this encounter Care Teams Railcar Switchman Relationship Specialty Start Date End Date Name, MD Kayden [address] [place] [address] PCP - General Family Medicine 08/23/15 documented as of this encounter
--- NOTE | ~2025-04-17 | CT_ITS ---
CLINICAL HISTORY: left flank pain CT abdomen and pelvis without contrast Comparison: CT/SR - CT ABDOMEN PELVIS WO IV CON - 08/08/24 01:18 EST Findings: The lung bases are clear. Spleen is normal. Noncontrasted liver is normal. Gallbladder is normal. Pancreas is atrophic. The right kidney demonstrates multiple exophytic renal cysts. No nephrolithiasis or hydronephrosis. There is a left lower pole exophytic soft tissue density 21 mm mass which may represent neoplasm or hemorrhagic cyst. The left kidney demonstrates multiple exophytic low-density lesions. There are left upper pole lesions measuring 39 mm, 15 mm. There is an interpolar low-density lesion measuring 34 mm. There is a dilated extrarenal pelvis and left lower pole low-density lesion measuring 11.6 cm. There are coarse septations at the inferior aspect of this lesion. The adrenal glands are normal. No hydronephrosis or hydroureter. Bladder is decompressed. No masses of the ureterovesicular junction. Colon demonstrates multiple diverticuli without evidence of diverticulitis within the ascending, transverse, descending, and sigmoid colon. Rectum is normal. Multilevel degenerative disc disease is present with bridging syndesmophytes in the lower thoracic spine. No acute fracture. IMPRESSION: No evidence of renal lithiasis or ureteral lithiasis. Multiple exophytic low-density renal lesions. Largest left lesion is greater than 11 cm. Right lower pole soft tissue density mass may be further evaluated with outpatient renal ultrasound or MRI abdomen. Size is unchanged upon comparison to 08/08/2024 This document has been electronically signed by: Avel Marcus III, MD PHD on 04/18/2025 01:07:12
[2025-04-17 21:19] VITALS: BP 138/86; PULSE 75; O2SAT 96
[2025-04-17 21:22] VITALS: BP 157/76; PULSE 74; RESP 18; TEMP 36.9; O2SAT 95; BMI 34.0
--- OUTSIDE RECORDS SUMMARY | 2025-04-17 21:24 | XMS_ITS | Encounter Summary ---
Author Organization [employer] Address [address] [facility] 7t [place] [address] Care Team Providers Care Veterinary Practitioner Name Role Phone Name, Kayden PITTMAN Primary Care Provider Encounter Details Date Type Department Care Team ([facility] st Contact Info) Description 12/15/2022 Abstract [facility] MEDICINE [address] [place] [address] Name, MD Kayden [address] [place] [address] Social History Tobacco Use Types Packs/Day Years [...] on filedocumented in this encounter Care Teams Veterinary Practitioner Relationship Specialty Start Date End Date Name, MD Kayden [address] [place] [address] PCP - General Family Medicine 08/23/15 documented as of this encounter
--- OUTSIDE RECORDS SUMMARY | 2025-04-17 21:24 | XMS_ITS | Encounter Summary ---
Author Organization [facility] Address [address] [place] [address] Care Team Providers Care Pocketed Spring Machine Operator Name Role Phone Name, Kayden PITTMAN Primary Care Provider [phone] Encounter Details Date Type Department Care Team (Late st Contact Info) Description 11/04/2024 Lab Requisition [facility] - Main Lab [address] [facility] [place] [address] Evin Sagastume MD [address] [facility] 120 [place] [address] Gross hematuria Social History Tobacco Use Types [...] AM EDT) Final Diagnosis A. Urine, Voided, ([id number]): Negative for high grade urothelial carcinoma. Results of UroVysion fluorescence in situ hybridization (FISH) testing: CEP3: Normal CEP7: Normal CEP17: Normal LSI 9p21: Normal Interpretation: Normal profile Controls stained appropriately. Note: The results are intended as a screening device and should be interpreted in association with other clinical and pathological findings. 11/14/2024 12:25 PM EDT [facility] Clinical Information Gross hematuria R31.0 Urine Cytology/FISH (now) 11/14/2024 12:25 PM EDT [facility] Gross Description A. Urine, Voided, ([id number]): Received one ThinPrep slide for cytology and one ThinPrep slide for UroVysion FISH 11/14/2024 12:25 PM EDT [facility] Disclaimer Unless otherwise specified, all tissue is 10% NB formalin fixed and paraffin embedded. Technical pathology services provided by [facility] at [address], [place] [address] (CLIA #[id number]/Constance Alcaraz MD, Weatherization Director) 11/14/2024 12:25 PM EDT [facility] Tissue Urine specimen from urethra / Unknown 10/31/2024 11/04/2024 2:04 PM EDT us Evin Sagastume MD LAB PATHOLOGY ORDERABLES Fi nal Result [facility] [address] [place] [address], documented in this encounter Visit Diagnoses Diagnosis Gross hematuria documented in this encounter Care Teams Pocketed Spring Machine Operator Relationship Specialty Start Date End Date Name, MD Kayden [address] [place], [place] PCP - General Internal Medicine 05/25/11 documented as of this encounter
--- OUTSIDE RECORDS SUMMARY | 2025-04-17 21:25 | XMS_ITS | Encounter Summary ---
Author Organization [employer] Address [address] [facility] [address] 7t [place] [address] Care Team Providers Care Sand Shoveler Name Role Phone Name, Kayden PITTMAN Primary Care Provider [phone] Encounter Details Date Type Department Care Team (Latest Contact Info) Description 04/15/2025 Travel Social History Tobacco Use Types Packs/Day [...] is your housing situation today? I have hansjessie carmen 08/14/[address] you [...] documented as of this encounter Care Teams Sand Shoveler Relationship Specialty Start Date End Date Name, MD Kayden [address] [place] [address] PCP - General Family Medicine 08/23/15 documented as of this encounter
--- OUTSIDE RECORDS SUMMARY | 2025-04-17 21:25 | XMS_ITS | Encounter Summary ---
Author Organization [facility] Address [address] [place] [address] Care Team Providers Care Packaging Assembler Name Role Phone Name, Kayden PITTMAN Primary Care Provider [phone] Encounter Details Date Type Department Care Team (Late st Contact Info) Description 09/30/2024 Lab Requisition [facility] - Main Lab [address] [facility] [address] [place] [address] Evin Sagastume MD [address] [facility] 120 [place], [place] [phone] Gross hematuria Social History Tobacco Use Types [...] AM EDT) Final Diagnosis A. Urine, Voided, ([id number]): ATYPICAL UROTHELIAL CELLS. 10/01/2024 11:38 AM EDT [facility] Clinical Information Gross hematuria R31.0 Urine Cytology 10/01/2024 11:38 AM EDT [facility] Gross Description A. Urine, Voided, ([id number]): Received one ThinPrep slide for cytology. 10/01/2024 11:38 AM EDT [facility] Disclaimer Unless otherwise specified, all tissue is 10% NB formalin fixed and paraffin embedded. Technical pathology services provided by [facility] at [address] [facility] [address], [place] [address] (CLIA #[id number]/S evelio Alcaraz MD, Bellperson) 10/01/2024 11:38 AM EDT [facility] Tissue Urine specimen from urethra / Unknown 09/26/2024 09/30/2024 1:13 PM EDT us Evin Sagastume MD LAB PATHOLOGY ORDERABLES Fi nal Result [facility] [address] [place] [address], documented in this encounter Visit Diagnoses Diagnosis Gross hematuria documented in this encounter Care Teams Packaging Assembler Relationship Specialty Start Date End Date Name, MD Kayden [address] [place], [place] PCP - General Internal Medicine 05/25/11 documented as of this encounter
--- OUTSIDE RECORDS SUMMARY | 2025-04-17 21:25 | XMS_ITS | Encounter Summary ---
Author Organization [employer] Address [address] [facility] 7t [place] [address] Care Team Providers Care Ultrasound Coordinator Name Role Phone Name, Kayden PITTMAN Primary Care Provider [phone] Reason for Visit * Reason Onset Date Comments Med Refill 04/12/2025 Encounter Details Date Type Department Care Team (Late st Contact Info) Description 04/12/2025 Refill [facility] MEDICINE [address] [place], [place] [phone] Name, MD Kayden [address] [place] [address] Chronic pain of both knees; Tobacco use Social History Tobacco Use Types Packs/Day Years [...] as of this encounter Visit Diagnoses Diagnosis Chronic pain of both knees Tobacco use documented in this encounter Additional Health Concerns Assessment Noted Time PHQ-9 Depression Total Score: 0 08/14/19 24 9:03 AM EST documented as of this encounter Care Teams Ultrasound Coordinator Relationship Specialty Start Date End Date Name, MD Kayden [address] [place] [address] PCP - General Family Medicine 08/23/15 documented as of this encounter
--- OUTSIDE RECORDS SUMMARY | 2025-04-17 21:25 | XMS_ITS | Encounter Summary ---
Author Organization [employer] Address [address] [facility] 7t [place] [address] Care Team Providers Care Senior Treasury Consultant Name Role Phone Name, Kayden PITTMAN Primary Care Provider [phone] Encounter Details Date Type Department Care Team ([facility] st Contact Info) Description 10/06/2022 Abstract [facility] MEDICINE [address] [place] [address] Name, MD Kayden [address] [place] [address] Social History Tobacco Use Types Packs/Day Years [...] on filedocumented in this encounter Care Teams Senior Treasury Consultant Relationship Specialty Start Date End Date Name, MD Kayden [address] [place] [address] [phone] PCP - General Family Medicine 08/23/15 documented as of this encounter
--- OUTSIDE RECORDS SUMMARY | 2025-04-17 21:25 | XMS_ITS | Encounter Summary ---
Author Organization [employer] Address [address] [facility] 7t [place] [address] Care Team Providers Care Quality Control Tech Raw Materials Name Role Phone Name, Kayden PITTMAN Primary Care Provider [phone] Reason for Visit * Reason Comments Med Refill Encounter Details Date Type Department Care Team ([facility] Contact Info) Description 04/22/2024 Refill [facility] MEDICINE [address] [place] [address] Patrick Conrad MD [address] [place] [address] Social History Tobacco Use Types Packs/Day Years [...] documented as of this encounter Care Teams Quality Control Tech Raw Materials Relationship Specialty Start Date End Date Name, MD Kayden [address] [place] [address] PCP - General Family Medicine 08/23/15 documented as of this encounter
--- OUTSIDE RECORDS SUMMARY | 2025-04-17 21:25 | XMS_ITS | Encounter Summary ---
Author Organization [employer] Address [address] [facility] 7t [place] [address] Care Team Providers Care Congressional District Aide Name Role Phone Name, Kayden PITTMAN Primary Care Provider [phone] Reason for Visit * Reason Comments Med Refill Encounter Details Date Type Department Care Team ([facility] Contact Info) Description 04/22/2024 Refill [facility] MEDICINE [address] [place] [address] Patrick Conrad MD [address] [place] [address] Social History Tobacco Use Types Packs/Day Years [...] documented as of this encounter Care Teams Congressional District Aide Relationship Specialty Start Date End Date Name, MD Kayden [address] [place] [address] PCP - General Family Medicine 08/23/15 documented as of this encounter
--- OUTSIDE RECORDS SUMMARY | 2025-04-17 21:25 | XMS_ITS | Clinical Summary ---
Author Organization [address] [facility] Address [address] [place] [phone] Phone Care Team Providers Care Machine Maintenance Mechanic Name Role Phone Name, Kayden PITTMAN Primary Care Provider [phone] Social History Tobacco Use Types Packs/Day Years [...] series) 2021 Cholesterol Screening (Lipid Panel) 06/14/2022 Falls Risk Assessment 06/14/2022 Hepatitis C Screening 06/14/2022 Medicare Annual Wellness Visit 06/14/2022 Social Influencers of Health Screening 06/14/2022 Diabetes: Annual Urine Albumin-Creatinine Ratio (uACR) 06/30/2022 Diabetes: Blood Sugar Control Test (HGBA1C) 06/30/2022 Hypertension/CHF/CAD Annual BMP Blood Test 06/30/2022 Depression Screening 07/16/2024 COVID-19 Vaccine ( season) 2025 Influenza Vaccine (#1) 2025 5, 04/27/2015, 04/16/2014, Additional history exists HIB [...] patient's age to complete this topic Insurance [facility] MEDICARE MEDICARE Care Teams Machine Maintenance Mechanic Relationship Specialty Start Date End Date Name, MD Kayden 4 [place], [place] PCP - General Internal Medicine 05/25/11
--- OUTSIDE RECORDS SUMMARY | 2025-04-17 21:25 | XMS_ITS | Encounter Summary ---
Author Organization [employer] Address [address] [facility] [address] [place] [address] Care Team Providers Care Visual Designer Name Role Phone Name, Kayden PITTMAN Primary Care Provider [phone] Encounter Details Date Type Department Care Team (Latest Contact Info) Description 04/12/2025 Travel Social History Tobacco Use Types Packs/Day [...] documented as of this encounter Care Teams Visual Designer Relationship Specialty Start Date End Date Name, MD Kayden [address] [place] [address] PCP - General Family Medicine 08/23/15 documented as of this encounter
--- OUTSIDE RECORDS SUMMARY | 2025-04-17 21:25 | XMS_ITS | Encounter Summary ---
Author Organization [employer] Address [address] [facility] [address] [place] [address] Care Team Providers Care Feed Elevator Worker Name Role Phone Name, Kayden PITTMAN Primary Care Provider [phone] Reason for Visit * Reason Onset Date Comments Med Refill 04/12/2025 Encounter Details Date Type Department Care Team ([facility] st Contact Info) Description 04/12/2025 Refill [facility] [address] [place] [address] Tracey Maciel, HEAD OF [employer]ES [employer] [address] [place] [address] Tobacco use Social History Tobacco Use Types [...] as of this encounter Visit Diagnoses Diagnosis Tobacco use documented in this encounter Additional Health Concerns Assessment Noted Time PHQ-9 Depression Total Score: 0 08/14/19 24 9:03 AM EST documented as of this encounter Care Teams Feed Elevator Worker Relationship Specialty Start Date End Date Name, MD Kayden [address] [place] [address] PCP - General Family Medicine 08/23/15 documented as of this encounter
--- OUTSIDE RECORDS SUMMARY | 2025-04-17 21:25 | XMS_ITS | Clinical Summary ---
Author Organization [employer] Address [address] [place] [address] Care Team Providers Care School Coordinator Name Role Phone Name, Kayden PITTMAN Primary Care Provider [phone] Allergies Active Allergy Reactions Criticality Noted Date [...] daily. 13 g 2 08/14/19 24 Active loratadine (Claritin) 10 MG tablet Take 1 tablet (10 mg) by mouth Once per day. 30 tablet 2 12/05/19 24 Active fluticasone (Flonase) 50 MCG/ACT nasal spray Administer 2 sprays into each nostril Once per day. Shake gently. Before first use, prime pump. After use, clean tip and replace cap. 16 g 2 12/05/19 24 Active Umeclidinium [place] (Incruse Ellipta) 62.5 MCG/ACT aerosol powder Inhale 1 Inhalation Once per day. 30 each 1 02/13/20 24 Active amLODIPine (Norvasc) 10 MG tablet Take 1 tablet (10 mg) by mouth Once per day. 90 tablet 3 03/20/20 25 026 Active losartan (Cozaar) 50 MG tabletIndicatio ns:Benign essential hypertension Take 1 tablet (50 mg) by mouth Once per day. 90 tablet 3 03/20/20 25 Active metFORMIN (Glucophage) 500 MG tablet Take 1 tablet (500 mg) by mouth with breakfast and with evening meal. 180 tablet 3 03/20/20 25 026 Active ezetimibe (Zetia) 10 MG tabletIndicatio ns:Hypercholest erolemia Take 1 tablet (10 mg) by mouth Once per day. 90 tablet 3 03/20/20 25 026 Active albuterol (ProAir HFA) 108 (90 Base) MCG/ACT inhalerIndicati ons:Mild intermittent asthma, unspecified whether complicated Inhale 2 puffs every 4 (four) hours if needed for wheezing or shortness of breath. 18 g 1 03/20/20 25 026 Active baclofen (Lioresal) 10 MG tablet Take 0.5 tablets (5 mg) by mouth if needed in the morning and at bedtime for muscle spasms (back pain, preferably at bedtime). 30 tablet 03/20/20 25 025 Active Diclofenac Sodium 1 % gelIndications: Chronic pain of both knees APPLY 2 GRAMS TWICE A DAY TO THE AFFECTED KNEE(S) 100 g 2 04/13/20 25 Active nicotine (Nicoderm CQ) 14 MG/24HR patchIndication s:Tobacco use PLACE 1 PATCH ON THE SKIN ONE TIME EACH DAY AT THE SAME TIME 28 patch 04/13/20 25 Active Diclofenac Sodium 1 % gelIndications: Chronic pain of both knees Apply twice a day to the affected knees 100 g 2 08/16/19 24 025 Discontinued(R eorder (will not trigger notification to Pharmacy)) albuterol (ProAir HFA) 108 (90 Base) MCG/ACT inhalerIndicati ons:Mild intermittent asthma, unspecified whether complicated Inhale 2 puffs every 4 (four) hours if needed for wheezing or shortness of breath. 18 g 1 12/05/19 24 025 Discontinued(R eorder (will not trigger notification to Pharmacy)) amLODIPine (Norvasc) 10 MG tablet TAKE 1 TABLET BY MOUTH EVERY DAY 90 tablet 3 05/13/20 24 025 Discontinued(R eorder (will not trigger notification to Pharmacy)) ezetimibe (Zetia) 10 MG tabletIndicatio ns:Hypercholest erolemia TAKE 1 TABLET(10 MG) BY MOUTH IN THE MORNING 30 tablet 11 05/13/20 24 025 Discontinued(R eorder (will not trigger notification to Pharmacy)) losartan (Cozaar) 50 MG tabletIndicatio ns:Benign essential hypertension TAKE 1 TABLET BY MOUTH EVERY DAY 90 tablet 3 05/13/20 24 025 Discontinued(R eorder (will not trigger notification to Pharmacy)) metFORMIN (Glucophage) 500 MG tablet Take 1 tablet (500 mg) by mouth with breakfast and with evening meal. 180 tablet 3 05/13/20 24 025 Discontinued(R eorder (will not trigger notification to Pharmacy)) nicotine (Nicoderm CQ) 14 MG/24HR patchIndication s:Tobacco use Place 1 patch on the skin 1 (one) time each day at the same time. 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 Treatment has been so far [...] next 1-2m. I gave him info re [place] palsy FU w PCP in 1-2m to [...] Encounters Date Type Department Care Team Description 04/15/2025 10:00 AM EDT Clinical Support [facility] [address] [place] [address] Kortney Wang, JUAN Encounter for immunization 04/15/2025 Travel 04/12/2025 Refill [facility] [address] [place] [address] Tracey Maciel CNP Tobacco use 04/12/2025 Refill [facility] [address] [place], [place] [phone] Kayden Villavicencio MD Chronic pain of both knees; Tobacco use 04/12/2025 Travel 03/20/2025 1:45 PM EDT Office Visit [facility] [address] [place], [place] [phone] Kayden Villavicencio MD Type 2 diabetes mellitus with other specified complication, without long-term current use of insulin (CMS/HCC) (Primary Dx); Benign essential hypertension; Stage 3a chronic kidney disease (CMS/HCC); Hypercholesterolemia; Mild intermittent asthma, unspecified whether complicated; Chronic low back pain without sciatica, unspecified back pain laterality 03/20/2025 Travel 03/19/2025 Telephone [facility] [address] [place] [address] Kayden Villavicencio MD Chart Prep from Last 3 Months Immunizations Immunization Administration Dates Next Due DTaP, Unspecified 05/11/2000 Influenza High-dose Quadriva lent Preservative Free 04/16/2023,04/04/2022 Influenza Quadrivalent Adjuvanted 04/22/2021, Influenza injectable quadriv alent IIV4 with preservative 04/04/2017,04/17/2016,04/29/2015 Influenza injectable quadriv alent preservative free 04/08/2019 Influenza, High Dose Seasona l, Preservative Free 04/15/2025,05/13/2024,04/09/2018,03/22 Influenza, IIV3, injectable 04/29/2015,1 ,04/16/2014,04/18,05/08/2012,06/14/2011,04/15/2009 ,05/16/2008,05/08/2007 Moderna [...] Sign Reading Time Taken Comments Blood Pressure 130/88 03/20/2025 1:51 PM EDT Pulse 90 03/20/2025 1:51 PM EDT Temperature 37 C (98.6 F) 03/20/2025 1:51 PM EDT Respiratory Rate 21 03/20/2025 1:51 PM EDT Oxygen Saturation 96% 03/20/2025 1:51 PM EDT Inhaled Oxygen Concentration - - Weight 90.5 kg (199 lb 9.6 oz) 03/20/2025 1:51 P M EDT Height 162.6 cm (5' 4 ) 03/20/2025 1:51 PM EDT Body Mass Index 34.26 03/20/2025 1:51 PM EDT Plan of Treatment Health Maintenance Due Date Last Done Comments Zoster Vaccines (1 of 2) 1996 RSV Patients and Patients Aged 60 years or older (1 - 1-dose 75+ series) 2021 Depression Screening 08/14/2024 08/14/2023, 08/14/19 SDOH Screening 08/14/2024 08/14/2023 Diabetes: Urine Protein Screening 01/29/2025 01/30/2024, 06/12/2022, 09/26/2021, Additional history exists Lipid Panel 01/29/2025 01/30/2024, 11/13, 09/26/2021, Additional history exists COVID-19 Vaccine ( season) 2025 08/14/2023, 06/21/2022, 06/21/2022, Additional history exists Eye Exam 04/11/2025 04/11/2023, 02/13, 02/27/2008 Diabetes: Hemoglobin A1C 09/17/2025 025, 05/13/2024, 10/30/2023, Additional history exists Alcohol/Substance Use Screening 03/20/2026 03/20/2025 Diabetes: Foot Exam 03/20/2026 03/20/2025, 03/20/2025, 03/20/2025, Additional history exists Tobacco Screening 03/20/2026 03/20/2025 DTaP/Tdap/Td Vaccines (5 - Td or Tdap) 12/21/2029 12/22/2019, 09/09/2010, 05/11/2000, Additional history exists Pneumococcal Vaccine: 50+ Years Completed 08/21/2016, 05/08/2012, 05/08/2007 Hepatitis C Screening Completed 09/26/2021 Colonoscopy Discontinued 04/17/2022 Colorectal Cancer Screening Discontinued Influenza Vaccine Completed 04/15/2025, , 04/16/2023, Additional history exists CT Colonography Discontinued FIT [...] Name Priority Date/Time Associated Diagnosis Comments POCT GLYCATED HEMOGLOBIN, TOTAL Routine 03/20/2025 1:55 PM EDT Type 2 diabetes mellitus with other specified complication, without long-term current use of insulin ([facility]) POCT GLUCOSE Routine 03/20/2025 1:52 PM EDT Type 2 diabetes mellitus with other specified complication, without long-term current use of insulin ([facility]) ALBUMIN, RANDOM URINE W/CREATININE Routine 01/30/2024 8:30 AM EDT Type 2 diabetes mellitus with other specified complication, without long-term current use of insulin ([facility]) Benign essential hypertension Chronic low back pain without sciatica, unspecified back pain laterality LIPID PANEL, STANDARD Routine 01/30/2024 8:30 AM EDT Hypercholesterolemia DIABETES EYE EXAM Routine 04/11/2023 COLONOSCOPY Routine 04/17/2022 ZZZ HISTORICAL HEPATITIS C AB W/REFL TO HCV RNA, QN, PCR Routine 09/26/2021 8:45 AM EDT from Last 3 Months or Most Recently Relevant to Health Maintenance Results * (ABNORMAL) POCT Hgb A1c (03/20/2025 1:55 PM EDT) Hemoglobin A1C 6.3(A) 4.0 - 5.7 % QC Media Lot # [id number] Lot# Expiration Date 4,727 Blood 03/20/2025 1:55 PM EDT us Kayden Name MD POINT OF CARE TEST ENTER/EDIT OR DERABLES Final Result * (ABNORMAL) POCT Glucose (03/20/2025 1:52 PM EDT) Glucose Blood, POC 221(A) 60 - 200 mg/dL QC Media Lot # [id number] Lot# Expiration Date Blood Capillary blood specimen / Unknown 03/20/2025 1:52 PM EDT us Kayden Villavicencio MD POINT OF CARE TEST ENTER/EDIT OR DERABLES Final Result * (ABNORMAL) Albumin, Random Urine W/Creatinine (01/30/2024 8:30 AM EDT) Creatinine, Urine 103.25 mg/dL [facility] Microalbumin Urine 82.0 mg/L [facility] Microalbum Creatinine Ratio Ur 79.4(H) <30 ug/mg cr [facility] Comment:Albumin/Creatinine R atio Reference Ranges: Normal: < 30 ug/mg creatinine Microalbuminuria: 30 - 300 ug/mg creatinineClinical Albuminuria: > 300 ug/mg creatinine Urine (Urine, Random) 01/30/2024 8:30 AM EDT 01/30/2024 9:01 AM EDT us Kayden Villavicencio MD LAB URINE ORDERABLES Final Resul t [facility] [address] [place] [address] [phone] * (ABNORMAL) Lipid Panel, Standard (01/30/2024 8:30 AM EDT) Triglycerides 200(H) <150 mg/dL [facility] Comment:Desirable Triglyceri de: less than 150 mg/dLBorderline High Triglyceride 150-199 mg/dLHigh Triglyceride: 200-499 mg/dLVery High Triglyceride: greater than or equal to 5OO mg/dL Cholesterol 180 <200 mg/dL [facility] Comment:Desirable Cholestero l: less than 200 mg/dLBorderline High Cholesterol: 200-239 mg/dLHigh Cholesterol: greater than 239 mg/dL LDL Cholesterol Calculated 100(H) <100 mg/dL [facility] Comment:Desirable LDL: less than 100 mg/dLNear Optimal/Above Optimal LDL: 110- 129 mg/dLBorderline High LDL: 130-159 mg/dLHigh LDL: 160-189 mg/dLVery High LDL: greater than or equal to 190 mg/dL HDL Cholesterol 40(L) >40 mg/dL [facility] Comment:Desirable HDL: great er than 40 mg/dL Note: This HDL assay may give artificially low results in patients with liver disease. Blood Venous blood specimen / Unknown 01/30/2024 8:30 AM EDT 01/30/2024 8:30 AM EDT us Kayden Villavicencio MD LAB BLOOD ORDERABLES Final Resul t Performing Organization Address City/State/[facility] Co de Phone Number [facility] [address] [place] [phone] * Diabetes Eye Exam (04/11/2023) Eye Exam Normal Normal us Kayden Villavicencio MD HEALTH MAINTENANCE Final Result * Colonoscopy (04/17/2022) Colonoscopy performed [facility] Kelley PITTMAN HEALTH MAINTENANCE Final Result * HEPATITIS C AB W/REFL TO HCV RNA, QN, PCR (09/26/2021 8:45 AM EDT) HEPATITIS C ANTIBODY NON-REACT JUAN NON-REACT [facility] INDEX 0.01 <1.00 [facility] Comment: HCV antibody was non-reactive. There is no laboratory evidence of HCV infection. In most cases, no further action is required. However, if recent HCV exposure is suspected, a test for HCV RNA (test code 88234) is suggested. For additional information please refer to http://education.[employer]/faq/LOR38v8 (This link is being provided for informational/ educational purposes only.) 09/26/2021 8:45 AM EDT Kayden Villavicencio MD HISTORICAL/NON ORDERABLE LABS Fi nal Result [facility] [address] [place] [address], from Last 3 Months or Most Recently Relevant to Health Maintenance Insurance [facility] MEDICARE ADVANTAGE HMO Care Teams School Coordinator Relationship Specialty Start Date End Date Name, MD Kayden [address] [place] [address] PCP - General Family Medicine 08/23/15
--- OUTSIDE RECORDS SUMMARY | 2025-04-17 21:25 | XMS_ITS | Encounter Summary ---
Author Organization [facility] Address [address] [place] [address] Care Team Providers Care Sql Server Dba Developer Name Role Phone Name, Kayden PITTMAN Primary Care Provider [phone] Encounter Details Date Type Department Care Team (Late st Contact Info) Description 08/26/2024 Lab Requisition [facility] - Main Lab [address] [facility] [place] [address] Juan R Katz PA [address] [place] [address] Gross hematuria Social History Tobacco [...] findings. 09/09/2024 10:41 AM EST [facility] Addendum electronically signed by Rishabh Odonnell MD on 09/09/2024 at 10:41 AM Final Diagnosis Urine, Voided, ([id number]): Atypical urothelial cells. Note: Based upon the cytologic findings, UroVysion testing will be performed, the result to follow in an addendum. 09/09/2024 10:41 AM [facility] Clinical Information Gross hematuria R31.0 Urine cytology with reflex UroVysion ([facility]) 09/09/2024 10:41 AM [facility] Gross Description A. Urine, Voided, ([id number]): Received one ThinPrep slide for cytology. 09/09/2024 10:41 AM [facility] Disclaimer Unless otherwise specified, all tissue is 10% NB formalin fixed and paraffin embedded. Technical pathology services provided by [facility] at [address], [place] [address] (CLIA #[id number]/Constance Alcaraz MD, Mincemeat Maker) 09/09/2024 10:41 AM [facility] Tissue Urine specimen from urethra / Unknown 08/20/2024 08/26/2024 8:41 AM EST us Juan R LINDA LAB PATHOLOGY ORDERAB LES Edited Result - Final [facility] [address] [place] [address], documented in this encounter Visit Diagnoses Diagnosis Gross hematuria documented in this encounter Care Teams Sql Server Dba Developer Relationship Specialty Start Date End Date Name, MD Kayden [address] [place] [address] PCP - General Internal Medicine 05/25/11 documented as of this encounter
[2025-04-17 23:13] VITALS: BP 157/76; PULSE 74; RESP 18; TEMP 36.9; O2SAT 95
--- NOTE | 2025-04-17 23:14 | ED.BACK ---
HPI - Back Pain/Injury General Chief Complaint: Back Pain/Injury Stated Complaint: Back and leg pain Time Seen by Provider: 04/17/25 23:14 Source: patient, family () and EMS Mode of arrival: EMS Limitations: no limitations History of Present Illness ED Provider: LISETTE TEIXEIRA PA-C HPI Narrative: 79 year old male with pmhx significant for prostate cancer, renal cysts, CKD, HTN, and lumbar radiculopathy presents to the ED today via EMS for evaluation of left sided back/flank pain x2 weeks, acutely worsening today. Patient has h/o chronic low back pain. He has been evaluated by pain management in the past and tried numerous medications. He was ultimately told his pain was chronic in nature. He has been trialing baclofen for two weeks, prescribed by his PCP, without much relief. Reports pain today is much more severe, describes as stabbing. Tried Tylenol without improvement. It is difficult for him to get comfortable since the pain is intermittent. at bedside reports pt had a kidney infection in the past. He states this does not feel similar. He denies any urinary symptoms. His last BM was this morning. He does not report numbness/tingling at this time. He is extremely uncomfortable sitting up in bed. Unable to ambulate due to pain. Denies abdominal pain, n/v, fevers or chills, CP or SOB. Related Data Home Medications ?Medication ?Instructions ?Recorded ?Confirmed amlodipine 10 mg tablet 10 mg PO DAILY 11/21/21 02/23/25 losartan 50 mg tablet 50 mg PO DAILY 11/21/21 02/23/25 docusate sodium 100 mg capsule 100 mg PO DAILY 03/28/23 02/23/25 (Stool Softener) maokgwliqtga-yffojqqx-aiytxs tablet 1 tab PO DAILY 03/28/23 02/23/25 ezetimibe 10 mg tablet 10 mg PO DAILY 11/21/23 02/23/25 albuterol sulfate 90 mcg/actuation 2 puff inhalation Q4H PRN 09/03/24 04/18/25 aerosol inhaler (Ventolin HFA) SOB/WHEEZING leuprolide acetate (6 month) 45 mg 45 mg subcut [id number] 09/03/24 02/23/25 (6 month) subcutaneous syringe ([employer]) metformin 500 mg tablet 500 mg PO BIDWM 09/03/24 04/18/25 loratadine 10 mg capsule (Allergy 10 mg PO DAILY 10/29/24 02/23/25 Relief (loratadine)) baclofen 10 mg tablet 2.5 mg PO BID PRN muscle spasm 04/18/25 04/18/25 Previous Rx's ?Medication ?Instructions ?Recorded methocarbamol 1,000 mg tablet 1,000 mg PO BID PRN muscle pain 7 04/18/25 days #14 tabs Allergies Allergy/AdvReac Type Severity Reaction Status Date / Time Iodinated Contrast Media (IV Allergy Severe ANAPHYLAXIS Verified 04/17/25 21:25 CONTRAST) Review of Systems Review of Systems: Yes all other systems are reviewed and are negative [facility] Past Medical History Attestation statement: The following information was validated with the patient. Source: old records reviewed and nursing notes reviewed Medical History Diverticulosis Diabetes HTN (hypertension) Prostate CA Surgical History History of urologic surgery Hx of colonoscopy Hx of appendectomy Hx of testicular mass Hx of umbilical hernia repair History of prostate surgery Family History Family History Mother Bone cancer Father Diabetes Social History Social History Household Members: Spouse Alcohol intake: current Alcohol intake frequency: holidays/special occasions only Patient Tobacco Use Status: Current everyday Tobacco user Tobacco use type: Cigar Physical Exam Vital Signs: Vital Signs: Last Vital Signs Temp 98.2 F 04/18/25 13:04 Pulse 81 04/18/25 13:04 Resp 18 04/18/25 13:04 BP 147/77 H 04/18/25 13:04 Pulse Ox 93 04/18/25 13:04 O2 Del Method Room Air 04/18/25 13:04 BMI result Body Mass Index 34.0 hypertensive, vitals are otherwise wnl General: uncomfortable appaering Skin: Warm, dry, intact. No rashes or lesions. Head: Normocephalic, atraumatic. EENT: Hearing is intact b/l. Conjunctiva clear. PERRLA. EOM intact. Moist mucous membranes.? Neck: Supple without LAD Cardiac: Chest wall symmetric. RRR Lungs: Normal respiratory effort without accessory muscle use. CTA bilaterally Abdomen: Soft, non-tender, non-distended. No rebound tenderness or guarding. Positive BS x4. no cvat. Back: no midline spinous tenderness or step-off deformity. There is reproducible tenderness to palpation of the left lower lumbar paraspinal musculature. Ext: Upper and lower extremities atraumatic, without tenderness, deformity, swelling or erythema Neuro: AOx3. Normal speech. Strength 5/5 intact throughout. No saddle anesthesia. Sensation intact to light touch. NV intact distally. Ambulating with steady gait. Psych: Appropriate mood and affect. Responds appropriately to questions. Course Course Course Narrative: 2:50 AM 04/18/2025 (Windy LINDA): The patient was signed out to this provider at shift change. In summary the patient is a 79-year-old male presenting to the ED for evaluation of left low back pain radiating to his left leg which began after he attempted to get up from his recliner after taking a nap earlier this evening. Patient reports he was unable to bear weight secondary to pain. The patient denies any recent fall or blunt trauma. Denies associated fever/chills, nausea, vomiting or other systemic complaint. Patient denies any surgical spinal history. The patient was treated with lidocaine, morphine, prednisone, and Dilaudid. Patient was evaluated with a UA, CMP, CBC, and CT abdomen and pelvis. The patient's laboratory evaluation and imaging showed no evidence of acute pathology contributing to his pain. The patient was signed out to this provider pending reassessment for pain. At this time the patient reports he has experienced only minimal improvement in pain from Dilaudid. The patient confirms no bowel/bladder incontinence, urinary retention, lower extremity weakness, or saddle paresthesias. The patient reports pain is exacerbated only by movement, weight-bearing, and straight leg raise, re-evaluation reveals no point tenderness of the lower back. The patient has a remote history of upper GI bleed and was told not to take NSAIDs or aspirin. The patient does not have any history of gastric bypass. A risk benefit conversation was held between this provider and the patient and patient's spouse regarding administration of Toradol, following discussion regarding IV versus oral administration of NSAIDs, and the decreased risk of GI bleeding with a single dose of Toradol compared to repeated doses of oral NSAIDs, the patient and patient's spouse are comfortable with plan for Toradol administration. We will expound on current treatment with Toradol, Valium for muscle relaxation and Tylenol. The patient will be held overnight for case management and PT consultation. Reevaluation(s) Reevaluation #1: FREDI Arriola Physician observation continued. Uneventful night. Vital signs stable. No complaints from nursing overnight. Med reconciliation reviewed and done. Pending disposition. Will continue to monitor. Time: 10:22 Medications Administered Discontinued Medications Generic Name Dose Route Start Last Admin Trade Name Freq PRN Reason Stop Dose Admin Acetaminophen 975 mg 04/18/25 02:47 04/18/25 03:04 Acetaminophen 325 Mg Tablet PO 04/18/25 02:48 975 mg ONCE ONE Administration Diazepam 2 mg 04/18/25 02:47 04/18/25 03:05 Diazepam 2 Mg Tablet PO 04/18/25 02:48 2 mg ONCE ONE Administration Hydromorphone HCl 1 mg 04/18/25 01:34 04/18/25 01:46 Hydromorphone Hcl 1 Mg/Ml Syringe IVPUSH 04/18/25 01:35 1 mg ONCE ONE Administration Protocol Ketorolac Tromethamine 15 mg 04/17/25 23:41 04/18/25 01:07 Ketorolac Tromethamine 15 Mg/Ml Vial IVPUSH 04/17/25 23:42 Not Given ONCE ONE Ketorolac Tromethamine 15 mg 04/18/25 02:47 04/18/25 03:05 Ketorolac Tromethamine 15 Mg/Ml Vial IVPUSH 04/18/25 02:48 15 mg ONCE ONE Administration Lidocaine 1 patch 04/17/25 23:41 04/18/25 00:01 Lidocaine 4 % Patch Adh..Patch TRANSDERMA 04/17/25 23:42 Not Given ONCE ONE Protocol Lidocaine 1 patch 04/18/25 01:44 04/18/25 01:52 Lidocaine 4 % Patch Adh..Patch TRANSDERMA 04/18/25 01:45 1 patch ONCE ONE Administration Protocol Morphine Sulfate 2 mg 04/18/25 00:29 04/18/25 01:04 Morphine Sulfate 2 Mg/Ml Cartridge IVPUSH 04/18/25 00:30 2 mg ONCE ONE Administration Protocol Prednisone 60 mg 04/18/25 01:44 04/18/25 01:51 Prednisone 20 Mg Tablet PO 04/18/25 01:45 60 mg ONCE ONE Administration Medical Decision Making Medical Decision Making [facility] Narrative: 79 year old male with pmhx significant for prostate cancer, renal cysts, CKD, HTN, and lumbar radiculopathy presents to the ED today via EMS for evaluation of left sided back/flank pain x2 weeks, acutely worsening today. on exam, no midline spinous tenderness or step-off deformity. There is reproducible tenderness to palpation of the left lower lumbar paraspinal musculature. nv intact distally. Differential diagnosis includes msk sprain/strain, sciatica, muscle spasm, renal colic, UTI, nephrolithiasis, pyelonephritis. unlikely cord compression, cauda equina, gullain barre, epidural abscess. Plan for labs, UA, imaging, pain control and re-eval. Differential Diagnosis Differential Diagnoses: The differential diagnosis associated with the presentation includes as above. Admission/Observation not indicated Lab Data as above 04/17/25 23:31 04/17/25 23:31 Labs: Lab Results 04/17/25 04/18/25 Range/Units 23:31 12:03 WBC 10.3 (4.8-10.8) X10*3/uL RBC 4.63 (4.60-5.80) X10*6/uL Hgb 12.6 L (14.0-18.0) g/dl Hct 37.4 L (42.0-52.0) % MCV 80.8 (80.0-98.0) fL MCH 27.2 (27.0-33.0) pg MCHC 33.7 (31.0-36.0) g/dl RDW 15.0 (11.0-16.0) % Plt Count 309 (160-400) X10*3/uL MPV 8.8 L (9.4-12.4) fL Immature Gran % (Auto) 0.5 H (0.0-0.4) % Neut % (Auto) 67.5 (45-73) % Lymph % (Auto) 18.6 L (20-40) % [place] % (Auto) 8.6 (2-11) % Eos % (Auto) 3.3 (0-4) % Baso % (Auto) 1.5 (0-2) % Lymph # (Auto) 1.9 (1.2-4.9) X10*3/uL [place]ether # (Auto) 0.9 (0.1-1.2) X10*3/uL Eos # (Auto) 0.3 (0.0-0.4) X10*3/uL Baso # (Auto) 0.2 (0.0-0.2) X10*3/uL Abs Immat Gran (auto) 0.05 H (0.00-0.03) X10*3/uL Absolute Neuts (auto) 6.9 (2.0-8.3) x10*3/uL Absolute Nucleated RBC 0.000 (0.0-0.012) X10*3/uL Nucleated RBC % (auto) 0.0 (0.0-0.2) /100WBC Sodium 136 (135-145) mmol/L Potassium 5.2 H D (3.3-5.1) mmol/L Chloride 102 (96-108) mmol/L Carbon Dioxide 26 (22-29) mmol/L Anion Gap 13 (12-20) BUN 19 H (9-16) mg/dL Creatinine 1.22 (0.5-1.4) mg/dL Estim Creat Clear Calc 50.4 Estimated GFR 57 POC Glucose 271 H (60-115) mg/dL Random Glucose 123 H (60-115) mg/dL Calcium 10.4 H D (8.4-10.2) mg/dL Total Bilirubin 0.2 (0.0-1.0) mg/dL AST 25 (5-37) U/L ALT 22 (0-40) U/L Alkaline Phosphatase 69 (39-117) U/L Total Protein 7.3 (6.5-8.0) g/dL Albumin 4.4 (3.5-5.0) g/dL Urine Color Yellow Urine Appearance Clear Urine pH 7.0 (5.0-9.0) Ur Specific [place] 1.010 (1.005-1.025) Urine Protein 30 (1+) H (Neg-Trace) mg/dL Urine Glucose (UA) Negative (Negative) mg/dL Urine Ketones Negative (Negative) mg/dL Urine Blood Negative (Negative) Urine Nitrite Negative (Negative) Ur Leukocyte Esterase Negative (Negative) Urine RBC 0-2 (0-2) /HPF Urine WBC 0-5 (0-5) /HPF Ur Squamous Epith Cells 0-2 (0-2) /HPF Urine Bacteria None Seen (None Seen) Hyaline Casts 0-2 (0-2) /LPF Independent Interpretation I performed an independent interpretation of an: CT Scan Radiology Impression Discussion of test interpretation with radiology: I have reviewed the radiologist's reading. Radiologist Impression: Procedure(s): CT abdomen pelvis wo IV con Accession Number(s): [id number] cc: Name,Kayden PITTMAN; Lisette Teixeira~ Report Number: [id number]: Total DLP = 636.00 mGy-cm Reason for Exam: left flank pain CLINICAL HISTORY: left flank pain CT abdomen and pelvis without contrast Comparison: CT/SR - CT ABDOMEN PELVIS WO IV CON - 08/08/24 01:18 EST Findings: The lung bases are clear. Spleen is normal. Noncontrasted liver is normal. Gallbladder is normal. Pancreas is atrophic. The right kidney demonstrates multiple exophytic renal cysts. No nephrolithiasis or hydronephrosis. There is a left lower pole exophytic soft tissue density 21 mm mass which may represent neoplasm or hemorrhagic cyst. The left kidney demonstrates multiple exophytic low-density lesions. There are left upper pole lesions measuring 39 mm, 15 mm. There is an interpolar low-density lesion measuring 34 mm. There is a dilated extrarenal pelvis and left lower pole low-density lesion measuring 11.6 cm. There are coarse septations at the inferior aspect of this lesion. The adrenal glands are normal. No hydronephrosis or hydroureter. Bladder is decompressed. No masses of the ureterovesicular junction. Colon demonstrates multiple diverticuli without evidence of diverticulitis within the ascending, transverse, descending, and sigmoid colon. Rectum is normal. Multilevel degenerative disc disease is present with bridging syndesmophytes in the lower thoracic spine. No acute fracture. IMPRESSION: No evidence of renal lithiasis or ureteral lithiasis. Multiple exophytic low-density renal lesions. Largest left lesion is greater than 11 cm. Right lower pole soft tissue density mass may be further evaluated with outpatient renal ultrasound or MRI abdomen. Size is unchanged upon comparison to 08/08/2024 This document has been electronically signed by: Avel Marcus III, MD PHD on 04/18/2025 01:07:12 Independent Historian Clinical information obtained from an independent historian. History obtained from or confirmed by: Spouse External Record Review External record reviewed: Inpatient record Prescription Management I considered prescription management with: Pain Medication Social Determinants Patient?s care significantly limited by Social Determinants of Health including: Other Social Determinant of Health Critical Care Time Critical Care Time Critical Care Time: Yes Total Critical Care Time: 35 Attestation: Critical care time in the amount of 35 minutes has been provided to the patient in terms of direct patient care, frequent reevaluation on IV morphine/dilaudid, review and interpretation of medical data and results, and management of potentially life-threatening conditions. This is all outside of any medical procedures. Discharge Plan Discharge Clinical Impression: Lumbar back pain Patient Disposition: Home, Self-Care Instructions: Acute Low Back Pain (ED) Additional Instructions: You were evaluated in the Emergency Department today for your back pain.? Your evaluation did not show signs of medical conditions requiring emergent intervention at this time. Avoid bending, lifting, or twisting. Use ice several times per day for 20 minutes at a time for the next 48 hours and then change to heat. I recommend you take 600mg ibuprofen every 6 hours or tylenol 650mg every 6 hours as needed for pain. If needed, you can alternate these medications so that you take one medication every 3 hours. For example, at noon take ibuprofen, then at 3pm take tylenol, then at 6pm take ibuprofen. Methocarbamol is a muscle relaxer Lidoderm patches are numbing patches. Apply to painful areas. I am also sending you home with a four day prescription of prednisone. take as prescribed. Please schedule an appointment for follow-up with your primary care provider this week for further evaluation of your symptoms. Return to the Emergency Department if you experience worsening back pain, difficulty walking, fevers, numbness, tingling, incontinence, or any other concerning symptoms. In the case of an emergency call 911. Your CT scan shows: IMPRESSION: No evidence of renal lithiasis or ureteral lithiasis. Multiple exophytic low-density renal lesions. Largest left lesion is greater than 11 cm. Right lower pole soft tissue density mass may be further evaluated with outpatient renal ultrasound or MRI abdomen. 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 Prescriptions: New methocarbamol 1,000 mg tablet 1,000 mg PO BID PRN (Reason: muscle pain) 7 Days Qty: 14 0RF No Action baclofen 10 mg tablet 2.5 mg PO BID PRN (Reason: muscle spasm) amlodipine 10 mg tablet 10 mg PO DAILY losartan 50 mg tablet 50 mg PO DAILY metformin 500 mg tablet 500 mg PO BIDWM docusate sodium [Stool Softener] 100 mg capsule 100 mg PO DAILY [id number] Tablet 1 tab PO DAILY ezetimibe 10 mg tablet 10 mg PO DAILY albuterol sulfate [Ventolin HFA] 90 mcg/actuation HFA aerosol inhaler 2 puff inhalation Q4H PRN (Reason: SOB/WHEEZING) Eligard (6 month) 45 mg syringe 45 mg subcut [id number] Allergy Relief (loratadine) 10 mg capsule 10 mg PO DAILY Referrals: Name,MD Kayden [Primary Care Provider, Internal Medicine] Mo Cruz MD, PhD [Physician, Neuro Spine] Interventions: ED Discharge Assessment Last Done: 04/18/25 13:04 Discharge Date/Time: 04/18/25 13:14 Print Language: Yemeni
[2025-04-17 23:36] LABS: MANUAL DIFF FLAG NO
[2025-04-17 23:37] LABS: Hematocrit 37.4 % (42.0-52.0); Hemoglobin 12.6 g/dl (14.0-18.0); Imm Gran Abs Auto 0.05 X10*3/uL (0.00-0.03); Imm Gran Pct Auto 0.5 % (0.0-0.4); Lymphocytes Absolute Auto 1.9 X10*3/uL (1.2-4.9); Mean Corpuscular HGB Conc 33.7 g/dl (31.0-36.0); Mean Corpuscular Hemoglobin 27.2 pg (27.0-33.0); Mean Corpuscular Volume 80.8 fL (80.0-98.0); NRBC Abs Auto 0.000 X10*3/uL (0.0-0.012); NRBC Pct Auto 0.0 /100WBC (0.0-0.2); Platelet Count 309 X10*3/uL (160-400); Red Blood Count 4.63 X10*6/uL (4.60-5.80); White Blood Count 10.3 X10*3/uL (4.8-10.8)
[2025-04-17 23:38] LABS: Appearance Urine Clear; Glucose Urine UA Negative (Negative); PH 7.0 (5.0-9.0); Specific Gravity - Urine 1.010 (1.005-1.025); UMIC TRIGGER UACC YES
[2025-04-17 23:53] LABS: Alanine Aminotransferase 22 U/L (0-40); Albumin Level 4.4 g/dL (3.5-5.0); Alkaline Phosphatase 69 U/L (39-117); Anion Gap 13 (12-20); Aspartate Amino Transferase 25 U/L (5-37); Blood Urea Nitrogen 19 mg/dL (9-16); Calcium 10.4 mg/dL (8.4-10.2); Carbon Dioxide 26 mmol/L (22-29); Chloride 102 mmol/L (96-108); Creatinine Clr Calc Pharmacy 50.4; Estimated Glomerular Filt Rate 57; Potassium 5.2 mmol/L (3.3-5.1); Sodium 136 mmol/L (135-145); Total Protein 7.3 g/dL (6.5-8.0)
--- NOTE | 2025-04-18 00:24 | PC.NURSE ---
Pt refuses lidocaine patch- stated he tried it at home and it didn't work. Also refused the ketoralac- stated he cannot have nsaids. Provider made aware.
[2025-04-18 01:04] VITALS: RESP 20
[2025-04-18 01:46] VITALS: RESP 18
[2025-04-18] MEDS: Lidocaine 4 % Patch ADH..PATCH 1 PATCH TRANSDERMA (01:52)
[2025-04-18 05:12] VITALS: BP 145/85; PULSE 73; RESP 14; TEMP 36.7; O2SAT 92
--- NOTE | 2025-04-18 06:25 | PC.NURSE ---
report given to RN in overflow.
--- NOTE | 2025-04-18 07:38 | PC.NURSE ---
Patient arrived on the floor, alert and oriented x4, complaining of lower back pain, unstable gait. Settled in bed.
[2025-04-18 07:45] VITALS: BP 142/73; PULSE 76; RESP 18; TEMP 36.5; O2SAT 93
[2025-04-18 08:17] VITALS: BP 142/73; PULSE 76; RESP 18; TEMP 36.5; O2SAT 93
--- NOTE | 2025-04-18 08:33 | MHC.EDTECH ---
Patient came from the ED incontinent of urine. Nurse assisted patient with incontinent care. 2 assist with in and OOB
[2025-04-18 12:06] LABS: Glucose, Whole Blood 271 mg/dL (60-115)
[2025-04-18 13:04] VITALS: BP 147/77; PULSE 81; RESP 18; TEMP 36.8; O2SAT 93
--- NOTE | 2025-04-18 13:31 | MHC.CM.PN ---
Addendum entered by Lindsay Viramontes RN 04/18/25 13:35: [facility] AWARE PT SHOULD FOLLOW-UP W/PCP AND SPINE DOCTOR. Original Note: CM RECEIVED CM CONSULT, PER P.T. PT DOES NOT REQUIRE SERVICES AT THIS TIME, CM CONTACTED PT'S MOY PER RQUEST, [facility] WILL PT LIVES W/MOY WHO CARES FOR PT NEEDED, [facility] REQUESTS SCRIPTS SENT TO [facility] AND HAS TRANSPORTED PT HOME.
== END 2025-04-18 13:14 | disposition home or self-care (01) ==
PROVIDERS: Physician Assistant Medical; Emergency Provider Emergency Medicine Emergency Medical Services; PCP Internal Medicine Geriatric Medicine
DX: M54.50 Low back pain, unspecified (principal); M54.16 Radiculopathy, lumbar region; C61 Malignant neoplasm of prostate; N28.1 Cyst of kidney, acquired; I10 Essential (primary) hypertension; G89.29 Other chronic pain; E11.9 Type 2 diabetes mellitus without complications; K57.90 Diverticulosis of intestine, part unspecified, without perforation or abscess without bleeding; F17.290 Nicotine dependence, other tobacco product, uncomplicated; Z79.84 Long term (current) use of oral hypoglycemic drugs
CPT/HCPCS: 36415; 74176; 80053; 81001; 82947; 85025; 96374; 96375; 97162; 99284; J1171; J1885; J2270

== ENCOUNTER → 2025-04-17 23:57 | Outpatient (BNV) | payer MEDICARE, SELFPAY | PROVIDERS: Emergency Provider Emergency Medicine Emergency Medical Services; PCP Internal Medicine Geriatric Medicine; Visit Provider Radiology Diagnostic Radiology | DX: N28.9 Disorder of kidney and ureter, unspecified (principal) | CPT/HCPCS: 74176 ==

== ENCOUNTER 2025-04-28 08:09 | Outpatient (REF) | payer MEDICARE, SELFPAY ==
[2025-04-28 12:43] LABS: Alanine Aminotransferase 17 U/L (0-40); Albumin Level 4.2 g/dL (3.5-5.0); Alkaline Phosphatase 63 U/L (39-117); Anion Gap 14 (12-20); Aspartate Amino Transferase 18 U/L (5-37); Blood Urea Nitrogen 17 mg/dL (9-16); Calcium 9.8 mg/dL (8.4-10.2); Carbon Dioxide 24 mmol/L (22-29); Chloride 105 mmol/L (96-108); Cholesterol 180 mg/dL (<200); Estimated Glomerular Filt Rate 56; HDL Cholesterol 46 mg/dL (>40); Potassium 4.5 mmol/L (3.3-5.1); Sodium 138 mmol/L (135-145); Thyroid Stimulating Hormone 1.84 uIU/mL (0.32-4.0); Total Protein 6.9 g/dL (6.5-8.0); Triglycerides 176 mg/dL (<150)
[2025-04-28 13:17] LABS: Appearance Urine Clear; Glucose Urine UA Negative (Negative); PH 7.0 (5.0-9.0); Specific Gravity - Urine 1.015 (1.005-1.025); UMIC TRIGGER UACC YES
== END 2025-04-28 08:10 | disposition home or self-care (01) ==
LOC: HO.HHCL 08:09
PROVIDERS: Internal Medicine Hypertension Specialist; PCP Internal Medicine Geriatric Medicine; Referring Provider Nurse Practitioner Family; Visit Provider Internal Medicine Geriatric Medicine
DX: M79.10 Myalgia, unspecified site (principal); E11.69 Type 2 diabetes mellitus with other specified complication; E78.00 Pure hypercholesterolemia, unspecified
CPT/HCPCS: 36415; 80053; 80061; 80076; 81001; 81003; 82248; 82550; 84443

== ENCOUNTER 2025-05-27 07:56 | Outpatient (REF) | payer MEDICARE, SELFPAY ==
--- NOTE | ~2025-05-27 | MR_ITS ---
EXAMINATION: MR LUMBAR SPINE WITHOUT CONTRAST CLINICAL INFORMATION: Acute on chronic low back pain. Prostate cancer. COMPARISON: Correlated to x-ray dated December 05, 2022. Correlated to CT abdomen and pelvis dated August 08, 2024. TECHNIQUE: MRI of the lumbar spine was obtained using routine sequences without contrast. FINDINGS: Last rib-bearing vertebra labeled T12. No bone marrow STIR signal abnormality. Multilevel small marginal osteophyte formation and disc desiccation throughout the axial skeleton. There is normal alignment. Conus medullaris ends at intervertebral disc T12-L1 with normal signal. T11-12: No disc herniation. No neuroforamina stenosis. T12-L1: Broad-based disc bulging. No central spinal canal or neuroforamina stenosis. L1-2: Broad-based disc bulging. Facet joint hypertrophy. No central spinal canal or neuroforamina stenosis. L2-3: Broad-based disc bulging. Facet joint hypertrophy. No central spinal canal or neuroforamina stenosis. L3-4: Broad-based disc bulging. Facet joint hypertrophy. Reduced AP diameter of the thecal sac and neuroforamina. No compression upon neural elements. L4-5: Broad-based disc bulging abutting the L5 nerve roots on the lateral recesses. Facet joint hypertrophy. Reduced AP diameter thecal sac and neuroforamina. L5-S1: Broad-based disc bulging. Facet joint hypertrophy. No central spinal canal or neuroforamina stenosis. No prevertebral compartment hematoma, mass or fluid collections. There are multifocal, different sizes, exophytic and cortical medullary junction round and lobulated fluid signal characteristic lesions in both kidneys. There is a 16 mm exophytic lesion with a dependent ISO to hypointense T2 signal in the posterior upper pole right kidney. There is a 16 mm thin septated exophytic cystic lesion with layering hypointense T2 signal in the medial aspect of the lower pole left kidney. MR/MR lumbar spine wo con IMPRESSION: Multilevel lumbar spondylosis pronounced at L4-5 and L3-4 levels encroaching the neural elements at L4-5. Complex likely hemorrhagic cystic lesions both kidneys. No acute fracture or listhesis. No gross osseous metastasis. Electronically signed by: Miko Butterfield MD 05/27/2025 09:[address] [facility]
--- OUTSIDE RECORDS SUMMARY | 2025-05-27 07:58 | XMS_ITS | Encounter Summary ---
Author Organization [employer] Address [address] [place] [address] Care Team Providers Care Business Process Specialist Name Role Phone Name, Kayden PITTMAN Primary Care Provider [phone] Reason for Visit * Reason Comments Med Refill Encounter Details Date Type Department Care Team ([facility] st Contact Info) Description 04/22/2024 Refill [facility] [address] [place] [address] Patrick Conrad MD [address] [place] [address] Social History Tobacco Use Types Packs/Day Years [...] Care Team (Late st Contact Info) Description 06/26/2025 9:00 AM EST Office Visit [facility] [address] [place] [id number] Name, MD Kayden [address] [place] [address] documented as of this encounter Visit Diagnoses Not on filedocumented in this encounter Additional Health Concerns Assessment Noted Time PHQ-9 Depression Total Score: 0 08/14/19 24 9:03 AM EST documented as of this encounter Care Teams Business Process Specialist Relationship Specialty Start Date End Date NameKayden MD [address] [place] [id number] PCP - General Family Medicine 08/23/15 documented as of this encounter
--- OUTSIDE RECORDS SUMMARY | 2025-05-27 07:58 | XMS_ITS | Encounter Summary ---
Author Organization [facility] Address [address] [place] [address] Care Team Providers Care Continuous Conveyor Screen Drier Name Role Phone Name, Kayden PITTMAN Primary Care Provider [phone] Encounter Details Date Type Department Care Team (Late st Contact Info) Description 11/04/2024 Lab Requisition [facility] - Main Lab [address] [facility] [place] [address] Evin Sagastume MD [address] [facility] [address] [place] [address] Gross hematuria Social History Tobacco Use Types [...] AM EDT) Final Diagnosis A. Urine, Voided, ([id number]): Negative for high grade urothelial carcinoma. Results of [employer] fluorescence in situ hybridization (FISH) testing: CEP3: Normal CEP7: Normal CEP17: Normal LSI 9p21: Normal Interpretation: Normal profile Controls stained appropriately. Note: The results are intended as a screening device and should be interpreted in association with other clinical and pathological findings. 11/14/2024 12:25 PM EDT [facility] Clinical Information Gross hematuria R31.0 Urine Cytology/FISH (now) 11/14/2024 12:25 PM EDT [facility] Gross Description A. Urine, Voided, ([id number]): Received one ThinPrep slide for cytology and one ThinPrep slide for UroVysion FISH 11/14/2024 12:25 PM EDT [facility] Disclaimer Unless otherwise specified, all tissue is 10% NB formalin fixed and paraffin embedded. Technical pathology services provided by [facility] at [address], [place] [address] (CLIA #[id number]/Constance Alcaraz MD, Physical Integration Practitioner) 11/14/2024 12:25 PM EDT [facility] Tissue Urine specimen from urethra / Unknown 10/31/2024 11/04/2024 2:04 PM EDT us Evin Sagastume MD LAB PATHOLOGY ORDERABLES Fi nal Result [facility] [address] [place] [address], documented in this encounter Visit Diagnoses Diagnosis Gross hematuria documented in this encounter Care Teams Continuous Conveyor Screen Drier Relationship Specialty Start Date End Date Name, MD Kayden [address] [place], [place] PCP - General Internal Medicine 05/25/11 documented as of this encounter
--- OUTSIDE RECORDS SUMMARY | 2025-05-27 07:58 | XMS_ITS | Encounter Summary ---
Author Organization [employer] Address [address] [facility] 7t [place] [address] Care Team Providers Care Stranding Supervisor Name Role Phone Name, Kayden PITTMAN Primary Care Provider [phone] Encounter Details Date Type Department Care Team (Late Contact Info) Description 12/15/2022 Abstract [facility] [address] [place] [phone] Name, MD Kayden [address] [place] [address] Social History Tobacco Use Types Packs/Day Years [...] Department Care Team (Late Contact Info) Description 06/26/2025 9:00 AM EST Office Visit [facility] [address] [place], [place] [phone] Name, MD Kayden [address] [place] [address] documented as of this encounter Visit Diagnoses Not on filedocumented in this encounter Care Teams Stranding Supervisor Relationship Specialty Start Date End Date Name, MD Kayden [address] [place] [address] PCP - General Family Medicine 08/23/15 documented as of this encounter
--- OUTSIDE RECORDS SUMMARY | 2025-05-27 07:58 | XMS_ITS | Encounter Summary ---
Author Organization [employer] Address [address] [facility] 7t [place] [address] Care Team Providers Care Hat Blocking Operator Name Role Phone Name, Kayden PITTMAN Primary Care Provider [phone] Reason for Visit * Reason Onset Date Comments Med Refill 04/12/2025 Encounter Details Date Type Department Care Team ([facility] st Contact Info) Description 04/12/2025 Refill [facility] [address] [place] [address] Tracey Maciel, [facility] [address] [place] [address] Tobacco use Social History Tobacco Use Types [...] Description 06/26/2025 9:00 AM EST Office Visit [facility] [address] [place] [phone] Name, MD Kayden [address] [place] [address] documented as of this encounter Visit Diagnoses Diagnosis Tobacco use documented in this encounter Additional Health Concerns Assessment Noted Time PHQ-9 Depression Total Score: 0 08/14/19 24 9:03 AM EST documented as of this encounter Care Teams Hat Blocking Operator Relationship Specialty Start Date End Date Name, MD Kayden [address] [place] [address] PCP - General Family Medicine 08/23/15 documented as of this encounter
--- OUTSIDE RECORDS SUMMARY | 2025-05-27 07:58 | XMS_ITS | Encounter Summary ---
Author Organization [employer] Address 75 [facility] 7t [place] [address] Care Team Providers Care Highballer Name Role Phone Name, Kayden PITTMAN Primary Care Provider [phone] Reason for Visit * Reason Comments Med Refill Encounter Details Date Type Department Care Team ([facility] st Contact Info) Description 04/22/2024 Refill [facility] [address] [place] [address] Patrick Conrad MD [address] [place] [address] Social History Tobacco Use Types Packs/Day Years [...] Description 06/26/2025 9:00 AM EST Office Visit [facility] [address] [place] [phone] Name, MD Kayden [address] [place] [address] documented as of this encounter Visit Diagnoses Not on filedocumented in this encounter Additional Health Concerns Assessment Noted Time PHQ-9 Depression Total Score: 0 08/14/19 24 9:03 AM EST documented as of this encounter Care Teams Highballer Relationship Specialty Start Date End Date NameKayden MD [address] [place] [address] PCP - General Family Medicine 08/23/15 documented as of this encounter
--- OUTSIDE RECORDS SUMMARY | 2025-05-27 07:58 | XMS_ITS | Clinical Summary ---
Author Organization [address] [facility] Address [address] [place] [phone] Phone Care Team Providers Care Rn Behavioral Health Name Role Phone Name, Kayden PITTMAN Primary Care Provider [phone] Social History Tobacco Use Types Packs/Day Years [...] patient's age to complete this topic Insurance [facility] MEDICARE MEDICARE Care Teams Rn Behavioral Health Relationship Specialty Start Date End Date Name, MD Kayden [address] [place], [place] PCP - General Internal Medicine 05/25/11
--- OUTSIDE RECORDS SUMMARY | 2025-05-27 07:58 | XMS_ITS | Encounter Summary ---
Author Organization [facility] Address [address] [place] [address] Care Team Providers Care Director Foundation Name Role Phone Name, Kayden PITTMAN Primary Care Provider [phone] Encounter Details Date Type Department Care Team (Late st Contact Info) Description 08/26/2024 Lab Requisition [facility] [address] [facility] [place] [address] Juan R Katz PA [address] [place] [address] Gross hematuria Social History Tobacco [...] findings. 09/09/2024 10:41 AM EST [facility] ([facility]) [facility] Addendum electronically signed by Rishabh Odonnell MD on 09/09/2024 at 10:41 AM Final Diagnosis Urine, Voided, ([id number]): Atypical urothelial cells. Note: Based upon the cytologic findings, UroVysion testing will be performed, the result to follow in an addendum. 09/09/2024 10:41 AM [facility] Clinical Information Gross hematuria R31.0 Urine cytology with reflex UroVysion ([facility]) 09/09/2024 10:41 AM [facility] Gross Description A. Urine, Voided, ([id number]): Received one ThinPrep slide for cytology. 09/09/2024 10:41 AM [facility] Disclaimer Unless otherwise specified, all tissue is 10% NB formalin fixed and paraffin embedded. Technical pathology services provided by [facility] at [address], [place] [address] (CLIA #[id number]/Constance Alcaraz MD, Supervisor Poultry Processing) 09/09/2024 10:41 AM [facility] Tissue Urine specimen from urethra / Unknown 08/20/2024 08/26/2024 8:41 AM EST us Juan R [facility] PATHOLOGY ORDERAB LES Edited Result - Final [facility] [address] [place] [address], documented in this encounter Visit Diagnoses Diagnosis Gross hematuria documented in this encounter Care Teams Director Foundation Relationship Specialty Start Date End Date Name, MD Kayden [address] [place] [address] PCP - General Internal Medicine 05/25/11 documented as of this encounter
--- OUTSIDE RECORDS SUMMARY | 2025-05-27 07:59 | XMS_ITS | Encounter Summary ---
Author Organization [employer] Address [address] [facility] [address] 7[address] [place] [address] Care Team Providers Care House Nurse Name Role Phone Name, Kayden PITTMAN Primary Care Provider [phone] Encounter Details Date Type Department Care Team ([facility] Contact Info) Description 04/23/2025 Results Follow-Up [facility] [address] [place] [address] Name, MD Kayden [address] [place] [address] CT Abdomen Pelvis w/o Contrast Social History Tobacco Use Types Packs/Day Years [...] Answer Date Recorded Patient Health Questionnaire-9 Score 6 04/24/2025 Patient Health Questionnaire-9 Score 6 04/24/2025 Last PHQ-9: Questionnaire Data Not on file 1 Housing Stability Answer Date Recorded What is your housing situation today? I have hans carmen 04/24/[address] you li ve. Do you have problems with any of the following? Water leaks 04/24/2025 Food Insecurity Answer Date Recorded Within the past 12 months, y ou worried that your food would run out before you got money to buy more: Never True 04/24/2025 Within the past 12 months,th e food you bought just didn't last and you didn't have enough money to get more: Never True 04/2025 Transportation Answer Date Recorded In the past 12 months, has l ack of transportation kept you from medical appts, meetings, work or from getting things needed for daily living? No 04/24/2025 Utilities Answer Date Recorded In the past 12 months, has t he electric, gas, oil or water company threatened to shut off services in your home? No 04/24/2025 Depression Answer Date Recorded Patient Health Questionnaire-2 Score 0 04/24/2025 Internet Access Answer Date Recorded Internet Access Q1 Yes 04/24/2025 Internet Access Q2 Not on file 04/24/2025 Sex and Gender Information Value Date Recorded Sex Assigned at Male 05/15/2022 10:29 AM EDT Legal Sex Male 10:29 AM EDT Gender Identity Male 05/15/2022 10:29 AM EDT Sexual Orientation Straight 05/15/2022 10 :29 AM EDT documented as of this encounter Functional Status * Over the past 2 weeks, how often have you been bothered by any of the following problems? Question Answer Date of Assessment Author Patient Health Questionnaire -2 Score 0 04/24/2025 4:40 PM EDT Bing Lira MA * Little interest or pleasure in doing things Answer Date of Assessment Author Not at all 04/24/2025 4:40 PM EDT Jonna Lira MA * Feeling down, depressed, or hopeless Answer Date of Assessment Author Not at all 04/24/2025 4:40 PM EDT Jonna Lira MA * Trouble falling or staying asleep, or sleeping too much Answer Date of Assessment Author Nearly every day 04/24/2025 4:40 PM ASIMT Jonna Lira MA * Feeling tired or having little energy Answer Date of Assessment Author Nearly every day 04/24/2025 4:40 PM ASIMT Jonna Lira MA * Poor appetite or overeating Answer Date of Assessment Author Not at all 04/24/2025 4:40 PM ASIMT Jonna Lira MA * Feeling bad about yourself - or that you are a failure or have let yourself or your family down Answer Date of Assessment Author Not at all 04/24/2025 4:40 PM EDT Jonna Lira MA * Trouble concentrating on things, such as reading the newspaper or watching television Answer Date of Assessment Author Not at all 04/24/2025 4:40 PM ASIMT Jonna Lira MA * Moving or speaking so slowly that other people could have noticed? Or the opposite - being so fidgety or restless that you have been moving around a lot more than usual. Answer Date of Assessment Author Not at all 04/24/2025 4:40 PM Jonna Campos MA * Thoughts that you would be better off or hurting yourself in some way Answer Date of Assessment Author Not at all 04/24/2025 4:40 PM Jonna Campos MA * Patient Health Questionnaire-9 Score Answer Date of Assessment Author 6 04/24/2025 4:40 PM Jonna Campos MA * Over the last 2 weeks, how often have you been bothered by any of the following problems? Question Answer Date of Assessment Author Feeling nervous, anxious, or on edge 0 04/24/2025 4:40 PM ASIMT Bing Lira MA Not being able to stop or control worrying 0 04/24/2025 4:40 PM Bing Campos MA Worrying too much about different things 0 04/24/2025 4:40 PM Bing Campos MA Trouble relaxing 0 04/24/2025 4:40 PM EDT Jonna Barba MA Being so restless that it is hard to sit still 0 04/24/2025 4:40 PM Bing Campos MA Becoming easily annoyed or irritable 0 04/24/2025 4:40 PM Bing Campos MA Feeling afraid as if somethi ng awful might happen 0 04/24/2025 4:40 PM EDT Bing Lira MA OCHOA-7 Total Score 0 04/24/2025 4:40 PM EDT Jonna Lira MA documented as of this encounter Plan of Treatment Upcoming Encounters Date Type Department Care Team (Late st Contact Info) Description 06/26/2025 9:00 AM EST Office Visit [facility] [address] [place] [phone] Name, MD Kayden [address] [place] [phone] documented as of this encounter Visit Diagnoses Not on filedocumented in this encounter Additional Health Concerns Assessment Noted Time PHQ-9 Depression Total Score: 0 08/14/19 24 9:03 AM EST documented as of this encounter Care Teams House Nurse Relationship Specialty Start Date End Date Name, MD Kayden [address] [place] [phone] PCP - General Family Medicine 08/23/15 documented as of this encounter
--- OUTSIDE RECORDS SUMMARY | 2025-05-27 07:59 | XMS_ITS | Clinical Summary ---
Author Organization [employer] Address [address] [place] [address] Care Team Providers Care Military Cook Name Role Phone Name, Kayden PITTMAN Primary [...] times daily. 13 g 2 4 Active loratadine (Claritin) 10 MG tablet Take 1 tablet (10 mg) by mouth Once per day. 30 tablet 2 4 Active fluticasone (Flonase) 50 MCG/ACT nasal spray Administer 2 sprays into each nostril Once per day. Shake gently. Before first use, prime pump. After use, clean tip and replace cap. 16 g 2 4 Active Umeclidinium [place] (Incruse Ellipta) 62.5 MCG/ACT aerosol powder Inhale 1 Inhalation Once per day. 30 each 1 4 Active amLODIPine (Norvasc) 10 MG tablet Take 1 tablet (10 mg) by mouth Once per day. 90 tablet 3 5 03/20/20 26 Active losartan (Cozaar) 50 MG tabletIndications :Benign essential hypertension Take 1 tablet (50 mg) by mouth Once per day. 90 tablet 3 5 Active metFORMIN (Glucophage) 500 MG tablet Take 1 tablet (500 mg) by mouth with breakfast and with evening meal. 180 tablet 3 5 03/20/20 26 Active ezetimibe (Zetia) 10 MG tabletIndications :Hypercholesterol emia Take 1 tablet (10 mg) by mouth Once per day. 90 tablet 3 5 03/20/20 26 Active albuterol (ProAir HFA) 108 (90 Base) MCG/ACT inhalerIndication s:Mild intermittent asthma, unspecified whether complicated Inhale 2 puffs every 4 (four) hours if needed for wheezing or shortness of breath. 18 g 1 5 03/20/20 26 Active baclofen (Lioresal) 10 MG tablet Take 0.5 tablets (5 mg) by mouth if needed in the morning and at bedtime for muscle spasms (back pain, preferably at bedtime). 30 tablet 5 Active Diclofenac Sodium 1 % gelIndications:Ch ronic pain of both knees APPLY 2 GRAMS TWICE A DAY TO THE AFFECTED KNEE(S) 100 g 2 5 Active nicotine (Nicoderm CQ) 14 MG/24HR patchIndications: Tobacco use PLACE 1 PATCH ON THE SKIN ONE TIME EACH DAY AT THE SAME TIME 28 patch 5 Active methocarbamol (Robaxin) 500 MG tabletIndications :Midline low back pain, unspecified chronicity, unspecified whether sciatica present Take 2 tablets (1,000 mg) by mouth every 12 (twelve) hours if needed for muscle spasms for up to 10 days. 40 tablet 5 Active Active Problems Problem Noted Date Diagnosed Date Midline low back pain 04/24/2025 Assessment & Plan (04/24/2025 4:22 PM EDT): Orders: Referral to Neurosurgery; Future Referral to Physiatry; Future methocarbamol (Robaxin) 500 MG tablet; Take 2 tablets (1,000 mg) by mouth every 12 (twelve) hours if needed for muscle spasms for up to 10 days. Muscle ache 04/24/2025 Assessment & Plan (04/24/2025 4:22 PM EDT): Orders: Hepatic Function Panel; Future Creatine Kinase, Total; Future TSH; Future Basic Metabolic Panel; Future Proteinuria 08/11/2024 Assessment & Plan (08/11/2024 10:45 [...] Encouraged cessation Stage 3a chronic kidney disease ([facility]/HCC) 2021 Malignant tumor of prostate (CMS/HCC) 04/09/2018 Overview (09/26/2024): Prostate CA is followed at [facility]. Treatment has been so far [...] next 1-2m. I gave him info re [place] palsy FU w PCP in 1-2m to [...] Encounters Date Type Department Care Team Description 05/19/2025 Telephone [facility] [address] [place] [address] Tomasa Robertson RN 05/14/2025 Abstract [facility] [address] [place] [address] Kayden Villavicencio MD 04/28/2025 Orders Only [facility] [place] [address] Sera Cuevas NP 04/24/2025 3:45 PM EDT Office Visit [facility] [place] [place] [address] Sera Cuevas NP Midline low back pain, unspecified chronicity, unspecified whether sciatica present (Primary Dx); Muscle ache 04/24/2025 Travel 04/23/2025 Telephone [facility] [place] [address] Sera Cuevas NP Chart Prep 04/23/2025 Results Follow-Up [facility] NISHANT Gann [phone] Abdomen Pelvis w/o Contrast 04/22/2025 Telephone [facility] [place] [address] Tomasa Robertson RN 04/20/2025 Telephone [facility] [place] [address] Kayden Villavicencio MD 04/18/2025 Orders Only GENERIC EXTERNAL DATA DEPARTMENT Provider, Generic External Data 04/17/2025 Orders Only GENERIC EXTERNAL DATA DEPARTMENT Provider, Generic External Data 04/15/2025 10:00 AM EDT Clinical Support [facility] [place] [address] Kortney Wang, JUAN Encounter for immunization 04/15/2025 Travel 04/12/2025 Refill [facility] [place] [address] Tracey Maciel CNP Tobacco use 04/12/2025 Refill [facility] [place] [address] Kayden Villavicencio MD Chronic pain of both knees; Tobacco use 04/12/2025 Travel 03/20/2025 1:45 PM EDT Office Visit [facility] [place] [address] Kayden Villavicencio MD Type 2 diabetes mellitus with other specified complication, without long-term current use of insulin ([facility]) (Primary Dx); Benign essential hypertension; Stage 3a chronic kidney disease ([facility]); Hypercholesterolemia ; Mild intermittent asthma, unspecified whether complicated; Chronic low back pain without sciatica, unspecified back pain laterality 03/20/2025 Travel 03/19/2025 Telephone [facility] [address] [place] [address] Name, MD Kayden Chart Prep from Last 3 Months Immunizations [...] Sign Reading Time Taken Comments Blood Pressure 132/68 04/24/2025 3:57 PM EDT Pulse 76 04/24/2025 3:57 PM EDT Temperature 36.8 C (98.3 F) 04/24/2025 3:57 PM EDT Respiratory Rate 14 04/24/2025 3:57 PM EDT Oxygen Saturation 96% 04/24/2025 3:57 PM EDT Inhaled Oxygen Concentration - - Weight 91.6 kg (202 lb) 04/24/2025 3:57 PM EDT Height 162.6 cm (5' 4 ) 04/24/2025 3:57 PM EDT Body Mass Index 34.67 04/24/2025 3:57 PM EDT Plan of Treatment Upcoming Encounters Date Type Department Care Team (Late st Contact Info) Description 06/26/2025 9:00 AM EST Office Visit [facility] [address] [place] [address] Name, MD Kayden [address] [place] [address] Health Maintenance Due Date Last Done Comments Zoster Vaccines (1 of 2) 1996 RSV Patients and Patients Aged 60 years or older (1 - 1-dose 75+ series) 2021 Diabetes: Urine Protein Screening 01/29/2025 01/30/2024, 06/12/2022, 09/26/2021, Additional history exists COVID-19 Vaccine ( season) 2025 08/14/2023, 06/21/2022, 06/21/2022, Additional history exists Diabetes: Hemoglobin A1C 09/17/2025 025, 05/13/2024, 10/30/2023, Additional history exists Alcohol/Substance Use Screening 03/20/2026 03/20/2025 Diabetes: Foot Exam 03/20/2026 03/20/2025, 03/20/2025, 03/20/2025, Additional history exists Depression Screening 04/24/2026 04/24/2025, 04/24/20 25 SDOH Screening 04/24/2026 04/24/2025 Tobacco Screening 04/24/2026 04/24/2025 Lipid Panel 04/28/2026 04/28/2025, 07/01/2024, 11/30/2022, Additional history exists Eye Exam 04/22/2027 04/22/2025, 03/17, 02/25/2009, Additional history exists DTaP/Tdap/Td Vaccines (5 - Td or Tdap) [...] URINALYSIS, COMPLETE, WITH REFLEX TO CULTURE Routine 04/28/2025 11:45 AM EDT TSH Routine 04/28/2025 8:18 AM EDT Muscle ache CREATINE KINASE, TOTAL Routine 8:18 AM EDT Muscle ache HEPATIC FUNCTION PANEL Routine 8:18 AM EDT Muscle ache COMPREHENSIVE METABOLIC PANEL Routine 04/28/2025 8:18 AM EDT Hypercholesterolemi a LIPID PANEL, STANDARD Routine 04/28/2025 8:18 AM EDT Type 2 diabetes mellitus with other specified complication, without long-term current use of insulin (HCC) DIABETES EYE EXAM Routine 04/22/2025 GLUCOSE, WHOLE BLOOD Routine 04/18/2025 12:[address] ABDOMEN PELVIS WO CONTRAST Routine 04/18/2025 1:07 AM EDT COMPREHENSIVE METABOLIC PANEL Routine 04/17/2025 11:31 PM EDT URINALYSIS, COMPLETE, WITH REFLEX TO CULTURE Routine 04/17/2025 11:31 PM EDT CBC WITH AUTO DIFFERENTIAL Routine 04/17/2025 11:31 PM EDT POCT GLYCATED HEMOGLOBIN, TOTAL Routine 03/20/2025 1:55 PM EDT Type 2 diabetes mellitus with other specified complication, without long-term current use of insulin (CMS/HCC) POCT GLUCOSE Routine 03/20/2025 1:52 PM EDT Type 2 diabetes mellitus with other specified complication, without long-term current use of insulin (CMS/HCC) ALBUMIN, RANDOM URINE W/CREATININE Routine 01/30/2024 8:30 AM EDT Type 2 diabetes mellitus with other specified complication, without long-term current use of insulin (CMS/HCC) Benign essential hypertension Chronic low back pain without sciatica, unspecified back pain laterality COLONOSCOPY Routine 04/17/2022 ZZZ HISTORICAL HEPATITIS C AB W/REFL TO HCV RNA, QN, PCR Routine 09/26/2021 8:45 AM EDT from Last 3 Months or Most Recently Relevant to Health Maintenance Results * (ABNORMAL) Urinalysis, Complete, with Reflex to Culture (04/28/2025 11:45 AM EDT) Only the most recent of2 resultswithin the time period is included. Color Urine Yellow [facility] Appearance Urine Clear [facility] PH 7.0 5.0 - 9.0 [facility] Glucose Urine UA Negative Negative mg/dL [facility] Urine Blood Negative Negative [facility] Specific [place] - Urine 1.015 1.005 - 1.025 [facility] Urine Protein 30 (1+)(A) Neg-Trace mg/dL [facility] Urine Ketones Negative Negative mg/dL [facility] Nitrite Urine Negative Negative [facility] Leukocyte Esterase Urine Negative Negative [facility] RBC Urine 0-2 0 - 2 /HPF [facility] Urine WBC 0-5 0 - 5 /HPF [facility] Urine Squamous Epithelial Cell 0-2 0 - 2 /HPF [facility] Urine Bacteria None Seen None Seen [facility] Hyaline Casts, Urine 0-2 0 - 2 /LPF [facility] 04/28/2025 11:4 5 AM EDT 04/28/2025 12:53 PM EDT Narrative [facility] - 04/28/2025 1:27 PM EDT Urine, Clean Catch us Sera Cuevas DRUG SAFETY SPECIALIST LAB URINE ORDERABLES Final Resul t Performing Organization Address City/[facility]/ZIP Co de Phone Number [facility] [address] [place] [address] [phone] * TSH (04/28/2025 8:18 AM EDT) Thyroid Stimulating Hormone 1.84 0.32 - 4.0 uIU/mL [facility] Comment:TSH 3rd Generation ( [employer]) Blood Venous blood specimen / Unknown 04/28/2025 8:18 AM EDT 04/28/2025 11:35 AM EDT us Sera Cuevas DRUG SAFETY SPECIALIST LAB BLOOD ORDERABLES Final Resul t [facility] [address] [place] [address] [phone] * Creatine Kinase, Total (04/28/2025 8:18 AM EDT) Pathologist [facility] Creatine Kinase Total 52 38 - 174 U/L [facility] Blood Venous blood specimen / Unknown 04/28/2025 8:18 AM EDT 04/28/2025 11:35 AM EDT Sera Cuevas DRUG SAFETY SPECIALIST LAB BLOOD ORDERABLES Final Resul t Performing Organization Address [facility] Co de Phone Number [facility] [address] [place] [address] [phone] * Hepatic Function Panel (04/28/2025 8:18 AM EDT) Pathologist [facility] Bilirubin, Direct 0.2 0.0 - 0.5 mg/dL [facility] Blood Venous blood specimen / Unknown 04/28/2025 8:18 AM EDT 04/28/2025 11:35 AM EDT us Sera Cuevas DRUG SAFETY SPECIALIST LAB BLOOD ORDERABLES Final Resul t Performing Organization Address [facility] Phone Number [facility] [address] [place] [address] [phone] * (ABNORMAL) Lipid Panel, Standard (04/28/2025 8:18 AM EDT) Pathologist [facility] Triglycerides 176(H) <150 mg/dL [facility] Comment:Desirable Triglyceri de: less than 150 mg/dLBorderline High Triglyceride 150-199 mg/dLHigh Triglyceride: 200-499 mg/dLVery High Triglyceride: greater than or equal to 5OO mg/dL Cholesterol 180 <200 mg/dL [facility] Comment:Desirable Cholestero l: less than 200 mg/dLBorderline High Cholesterol: 200-239 mg/dLHigh Cholesterol: greater than 239 mg/dL LDL Cholesterol Calculated 99 <100 mg/dL [facility] Comment:Desirable LDL: less than 100 mg/dLNear Optimal/Above Optimal LDL: 110- 129 mg/dLBorderline High LDL: 130-159 mg/dLHigh LDL: 160-189 mg/dLVery High LDL: greater than or equal to 190 mg/dL HDL Cholesterol 46 >40 mg/dL [facility] Comment:Desirable HDL: great er than 40 mg/dL Note: This HDL assay may give artificially low results in patients with liver disease. Blood Venous blood specimen / Unknown 04/28/2025 8:18 AM EDT 04/28/2025 11:35 AM EDT us Kayden Name MD LAB BLOOD ORDERABLES Final Resul t [facility] [address] [place] [phone] * (ABNORMAL) Comprehensive Metabolic Panel (04/28/2025 8:18 AM EDT) Only the most recent of2 resultswithin the time period is included. Sodium 138 135 - 145 mmol/L [facility] Potassium 4.5 3.3 - 5.1 mmol/L [facility] Chloride 105 96 - 108 mmol/L [facility] Carbon Dioxide 24 22 - 29 mmol/L [facility] Anion Gap 14 12 - 20 [facility] Urea Nitrogen (BUN) 17(H) 9 - 16 mg/dL [facility] Creatinine, Serum 1.24 0.5 - 1.4 mg/dL [facility] Estimated Glomerular Filt Rate 56 [facility] Comment:Chronic Kidney Disea se: Estimated GFR < 60 mL/min/1.94n6Vrhxln Kidney Disease: Estimated GFR < 15 mL/min/1.73m2 Glucose 125(H) 60 - 115 mg/dL [facility] Calcium 9.8 8.4 - 10.2 mg/dL [facility] Bilirubin, Total 0.5 0.0 - 1.0 mg/dL [facility] Aspartate Amino Transferase 18 5 - 37 U/L [facility] Alanine Aminotransferase 17 0 - 40 U/L [facility] Total Protein 6.9 6.5 - 8.0 g/dL [facility] Albumin Level 4.2 3.5 - 5.0 g/dL [facility] Alkaline Phosphatase 63 39 - 117 U/L [facility] Blood Venous blood specimen / Unknown 04/28/2025 8:18 AM EDT 04/28/2025 11:35 AM EDT us Kayden Villavicencio MD LAB BLOOD ORDERABLES Final Resul t Performing Organization Address [facility] de Phone Number [facility] [address] [place] [address] [phone] * Diabetes Eye Exam (04/22/2025) Eye Exam Normal Normal Comment:no retinopathy Kayden Villavicencio MD HEALTH MAINTENANCE Final Result * (ABNORMAL) Glucose, Whole Blood (04/18/2025 12:03 PM EDT) Glucose, Whole Blood 271(H) 60 - 115 mg/dL [facility] Comment:METER #: [id number] 04/18/2025 12:0 3 PM EDT 04/18/2025 12:06 PM EDT Generic External Data Provider LAB BLOOD ORDERAB LES Final Result Performing Organization Address [facility] de Phone Number [facility] [address] [place] [phone] * CT Abdomen Pelvis w/o Contrast (04/18/2025 1:07 AM EDT) Anatomical Region Laterality Modality Body, Pelvis, Abdomen Computed T omography 04/18/2025 1:07 AM EDT Narrative 04/18/2025 1:08 AM EDT [address] [address] [address] Scan Report Signed Patient: Juan Alberto Rowe MR#: [id number] : 1945 Acct:[id number] Age/Sex: 79 / M ADM Date: 04/17/25 Loc: HO.ED Attending Dr: Ordering Physician: Lisette Teixeira Date of Service: 04/17/25 Procedure(s): CT abdomen pelvis wo IV con Accession Number(s): [id number] cc: Name,Kayden PITTMAN; Lisette Teixeira Report Number: [id number]: Total DLP = 636.00 mGy-cm Reason for Exam: left flank pain CLINICAL HISTORY: left flank pain CT abdomen and pelvis without contrast Comparison: CT/SR - CT ABDOMEN PELVIS WO IV CON - 08/08/24 01:18 EST Findings: The lung bases are clear. Spleen is normal. Noncontrasted liver is normal. Gallbladder is normal. Pancreas is atrophic. The right kidney demonstrates multiple exophytic renal cysts. No nephrolithiasis or hydronephrosis. There is a left lower pole exophytic soft tissue density 21 mm mass which may represent neoplasm or hemorrhagic cyst. The left kidney demonstrates multiple exophytic low-density lesions. There are left upper pole lesions measuring 39 mm, 15 mm. There is an interpolar low-density lesion measuring 34 mm. There is a dilated extrarenal pelvis and left lower pole low-density lesion measuring 11.6 cm. There are coarse septations at the inferior aspect of this lesion. The adrenal glands are normal. No hydronephrosis or hydroureter. Bladder is decompressed. No masses of the ureterovesicular junction. Colon demonstrates multiple diverticuli without evidence of diverticulitis within the ascending, transverse, descending, and sigmoid colon. Rectum is normal. Multilevel degenerative disc disease is present with bridging syndesmophytes in the lower thoracic spine. No acute fracture. IMPRESSION: No evidence of renal lithiasis or ureteral lithiasis. Multiple exophytic low-density renal lesions. Largest left lesion is greater than 11 cm. Right lower pole soft tissue density mass may be further evaluated with outpatient renal ultrasound or MRI abdomen. Size is unchanged upon comparison to 08/08/2024 This document has been electronically signed by: Avel Marcus III, MD PHD on 04/18/2025 01:07:12 Dictated By: Avel Marcus MD Signed By: <Electronically signed by Avel Marcus MD in OV> 04/18/25106 DD/ 6 TD/TT: 04/18/25106 Electrolysis Investigator: Procedure Note [place], Image - 04/18/[address] [address] [address] Scan Report Signed Patient: Juan Alberto RoweMR#: [id number] : 7Acct:[id number] Age/Sex: 79 / MADM Date: 04/17/25 Loc: HO.ED Attending Dr: Ordering Physician: Lisette Teixeira Date of Service: 04/17/25 Procedure(s): CT abdomen pelvis wo IV con Accession Number(s): [id number] cc: Name,Kayden PITTMAN; Lisette Teixeira Report Number: [id number]: Total DLP = 636.00 mGy-cm Reason for Exam: left flank pain CLINICAL HISTORY: left flank pain CT abdomen and pelvis without contrast Comparison: CT/SR - CT ABDOMEN PELVIS WO IV CON - 08/08/24 01:18 EST Findings: The lung bases are clear. Spleen is normal. Noncontrasted liver is normal. Gallbladder is normal. Pancreas is atrophic. The right kidney demonstrates multiple exophytic renal cysts. No nephrolithiasis or hydronephrosis. There is a left lower pole exophytic soft tissue density 21 mm mass which may represent neoplasm or hemorrhagic cyst. The left kidney demonstrates multiple exophytic low-density lesions. There are left upper pole lesions measuring 39 mm, 15 mm. There is an interpolar low-density lesion measuring 34 mm. There is a dilated extrarenal pelvis and left lower pole low-density lesion measuring 11.6 cm. There are coarse septations at the inferior aspect of this lesion. The adrenal glands are normal. No hydronephrosis or hydroureter. Bladder is decompressed. No masses of the ureterovesicular junction. Colon demonstrates multiple diverticuli without evidence of diverticulitis within the ascending, transverse, descending, and sigmoid colon. Rectum is normal. Multilevel degenerative disc disease is present with bridging syndesmophytes in the lower thoracic spine. No acute fracture. IMPRESSION: No evidence of renal lithiasis or ureteral lithiasis. Multiple exophytic low-density renal lesions. Largest left lesion is greater than 11 cm. Right lower pole soft tissue density mass may be further evaluated with outpatient renal ultrasound or MRI abdomen. Size is unchanged upon comparison to 08/08/2024 This document has been electronically signed by: Avel Marcus III, MD PHD on 04/18/2025 01:07:12 Dictated By: Avel Marcus MD Signed By: <Electronically signed by Avel Marcus MD in OV> 04/18/25106 DD/ 6 TD/TT: 04/18/25106 Electrolysis Investigator: [facility] External Provider IMG CT PROCEDURES Edited Result - Final * (ABNORMAL) CBC auto differential (04/17/2025 11:31 PM EDT) White Blood Count 10.3 4.8 - 10.8 X10*3/uL [facility] Red Blood Count 4.63 4.60 - 5.80 X10*6/uL [facility] Hemoglobin 12.6(L) 14.0 - 18.0 g/dl [facility] Hematocrit 37.4(L) 42.0 - 52.0 % [facility] Mean Corpuscular Volume 80.8 80.0 - 98.0 fL [facility] Mean Corpuscular Hemoglobin 27.2 27.0 - 33.0 pg [facility] Mean Corpuscular HGB Conc 33.7 31.0 - 36.0 g/dl [facility] Red Cell Distribution Width 15.0 11.0 - 16.0 % [facility] Platelet Count 309 160 - 400 X10*3/uL [facility] Mean Platelet Volume 8.8(L) 9.4 - 12.4 fL [facility] Neutrophils Percent Auto 67.5 45 - 73 % [facility] Imm Gran Pct Auto 0.5(H) 0.0 - 0.4 % [facility] Lymphocytes Percent Auto 18.6(L) 20 - 40 % [facility] Monocytes Percent Auto 8.6 2 - 11 % [facility] Eosinophils Percent Auto 3.3 0 - 4 % [facility] Basophils Percent Auto 1.5 0 - 2 % [facility] NRBC Pct Auto 0.0 0.0 - 0.2 /100WBC [facility] Neutrophils Absolute Auto 6.9 2.0 - 8.3 x10*3/uL [facility] Imm Gran Abs Auto 0.05(H) 0.00 - 0.03 X10*3/uL [facility] Lymphocytes Absolute Auto 1.9 1.2 - 4.9 X10*3/uL [facility] Monocytes Absolute Auto 0.9 0.1 - 1.2 X10*3/uL [facility] Eosinophils Absolute Auto 0.3 0.0 - 0.4 X10*3/uL [facility] Basophils Absolute Auto 0.2 0.0 - 0.2 X10*3/uL [facility] NRBC Abs Auto 0.000 0.0 - 0.012 X10*3/uL [facility] 04/17/2025 11:3 1 PM EDT 04/17/2025 11:35 PM EDT us Generic External Data Provider LAB BLOOD ORDERAB LES Final Result [facility] [address] [place] [phone] * (ABNORMAL) POCT Hgb A1c (03/20/2025 1:55 PM EDT) Hemoglobin A1C 6.3(A) 4.0 - 5.7 % QC Media Lot # [id number] Lot# Expiration Date 72 Blood 03/20/2025 1:55 PM EDT us Kayden Name POINT OF CARE TEST ENTER/EDIT OR DERABLES Final Result * (ABNORMAL) POCT Glucose (03/20/2025 1:52 PM EDT) [facility] Glucose Blood, POC 221(A) 60 - 200 mg/dL QC Media Lot # [id number] Lot# Expiration Date Blood Capillary blood specimen / Unknown 03/20/2025 1:52 PM EDT us Kayden Villavicencio MD POINT OF CARE TEST ENTER/EDIT OR DERABLES Final Result * (ABNORMAL) Albumin, Random Urine W/Creatinine (01/30/2024 8:30 AM EDT) [facility] Creatinine, Urine 103.25 mg/dL [facility] Microalbumin Urine 82.0 mg/L [facility] Microalbum Creatinine Ratio Ur 79.4(H) <30 ug/mg cr [facility] Comment:Albumin/Creatinine R atio Reference Ranges: Normal: < 30 ug/mg creatinine Microalbuminuria: 30 - 300 ug/mg creatinineClinical Albuminuria: > 300 ug/mg creatinine Urine (Urine, Random) 01/30/2024 8:30 AM EDT 01/30/2024 9:01 AM EDT us Kayden Villavicencio MD LAB URINE ORDERABLES Final Resul t [facility] [address] [place] [address] [phone] * Colonoscopy (04/17/2022) [facility] Colonoscopy performed [facility] Provider HEALTH MAINTENANCE Final Result * HEPATITIS C AB W/REFL TO HCV RNA, QN, PCR (09/26/2021 8:45 AM EDT) [facility] HEPATITIS C ANTIBODY NON-REACT JUAN NON-REACT JUAN [facility] INDEX 0.01 <1.00 [facility] Comment: HCV antibody was non-reactive. There is no laboratory evidence of HCV infection. In most cases, no further action is required. However, if recent HCV exposure is suspected, a test for HCV RNA (test code 48308) is suggested. For additional information please refer to http://education.Sunible.Eat/faq/DEM84z0 (This link is being provided for informational/ educational purposes only.) 09/26/2021 8:45 AM EDT us Kayden Villavicencio MD HISTORICAL/NON ORDERABLE LABS Fi nal Result Performing Organization Address City/State/[facility] Co de Phone Number [facility] [address] from Last 3 Months or Most Recently Relevant to Health Maintenance Insurance [employer] MEDICARE ADVANTAGE HMO Care Teams Military Cook Relationship Specialty Start Date End Date Name, MD Kayden [address] [place] [phone] PCP - General Family Medicine 08/23/15
--- OUTSIDE RECORDS SUMMARY | 2025-05-27 07:59 | XMS_ITS | Encounter Summary ---
Author Organization [facility] Address [address] [place] [address] Care Team Providers Care Riveter Name Role Phone Name, Kayden PITTMAN Primary Care Provider [phone] Encounter Details Date Type Department Care Team (Late st Contact Info) Description 09/30/2024 Lab Requisition [facility] - Main Lab [address] [facility] [place] [address] Evin Sagastume MD [address] [facility] [address] [place], [place] [phone] Gross hematuria Social History Tobacco Use Types [...] AM EDT) Final Diagnosis A. Urine, Voided, ([id number]): ATYPICAL UROTHELIAL CELLS. 10/01/2024 11:[address] [facility] Clinical Information Gross hematuria R31.0 Urine Cytology 10/01/2024 11:[address] [facility] Gross Description A. Urine, Voided, ([id number]): Received one ThinPrep slide for cytology. 10/01/2024 11:[address] [facility] Disclaimer Unless otherwise specified, all tissue is 10% NB formalin fixed and paraffin embedded. Technical pathology services provided by [facility] [address] [facility] [address] [place] [address] (CLIA #[id number]/S evelio Alcaraz MD, Chemical Maker) 10/01/2024 11:[address] [facility] Tissue Urine specimen from urethra / Unknown 09/26/2024 09/30/2024 1:13 PM EDT us Evin Sagastume MD LAB PATHOLOGY ORDERABLES Fi nal Result [facility] [address] [place] [address], documented in this encounter Visit Diagnoses Diagnosis Gross hematuria documented in this encounter Care Teams Riveter Relationship Specialty Start Date End Date Name, MD Kayden [address] [place], [place] PCP - General Internal Medicine 05/25/11 documented as of this encounter
--- OUTSIDE RECORDS SUMMARY | 2025-05-27 07:59 | XMS_ITS | Encounter Summary ---
Author Organization [employer] Address [address] [place] [address] 7 [place] [address] Care Team Providers Care Traveling Secretary Name Role Phone Name, Kayden PITTMAN Primary Care Provider [phone] Encounter Details Date Type Department Care Team (Late st Contact Info) Description 10/06/2022 Abstract [facility] [address] [place] [address] [phone] Name, MD Kayden [address] [place] [address] [phone] Social History Tobacco Use Types Packs/Day Years [...] Description 06/26/2025 9:00 AM EST Office Visit [facility] [address] [place] [address] [phone] Name, MD Kayden [address] [place] [address] [phone] documented as of this encounter Visit Diagnoses Not on filedocumented in this encounter Care Teams Traveling Secretary Relationship Specialty Start Date End Date Name, MD Kayden [address] [place] [address] PCP - General Family Medicine 08/23/15 documented as of this encounter
== END 2025-05-27 07:57 | disposition home or self-care (01) ==
LOC: HO.MRI 07:56
PROVIDERS: PCP Internal Medicine Geriatric Medicine; Visit Provider Nurse Practitioner Family
DX: M54.50 Low back pain, unspecified (principal)
CPT/HCPCS: 72148

== ENCOUNTER → 2025-05-27 08:02 | Outpatient (BNV) | payer MEDICARE, SELFPAY | PROVIDERS: PCP Internal Medicine Geriatric Medicine; Visit Provider Radiology Diagnostic Radiology | DX: M54.9 Dorsalgia, unspecified (principal); Z85.46 Personal history of malignant neoplasm of prostate | CPT/HCPCS: 72148 ==

== ENCOUNTER 2025-06-01 13:23 | Outpatient (AMB) | payer MEDICARE, SELFPAY ==
--- NOTE | 2025-06-01 13:36 | HO.SPINEOV ---
Intake Visit Reasons: LBP Intake Note: Mr. Maciej Huffman is here today c/o low back pain. MRI done @ [facility]. Headlight Assembler Required: No Allergies Iodinated Contrast Media (IV CONTRAST) Allergy (Severe, Verified 04/17/25 21:25) ANAPHYLAXIS Assessment & Plan Assessment & Plan (1) Back pain: Code(s): M54.9 - Dorsalgia, unspecified Category: Medical Plan Dear Dr Villavicencio, Thank you for referring Mr Wing to our office today. This is a very nice 79-year-old gentleman who was in the emergency room on April for an acute flare-up of back pain on the left side. His who is here with him today reports that he was incapacitated for number of days. He was in the emergency room and was given some fairly powerful medications, but ultimately Toradol seemed to help the best. The pain has deescalated quite a bit. He is now just on methocarbamol and some qkct-iju-yuabwca medications. He is here today to follow up on an MRI which showed some degenerative disc disease and stenosis. PMH: Hernia surgery, gastric surgery, prostate surgery, appendectomy, renal cysts, chronic kidney disease, diverticulosis, hypertension diabetes Social hx: Smokes 4 cigars a day, no alcohol or drug use Medications: Please see the Exchangery list included with this dictation Allergies: IV contrast Physical exam: Awake alert oriented no acute distress, able to stand up on his own, localizes his pain over the left SI joint region. Motor exam reveals no focal deficits, reflexes diminished at the patella. Imaging review: Lumbar MRI shows no signs of acute fracture or disc herniation. There is no subluxation. He has some mild disc degeneration at L4-5 with mild lateral recess narrowing. Impression: 79 year old gentleman who was following up after an MRI that was done when he had a flare-up of acute left back pain back in April. The pain seems to have deescalated quite a bit and he is now just taking methocarbamol and I believe some Tylenol. He has very comfortable here in the office in no distress. His MRI did not show anything acute so I suspect that was muscular. Most of this will just go away with time. In fact he has very mild disc degeneration for gentleman of his age so I would consider him rohit in that sense. I did offer him the option of going to PT if he would like just to work out some of the kinks. At this time he would prefer not to do that and just continue to let it get better on its own. Thank you for allowing us to care for your patient. The total time spent with this visit with this patient was[] minutes reviewing history, physical exam, [] imaging review, and implementation of treatment plan or further diagnostic testing Anjel Cruz MD,PhD [facility] Coding Level of Care Code New Pt Level 4 (87233) Diagnoses Back pain M54.9
--- OUTSIDE RECORDS SUMMARY | 2025-06-02 02:19 | XMS_ITS | Clinical Summary ---
Author Organization [facility] Address [address] [place] [phone] Phone Care Team Providers Care Client Technical Professional Name Role Phone Name, Kayden PITTMAN Primary Care Provider [phone] Social History Tobacco Use Types Packs/Day Years [...] patient's age to complete this topic Insurance [facility] MEDICARE MEDICARE Care Teams Client Technical Professional Relationship Specialty Start Date End Date Name, MD Kayden [address] [place], [place] PCP - General Internal Medicine 05/25/11
--- OUTSIDE RECORDS SUMMARY | 2025-06-02 02:20 | XMS_ITS | Encounter Summary ---
Author Organization [facility] Address [address] [place] [address] Care Team Providers Care College Or University Faculty Member Name Role Phone Name, Kayden PITTMAN Primary Care Provider [phone] Encounter Details Date Type Department Care Team (Late st Contact Info) Description 11/04/2024 Lab Requisition [facility] - Main Lab [address] [facility] [place] [address] Evin Sagastume MD [address] [facility] [address] [place] [address] Gross hematuria Social History Tobacco Use Types [...] AM EDT) Final Diagnosis A. Urine, Voided, ([id number]): Negative for high grade urothelial carcinoma. Results of UroVysion fluorescence in situ hybridization (FISH) testing: CEP3: Normal CEP7: Normal CEP17: Normal LSI 9p21: Normal Interpretation: Normal profile Controls stained appropriately. Note: The results are intended as a screening device and should be interpreted in association with other clinical and pathological findings. 11/14/2024 12:25 PM EDT [facility] Clinical Information Gross hematuria R31.0 Urine Cytology/FISH (now) 11/14/2024 12:25 PM EDT [facility] Gross Description A. Urine, Voided, ([id number]): Received one ThinPrep slide for cytology and one ThinPrep slide for UroVysion FISH 11/14/2024 12:25 PM EDT [facility] Disclaimer Unless otherwise specified, all tissue is 10% NB formalin fixed and paraffin embedded. Technical pathology services provided by [facility] at [address], [place] [address] (CLIA #[id number]/Constance Alcaraz MD, Supervising Airplane Pilot) 11/14/2024 12:25 PM EDT [facility] Tissue Urine specimen from urethra / Unknown 10/31/2024 11/04/2024 2:04 PM EDT us Evin Sagastume MD LAB PATHOLOGY ORDERABLES Fi nal Result [facility] [address] [place] [address], documented in this encounter Visit Diagnoses Diagnosis Gross hematuria documented in this encounter Care Teams College Or University Faculty Member Relationship Specialty Start Date End Date Name, MD Kayden [address] [place], [place] PCP - General Internal Medicine 05/25/11 documented as of this encounter
--- OUTSIDE RECORDS SUMMARY | 2025-06-02 02:20 | XMS_ITS | Encounter Summary ---
Author Organization [facility] Address [address] [place] [address] Care Team Providers Care Ux Consultant Name Role Phone Name, Kayden PITTMAN Primary Care Provider [phone] Encounter Details Date Type Department Care Team (Late st Contact Info) Description 09/30/2024 Lab Requisition [facility] - Main Lab [address] [facility] [place] [address] Evin Sagastume MD [address] [facility] [address] [place], [place] [phone] Gross hematuria Social History Tobacco Use Types [...] AM EDT) Final Diagnosis A. Urine, Voided, ([id number]): ATYPICAL UROTHELIAL CELLS. 10/01/2024 11:38 AM EDT [facility] Clinical Information Gross hematuria R31.0 Urine Cytology 10/01/2024 11:38 AM EDT [facility] Gross Description A. Urine, Voided, ([id number]): Received one ThinPrep slide for cytology. 10/01/2024 11:38 AM EDT [facility] Disclaimer Unless otherwise specified, all tissue is 10% NB formalin fixed and paraffin embedded. Technical pathology services provided by [facility] at [address] [facility] [address] [place] [address] (CLIA #[id number]/S evelio Alcaraz MD, Chip Mucker) 10/01/2024 11:38 AM EDT [facility] Tissue Urine specimen from urethra / Unknown 09/26/2024 09/30/2024 1:13 PM EDT us Evin Sagastume MD LAB PATHOLOGY ORDERABLES Fi nal Result [facility] [address] [place] [address], documented in this encounter Visit Diagnoses Diagnosis Gross hematuria documented in this encounter Care Teams Ux Consultant Relationship Specialty Start Date End Date Name, MD Kayden [address] [place], [place] PCP - General Internal Medicine 05/25/11 documented as of this encounter
--- OUTSIDE RECORDS SUMMARY | 2025-06-02 02:21 | XMS_ITS | Encounter Summary ---
Author Organization [facility] Address [address] [place] [address] Care Team Providers Care Slurry Mixer Name Role Phone Name, Kayden PITTMAN Primary Care Provider [phone] Encounter Details Date Type Department Care Team (Late st Contact Info) Description 08/26/2024 Lab Requisition [facility] - Main Lab [address] [facility] [place] [address] Juan R Katz PA [address] [place] [address] Gross hematuria Social History Tobacco [...] and pathological findings. 09/09/2024 10:41 AM EST [facility] Addendum electronically signed by Rishabh Odonnell MD on 09/09/2024 at 10:41 AM Final Diagnosis Urine, Voided, ([id number]): Atypical urothelial cells. Note: Based upon the cytologic findings, UroVysion testing will be performed, the result to follow in an addendum. 09/09/2024 10:41 AM [facility] Clinical Information Gross hematuria R31.0 Urine cytology with reflex UroVysion ([facility]) 09/09/2024 10:41 AM [facility] Gross Description A. Urine, Voided, ([id number]): Received one ThinPrep slide for cytology. 09/09/2024 10:41 AM [facility] Disclaimer Unless otherwise specified, all tissue is 10% NB formalin fixed and paraffin embedded. Technical pathology services provided by [facility] at [address], [place] [address] (CLIA #[id number]/Constance Alcaraz MD, Metal Cutter) 09/09/2024 10:41 AM [facility] Tissue Urine specimen from urethra / Unknown 08/20/2024 08/26/2024 8:41 AM EST us Juan R LINDA LAB PATHOLOGY ORDERAB LES Edited Result - Final [facility] [address] [place] [address], documented in this encounter Visit Diagnoses Diagnosis Gross hematuria documented in this encounter Care Teams Slurry Mixer Relationship Specialty Start Date End Date Name, MD Kayden [address] [place] [address] PCP - General Internal Medicine 05/25/11 documented as of this encounter
== END 2025-06-01 13:48 | disposition home or self-care (01) ==
LOC: HO.HNS 13:23
PROVIDERS: PCP Internal Medicine Geriatric Medicine; Visit Provider Physician Assistant
DX: M54.9 Dorsalgia, unspecified (principal)
CPT/HCPCS: 99204

== ENCOUNTER → 2025-06-01 13:23 | Outpatient (BNVA) | payer MEDICARE, SELFPAY | PROVIDERS: PCP Internal Medicine Geriatric Medicine; Visit Provider Physician Assistant | DX: M54.9 Dorsalgia, unspecified (principal) | CPT/HCPCS: 99202 ==

== ENCOUNTER 2025-06-22 10:57 | Outpatient (AMB) | payer MEDICARE, SELFPAY ==
[2025-06-22 11:00] VITALS: BP 144/70; PULSE 88; O2SAT 96; BMI 34.2
--- NOTE | 2025-06-22 11:00 | HO.NEPHOV ---
Vital Signs 06/22/25 11:00 06/22/25 11:12 Height 5 ft 4 in Weight 199 lb BMI 34.2 BP 144/70 H 130/70 Blood Pressure Location Lt brachial Lt brachial Position Sitting Sitting Pulse 88 Pulse Source Pulse Oximeter Pulse Oximetry (%) 96 Oxygen Delivery Method Room Air Intake Visit Reasons: 4mon f/u-Conf Client Technologies Specialist Required: No Accompanied by: Spouse Allergies Iodinated Contrast Media (IV CONTRAST) Allergy (Severe, Verified 06/22/25 11:02) ANAPHYLAXIS Medication List - Last Reconciled 06/22/25 by Dinesh Grullon MD albuterol sulfate 90 mcg/actuation (Ventolin HFA) 2 puffs inhalation Q4H PRN amlodipine 10 mg PO DAILY baclofen 2.5 mg PO BID PRN docusate sodium (Stool Softener) 100 mg PO DAILY ezetimibe 10 mg PO DAILY leuprolide acetate (6 month) (Eligard) 45 mg subcut [id number] loratadine (Allergy Relief (loratadine)) 10 mg PO DAILY losartan 50 mg PO DAILY metformin 500 mg PO BIDWM methocarbamol 500 mg PO DAILY rmioftpkzbku-soveoxgh-slaitz 1 tab PO DAILY HPI Comments Details: 78-year-old man with a history of prostate cancer status post radiation and hypertension has been referred for chronic kidney disease. Baseline serum creatinine is probably around 1.23 mg/dL as of 02/02/2024. In June of 2024 he had UTI. He was treated with Bactrim. Serum creatinine bumped up to 1.45 mg/dL. After discontinuing Bactrim creatinine decreased to 1.34 mg/dL. With the corresponding EGFR of 52 mL/minute. Has a history of multiple renal cyst bilaterally. The findings were reportedly unchanged since 2019. As well prostate cancer he was follow up with [facility]. History of radical prostatectomy in 2007. Status post radiation therapy in 2016. He had complication with hemorrhagic radiation cystitis. He has waiting for a cystoscopy in September/2024. History of significant osteoarthritis History of GI bleed status post endoscopy in the past 10/29/24 Had cough and treated with Prednisone Seen by Urology and underwent cystoscopy. 02/23/25 c/o dysuria NO fever He consumes excessive amounts of home made hot sauce - jalepenos and Habeneros ! 06/22/25 The patient is a 79 year old male presenting for management of chronic kidney disease. He recently experienced a back problem which required ambulance transport to the hospital. An MRI was reviewed, and the issue was noted to be muscular in origin, though he continues to have back irritation. His chronic kidney disease is stable, and he is also being monitored for tachycardia. He also reports having had a cold-like illness that lasted for over a week. [facility] Medical History Diverticulosis Diabetes HTN (hypertension) Prostate CA Surgical History History of urologic surgery Hx of colonoscopy Hx of appendectomy Hx of testicular mass Hx of umbilical hernia repair History of prostate surgery Family History Mother Bone cancer Father Diabetes Social History Household Members: Spouse Alcohol intake: current Alcohol intake frequency: holidays/special occasions only Patient Tobacco Use Status: Current everyday Tobacco user Tobacco use type: Cigar Physical Exam Vital Signs: Last Vital Signs Pulse 88 06/22/25 11:00 BP 130/70 06/22/25 11:12 Pulse Ox 96 06/22/25 11:00 Oxygen Delivery Method Room Air 06/22/25 11:00 BMI result Body Mass Index 34.2 Results Reviewed Results Reviewed: CT scan in 07/04/2024 Mild bibasilar atelectasis. Mild cardiomegaly with multi chamber enlargement of the imaged heart. 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 Redemonstration of multiple cystic lesions of the left kidney with largest exophytic measuring 12 cm long axis (previously 11 cm). No hydronephrosis accounting for multiple parapelvic cysts, left worse than right. These lesions in the kidneys not further characterize without contrast. No obstructing stone in either kidney or either ureter. 06/22/25 MRI Multilevel lumbar spondylosis pronounced at L4-5 and L3-4 levels encroaching the neural elements at L4-5. Complex likely hemorrhagic cystic lesions both kidneys. No acute fracture or listhesis. No gross osseous metastasis. Nephrology Results: Hgb, (14.0-18.0) 12.6 g/dl L 04/17/25 WBC, (4.8-10.8) 10.3 X10*3/uL 04/17/25 Plt Count, (160-400) 309 X10*3/uL 04/17/25 Sodium, (135-145) 138 mmol/L 04/28/25 Potassium, (3.3-5.1) 4.5 mmol/L 04/28/25 Chloride, (96-108) 105 mmol/L 04/28/25 Carbon Dioxide, (22-29) 24 mmol/L 04/28/25 BUN, (9-16) 17 mg/dL H 04/28/25 Creatinine, (0.5-1.4) 1.24 mg/dL 04/28/25 Calcium, (8.4-10.2) 9.8 mg/dL 04/28/25 Urine Protein, (Neg-Trace) 30 (1+) mg/dL H 04/28/25 Urine Creatinine 83.62 mg/dL 02/23/25 Renal US 11/06/24 Assessment & Plan Assessment & Plan (1) CKD (chronic kidney disease): Code(s): N18.9 - Chronic kidney disease, unspecified Category: Medical Plan: Chronic kidney disease most likely due to longstanding hypertension. He has sustained acute kidney injury during an episode of UTI. Hypoperfusion could have contributed to JOANA. Use of Bactrim could also cause acute kidney injury by inhibiting tubular secretion of creatinine. After discontinuing Bactrim creatinine has slightly improved. No evidence of obstruction based on recent CT scan. Recent urine sediment was relatively bland therefore glomerular nephritis or interstitial disease seems very unlikely. Encouraged to increase p.o. fluid intake Avoid NSAIDs and other nephrotoxic agents. Shall continue to follow renal function closely. (2) HTN (hypertension): Code(s): I10 - Essential (primary) hypertension Category: Medical Plan: Blood pressure is acceptable. Encouraged him to stay on low-sodium diet. Continue with current medications Mild leg edema is most likely due to the use of amlodipine. He is asymptomatic (3) Renal cyst: Code(s): N28.1 - Cyst of kidney, acquired Category: Medical Plan: Multi-cystic kidney disease. Recent CT scan reported relatively stable renal cyst unchanged from 2019. s/p MRI (4) Prostate CA: Comment: Chemo injection q6mo Code(s): C61 - Malignant neoplasm of prostate Category: Medical Plan: Continue follow up with Urology Orders: Orders Basic Metabolic Panel 4 Months I10 - Essential (primary) hypertension, N18.9 - Chronic kidney disease, unspecified UA and rflx microscopic 4 Months I10 - Essential (primary) hypertension, N18.9 - Chronic kidney disease, unspecified Total Protein Urine Random 4 Months I10 - Essential (primary) hypertension, N18.9 - Chronic kidney disease, unspecified Creatinine Urine 4 Months I10 - Essential (primary) hypertension, N18.9 - Chronic kidney disease, unspecified Coding Level of Care Code Est Pt Level 4 (02480) Diagnoses CKD (chronic kidney disease) N18.9 HTN (hypertension) I10 Renal cyst N28.1 Prostate CA C61
[2025-06-22 11:12] VITALS: BP 130/70
== END 2025-06-22 11:16 | disposition home or self-care (01) ==
LOC: HO.HKA 10:58
PROVIDERS: PCP Internal Medicine Geriatric Medicine; Visit Provider Internal Medicine Hypertension Specialist
DX: I12.9 Hypertensive chronic kidney disease with stage 1 through stage 4 chronic kidney disease, or unspecified chronic kidney disease (principal); N18.9 Chronic kidney disease, unspecified; N28.1 Cyst of kidney, acquired; C61 Malignant neoplasm of prostate
CPT/HCPCS: 99214

== ENCOUNTER → 2025-06-22 10:57 | Outpatient (BNVA) | payer MEDICARE, SELFPAY | PROVIDERS: PCP Internal Medicine Geriatric Medicine; Visit Provider Internal Medicine Hypertension Specialist | DX: I10 Essential (primary) hypertension (principal); N28.1 Cyst of kidney, acquired; N18.9 Chronic kidney disease, unspecified; C61 Malignant neoplasm of prostate | CPT/HCPCS: 99212 ==

== ENCOUNTER 2025-07-13 11:41 | Emergency (ER) | payer MEDICARE, SELFPAY ==
--- NOTE | ~2025-07-13 | XR_ITS ---
EXAMINATION: XR TIBIA FIBULA 2 VIEWS LEFT HISTORY: Fall and pain COMPARISON: There are no prior studies available for comparison. FINDINGS: AP and lateral views of the left tibia and fibula are submitted. Osseous mineralization is normal. There is no fracture or dislocation. There is mild narrowing of the medial compartment of the knee. The visualized portion of the ankle mortise is maintained. There are vascular calcifications. XR/XR tibia fibula LT 2V IMPRESSION: No evidence of fracture of the left tibia or fibula. Electronically signed by: Oswaldo Villegas MD 07/13/2025 12:53 PM EST
--- NOTE | ~2025-07-13 | CT_ITS ---
EXAMINATION: CT CERVICAL SPINE WITHOUT CONTRAST CLINICAL INFORMATION: Fall, head and neck injury. 79-year-old male. COMPARISON: None available. TECHNIQUE: Spiral CT imaging of the cervical spine performed in axial plane without contrast. Multiplanar reformatted images were constructed from the axial data set. This CT examination was performed using dose optimization techniques as appropriate, variously including the following: *Automated exposure control *Adjustment of mA and/or kV according to patient size (this includes techniques or standardized protocols for targeted exams where dose is matched to indication/reason for exam; i.e. extremities or head) *Use of iterative reconstruction technique FINDINGS: CORONAL ALIGNMENT: -Normal. SAGITTAL ALIGNMENT: -Minimal reversal of the normal lordosis. -No degenerative subluxation or evidence of traumatic subluxation. C1-C2 AND CRANIOCERVICAL JUNCTION: -Intact and normally aligned. Rbfxzzwn-cy-wjosmj degenerative changes in the anterior atlantoaxial joint. VERTEBRAL BODIES AND FACETS: -There are no fractures, compression deformities, or suspicious bone lesions. -There is normal facet alignment bilaterally. Mild multilevel degenerative facet change present. The left C2-3 facets are fused. DISCS: -Mild diffuse disc degeneration present, most significant C4-5. CENTRAL CANAL: -No evidence of high-grade central canal narrowing or large disc herniation allowing for modality limitations. PREVERTEBRAL AND PARAVERTEBRAL SOFT TISSUES: -No prevertebral or paravertebral soft tissue swelling or fluid collection. -Mild to moderate carotid bulb calcifications present bilaterally. -Grossly normal thyroid gland. LUNG APICES: -Motion degraded. Paraseptal emphysema present. Otherwise apices appear clear. CT/CT cervical spine wo IV con IMPRESSION: 1. No CT evidence of acute cervical spine fracture or injury. 2. Mild degenerative spondylosis as detailed. Electronically signed by: Thai Pelayo MD 07/13/2025 01:46 PM [facility]
--- NOTE | ~2025-07-13 | CT_ITS ---
EXAMINATION: CT HEAD WITHOUT IV CONTRAST HISTORY: Fall and head injury. TECHNIQUE: Unenhanced helical CT of the head was performed per standard departmental protocol. Coronal and sagittal reformats of the head were also evaluated. One or more of the following techniques was used for dose reduction: Automated exposure control, adjustment of the mA and/or kV according to patient size, use of iterative reconstruction technique. DLP: 637 mGy-cm COMPARISON: Comparison is made with the prior examination dated 02/20/2013. FINDINGS: BRAIN: There is diffuse prominence of the ventricular system and cortical sulci, consistent with atrophy. Periventricular and subcortical white matter hypodensities are noted which are nonspecific, but often seen in the setting of small vessel ischemic disease. There are old bilateral basal ganglia lacunar infarcts. There is no mass effect or midline shift. No intra- or extra-axial fluid collections are identified. SINUSES: The visualized paranasal sinuses are clear. The mastoid air cells and middle ear cavities are well pneumatized. ORBITS: The visualized orbits are unremarkable. BONES/SOFT TISSUES: The extracranial soft tissues are unremarkable. The calvarium is intact. No suspicious lytic or sclerotic lesions. CT/CT head/brain wo IV con IMPRESSION: No acute intracranial abnormality. Electronically signed by: Oswaldo Villegas MD 07/13/2025 01:31 PM [facility]
--- NOTE | ~2025-07-13 | XR_ITS ---
EXAMINATION: XR CHEST CLINICAL INFORMATION: Fall and cough COMPARISON: 12/05/2023 TECHNIQUE: AP portable view of the chest was obtained. FINDINGS: Projection is markedly apical lordotic. Cardiac silhouette is prominent but likely magnified from technique. Hilar and mediastinal contours are normal. Aortic mural calcifications. The lungs are clear bilaterally. No pneumothorax or effusion, allowing for apical lordotic technique. No acute focal osseous or soft tissue abnormality. XR/XR chest 1V IMPRESSION: 1. Apical lordotic positioning without evidence of active lung disease. Electronically signed by: Thai Pelayo MD 07/13/2025 12:52 PM [facility]
[2025-07-13 11:46] VITALS: BP 144/79; PULSE 83; O2SAT 98
[2025-07-13 11:55] VITALS: BP 145/82; PULSE 77; RESP 18; TEMP 36.9; O2SAT 96; BMI 34.3
--- NOTE | 2025-07-13 12:14 | ECG_ITS ---
Test Reason : FALL Blood Pressure : */* mmHG Vent. Rate : 76 BPM Atrial Rate : 76 BPM P-R Int : 138 ms QRS Dur : 86 ms QT Int : 388 ms P-R-T Axes : 48 5 106 degrees QTcB Int : 436 ms Normal sinus rhythm Nonspecific ST and T wave abnormality Abnormal ECG When compared with ECG of 21-May-2015 13:52, Nonspecific T wave abnormality now evident in Anterior leads Referred By: Farhat Jaime Electronically Signed By: ALBERT MELGOZA
--- NOTE | 2025-07-13 12:15 | ED.GENADULT ---
HPI - General Adult General Chief complaint: Fall Stated complaint: FALL, 2 STEPS, HIT HEAD, -LLC, LLE ABRASION Time Seen by Provider: 07/13/25 11:57 Source: patient, family (Spouse), EMS and old records reviewed Mode of arrival: EMS Limitations: no limitations History of Present Illness ED Provider: DR. Jaime HPI narrative: This is a 79-year-old male history of prostate cancer s/p radiation, HTN, T2 DM, CKD who came in with his by ambulance after he sustained a mechanical fall after missed the last 2 steps causing him to fall backward hitting the back of his head complaining of headache, patient also sustained a superficial bruise on the left leg, no LOC, no CP, no dizziness. Patient normally walk with a cane due to unsteady gait. Patient just finished a course of Augmentin and prednisone for bronchitis prescribed by PCP still coughing but no shortness of breath. Patient is having frequency urination a request to check his UA. Related Data Home Medications ?Medication ?Instructions ?Recorded ?Confirmed amlodipine 10 mg tablet 10 mg PO DAILY 11/21/21 06/22/25 losartan 50 mg tablet 50 mg PO DAILY 11/21/21 06/22/25 docusate sodium 100 mg capsule 100 mg PO DAILY 03/28/23 06/22/25 (Stool Softener) bxcvlejjuutl-eitvxqfs-thrsfk tablet 1 tab PO DAILY 03/28/23 06/22/25 ezetimibe 10 mg tablet 10 mg PO DAILY 11/21/23 06/22/25 albuterol sulfate 90 mcg/actuation 2 puff inhalation Q4H PRN 09/03/24 06/22/25 aerosol inhaler (Ventolin HFA) SOB/WHEEZING leuprolide acetate (6 month) 45 mg 45 mg subcut [id number] 09/03/24 06/22/25 (6 month) subcutaneous syringe (Amprius) metformin 500 mg tablet 500 mg PO BIDWM 09/03/24 06/22/25 loratadine 10 mg capsule (Allergy 10 mg PO DAILY 10/29/24 06/22/25 Relief (loratadine)) baclofen 10 mg tablet 2.5 mg PO BID PRN muscle spasm 04/18/25 06/22/25 methocarbamol 500 mg tablet 500 mg PO DAILY 06/22/25 06/22/25 Previous Rx's ?Medication ?Instructions ?Recorded cefuroxime axetil 250 mg tablet 250 mg PO BID #14 tabs 07/13/25 Allergies Allergy/AdvReac Type Severity Reaction Status Date / Time Iodinated Contrast Media (IV Allergy Severe ANAPHYLAXIS Verified 07/13/25 11:57 CONTRAST) Review of Systems Review of Systems: All other systems are reviewed and are negative Constitutional: Reports as per HPI and Reports no additional constitutional complaints Eyes: Reports as per HPI and Reports no additional eye complaints Reports system reviewed and no additional complaints, except as documented Cardiovascular: Reports as per HPI and Reports no additional cardiovascular complaints Respiratory: Reports as per HPI and Reports no additional respiratory complaints Gastrointestinal: Reports as per HPI and Reports no additional gastrointestinal complaints Genitourinary: Reports no additional female genitourinary complaints Musculoskeletal: Reports no additional musculoskeletal complaints Skin/Breast: Reports system reviewed and no additional complaints, except as docu Psychiatric: Reports no additional psychiatric complaints Endocrine: Reports no additional endocrine complaints Hematologic/Lymphatic: Reports no additional hematologic/lymphatic complaints Allergic/Immunologic: Reports no additional allergic/immunologic complaints Reports system reviewed and no additional complaints, except as documented and Reports Abnormal speech present [facility] Past Medical History Medical History Diverticulosis Diabetes HTN (hypertension) Prostate CA Surgical History History of urologic surgery Hx of colonoscopy Hx of appendectomy Hx of testicular mass Hx of umbilical hernia repair History of prostate surgery Family History Family History Mother Bone cancer Father Diabetes Social History Social History Household Members: Spouse Alcohol intake: current Alcohol intake frequency: holidays/special occasions only Patient Tobacco Use Status: Current everyday Tobacco user Tobacco use type: Cigar Advance Directives: No Advance Directives Information Provided: No Physical Exam ED Vital Signs: Vital Signs - 24 hr 07/13/25 11:55 07/13/25 14:20 Temperature 98.5 F 98.7 F Pulse Rate 77 75 Respiratory Rate 18 16 Blood Pressure 145/82 H 138/69 Pulse Oximetry 96 95 Oxygen Delivery Method Room Air Room Air BMI result Body Mass Index 34.3 Vital signs have been reviewed and appear to be correct. Blood pressure elevated. Heart rate normal. Respiratory rate normal. Temperature normal. Oxygen saturation normal. Appearance: Alert. Oriented X3. No acute distress. Head: Normal external exam. Normocephalic. Atraumatic. No Elias signs noted. No raccoon eyes noted Eyes: PERRLA. EOMI. Conjunctiva and sclera normal. Eyelids normal. ENT: TM's Normal. Pharynx normal. Uvula midline. Moist mucous membranes. No trismus noted. No drooling noted. No muffled voice noted. Neck: Normal inspection. Neck supple. FROM. No adenopathy. Thyroid Normal. No meningeal signs. No neck mass noted. CVS: Normal heart rate and rhythm. Heart sound normal. No murmurs noted. Pulses normal throughout. Respiratory: No respiratory distress. Painless inspiration. Breath sounds normal. No wheezes/rales/rhonchi noted. Chest nontender. No accessory muscle usage noted or decreased air movement noted. Abdomen: Soft and nontender. Bowel sounds normal in all 4 quadrants. No distention noted. No organomegaly noted. No visible injury noted. Back: No CVA tenderness. Full range of motion noted. Skin: Skin warm and dry. Normal skin color. Normal skin turgor. No rashes/lesions/lacerations noted. Extremities: Superficial abrasion on the left farias with no bleed, no open laceration, neurovascularly intact. Neuro: GCS 15, Oriented X 3. Cranial nerve exam: II-XII are grossly intact No motor deficit. No sensory deficit. Reflexes normal. Course Reevaluation(s) Reevaluation #1: 79-year-old male sustained a mechanical fall early today with head injury. 1. GCS of 15, normal neuro exam, and negative CT head. 2. UTI will start on Ceftin. 3. Improvement of bronchitis with negative chest x-ray. Time: 15:00 Medications Administered Discontinued Medications Generic Name Dose Route Start Last Admin Trade Name Freq PRN Reason Stop Dose Admin Cefuroxime Axetil 250 mg 07/13/25 13:58 07/13/25 14:20 Cefuroxime Axetil 250 Mg Tablet PO 07/13/25 13:59 250 mg ONCE ONE Administration Medical Decision Making Differential Diagnosis Differential Diagnoses: The differential diagnosis associated with the presentation includes (Closed head injury, cervical spine injury, chest injury, abdominal injury, back injury, extremity injury, UTI, electrolyte derangement, severe anemia.) Admission/Observation Consideration of admission/observation: Escalation of care including admission/observation considered Lab Data MDM Lab Attestation statement: I reviewed the patient's lab results. 07/13/25 14:05 07/13/25 14:05 Labs: Lab Results 07/13/25 07/13/25 Range/Units 13:33 14:05 WBC 10.5 (4.8-10.8) X10*3/uL RBC 4.65 (4.60-5.80) X10*6/uL Hgb 12.5 L (14.0-18.0) g/dl Hct 38.4 L (42.0-52.0) % MCV 82.6 (80.0-98.0) fL MCH 26.9 L (27.0-33.0) pg MCHC 32.6 (31.0-36.0) g/dl RDW 14.4 (11.0-16.0) % Plt Count 336 (160-400) X10*3/uL MPV 9.3 L (9.4-12.4) fL Immature Gran % (Auto) 0.4 (0.0-0.4) % Neut % (Auto) 74.2 H (45-73) % Lymph % (Auto) 12.4 L (20-40) % Desha % (Auto) 8.6 (2-11) % Eos % (Auto) 3.1 (0-4) % Baso % (Auto) 1.3 (0-2) % Lymph # (Auto) 1.3 (1.2-4.9) X10*3/uL Desha # (Auto) 0.9 (0.1-1.2) X10*3/uL Eos # (Auto) 0.3 (0.0-0.4) X10*3/uL Baso # (Auto) 0.1 (0.0-0.2) X10*3/uL Abs Immat Gran (auto) 0.04 H (0.00-0.03) X10*3/uL Absolute Neuts (auto) 7.8 (2.0-8.3) x10*3/uL Absolute Nucleated RBC 0.000 (0.0-0.012) X10*3/uL Nucleated RBC % (auto) 0.0 (0.0-0.2) /100WBC Sodium 138 (135-145) mmol/L Potassium 4.5 (3.3-5.1) mmol/L Chloride 106 (96-108) mmol/L Carbon Dioxide 25 (22-29) mmol/L Anion Gap 12 (12-20) BUN 17 H (9-16) mg/dL Creatinine 1.34 (0.5-1.4) mg/dL Estim Creat Clear Calc 46.1 Estimated GFR 52 Random Glucose 120 H (60-115) mg/dL Calcium 9.9 (8.4-10.2) mg/dL Troponin I High Sens 5.4 (<3.5-35.0) ng/L Urine Color Yellow Urine Appearance Cloudy Urine pH 6.0 (5.0-9.0) Ur Specific [place] 1.020 (1.005-1.025) Urine Protein 100 (2+) H (Neg-Trace) mg/dL Urine Glucose (UA) Negative (Negative) mg/dL Urine Ketones Negative (Negative) mg/dL Urine Blood Negative (Negative) Urine Nitrite Negative (Negative) Ur Leukocyte Esterase Moderate (2+) H (Negative) Urine RBC 0-2 (0-2) /HPF Urine WBC 21-50 H (0-5) /HPF Ur Squamous Epith Cells 6-10 (0-2) /HPF Urine Bacteria None Seen (None Seen) Hyaline Casts 3-5 (0-2) /LPF Independent Interpretation I performed an independent interpretation of an: Plain X-Ray (Chest: No acute pathology. Left tib-fib x-ray: No fracture.) and CT Scan (Head/C-spine CT: No acute pathology.) Radiology Impression Discussion of test interpretation with radiology: I have reviewed the radiologist's reading. Discharge Plan Discharge Clinical Impression: Fall, Closed head injury, Contusion of left leg, Acute UTI Patient Disposition: Home, Self-Care Instructions: Urinary Tract Infection in Men (ED), Head Injury (ED) Prescriptions: New cefuroxime axetil 250 mg tablet 250 mg PO BID Qty: 14 0RF No Action baclofen 10 mg tablet 2.5 mg PO BID PRN (Reason: muscle spasm) amlodipine 10 mg tablet 10 mg PO DAILY losartan 50 mg tablet 50 mg PO DAILY metformin 500 mg tablet 500 mg PO BIDWM docusate sodium [Stool Softener] 100 mg capsule 100 mg PO DAILY [id number] Tablet 1 tab PO DAILY ezetimibe 10 mg tablet 10 mg PO DAILY albuterol sulfate [Ventolin HFA] 90 mcg/actuation HFA aerosol inhaler 2 puff inhalation Q4H PRN (Reason: SOB/WHEEZING) Eligard (6 month) 45 mg syringe 45 mg subcut [id number] Allergy Relief (loratadine) 10 mg capsule 10 mg PO DAILY methocarbamol 500 mg tablet 500 mg PO DAILY Referrals: Name,MD Kayden [Primary Care Provider, Internal Medicine] Print Language: Japanese
[2025-07-13 13:45] LABS: Appearance Urine Cloudy; Glucose Urine UA Negative (Negative); PH 6.0 (5.0-9.0); Specific Gravity - Urine 1.020 (1.005-1.025); UMIC TRIGGER UACC YES
[2025-07-13 13:48] LABS: UACC Culture Trigger YES
[2025-07-13 14:09] LABS: MANUAL DIFF FLAG NO
[2025-07-13 14:12] LABS: Hematocrit 38.4 % (42.0-52.0); Hemoglobin 12.5 g/dl (14.0-18.0); Imm Gran Abs Auto 0.04 X10*3/uL (0.00-0.03); Imm Gran Pct Auto 0.4 % (0.0-0.4); Lymphocytes Absolute Auto 1.3 X10*3/uL (1.2-4.9); Mean Corpuscular HGB Conc 32.6 g/dl (31.0-36.0); Mean Corpuscular Hemoglobin 26.9 pg (27.0-33.0); Mean Corpuscular Volume 82.6 fL (80.0-98.0); NRBC Abs Auto 0.000 X10*3/uL (0.0-0.012); NRBC Pct Auto 0.0 /100WBC (0.0-0.2); Platelet Count 336 X10*3/uL (160-400); Red Blood Count 4.65 X10*6/uL (4.60-5.80); White Blood Count 10.5 X10*3/uL (4.8-10.8)
[2025-07-13 14:20] VITALS: BP 138/69; PULSE 75; RESP 16; TEMP 37.1; O2SAT 95
--- OUTSIDE RECORDS SUMMARY | 2025-07-13 14:21 | XMS_ITS | Clinical Summary ---
Author Organization [address] [facility] Address [address] [place] [phone] Phone Care Team Providers Care Phone Screener Name Role Phone Name, Kayden PITTMAN Primary Care Provider [phone] Social History Tobacco Use Types Packs/Day Years [...] patient's age to complete this topic Insurance [facility] MEDICARE MEDICARE Care Teams Phone Screener Relationship Specialty Start Date End Date Name, MD Kayden [address] [place], [place] PCP - General Internal Medicine 05/25/11
--- OUTSIDE RECORDS SUMMARY | 2025-07-13 14:21 | XMS_ITS | Encounter Summary ---
Author Organization [employer] Address [address] [facility] [address] [place] [address] Care Team Providers Care Front Office Coordinator Name Role Phone Name, Kayden PITTMAN Primary Care Provider [phone] Encounter Details Date Type Department Care Team (Late Contact Info) Description 12/15/2022 Abstract [facility] [address] [place] [address] [phone] Name, MD Kayden [address] [place] [address] [phone] Social History Tobacco Use Types Packs/Day Years [...] Department Care Team (Late Contact Info) Description 09/16/2025 9:30 AM EST Office Visit [facility] [address] [place] [address] [phone] Name, MD Kayden [address] [place] [address] documented as of this encounter Visit Diagnoses Not on filedocumented in this encounter Care Teams Front Office Coordinator Relationship Specialty Start Date End Date Name, MD Kayden [address] [place] [address] PCP - General Family Medicine 08/23/15 documented as of this encounter
--- OUTSIDE RECORDS SUMMARY | 2025-07-13 14:21 | XMS_ITS | Clinical Summary ---
Author Organization [employer] Address [address] [facility] [address] [place] [address] Care Team Providers Care Serology Teacher Name Role Phone Name, Kayden PITTMAN Primary Care Provider [phone] Allergies Active Allergy Reactions Criticality Noted Date [...] cap. 16 g 2 4 Active Umeclidinium Ruby (Incruse Ellipta) 62.5 MCG/ACT aerosol powder Inhale 1 Inhalation Once per day. 30 each 1 4 Active metFORMIN (Glucophage) 500 MG tablet Take 1 tablet (500 mg) by mouth with breakfast and with evening meal. 180 tablet 3 5 03/20/20 26 Active ezetimibe (Zetia) 10 MG tabletIndication s:Hypercholester olemia Take 1 tablet (10 mg) by mouth [...] tablet 5 Active Diclofenac Sodium 1 % gelIndications:C hronic pain of both knees APPLY 2 GRAMS TWICE A DAY TO THE AFFECTED KNEE(S) 100 g 2 5 Active nicotine (Nicoderm CQ) 14 MG/24HR patchIndications :Tobacco use PLACE 1 PATCH ON THE SKIN ONE TIME EACH DAY AT THE SAME TIME 28 patch 5 Active amLODIPine (Norvasc) 10 MG tablet TAKE 1 TABLET BY MOUTH EVERY DAY 90 tablet 3 5 Active losartan (Cozaar) 50 MG tabletIndication s:Benign essential hypertension TAKE 1 TABLET BY MOUTH EVERY DAY 90 tablet 3 5 Active methocarbamol (Robaxin) 500 MG tabletIndication s:Midline low back pain, unspecified chronicity, unspecified whether sciatica present Take 2 tablets (1,000 mg) by mouth every 12 (twelve) hours if needed for muscle spasms. 40 tablet 5 Active amoxicillin-clav ulanate (Augmentin) 875-125 MG tablet Take 1 tablet by mouth 2 times daily for 5 days. 10 tablet 5 07/01/20 25 predniSONE (Deltasone) 20 MG tablet Take 2 tablets (40 mg) by mouth Once per day for 5 days. 10 tablet 5 07/01/20 25 Active Problems Problem Noted Date Diagnosed Date Osteoarthritis of lumbar spine 06/26/2025 Acute UTI 06/25/2025 CKD (chronic kidney disease) 06/25/2025 Dehydration 06/25/2025 Diverticulosis 06/25/2025 Lumbar radiculopathy 06/25/2025 Midline low back pain 04/24/2025 Assessment & [...] finishing antibiotics regimen Type 2 diabetes mellitus, [facility] long-term current use of insulin 08/11/2024 Assessment [...] Encouraged cessation Stage 3a chronic kidney disease ([facility]/HCC) 2021 Malignant tumor of prostate (CMS/HCC) 04/09/2018 Overview (09/26/2024): Prostate CA is followed at [facility]. Treatment has been so far radical [...] next 1-2m. I gave him info re [place] palsy FU w PCP in 1-2m to [...] Encounters Date Type Department Care Team Description 07/13/2025 Orders Only [facility] External Provider, [facility] 06/26/2025 9:00 AM EST Office Visit [facility] [address] [place] [address] Kayden Villavicencio MD Mild intermittent asthma with exacerbation (Primary Dx); Other specified chronic obstructive pulmonary disease (HCC); Type 2 diabetes mellitus with other specified complication, without long-term current use of insulin (HCC); Chronic midline low back pain, unspecified whether sciatica present; Osteoarthritis of lumbar spine, unspecified spinal osteoarthritis complication status 06/26/2025 Travel 06/25/2025 Travel 06/25/2025 Telephone [facility] [address] [place] [address] Jonna Lira MA chart prep 06/13/2025 Refill [facility] [address] [place] [address] Kayden Villavicencio MD [facility] 06/01/2025 Refill [facility] [address] [place] [address] Sera Cuevas NP Midline low back pain, unspecified chronicity, unspecified whether sciatica present 06/01/2025 Refill [facility] [address] [place] [address] Kayden Villavicencio MD Benign essential hypertension; Midline low back pain, unspecified chronicity, unspecified whether sciatica present 05/19/2025 Telephone [facility] [address] [place] [address] Tomasa Robertson, JUAN 05/14/2025 Abstract [facility] [address] [place] [address] Kayden Villavicencio MD 04/28/2025 Orders Only [facility] [address] [place] [address] Sera Cuevas NP 04/24/2025 3:45 PM EDT Office Visit [address] [address] Sera Cuevas, LLOYD Midline low back pain, unspecified chronicity, unspecified whether sciatica present (Primary Dx); Muscle ache 04/24/2025 Travel 04/23/[address] [address] Sera Cuevas NP Chart Prep 04/23/2025 Results Follow-Up [address] [address] [address] Abdomen Pelvis w/o Contrast 04/22/[address] [address] Tomasa Robertson RN 04/20/[address] [address] Kayden Villavicencio MD 04/18/2025 Orders Only [facility] EXTERNAL DATA DEPARTMENT Provider, Generic External Data 04/17/2025 Orders Only GENERIC EXTERNAL DATA DEPARTMENT Provider, Generic External Data 04/15/2025 10:00 AM EDT Clinical Support [address] [address] Kortney Wang, JUAN Encounter for immunization 04/15/2025 Travel from Last 3 Months Immunizations Immunization Administration [...] Sign Reading Time Taken Comments Blood Pressure 136/82 06/26/2025 9:12 AM EST Pulse 89 06/26/2025 9:12 AM EST Temperature 36.9 C (98.4 F) 06/26/2025 9:12 AM EST Respiratory Rate 14 06/26/2025 9:12 AM EST Oxygen Saturation 95% 06/26/2025 9:12 AM EST Inhaled Oxygen Concentration - - Weight 91.1 kg (200 lb 12.8 oz) 06/26/2025 9:12 AM EST Height 162.6 cm (5' 4 ) 06/26/2025 9:12 AM EST Body Mass Index 34.47 06/26/2025 9:12 AM EST Plan of Treatment Upcoming Encounters Date Type Department Care Team (Late st Contact Info) Description 09/16/2025 9:30 AM EST Office Visit [facility] [address] [place] [phone] Name, MD Kayden [address] [place] [address] Health Maintenance Due Date Last Done Comments [...] 04/24/2025, 04/24/20 25 SDOH Screening 04/24/2026 04/24/2025 Lipid Panel 04/28/2026 04/28/2025, 01/13, 11/30/2022, Additional history exists Tobacco Screening 06/26/2026 06/26/2025 Eye Exam 04/22/2027 04/22/2025, 03/17, 02/25/2009, Additional [...] age to complete this topic Sigmoidoscopy Discontinued Goals Goal Patient Goal Type Associated Problems Recent Progress Patient-Stated? Author Help patients manage their type 2 diabetes Care Plan Help patients manage their type 2 diabetes No Lintete Mendoza LPN Weekly blood pressure task Care Plan Weekly blood pressure task No Linette Mendoza LPN Help patients manage their type 2 diabetes Care Plan Help patients manage their type 2 diabetes No Linette Mendoza LPN Patient has chronic kidney disease Care Plan Patient has chronic kidney disease No Linette Mendoza SURFACE LAY OUT TECHNICIAN Weekly blood pressure task Care Plan Weekly blood pressure task No Linette Mendoza LPN Patient has chronic kidney disease Care Plan Patient has chronic kidney disease No Linette Mendoza LPN Weekly blood pressure task Care Plan Weekly blood pressure task No Jonna Lira [place] Weekly blood pressure task Care Plan Weekly blood pressure task No Jonna Lira [place] Patient has chronic kidney disease Care Plan Patient has chronic kidney disease No Jonna Lira [place] Patient has chronic kidney disease Care Plan Patient has chronic kidney disease No Jonna Lira [place] Weekly blood pressure task Care Plan Weekly blood pressure task No Jonna Lira [place] Weekly blood pressure task Care Plan Weekly blood pressure task No Jonna Lira [place] Patient has chronic kidney disease Care Plan Patient has chronic kidney disease No Jonna Lira [place] Patient has chronic kidney disease Care Plan Patient has chronic kidney disease No Jonna Lira MA Procedures Procedure Name Priority Date/Time Associated Diagnosis Comments URINALYSIS, COMPLETE, WITH REFLEX TO CULTURE Routine 07/13/2025 1:[address] CERVICAL SPINE WO CONTRAST Routine 07/13/2025 12:[address] HEAD WO CONTRAST Routine 07/13/2025 1 2:45 PM EST XR TIBIA FIBULA 2 VIEWS LEFT Routine 07/13/2025 12:40 PM EST XR CHEST 1 VIEW Routine 07/13/2025 12:40 PM EST POCT GLUCOSE (CPT-61389) Routine 06/26/2025 9:19 AM EST Type 2 diabetes mellitus with other specified complication, without long-term current use of insulin (HCC) MR LUMBAR SPINE WO CONTRAST Routine 05/27/2025 7:58 AM EST Midline low back pain, unspecified chronicity, unspecified whether sciatica present URINALYSIS, COMPLETE, WITH REFLEX TO CULTURE Routine [...] without long-term current use of insulin (HCC) HM DIABETES EYE EXAM Routine 04/22/2025 GLUCOSE, WHOLE [...] pain without sciatica, unspecified back pain laterality HM COLONOSCOPY Routine 04/17/2022 ZZZ HISTORICAL HEPATITIS C AB W/REFL TO HCV RNA, QN, PCR Routine 09/26/2021 8:45 AM EDT from Last 3 Months or Most Recently Relevant to Health Maintenance Results * (ABNORMAL) Urinalysis, Complete, with Reflex to Culture (07/13/2025 1:33 PM EST) Only the most recent of3 resultswithin the time period is included. Color Urine Yellow [facility] Appearance Urine Cloudy [facility] PH 6.0 5.0 - 9.0 [facility] Glucose Urine UA Negative Negative mg/dL [facility] Urine Blood Negative Negative [facility] Specific [place] - Urine 1.020 1.005 - 1.025 [facility] Urine Protein 100 (2+)(A) Neg-Trace mg/dL [facility] Urine Ketones Negative Negative mg/dL [facility] Nitrite Urine Negative Negative [facility] Leukocyte Esterase Urine Moderate (2+)(A) Negative [facility] RBC Urine 0-2 0 - 2 /HPF [facility] Urine WBC 21-50(A) 0 - 5 /HPF [facility] Urine Squamous Epithelial Cell 6-10 0 - 2 /HPF [facility] Urine Bacteria None Seen None Seen [facility] Hyaline Casts, Urine 3-5 0 - 2 /LPF [facility] 07/13/2025 1:33 PM EST 07/13/2025 1:36 PM EST Narrative [facility] - 07/13/2025 1:48 PM EST 1331Urine, Clean Catch us Generic External Data Provider LAB URINE ORDERAB LES Final Result [facility] [address] [place] [phone] * CT Cervical Spine w/o Contrast (07/13/2025 12:45 PM EST) Anatomical Region Laterality Modality Spine, C-spine Computed Tomogra phy 07/13/2025 12:4 5 PM EST Narrative 07/13/2025 1:49 PM EST [address] [address] [address] Scan Report Signed Patient: Juan Alberto Rowe MR#: [id number] : 1945 Acct:[id number] Age/Sex: 79 / M ADM Date: 07/13/25 Loc: HO.ED Attending Dr: Ordering Physician: Farhat Jaime MD Date of Service: 07/13/25 Procedure(s): CT cervical spine wo IV con Accession Number(s): [id number] cc: Farhat Jaime MD; Name,Kayden PITTMAN Report Number: [id number]: Total DLP = 529.00 mGy-cm Reason for Exam: Fall and head and neck injury EXAMINATION: CT CERVICAL SPINE WITHOUT CONTRAST CLINICAL INFORMATION: Fall, head and neck injury. 79-year-old male. COMPARISON: None available. TECHNIQUE: Spiral CT imaging of the cervical spine performed in axial plane without contrast. Multiplanar reformatted images were constructed from the axial data set. This CT examination was performed using dose optimization techniques as appropriate, variously including the following: *Automated exposure control *Adjustment of mA and/or kV according to patient size (this includes techniques or standardized protocols for targeted exams where dose is matched to indication/reason for exam; i.e. extremities or head) *Use of iterative reconstruction technique FINDINGS: CORONAL ALIGNMENT: -Normal. SAGITTAL ALIGNMENT: -Minimal reversal of the normal lordosis. -No degenerative subluxation or evidence of traumatic subluxation. C1-C2 AND CRANIOCERVICAL JUNCTION: -Intact and normally aligned. Xxihlflh-cr-fspeut degenerative changes in the anterior atlantoaxial joint. VERTEBRAL BODIES AND FACETS: -There are no fractures, compression deformities, or suspicious bone lesions. -There is normal facet alignment bilaterally. Mild multilevel degenerative facet change present. The left C2-3 facets are fused. DISCS: -Mild diffuse disc degeneration present, most significant C4-5. CENTRAL CANAL: -No evidence of high-grade central canal narrowing or large disc herniation allowing for modality limitations. PREVERTEBRAL AND PARAVERTEBRAL SOFT TISSUES: -No prevertebral or paravertebral soft tissue swelling or fluid collection. -Mild to moderate carotid bulb calcifications present bilaterally. -Grossly normal thyroid gland. LUNG APICES: -Motion degraded. Paraseptal emphysema present. Otherwise apices appear clear. CT/CT cervical spine wo IV con IMPRESSION: 1. No CT evidence of acute cervical spine fracture or injury. 2. Mild degenerative spondylosis as detailed. Electronically signed by: Thai Pelayo MD 07/13/2025 01:46 PM [facility] Dictated By: Thai Pelayo MD Signed By: <Electronically signed by Thai Pelayo MD in OV> 07/13/25 1346 DD/ 1245 TD/TT: 07/13/25 1250 Front Office Agent: Procedure Note Donotuseinterpreter, Image - 07/13/[address] [place] [address] [address] Scan Report Signed Patient: Juan Alberto Rowe#: [id number] : 1945cct:[id number] Age/Sex: 79 / MADM Date: 07/13/25 Loc: HO.ED Attending Dr: Ordering Physician: Farhat Jaime MD Date of Service: 07/13/25 Procedure(s): CT cervical spine wo IV con Accession Number(s): [id number] cc: Farhat Jaime MD; Name,Kayden PITTMAN Report Number: [id number]: Total DLP = 529.00 mGy-cm Reason for Exam: Fall and head and neck injury EXAMINATION: CT CERVICAL SPINE WITHOUT CONTRAST CLINICAL INFORMATION: Fall, head and neck injury. 79-year-old male. COMPARISON: None available. TECHNIQUE: Spiral CT imaging of the cervical spine performed in axial plane without contrast. Multiplanar reformatted images were constructed from the axial data set. This CT examination was performed using dose optimization techniques as appropriate, variously including the following: *Automated exposure control *Adjustment of mA and/or kV according to patient size (this includes techniques or standardized protocols for targeted exams where dose is matched to indication/reason for exam; i.e. extremities or head) *Use of iterative reconstruction technique FINDINGS: CORONAL ALIGNMENT: -Normal. SAGITTAL ALIGNMENT: -Minimal reversal of the normal lordosis. -No degenerative subluxation or evidence of traumatic subluxation. C1-C2 AND CRANIOCERVICAL JUNCTION: -Intact and normally aligned. Tzcjklvc-hn-snueut degenerative changes in the anterior atlantoaxial joint. VERTEBRAL BODIES AND FACETS: -There are no fractures, compression deformities, or suspicious bone lesions. -There is normal facet alignment bilaterally. Mild multilevel degenerative facet change present. The left C2-3 facets are fused. DISCS: -Mild diffuse disc degeneration present, most significant C4-5. CENTRAL CANAL: -No evidence of high-grade central canal narrowing or large disc herniation allowing for modality limitations. PREVERTEBRAL AND PARAVERTEBRAL SOFT TISSUES: -No prevertebral or paravertebral soft tissue swelling or fluid collection. -Mild to moderate carotid bulb calcifications present bilaterally. -Grossly normal thyroid gland. LUNG APICES: -Motion degraded. Paraseptal emphysema present. Otherwise apices appear clear. CT/CT cervical spine wo IV con IMPRESSION: 1. No CT evidence of acute cervical spine fracture or injury. 2. Mild degenerative spondylosis as detailed. Electronically signed by: Thai Pelayo MD 07/13/2025 01:46 PM [facility] Dictated By: Thai Pelayo MD Signed By: <Electronically signed by Thai Pelayo MD in OV> 07/13/25 1346 DD/ 1245 TD/TT: 07/13/25 1250 Front Office Agent: [facility] External Provider IMG CT PROCEDURES Final Result * CT Head w/o Contrast (07/13/2025 12:45 PM EST) Anatomical Region Laterality Modality Head, Neck Computed Tomogra phy 07/13/2025 12:4 5 PM EST Narrative 07/13/2025 1:33 PM EST [address] [address] [address] Scan Report Signed Patient: Juan Alberto Rowe MR#: [id number] : 1945 Acct:[id number] Age/Sex: 79 / M ADM Date: 07/13/25 Loc: HO.ED Attending Dr: Ordering Physician: Farhat Jiame MD Date of Service: 07/13/25 Procedure(s): CT head/brain wo IV con Accession Number(s): [id number] cc: Farhat Jaime MD; Name,Kayden PITTMAN Report Number: [id number]: Total DLP = 637.00 mGy-cm Reason for Exam: Fall and head injury EXAMINATION: CT HEAD WITHOUT IV CONTRAST HISTORY: Fall and head injury. TECHNIQUE: Unenhanced helical CT of the head was performed per standard departmental protocol. Coronal and sagittal reformats of the head were also evaluated. One or more of the following techniques was used for dose reduction: Automated exposure control, adjustment of the mA and/or kV according to patient size, use of iterative reconstruction technique. DLP: 637 mGy-cm COMPARISON: Comparison is made with the prior examination dated 02/20/2013. FINDINGS: BRAIN: There is diffuse prominence of the ventricular system and cortical sulci, consistent with atrophy. Periventricular and subcortical white matter hypodensities are noted which are nonspecific, but often seen in the setting of small vessel ischemic disease. There are old bilateral basal ganglia lacunar infarcts. There is no mass effect or midline shift. No intra- or extra-axial fluid collections are identified. SINUSES: The visualized paranasal sinuses are clear. The mastoid air cells and middle ear cavities are well pneumatized. ORBITS: The visualized orbits are unremarkable. BONES/SOFT TISSUES: The extracranial soft tissues are unremarkable. The calvarium is intact. No suspicious lytic or sclerotic lesions. CT/CT head/brain wo IV con IMPRESSION: No acute intracranial abnormality. Electronically signed by: Oswaldo Villegas MD 07/13/2025 01:31 PM EST Dictated By: Oswaldo Villegas MD Signed By: <Electronically signed by Oswaldo Villegas MD in OV> 07/13/25 1331 DD/ 1245 TD/TT: 07/13/25 1250 Front Office Agent: Procedure Note Donotuseinterpreter, Image - 07/13/[address] [place] [address] [address] Scan Report Signed Patient: Steven Rowe#: [id number] : 7Acct:[id number] Age/Sex: 79 / MADM Date: 07/13/25 Loc: HO.ED Attending Dr: Ordering Physician: Farhat Jaime MD Date of Service: 07/13/25 Procedure(s): CT head/brain wo IV con Accession Number(s): [id number] cc: Farhat Jaime MD; Name,Kayden PITTMAN Report Number: [id number]: Total DLP = 637.00 mGy-cm Reason for Exam: Fall and head injury EXAMINATION: CT HEAD WITHOUT IV CONTRAST HISTORY: Fall and head injury. TECHNIQUE: Unenhanced helical CT of the head was performed per standard departmental protocol. Coronal and sagittal reformats of the head were also evaluated. One or more of the following techniques was used for dose reduction: Automated exposure control, adjustment of the mA and/or kV according to patient size, use of iterative reconstruction technique. DLP: 637 mGy-cm COMPARISON: Comparison is made with the prior examination dated 02/20/2013. FINDINGS: BRAIN: There is diffuse prominence of the ventricular system and cortical sulci, consistent with atrophy. Periventricular and subcortical white matter hypodensities are noted which are nonspecific, but often seen in the setting of small vessel ischemic disease. There are old bilateral basal ganglia lacunar infarcts. There is no mass effect or midline shift. No intra- or extra-axial fluid collections are identified. SINUSES: The visualized paranasal sinuses are clear. The mastoid air cells and middle ear cavities are well pneumatized. ORBITS: The visualized orbits are unremarkable. BONES/SOFT TISSUES: The extracranial soft tissues are unremarkable. The calvarium is intact. No suspicious lytic or sclerotic lesions. CT/CT head/brain wo IV con IMPRESSION: No acute intracranial abnormality. Electronically signed by: Oswaldo Villegas MD 07/13/2025 01:31 PM EST RP Dictated By: Oswaldo Villegas MD Signed By: <Electronically signed by Oswaldo Villegas MD in OV> 07/13/25 1331 DD/ 1245 TD/TT: 07/13/25 1250 Front Office Agent: [facility] External Provider IMG CT PROCEDURES Final Result * XR Chest 1 View (07/13/2025 12:40 PM EST) Anatomical Region Laterality Modality Chest Radiographic Karen ging 07/13/2025 12:4 0 PM EST Narrative 07/13/2025 12:56 PM EST [address] [address] XRay Report Signed Patient: Juan Alberto Rowe MR#: [id number] : 1945 Acct:[id number] Age/Sex: 79 / M ADM Date: 07/13/25 Loc: HO.ED Attending Dr: Ordering Physician: Farhat Jaime MD Date of Service: 07/13/25 Procedure(s): XR chest 1V Accession Number(s): [id number] cc: Farhat Jaime MD; Name,Kayden PITTMAN Reason for Exam: Fall and cough EXAMINATION: XR CHEST CLINICAL INFORMATION: Fall and cough COMPARISON: 12/05/2023 TECHNIQUE: AP portable view of the chest was obtained. FINDINGS: Projection is markedly apical lordotic. Cardiac silhouette is prominent but likely magnified from technique. Hilar and mediastinal contours are normal. Aortic mural calcifications. The lungs are clear bilaterally. No pneumothorax or effusion, allowing for apical lordotic technique. No acute focal osseous or soft tissue abnormality. XR/XR chest 1V IMPRESSION: 1. Apical lordotic positioning without evidence of active lung disease. Electronically signed by: Thai Pelayo MD 07/13/2025 12:52 PM EST RP Dictated By: Thai Pelayo MD Signed By: <Electronically signed by Thai Pelayo MD in OV> 07/13/25 1252 DD/ 1240 TD/TT: 07/13/25 1245 Front Office Agent: Procedure Note Donotuseinterpreter, Image - 07/13/[address] [address] XRay Report Signed Patient: Juan Alberto RoweMR#: [id number] : 1945cct:[id number] Age/Sex: 79 / MADM Date: 07/13/25 Loc: .ED Attending Dr: Ordering Physician: Farhat Jaime MD Date of Service: 07/13/25 Procedure(s): XR chest 1V Accession Number(s): [id number] cc: Farhat Jaime MD; Name,Kayden PITTMAN Reason for Exam: Fall and cough EXAMINATION: XR CHEST CLINICAL INFORMATION: Fall and cough COMPARISON: 12/05/2023 TECHNIQUE: AP portable view of the chest was obtained. FINDINGS: Projection is markedly apical lordotic. Cardiac silhouette is prominent but likely magnified from technique. Hilar and mediastinal contours are normal. Aortic mural calcifications. The lungs are clear bilaterally. No pneumothorax or effusion, allowing for apical lordotic technique. No acute focal osseous or soft tissue abnormality. XR/XR chest 1V IMPRESSION: 1. Apical lordotic positioning without evidence of active lung disease. Electronically signed by: Thai Pelayo MD 07/13/2025 12:52 PM EST RP Dictated By: Thai Pelayo MD Signed By: <Electronically signed by Thai Pelayo MD in OV> 07/13/25 1252 DD/ 1240 TD/TT: 07/13/25 1245 Front Office Agent: [facility] External Provider IMG XR PROCEDURES Final Result * XR Tibia Fibula 2 Views Left (07/13/2025 12:40 PM EST) Anatomical Region Laterality Modality Lower Extremities, Lower Leg Left Rad iographic Imaging 07/13/2025 12:4 0 PM EST Narrative 07/13/2025 12:56 PM EST [address] [address] XRay Report Signed Patient: Juan Alberto Rowe MR#: [id number] : 1945 Acct:[id number] Age/Sex: 79 / M ADM Date: 07/13/25 Loc: .ED Attending Dr: Ordering Physician: Farhat Jaime MD Date of Service: 07/13/25 Procedure(s): XR tibia fibula LT 2V Accession Number(s): [id number] cc: Farhat Jaime MD; Name,Kayden PITTMAN Reason for Exam: Fall and pain EXAMINATION: XR TIBIA FIBULA 2 VIEWS LEFT HISTORY: Fall and pain COMPARISON: There are no prior studies available for comparison. FINDINGS: AP and lateral views of the left tibia and fibula are submitted. Osseous mineralization is normal. There is no fracture or dislocation. There is mild narrowing of the medial compartment of the knee. The visualized portion of the ankle mortise is maintained. There are vascular calcifications. XR/XR tibia fibula LT 2V IMPRESSION: No evidence of fracture of the left tibia or fibula. Electronically signed by: Oswaldo Villegas MD 07/13/2025 12:53 PM EST Dictated By: Oswaldo Villegas MD Signed By: <Electronically signed by Oswaldo Villegas MD in OV> 07/13/25 1253 DD/ 1240 TD/TT: 07/13/25 1245 Front Office Agent: Procedure Note Donotuseinterpreter, Image - 07/13/[address] [address] XRay Report Signed Patient: Juan Alberto RoweMR#: [id number] : 1945cct:[id number] Age/Sex: 79 / MADM Date: 07/13/25 Loc: .ED Attending Dr: Ordering Physician: Farhat Jaime MD Date of Service: 07/13/25 Procedure(s): XR tibia fibula LT 2V Accession Number(s): [id number] cc: Farhat Jaime MD; Name,Kayden PITTMAN Reason for Exam: Fall and pain EXAMINATION: XR TIBIA FIBULA 2 VIEWS LEFT HISTORY: Fall and pain COMPARISON: There are no prior studies available for comparison. FINDINGS: AP and lateral views of the left tibia and fibula are submitted. Osseous mineralization is normal. There is no fracture or dislocation. There is mild narrowing of the medial compartment of the knee. The visualized portion of the ankle mortise is maintained. There are vascular calcifications. XR/XR tibia fibula LT 2V IMPRESSION: No evidence of fracture of the left tibia or fibula. Electronically signed by: Oswaldo Villegas MD 07/13/2025 12:53 PM EST Dictated By: Oswaldo Villegas MD Signed By: <Electronically signed by Oswaldo Villegas MD in OV> 07/13/25 1253 DD/ 1240 TD/TT: 07/13/25 1245 Front Office Agent: [facility] External Provider IMG XR PROCEDURES Final Result * POCT Glucose (06/26/2025 9:19 AM EST) Glucose Blood, POC 167 60 - 200 mg/dL QC Media Lot # [id number] Lot# Expiration Date ,72 Blood Capillary blood specimen / Unknown 06/26/2025 9:19 AM EST Kayden Villavicencio MD POINT OF CARE TEST ENTER/EDIT OR DERABLES Final Result * MR Lumbar Spine w/o Contrast (05/27/2025 7:58 AM EST) Anatomical Region Laterality Modality Spine, L-spine Magnetic Resonan ce 05/27/2025 7:58 AM EST Narrative 05/27/2025 9:12 AM EST [address] [address] Magnetic Resonance Report Signed Patient: Juan Alberto Rowe MR#: [id number] : 1945 Acct:[id number] Age/Sex: 79 / M ADM Date: 05/27/25 Loc: HO.MRI Attending Dr: Sera Cuevas NP Ordering Physician: Sera Cuevas NP Date of Service: 05/27/25 Procedure(s): MR lumbar spine wo con Accession Number(s): [id number] cc: Sera Cuevas SPECIALTY FINISHING UTILITY PERSON; Name,Kayden PITTMAN Reason for Exam: acute, chronic back apin h/o prostate ca EXAMINATION: MR LUMBAR SPINE WITHOUT CONTRAST CLINICAL INFORMATION: Acute on chronic low back pain. Prostate cancer. COMPARISON: Correlated to x-ray dated December 05, 2022. Correlated to CT abdomen and pelvis dated August 08, 2024. TECHNIQUE: MRI of the lumbar spine was obtained using routine sequences without contrast. FINDINGS: Last rib-bearing vertebra labeled T12. No bone marrow STIR signal abnormality. Multilevel small marginal osteophyte formation and disc desiccation throughout the axial skeleton. There is normal alignment. Conus medullaris ends at intervertebral disc T12-L1 with normal signal. T11-12: No disc herniation. No neuroforamina stenosis. T12-L1: Broad-based disc bulging. No central spinal canal or neuroforamina stenosis. L1-2: Broad-based disc bulging. Facet joint hypertrophy. No central spinal canal or neuroforamina stenosis. L2-3: Broad-based disc bulging. Facet joint hypertrophy. No central spinal canal or neuroforamina stenosis. L3-4: Broad-based disc bulging. Facet joint hypertrophy. Reduced AP diameter of the thecal sac and neuroforamina. No compression upon neural elements. L4-5: Broad-based disc bulging abutting the L5 nerve roots on the lateral recesses. Facet joint hypertrophy. Reduced AP diameter thecal sac and neuroforamina. L5-S1: Broad-based disc bulging. Facet joint hypertrophy. No central spinal canal or neuroforamina stenosis. No prevertebral compartment hematoma, mass or fluid collections. There are multifocal, different sizes, exophytic and cortical medullary junction round and lobulated fluid signal characteristic lesions in both kidneys. There is a 16 mm exophytic lesion with a dependent ISO to hypointense T2 signal in the posterior upper pole right kidney. There is a 16 mm thin septated exophytic cystic lesion with layering hypointense T2 signal in the medial aspect of the lower pole left kidney. MR/MR lumbar spine wo con IMPRESSION: Multilevel lumbar spondylosis pronounced at L4-5 and L3-4 levels encroaching the neural elements at L4-5. Complex likely hemorrhagic cystic lesions both kidneys. No acute fracture or listhesis. No gross osseous metastasis. Electronically signed by: Miko Butterfield MD 05/27/2025 09:08 AM EST Dictated By: Miko Holman MD Signed By: <Electronically signed by Miko King MD in OV> 05/27/25 0908 DD/ 0758 TD/TT: 05/27/25 0834 Front Office Agent: Procedure Note Donotuseinterpreter, Image - 05/27/2025 [place] [id number] Magnetic Resonance Report Signed Patient: Juan Alberto RoweMR#: [id number] : 7Acct:[id number] Age/Sex: 79 / MADM Date: 05/27/25 Loc: HO.MRI Attending Dr: Sera Cuevas NP Ordering Physician: Sera Cuevas NP Date of Service: 05/27/25 Procedure(s): MR lumbar spine wo con Accession Number(s): [id number] cc: Sera Cuevas NP; Name,Kayden PITTMAN Reason for Exam: acute, chronic back apin h/o prostate ca EXAMINATION: MR LUMBAR SPINE WITHOUT CONTRAST CLINICAL INFORMATION: Acute on chronic low back pain. Prostate cancer. COMPARISON: Correlated to x-ray dated December 05, 2022. Correlated to CT abdomen and pelvis dated August 08, 2024. TECHNIQUE: MRI of the lumbar spine was obtained using routine sequences without contrast. FINDINGS: Last rib-bearing vertebra labeled T12. No bone marrow STIR signal abnormality. Multilevel small marginal osteophyte formation and disc desiccation throughout the axial skeleton. There is normal alignment. Conus medullaris ends at intervertebral disc T12-L1 with normal signal. T11-12: No disc herniation. No neuroforamina stenosis. T12-L1: Broad-based disc bulging. No central spinal canal or neuroforamina stenosis. L1-2: Broad-based disc bulging. Facet joint hypertrophy. No central spinal canal or neuroforamina stenosis. L2-3: Broad-based disc bulging. Facet joint hypertrophy. No central spinal canal or neuroforamina stenosis. L3-4: Broad-based disc bulging. Facet joint hypertrophy. Reduced AP diameter of the thecal sac and neuroforamina. No compression upon neural elements. L4-5: Broad-based disc bulging abutting the L5 nerve roots on the lateral recesses. Facet joint hypertrophy. Reduced AP diameter thecal sac and neuroforamina. L5-S1: Broad-based disc bulging. Facet joint hypertrophy. No central spinal canal or neuroforamina stenosis. No prevertebral compartment hematoma, mass or fluid collections. There are multifocal, different sizes, exophytic and cortical medullary junction round and lobulated fluid signal characteristic lesions in both kidneys. There is a 16 mm exophytic lesion with a dependent ISO to hypointense T2 signal in the posterior upper pole right kidney. There is a 16 mm thin septated exophytic cystic lesion with layering hypointense T2 signal in the medial aspect of the lower pole left kidney. MR/MR lumbar spine wo con IMPRESSION: Multilevel lumbar spondylosis pronounced at L4-5 and L3-4 levels encroaching the neural elements at L4-5. Complex likely hemorrhagic cystic lesions both kidneys. No acute fracture or listhesis. No gross osseous metastasis. Electronically signed by: Miko Butterfield MD 05/27/2025 09:08 AM EST Dictated By: Miko Holman MD Signed By: <Electronically signed by Miko King MDin OV> 05/27/25 0908 DD/ 0758 TD/TT: 05/27/25 0834 Front Office Agent: Sera Cuevas SPECIALTY FINISHING UTILITY PERSON IMG MRI PROCEDURES Final Result * TSH (04/28/2025 8:18 AM EDT) Thyroid Stimulating Hormone 1.84 0.32 - 4.0 uIU/mL [facility] Comment:TSH 3rd Generation ( [employer]) Blood Venous blood specimen / Unknown 04/28/2025 8:18 AM EDT 04/28/2025 11:35 AM EDT Sera Cuevas SPECIALTY FINISHING UTILITY PERSON LAB BLOOD ORDERABLES Final Resul t Performing Organization Address [facility] Co de Phone Number [facility] [address] [place] [phone] * Creatine Kinase, Total (04/28/2025 8:18 AM EDT) Creatine Kinase Total 52 38 - 174 U/L [facility] Blood Venous blood specimen / Unknown 04/28/2025 8:18 AM EDT 04/28/2025 11:35 AM EDT Sera Cuevas SPECIALTY FINISHING UTILITY PERSON LAB BLOOD ORDERABLES Final Resul t Performing Organization Address [facility] Co de Phone Number [facility] [address] [place] [phone] * Hepatic Function Panel (04/28/2025 8:18 AM EDT) Bilirubin, Direct 0.2 0.0 - 0.5 mg/dL [facility] Blood Venous blood specimen / Unknown 04/28/2025 8:18 AM EDT 04/28/2025 11:35 AM EDT Sera Cuevas NP LAB BLOOD ORDERABLES Final Resul t Performing Organization Address City/[facility] Co de Phone Number [facility] [address] [place] [address] [phone] * (ABNORMAL) Lipid Panel, Standard (04/28/2025 8:18 AM EDT) Triglycerides 176(H) <150 mg/dL [facility] Comment:Desirable Triglyceri de: less than 150 mg/dLBorderline High Triglyceride 150-199 mg/dLHigh Triglyceride: 200-499 mg/dLVery High Triglyceride: greater than or equal to 5OO mg/dL Cholesterol 180 <200 mg/dL [facility] Comment:Desirable Cholestero l: less than 200 mg/dLBorderline High Cholesterol: 200-239 mg/dLHigh Cholesterol: greater than 239 mg/dL LDL Cholesterol Calculated 99 <100 mg/dL [facility] Comment:Desirable LDL: less than 100 mg/dLNear Optimal/Above Optimal LDL: 110- 129 mg/dLBorderline High LDL: 130-159 mg/dLHigh LDL: 160-189 mg/dLVery High LDL: greater than or equal to 190 mg/dL HDL Cholesterol 46 >40 mg/dL [facility] Comment:Desirable HDL: great er than 40 mg/dL Note: This HDL assay may give artificially low results in patients with liver disease. Blood Venous blood specimen / Unknown 04/28/2025 8:18 AM EDT 04/28/2025 11:35 AM EDT us Kayden Name MD LAB BLOOD ORDERABLES Final Resul t [facility] [address] [place] [address] [phone] * (ABNORMAL) Comprehensive Metabolic Panel (04/28/2025 8:18 AM EDT) Only the most recent of2 resultswithin the time period is included. Pathologist [facility] Sodium 138 135 - 145 mmol/L [facility] Potassium 4.5 3.3 - 5.1 mmol/L [facility] Chloride 105 96 - 108 mmol/L [facility] Carbon Dioxide 24 22 - 29 mmol/L [facility] Anion Gap 14 12 - 20 [facility] Urea Nitrogen (BUN) 17(H) 9 - 16 mg/dL [facility] Creatinine, Serum 1.24 0.5 - 1.4 mg/dL [facility] Estimated Glomerular Filt Rate 56 [facility] Comment:Chronic Kidney Disea se: Estimated GFR < 60 mL/min/1.38e1Fugamy Kidney Disease: Estimated GFR < 15 mL/min/1.73m2 Glucose 125(H) 60 - 115 mg/dL [facility] Calcium 9.8 8.4 - 10.2 mg/dL [facility] Bilirubin, Total 0.5 0.0 - 1.0 mg/dL [facility] Aspartate Amino Transferase 18 5 - 37 U/L [facility] Alanine Aminotransferase 17 0 - 40 U/L [facility] Total Protein 6.9 6.5 - 8.0 g/dL [facility] Albumin Level 4.2 3.5 - 5.0 g/dL [facility] Alkaline Phosphatase 63 39 - 117 U/L [facility] Blood Venous blood specimen / Unknown 04/28/2025 8:18 AM EDT 04/28/2025 11:35 AM EDT us Kayden Villavicencio MD LAB BLOOD ORDERABLES Final Resul t [facility] [address] [place] [address] [phone] * Diabetes Eye Exam (04/22/2025) Eye Exam Normal Normal Comment:no retinopathy us Kayden Villavicencio MD HEALTH MAINTENANCE Final Result * (ABNORMAL) Glucose, Whole Blood (04/18/2025 12:03 PM EDT) Glucose, Whole Blood 271(H) 60 - 115 mg/dL [facility] Comment:METER #: [id number] 04/18/2025 12:0 3 PM EDT 04/18/2025 12:06 PM EDT us Generic External Data Provider LAB BLOOD ORDERAB LES Final Result [facility] [address] [place] [phone] * CT Abdomen Pelvis w/o Contrast (04/18/2025 1:07 AM EDT) Anatomical Region Laterality Modality Body, Pelvis, Abdomen Computed T omography 04/18/2025 1:07 AM EDT Narrative 04/18/2025 1:08 AM EDT [address] [address] [address] Scan Report Signed Patient: Juan Alberto Rowe MR#: [id number] : 1945 Acct:[id number] Age/Sex: 79 / M ADM Date: 04/17/25 Loc: HO.ED Attending Dr: Ordering Physician: Lisette Teixeira Date of Service: 04/17/25 Procedure(s): CT abdomen pelvis wo IV con Accession Number(s): [id number] cc: Name,Kayden PITTMAN; Lisette Teixeira Report Number: [id number]: Total DLP = 636.00 mGy-cm Reason for [...] in OV> 04/18/25106 DD/ 6 TD/TT: 04/18/25106 Front Office Agent: Procedure Note Donotuseinterpreter, Image - 04/18/[address] [place] [address] [address] Scan Report Signed Patient: Juan Alberto RoweMR#: [id number] : 7Acct:[id number] Age/Sex: 79 / MADM Date: 04/17/25 Loc: HO.ED Attending Dr: Ordering Physician: Lisette Teixeira Date of Service: 04/17/25 Procedure(s): CT abdomen pelvis wo IV con Accession Number(s): [id number] cc: Name,Kayden PITTMAN; Lisette Teixeira Report Number: [id number]: Total DLP = 636.00 mGy-cm Reason for [...] in OV> 04/18/25106 DD/ 6 TD/TT: 04/18/25106 Front Office Agent: us [facility] External Provider IMG CT PROCEDURES Edited Result - Final * (ABNORMAL) CBC auto differential (04/17/2025 11:31 PM EDT) White Blood Count 10.3 4.8 - 10.8 X10*3/uL [facility] Red Blood Count 4.63 4.60 - 5.80 X10*6/uL [facility] Hemoglobin 12.6(L) 14.0 - 18.0 g/dl [facility] Hematocrit 37.4(L) 42.0 - 52.0 % [facility] Mean Corpuscular Volume 80.8 80.0 - 98.0 fL [facility] Mean Corpuscular Hemoglobin 27.2 27.0 - 33.0 pg [facility] Mean Corpuscular HGB Conc 33.7 31.0 - 36.0 g/dl [facility] Red Cell Distribution Width 15.0 11.0 - 16.0 % [facility] Platelet Count 309 160 - 400 X10*3/uL [facility] Mean Platelet Volume 8.8(L) 9.4 - 12.4 fL [facility] Neutrophils Percent Auto 67.5 45 - 73 % [facility] Imm Gran Pct Auto 0.5(H) 0.0 - 0.4 % [facility] Lymphocytes Percent Auto 18.6(L) 20 - 40 % [facility] Monocytes Percent Auto 8.6 2 - 11 % [facility] Eosinophils Percent Auto 3.3 0 - 4 % [facility] Basophils Percent Auto 1.5 0 - 2 % [facility] NRBC Pct Auto 0.0 0.0 - 0.2 /100WBC [facility] Neutrophils Absolute Auto 6.9 2.0 - 8.3 x10*3/uL [facility] Imm Gran Abs Auto 0.05(H) 0.00 - 0.03 X10*3/uL [facility] Lymphocytes Absolute Auto 1.9 1.2 - 4.9 X10*3/uL [facility] Monocytes Absolute Auto 0.9 0.1 - 1.2 X10*3/uL [facility] Eosinophils Absolute Auto 0.3 0.0 - 0.4 X10*3/uL [facility] Basophils Absolute Auto 0.2 0.0 - 0.2 X10*3/uL [facility] NRBC Abs Auto 0.000 0.0 - 0.012 X10*3/uL [facility] 04/17/2025 11:3 1 PM EDT 04/17/2025 11:35 PM EDT us Generic External Data Provider LAB BLOOD ORDERAB LES Final Result Performing Organization Address [facility] Co de Phone Number [facility] [address] [place] [address] [phone] * (ABNORMAL) POCT Hgb A1c (03/20/2025 1:55 PM EDT) [facility] Hemoglobin A1C 6.3(A) 4.0 - 5.7 % QC Media Lot # [id number] Lot# Expiration Date Blood 03/20/2025 1:55 PM EDT Kayden Villavicencio MD POINT OF CARE TEST ENTER/EDIT OR DERABLES Final Result * (ABNORMAL) Albumin, Random Urine W/Creatinine (01/30/2024 8:30 AM EDT) [facility] Creatinine, Urine 103.25 mg/dL [facility] Microalbumin Urine 82.0 mg/L [facility] Microalbum Creatinine Ratio Ur 79.4(H) <30 ug/mg cr [facility] Comment:Albumin/Creatinine R atio Reference Ranges: Normal: < 30 ug/mg creatinine Microalbuminuria: 30 - 300 ug/mg creatinineClinical Albuminuria: > 300 ug/mg creatinine Urine (Urine, Random) 01/30/2024 8:30 AM EDT 01/30/2024 9:01 AM EDT Kayden Villavicencio MD LAB URINE ORDERABLES Final Resul t [facility] [address] [place] [phone] [phone] * Hm Colonoscopy (04/17/2022) [facility] Colonoscopy performed Karey Provider HEALTH MAINTENANCE Final Result * HEPATITIS C AB W/REFL TO HCV RNA, QN, PCR (09/26/2021 8:45 AM EDT) [facility] HEPATITIS C ANTIBODY NON-REACT [facility] NON-REACT [facility] INDEX 0.01 <1.00 [facility] Comment: HCV antibody was non-reactive. There is no laboratory evidence of HCV infection. In most cases, no further action is required. However, if recent HCV exposure is suspected, a test for HCV RNA (test code 21563) is suggested. For additional information please refer to http://[employer]/faq/NHJ38d5 (This link is being provided for informational/ educational purposes only.) 09/26/2021 8:45 AM EDT us Kaydenmegan Villavicencio MD HISTORICAL/NON ORDERABLE LABS Fi nal Result [facility] [address] from Last 3 Months or Most Recently Relevant to Health Maintenance Additional Health Concerns Active Problems Noted Date Diagnosed Date Help patients manage their type 2 diabetes 06/02 Weekly blood pressure task 06/02/2025 Help patients manage their type 2 diabetes 06/02 Patient has chronic kidney disease 06/02/2025 Weekly blood pressure task 06/02/2025 Patient has chronic kidney disease 06/02/2025 Weekly blood pressure task 06/25/2025 Weekly blood pressure task 06/25/2025 Patient has chronic kidney disease 06/25/2025 Patient has chronic kidney disease 06/25/2025 Weekly blood pressure task 06/25/2025 Weekly blood pressure task 06/25/2025 Patient has chronic kidney disease 06/25/2025 Patient has chronic kidney disease 06/25/2025 Insurance [place] [address] Care Teams Serology Teacher Relationship Specialty Start Date End Date Name, MD Kayden [address] [place] [address] PCP - General Family Medicine 08/23/15
--- OUTSIDE RECORDS SUMMARY | 2025-07-13 14:21 | XMS_ITS | Encounter Summary ---
Author Organization [facility] Address [address] [place] [address] Care Team Providers Care Junior Buyer Name Role Phone Name, Kayden PITTMAN Primary Care Provider [phone] Encounter Details Date Type Department Care Team (Late st Contact Info) Description 11/04/2024 Lab Requisition [facility] - Main Lab [address] [facility] [place] [address] Evin Sagastume MD [address] [facility] [address] [place], [place] [phone] Gross hematuria Social History Tobacco Use Types [...] AM EDT) Final Diagnosis A. Urine, Voided, ([id number]): Negative for high grade urothelial carcinoma. Results of UroVysion fluorescence in situ hybridization (FISH) testing: CEP3: Normal CEP7: Normal CEP17: Normal LSI 9p21: Normal Interpretation: Normal profile Controls stained appropriately. Note: The results are intended as a screening device and should be interpreted in association with other clinical and pathological findings. 11/14/2024 12:25 PM EDT [facility] at 1225 EDT Clinical Information Gross hematuria R31.0 Urine Cytology/FISH (now) 11/14/2024 12:[address] [facility] Gross Description A. Urine, Voided, ([id number]): Received one ThinPrep slide for cytology and one ThinPrep slide for UroVysion FISH 11/14/2024 12:[address] [facility] Disclaimer Unless otherwise specified, all tissue is 10% NB formalin fixed and paraffin embedded. Technical pathology services provided by [facility] at [address], [place] [address] (CLIA #[id number]/Constance Alcaraz MD, Assembly Machine Offbearer) 11/14/2024 12:[address] [facility] Tissue Urine specimen from urethra / Unknown 10/31/2024 11/04/2024 2:04 PM EDT us Evin Sagastume MD LAB PATHOLOGY ORDERABLES Fi nal Result [facility] [address] [place] [address], documented in this encounter Visit Diagnoses Diagnosis Gross hematuria documented in this encounter Care Teams Junior Buyer Relationship Specialty Start Date End Date Name, MD Kayden [address] [place], [place] PCP - General Internal Medicine 05/25/11 documented as of this encounter
--- OUTSIDE RECORDS SUMMARY | 2025-07-13 14:21 | XMS_ITS | Encounter Summary ---
Author Organization [employer] Address [address] [place] [address] [address] [place] [address] Care Team Providers Care Mucker Operator Name Role Phone Name, Kayden PITTMAN Primary Care Provider [phone] Encounter Details Date Type Department Care Team (Late st Contact Info) Description 10/06/2022 Abstract [facility] [address] [place] [address] [phone] Name, MD Kayden [address] [place] [address] [phone] Social History Tobacco Use Types Packs/Day Years [...] Description 09/16/2025 9:30 AM EST Office Visit [facility] [address] [place] [address] [phone] Name, MD Kayden [address] [place] [address] [phone] documented as of this encounter Visit Diagnoses Not on filedocumented in this encounter Care Teams Mucker Operator Relationship Specialty Start Date End Date Name, MD Kayden [address] [place] [address] PCP - General Family Medicine 08/23/15 documented as of this encounter
--- OUTSIDE RECORDS SUMMARY | 2025-07-13 14:21 | XMS_ITS | Encounter Summary ---
Author Organization [facility] Address [address] [place] [address] Care Team Providers Care Harpsichord Maker Name Role Phone Name, Kayden PITTMAN Primary Care Provider [phone] Encounter Details Date Type Department Care Team (Late st Contact Info) Description 08/26/2024 Lab Requisition [facility] - Main Lab [address] [facility] [place] [address] Juan R Katz PA [address] [place] [address] Gross hematuria Social History Tobacco [...] and pathological findings. 09/09/2024 10:41 AM EST [facility] Addendum electronically signed by Rishabh Odonnell MD on 09/09/2024 at 1041 EST Final Diagnosis Urine, Voided, ([id number]): Atypical urothelial cells. Note: Based upon the cytologic findings, UroVysion testing will be performed, the result to follow in an addendum. 09/09/2024 10:41 AM [facility] at 1444 EST Clinical Information Gross hematuria R31.0 Urine cytology with reflex UroVysion ([facility]) 09/09/2024 10:41 AM [facility] Gross Description A. Urine, Voided, ([id number]): Received one ThinPrep slide for cytology. 09/09/2024 10:41 AM [facility] Disclaimer Unless otherwise specified, all tissue is 10% NB formalin fixed and paraffin embedded. Technical pathology services provided by [facility] at [address] [facility] [address], [place] [address] (CLIA #[id number]/Constance Alcaraz MD, Hourly Sales Staff) 09/09/2024 10:41 AM [facility] Tissue Urine specimen from urethra / Unknown 08/20/2024 08/26/2024 8:41 AM EST Juan R LINDA LAB PATHOLOGY ORDERAB LES Edited Result - Final [facility] [address] [place] [address], documented in this encounter Visit Diagnoses Diagnosis Gross hematuria documented in this encounter Care Teams Harpsichord Maker Relationship Specialty Start Date End Date Name, MD Kayden [address] [place] [address] PCP - General Internal Medicine 05/25/11 documented as of this encounter
--- OUTSIDE RECORDS SUMMARY | 2025-07-13 14:21 | XMS_ITS | Encounter Summary ---
Author Organization [employer] Address [address] [facility] 7t [place] [address] Care Team Providers Care Stable Hand Name Role Phone Name, Kayden PITTMAN Primary Care Provider [phone] Reason for Visit * Reason Comments Med Refill Encounter Details Date Type Department Care Team ([facility] st Contact Info) Description 04/22/2024 Refill [facility] [address] [place] [address] Patrick Conrad MD [address] [place] [address] Social History Tobacco Use Types Packs/Day Years [...] Description 09/16/2025 9:30 AM EST Office Visit [facility] [address] [place] [address] Name, MD Kayden [address] [place] [address] documented as of this encounter Visit Diagnoses Not on filedocumented in this encounter Additional Health Concerns Assessment Noted Time PHQ-9 Depression Total Score: 0 08/14/19 24 9:03 AM EST documented as of this encounter Care Teams Stable Hand Relationship Specialty Start Date End Date NameKayden MD [address] [place] [address] PCP - General Family Medicine 08/23/15 documented as of this encounter
--- OUTSIDE RECORDS SUMMARY | 2025-07-13 14:21 | XMS_ITS | Encounter Summary ---
Author Organization [employer] Address 75 [facility] 7t [place] [address] Care Team Providers Care Counter Former Name Role Phone Name, Kayden PITTMAN Primary Care Provider [phone] Reason for Visit * Reason Comments Med Refill Encounter Details Date Type Department Care Team ([facility] st Contact Info) Description 04/22/2024 Refill [facility] [address] [place] [address] Patrick Conrad MD [address] [place] [address] Social History Tobacco Use Types Packs/Day Years [...] Description 09/16/2025 9:30 AM EST Office Visit [facility] [address] [place] [address] Name, MD Kayden [address] [place] [address] documented as of this encounter Visit Diagnoses Not on filedocumented in this encounter Additional Health Concerns Assessment Noted Time PHQ-9 Depression Total Score: 0 08/14/19 24 9:03 AM EST documented as of this encounter Care Teams Counter Former Relationship Specialty Start Date End Date NameKayden MD [address] [place] [address] PCP - General Family Medicine 08/23/15 documented as of this encounter
--- OUTSIDE RECORDS SUMMARY | 2025-07-13 14:21 | XMS_ITS | Encounter Summary ---
Author Organization [employer] Address 75 [facility] 7t [place] [address] Care Team Providers Care Non Destructive Testing Supervisor Name Role Phone Name, Kayden PITTMAN Primary Care Provider [phone] Reason for Visit * Reason Onset Date Comments Med Refill 04/12/2025 Encounter Details Date Type Department Care Team ([facility] st Contact Info) Description 04/12/2025 Refill [facility] [address] [place] [address] Tracey Maciel, [facility] [address] [place] [address] Tobacco use Social History Tobacco Use Types [...] Description 09/16/2025 9:30 AM EST Office Visit [facility] [address] [place] [address] Name, MD Kayden [address] [place] [address] documented as of this encounter Visit Diagnoses Diagnosis Tobacco use documented in this encounter Additional Health Concerns Assessment Noted Time PHQ-9 Depression Total Score: 0 08/14/19 24 9:03 AM EST documented as of this encounter Care Teams Non Destructive Testing Supervisor Relationship Specialty Start Date End Date Name, MD Kayden [address] [place] [address] PCP - General Family Medicine 08/23/15 documented as of this encounter
--- OUTSIDE RECORDS SUMMARY | 2025-07-13 14:21 | XMS_ITS | Encounter Summary ---
Demographics Address [address] [place] [address] Work Phone Home Phone Email Address Preferred Language en Marital Status Caodaism Affiliation Unknown Race White Ethnic Group Unknown Author Organization [employer] Address [address] [facility] [address] 7[address] [place] [address] Care Team Providers Care Machine Plaster Mixer Name Role Phone Name, Kayden PITTMAN Primary Care Provider [phone] Encounter Details Date Type Department Care Team ([facility] Contact Info) Description 07/13/2025 Orders Only [facility] External Provider, [facility] Social History Tobacco Use Types Packs/Day [...] your housing situation today? I have hans sing 04/24/[address] you li [...] Description 09/16/2025 9:30 AM EST Office Visit [facility] [address] [place] [address] Name, MD Kayden [address] [place] [address] documented as of this encounter Goals Goal Patient Goal Type Associated Problems Recent Progress Patient-Stated? Author Help patients manage their type 2 diabetes Care Plan Help patients manage their type 2 diabetes No Linette Mendoza LPN Weekly blood pressure [...] task Care Plan Weekly blood pressure task Jonna Cordero MA Weekly blood pressure task Care Plan Weekly blood pressure task No Jonna Lira MA Patient has chronic kidney disease Care Plan Patient has chronic kidney disease No Jonna Lira MA Patient has chronic kidney disease Care Plan Patient has chronic kidney disease No Jonna Lira MA documented as of this encounter Procedures Procedure Name Priority Date/Time Associated Diagnosis Comments URINALYSIS, COMPLETE, WITH REFLEX TO CULTURE Routine 07/13/2025 1:[address] CERVICAL SPINE WO CONTRAST Routine 07/13/2025 12:[address] HEAD WO CONTRAST Routine 07/13/2025 1 2:45 PM EST XR CHEST 1 VIEW Routine 07/13/2025 12:40 PM EST XR TIBIA FIBULA 2 VIEWS LEFT Routine 07/13/2025 12:40 PM EST documented in this encounter Results * (ABNORMAL) Urinalysis, Complete, with Reflex to Culture (07/13/2025 1:33 PM EST) Color Urine Yellow [facility] Appearance Urine Cloudy [facility] PH 6.0 5.0 - 9.0 [facility] Glucose Urine UA Negative Negative mg/dL [facility] Urine Blood Negative Negative [facility] Specific [place] - Urine 1.020 1.005 - 1.025 [facility] Urine Protein 100 (2+)(A) Neg-Trace mg/dL [facility] Urine Ketones Negative Negative mg/dL [facility] Nitrite Urine Negative Negative [facility] Leukocyte Esterase Urine Moderate (2+)(A) Negative [facility] RBC Urine 0-2 0 - 2 /HPF [facility] Urine WBC 21-50(A) 0 - 5 /HPF [facility] Urine Squamous Epithelial Cell 6-10 0 - 2 /HPF [facility] Urine Bacteria None Seen None Seen [facility] Hyaline Casts, Urine 3-5 0 - 2 /LPF [facility] 07/13/2025 1:33 PM EST 07/13/2025 1:36 PM EST Narrative [facility] - 07/13/2025 1:48 PM EST 1331Urine, Clean Catch us Generic External Data Provider LAB URINE ORDERAB LES Final Result Performing Organization Address City/State/[facility] Co de Phone Number [facility] [address] [place] [phone] * CT Cervical Spine w/o Contrast (07/13/2025 12:45 PM EST) Anatomical Region Laterality Modality Spine, C-spine Computed Tomogra phy 07/13/2025 12:4 5 PM EST Narrative 07/13/2025 1:49 PM EST [address] [address] [address] Scan Report Signed Patient: Juan Alberto Rowe MR#: [id number] : 1945 Acct:[id number] Age/Sex: 79 / M ADM Date: 07/13/25 Loc: HO.ED Attending Dr: Ordering Physician: Farhat Jaime MD Date of Service: 07/13/25 Procedure(s): CT cervical spine wo IV con Accession Number(s): [id number] cc: Farhat Jaime MD; Name,Kayden PITTMAN Report Number: [id number]: Total DLP = 529.00 mGy-cm Reason for [...] AND CRANIOCERVICAL JUNCTION: -Intact and normally aligned. Vavxsoty-dt-oyecia degenerative changes in the anterior atlantoaxial joint. [...] by: Thai Pelayo MD 07/13/2025 01:46 PM [facility] Dictated By: Thai Pelayo MD Signed By: <Electronically signed by Thai Pelayo MD in OV> 07/13/25 1346 DD/ 1245 TD/TT: 07/13/25 1250 Remote Sensing Technologist: Procedure Note Donotuseinterpreter, Image - 07/13/[address] [address] [address] Scan Report Signed Patient: Juan Alberto Rowe#: [id number] : 7Acct:[id number] Age/Sex: 79 / MADM Date: 07/13/25 Loc: HO.ED Attending Dr: Ordering Physician: Farhat Jaime MD Date of Service: 07/13/25 Procedure(s): CT cervical spine wo IV con Accession Number(s): [id number] cc: Farhat Jaime MD; Name,Kayden Report Number: [id number]: Total DLP = 529.00 mGy-cm Reason for [...] AND CRANIOCERVICAL JUNCTION: -Intact and normally aligned. Cyaxxuhu-rp-ylrpun degenerative changes in the anterior atlantoaxial joint. [...] by: Thai Pelayo MD 07/13/2025 01:46 PM [facility] Dictated By: Thai Pelayo MD Signed By: <Electronically signed by Thai Pelayo MD in OV> 07/13/25 1346 DD/ 1245 TD/TT: 07/13/25 1250 Remote Sensing Technologist: us [facility] External Provider IMG CT PROCEDURES Final Result * CT Head w/o Contrast (07/13/2025 12:45 PM EST) Anatomical Region Laterality Modality Head, Neck Computed Tomogra phy 07/13/2025 12:4 5 PM EST Narrative 07/13/2025 1:33 PM EST [address] [address] [address] Scan Report Signed Patient: Juan Alberto Rowe MR#: [id number] : 1945 Acct:[id number] Age/Sex: 79 / M ADM Date: 07/13/25 Loc: HO.ED Attending Dr: Ordering Physician: Farhat Jaime MD Date of Service: 07/13/25 Procedure(s): CT head/brain wo IV con Accession Number(s): [id number] cc: Farhat Jaime MD; Name,Kayden PITTMAN Report Number: [id number]: Total DLP = 637.00 mGy-cm Reason for [...] 07/13/25 1331 DD/ 1245 TD/TT: 07/13/25 1250 Remote Sensing Technologist: Procedure Note Donotuseinterpreter, Image - 07/13/[address] [place] [address] [address] Scan Report Signed Patient: Juan Alberto RoweMR#: [id number] : 1945cct:[id number] Age/Sex: 79 / MADM Date: 07/13/25 Loc: HO.ED Attending Dr: Ordering Physician: Farhat Jaime MD Date of Service: 07/13/25 Procedure(s): CT head/brain wo IV con Accession Number(s): [id number] cc: Farhat Jaime MD; Name,Kayden PITTMAN Report Number: [id number]: Total DLP = 637.00 mGy-cm Reason for [...] 07/13/25 1331 DD/ 1245 TD/TT: 07/13/25 1250 Remote Sensing Technologist: [facility] External Provider IMG CT PROCEDURES Final Result * XR Tibia Fibula 2 Views Left (07/13/2025 12:40 PM EST) Anatomical Region Laterality Modality Lower Extremities, Lower Leg Left Rad iographic Imaging 07/13/2025 12:4 0 PM EST Narrative 07/13/2025 12:56 PM EST [address] [address] XRay Report Signed Patient: Juan Alberto Rowe MR#: [id number] : 1945 Acct:[id number] Age/Sex: 79 / M ADM Date: 07/13/25 Loc: HO.ED Attending Dr: Ordering Physician: Farhat Jaime MD Date of Service: 07/13/25 Procedure(s): XR tibia fibula LT 2V Accession Number(s): [id number] cc: Farhat Jaime MD; Name,Kayden PITTMAN Reason [...] by: Oswaldo Villegas MD 07/13/2025 12:53 PM [facility] Dictated By: Oswaldo Villegas MD Signed By: <Electronically signed by Oswaldo Villegas MD in OV> 07/13/25 1253 DD/ 1240 TD/TT: 07/13/25 1245 Remote Sensing Technologist: Procedure Note Donotuseinterpreter, Image - 07/13/[address] [address] XRay Report Signed Patient: Juan Alberto RoweMR#: [id number] : 7Acct:[id number] Age/Sex: 79 / MADM Date: 07/13/25 Loc: .ED Attending Dr: Ordering Physician: Farhat Jaime MD Date of Service: 07/13/25 Procedure(s): XR tibia fibula LT 2V Accession Number(s): [id number] cc: Farhat Jaime MD; Name,Kayden PITTMAN Reason [...] Oswaldo Villegas MD 07/13/2025 12:53 PM EST RP Dictated By: Oswaldo Villegas MD Signed By: <Electronically signed by Oswaldo Villegas MD in OV> 07/13/25 1253 DD/ 1240 TD/TT: 07/13/25 1245 Remote Sensing Technologist: [facility] External Provider IMG XR PROCEDURES Final Result * XR Chest 1 View (07/13/2025 12:40 PM EST) Anatomical Region Laterality Modality Chest Radiographic Karen ging 07/13/2025 12:4 0 PM EST Narrative 07/13/2025 12:56 PM EST [address] [address] XRay Report Signed Patient: Juan Alberto Rowe MR#: [id number] : 1945 Acct:[id number] Age/Sex: 79 / M ADM Date: 07/13/25 Loc: .ED Attending Dr: Ordering Physician: Farhat Jaime MD Date of Service: 07/13/25 Procedure(s): XR chest 1V Accession Number(s): [id number] cc: Farhat Jaime MD; Name,Kayden PITTMAN Reason [...] 07/13/25 1252 DD/ 1240 TD/TT: 07/13/25 1245 Remote Sensing Technologist: Procedure Note Donotuseinterpreter, Image - 07/13/[address] [address] XRay Report Signed Patient: Juan Alberto RoweMR#: [id number] : 7Acct:[id number] Age/Sex: 79 / MADM Date: 07/13/25 Loc: HO.ED Attending Dr: Ordering Physician: Farhat Jaime MD Date of Service: 07/13/25 Procedure(s): XR chest 1V Accession Number(s): [id number] cc: Farhat Jaime MD; Name,Kayden PITTMAN Reason [...] by: Thai Pelayo MD 07/13/2025 12:52 PM [facility] Dictated By: Thai Pelayo MD Signed By: <Electronically signed by Thai Pelayo MD in OV> 07/13/25 1252 DD/ 1240 TD/TT: 07/13/25 1245 Remote Sensing Technologist: [facility] External Provider IMG XR PROCEDURES Final Result documented in this encounter Visit Diagnoses Not on filedocumented in this encounter Additional Health Concerns Active Problems Noted Date [...] 06/25/2025 Patient has chronic kidney disease 06/25/2025 Assessment Noted Time PHQ-9 Depression Total Score: 6 04/24/20 25 4:40 PM EDT documented as of this encounter Care Teams Machine Plaster Mixer Relationship Specialty Start Date End Date Name, MD Kayden [address] [place] [address] PCP - General Family Medicine 08/23/15 documented as of this encounter
--- OUTSIDE RECORDS SUMMARY | 2025-07-13 14:21 | XMS_ITS | Encounter Summary ---
Author Organization [facility] Address [address] [place] [address] Care Team Providers Care Content Management Consultant Name Role Phone Name, Kayden PITTMAN Primary Care Provider [phone] Encounter Details Date Type Department Care Team (Late st Contact Info) Description 09/30/2024 Lab Requisition [facility] - Main Lab [address] [facility] [place] [address] Evin Sagastume MD [address] [facility] [address] [place], [place] [phone] Gross hematuria Social History Tobacco Use Types [...] AM EDT) Final Diagnosis A. Urine, Voided, ([id number]): ATYPICAL UROTHELIAL CELLS. 10/01/2024 11:38 AM EDT [facility] at 1138 EDT Clinical Information Gross hematuria R31.0 Urine Cytology 10/01/2024 11:38 AM EDT [facility] Gross Description A. Urine, Voided, ([id number]): Received one ThinPrep slide for cytology. 10/01/2024 11:38 AM EDT [facility] Disclaimer Unless otherwise specified, all tissue is 10% NB formalin fixed and paraffin embedded. Technical pathology services provided by [facility] at [address] [facility] [address] [place] [address] (CLIA #[id number]/S evelio Alcaraz MD, Surgery Assistant) 10/01/2024 11:38 AM EDT [facility] Tissue Urine specimen from urethra / Unknown 09/26/2024 09/30/2024 1:13 PM EDT us Evin Sagatsume MD LAB PATHOLOGY ORDERABLES Fi nal Result [facility] [address] [place] [address], documented in this encounter Visit Diagnoses Diagnosis Gross hematuria documented in this encounter Care Teams Content Management Consultant Relationship Specialty Start Date End Date Name, MD Kayden [address] [place], [place] PCP - General Internal Medicine 05/25/11 documented as of this encounter
--- OUTSIDE RECORDS SUMMARY | 2025-07-13 14:21 | XMS_ITS | Encounter Summary ---
Author Organization [employer] Address [address] [facility] [facility] [address] 7t [place] [address] Care Team Providers Care Industrial Automation Specialist Name Role Phone Name, Kayden PITTMAN Primary Care Provider [phone] Reason for Visit * Reason Comments Med Refill Encounter Details Date Type Department Care Team ([facility] st Contact Info) Description 06/13/2025 Refill [facility] [address] [place], [place] [id number] Name, MD Kayden [address] [place] [address] Hypercholesterolemia Social History Tobacco Use Types Packs/Day Years [...] Description 09/16/2025 9:30 AM EST Office Visit [facility] [address] [place] [address] Name, MD Kayden [address] [place] [address] documented as of this encounter Goals Goal [...] chronic kidney disease No Linette Mendoza LPN documented as of this encounter Visit Diagnoses Diagnosis Hypercholesterolemia Pure hypercholesterolemia documented in this encounter Additional Health Concerns Active Problems Noted Date Diagnosed Date Help patients manage their type 2 diabetes 06/02 Weekly blood pressure task 06/02/2025 Help patients manage their type 2 diabetes 06/02 Patient has chronic kidney disease 06/02/2025 Weekly blood pressure task 06/02/2025 Patient has chronic kidney disease 06/02/2025 Assessment Noted Time PHQ-9 Depression Total Score: 6 04/24/20 25 4:40 PM EDT documented as of this encounter Care Teams Industrial Automation Specialist Relationship Specialty Start Date End Date Name, MD Kayden [address] [place] [address] PCP - General Family Medicine 08/23/15 documented as of this encounter
[2025-07-13 14:28] LABS: Anion Gap 12 (12-20); Blood Urea Nitrogen 17 mg/dL (9-16); Calcium 9.9 mg/dL (8.4-10.2); Carbon Dioxide 25 mmol/L (22-29); Chloride 106 mmol/L (96-108); Creatinine Clr Calc Pharmacy 46.1; Estimated Glomerular Filt Rate 52; Potassium 4.5 mmol/L (3.3-5.1); Sodium 138 mmol/L (135-145)
[2025-07-13 14:34] LABS: Troponin-I High Sensitivity 5.4 ng/L (<3.5-35.0)
[2025-07-13 15:18] VITALS: BP 138/69; PULSE 75; RESP 16; TEMP 37.1; O2SAT 95
== END 2025-07-13 15:18 | disposition home or self-care (01) ==
PROVIDERS: Emergency Provider Emergency Medicine; PCP Internal Medicine Geriatric Medicine
DX: S09.90XA Unspecified injury of head, initial encounter (principal); S80.12XA Contusion of left lower leg, initial encounter; R51.9 Headache, unspecified; R07.89 Other chest pain; N39.0 Urinary tract infection, site not specified; M54.2 Cervicalgia; M79.605 Pain in left leg; E11.9 Type 2 diabetes mellitus without complications; I10 Essential (primary) hypertension; W10.9XXA Fall (on) (from) unspecified stairs and steps, initial encounter; Z91.81 History of falling; Y93.9 Activity, unspecified; Y92.9 Unspecified place or not applicable; Y99.8 Other external cause status; Z79.899 Other long term (current) drug therapy; Z79.84 Long term (current) use of oral hypoglycemic drugs
CPT/HCPCS: 36415; 70450; 71045; 72125; 73590; 80048; 81001; 84484; 85025; 87086; 87088; 87186; 93005; 99284

== ENCOUNTER → 2025-07-13 12:14 | Outpatient (BNV) | payer MEDICARE, SELFPAY | PROVIDERS: Emergency Provider Emergency Medicine; PCP Internal Medicine Geriatric Medicine; Visit Provider Internal Medicine | DX: R94.31 Abnormal electrocardiogram [ECG] [EKG] (principal); Z04.3 Encounter for examination and observation following other accident | CPT/HCPCS: 93010 ==

== ENCOUNTER → 2025-07-13 12:14 | Outpatient (BNV) | payer MEDICARE, SELFPAY | PROVIDERS: Emergency Provider Emergency Medicine; PCP Internal Medicine Geriatric Medicine; Visit Provider Radiology Diagnostic Radiology | DX: S19.9XXA Unspecified injury of neck, initial encounter (principal); M47.812 Spondylosis without myelopathy or radiculopathy, cervical region; S09.90XA Unspecified injury of head, initial encounter; R05.9 Cough, unspecified; M79.662 Pain in left lower leg; Z04.3 Encounter for examination and observation following other accident | CPT/HCPCS: 70450; 71045; 72125; 73590 ==